=== PATIENT | male | born 1945 | race Two or more races ===

== ENCOUNTER → 2016-05-21 | Day surgery (SDC) | payer MEDICARE, MEDICAID ==
[2016-05-19 13:03] LABS: Basophils # (auto) 0 uL; Basophils % (auto) 0.6 % (0.0-2.0); DEFINITIVE VIEW TRANSMISSION; Eosinophils # (auto) 0.4 uL; Eosinophils % (auto) 6.6 % (0.0-7.0); Hematocrit 46.7 % (41.0-53.0); Hemoglobin 15.3 g/dL (13.5-17.5); Lymphocytes # (auto) 2.4 uL; Mean Corpuscular Hemoglobin 27.4 pg (28.0-32.0); Mean Corpuscular Hgb Conc. 32.7 g/dL (32.0-36.0); Mean Corpuscular Volume 83.7 fL (80.0-100.0); Mean Platelet Volume 10.9 fL (7.4-10.4); Monocytes # (auto) 0.6 uL; Monocytes % (auto) 9.5 % (0.0-12.0); Neutrophils # (auto) 3.2 uL; Neutrophils % (auto) 47.3 % (37.0-80.0); Platelet Count (auto) 205 10^3/uL (140-450); White Blood Cell 6.7 10^3/uL (4.4-10.8)
[2016-05-19 13:15] LABS: Partial Thromboplastin Time 27.5 sec (22.64-33.71); Prothrombin Time 10.3 sec (9.37-12.3)
[2016-05-19 13:21] LABS: Red Cell Distribution Width 22.3 % (11.6-16.0)
[2016-05-19 14:35] LABS: Anisocytosis Slight; Platelet Estimate Adequate
[~2016-05-21] VITALS: Ht 165.1 cm; Wt 82.6 kg
[~2016-05-21] MED LIST: LIDOCAINE VISCOUS 2% 15ML UD ONE; LISI10TA6 PO; MIDAZOLAM HCL 5 MG/ML-1ML VIAL ONE; SODIUM CHLORIDE LOCK 10 ML ONE; diphenhdrAMINE HCL 50 MG/1 ML VL ONE; fentaNYL CITRATE 100 MCG/2 ML VL ONE
[2016-05-21 11:15] VITALS: BP 129/82
== END | disposition home or self-care (01) ==
LOC: GI 08:47
PROVIDERS: ATTEND Internal Medicine Gastroenterology
DX: K44.9 Diaphragmatic hernia without obstruction or gangrene (principal); T82.897A Other specified complication of cardiac prosthetic devices, implants and grafts, initial encounter
CPT/HCPCS: 36415; 43235; 85025; 85610; 85730; J1200; J2250; J3010

== ENCOUNTER 2016-07-10 19:02 | Emergency (ER) | payer MEDICARE, MEDICAID ==
[~2016-07-10] VITALS: Ht 162.6 cm; Wt 81.6 kg
[~2016-07-10 19:02] MED LIST changes: -LIDOCAINE VISCOUS 2% 15ML UD ONE; -MIDAZOLAM HCL 5 MG/ML-1ML VIAL ONE; -SODIUM CHLORIDE LOCK 10 ML ONE; -diphenhdrAMINE HCL 50 MG/1 ML VL ONE; -fentaNYL CITRATE 100 MCG/2 ML VL ONE
[2016-07-10 19:53] LABS: Basophils # (auto) 0 uL; Basophils % (auto) 0.3 % (0.0-2.0); Eosinophils # (auto) 0.3 uL; Eosinophils % (auto) 3.3 % (0.0-7.0); Hemoglobin 16.1 g/dL (13.5-17.5); Lymphocytes # (auto) 3.4 uL; Lymphocytes % (auto) 37.5 % (10.0-50.0); Mean Corpuscular Hemoglobin 30.3 pg (28.0-32.0); Mean Corpuscular Hgb Conc. 34.2 g/dL (32.0-36.0); Mean Corpuscular Volume 88.6 fL (80.0-100.0); Mean Platelet Volume 9.8 fL (7.4-10.4); Monocytes # (auto) 0.8 uL; Monocytes % (auto) 9.3 % (0.0-12.0); Neutrophils # (auto) 4.5 uL; Neutrophils % (auto) 49.6 % (37.0-80.0); Platelet Count (auto) 200 10^3/uL (140-450); Red Cell Distribution Width 15.4 % (11.6-16.0); White Blood Cell 9.1 10^3/uL (4.4-10.8)
[2016-07-10 20:19] LABS: Alkaline Phosphatase 121 U/L (45-117); Anion Gap 12 (5-15); Aspartate Aminotransferase 25 U/L (15-37); BUN/Creatinine Ratio 10.8; Bilirubin, Total 0.4 mg/dL (0.2-1.0); Blood Urea Nitrogen 15 mg/dL (7-18); Calcium 9.2 mg/dL (8.5-10.1); Carbon Dioxide 26 mmol/L (21-32); Chloride 105 mmol/L (98-107); GFR African American 65 mL/min; GFR Non-African American 54 mL/min; Glucose 109 mg/dL (74-106); Magnesium 2.2 mg/dL (1.6-2.6); Potassium 3.5 mmol/L (3.5-5.1); Sodium 143 mmol/L (136-145); Total Protein 8.7 g/dL (6.4-8.2)
[2016-07-10 20:20] LABS: B-Type Natriuretic Peptide 3.68 pg/mL (0-100)
[2016-07-10 21:06] LABS: Urine Bilirubin Negative (Negative); Urine Blood Negative /uL (Negative); Urine Color Yellow (Yellow); Urine Glucose Normal (Normal); Urine Ketone Negative (Negative); Urine Nitrite Negative (Negative); Urine RBC <1 /hpf (0 - 3); Urine Urobilinogen Normal (Negative); Urine pH 5.5 (5.0-8.0)
[2016-07-11 01:15] VITALS: BP 125/81
== END 2016-07-11 02:19 | disposition home or self-care (01) ==
LOC: ER 19:04
DX: E86.0 Dehydration (principal); K58.9 Irritable bowel syndrome, unspecified; D35.02 Benign neoplasm of left adrenal gland; R53.1 Weakness; I10 Essential (primary) hypertension; Z88.6 Allergy status to analgesic agent; R07.89 Other chest pain
CPT/HCPCS: 36415; 71010; 74176; 80053; 81001; 83735; 83880; 84484; 85025; 93005; 94761

== ENCOUNTER → 2016-07-17 | Outpatient (CLI) | payer MEDICARE, MEDICAID | END | disposition home or self-care (01) | LOC: LAB 08:45 | PROVIDERS: ATTEND Internal Medicine Gastroenterology | DX: B18.2 Chronic viral hepatitis C (principal) ==

== ENCOUNTER 2016-08-06 14:21 | Emergency (ER) | payer MEDICARE, MEDICAID ==
[~2016-08-06] VITALS: Ht 165.1 cm; Wt 79.4 kg
[2016-08-06 15:18] LABS: Basophils # (auto) 0 uL; Basophils % (auto) 0.4 % (0.0-2.0); Eosinophils # (auto) 0.4 uL; Eosinophils % (auto) 5.2 % (0.0-7.0); Hematocrit 44.9 % (41.0-53.0); Hemoglobin 15.5 g/dL (13.5-17.5); Lymphocytes # (auto) 2.3 uL; Lymphocytes % (auto) 31.6 % (10.0-50.0); Mean Corpuscular Hemoglobin 31.3 pg (28.0-32.0); Mean Corpuscular Hgb Conc. 34.5 g/dL (32.0-36.0); Mean Corpuscular Volume 90.7 fL (80.0-100.0); Mean Platelet Volume 10.1 fL (7.4-10.4); Monocytes # (auto) 0.7 uL; Monocytes % (auto) 9.3 % (0.0-12.0); Neutrophils % (auto) 53.5 % (37.0-80.0); Platelet Count (auto) 223 10^3/uL (140-450); Red Cell Distribution Width 14.6 % (11.6-16.0); White Blood Cell 7.4 10^3/uL (4.4-10.8)
[2016-08-06 15:44] LABS: Alkaline Phosphatase 120 U/L (45-117); Anion Gap 11 (5-15); Aspartate Aminotransferase 24 U/L (15-37); BUN/Creatinine Ratio 17.3; Bilirubin, Total 0.3 mg/dL (0.2-1.0); Blood Urea Nitrogen 22 mg/dL (7-18); Calcium 8.9 mg/dL (8.5-10.1); Carbon Dioxide 26 mmol/L (21-32); Chloride 106 mmol/L (98-107); GFR African American 72 mL/min; GFR Non-African American 60 mL/min; Glucose 108 mg/dL (74-106); Magnesium 2.4 mg/dL (1.6-2.6); Potassium 3.8 mmol/L (3.5-5.1); Sodium 143 mmol/L (136-145); Total Protein 8.7 g/dL (6.4-8.2)
[2016-08-06 16:00] VITALS: BP 130/83
== END 2016-08-06 16:20 | disposition home or self-care (01) ==
LOC: EDBD 14:21 → ER 14:29
DX: F41.9 Anxiety disorder, unspecified (principal); Z85.038 Personal history of other malignant neoplasm of large intestine; I10 Essential (primary) hypertension; I25.2 Old myocardial infarction; Z98.61 Coronary angioplasty status; Z88.5 Allergy status to narcotic agent
CPT/HCPCS: 36415; 71020; 80053; 83735; 84484; 85025; 93005

== ENCOUNTER → 2019-05-25 | Outpatient (CLI) | payer MEDICARE | END | disposition home or self-care (01) | LOC: LAB 14:45 | PROVIDERS: ATTEND Internal Medicine Gastroenterology | DX: Z86.19 Personal history of other infectious and parasitic diseases (principal) | CPT/HCPCS: 87522 ==

== ENCOUNTER 2021-06-05 18:14 | Emergency (ER) | payer MEDICARE, OTHER ==
[~2021-06-05] VITALS: Ht 162.6 cm; Wt 86.2 kg
[~2021-06-05 18:14] MED LIST changes: +LISI-716 PO; -LISI10TA6 PO
[2021-06-05 21:21] LABS: Basophils # (auto) 0 10 ^3/uL (0-0.2); Eosinophils # (auto) 0.2 10 ^3/uL (0-0.8); Hemoglobin 12.1 g/dL (13.5-17.5); Lymphocytes # (auto) 0.6 10 ^3/uL (0.4-5.4)
[2021-06-05 21:30] LABS: Basophils % (auto) 0.3 % (0.0-2.0); Eosinophils % (auto) 2.7 % (0.0-7.0); Hematocrit 36.7 % (41.0-53.0); Lymphocytes % (auto) 6.8 % (10.0-50.0); Mean Corpuscular Hemoglobin 25.6 pg (28.0-32.0); Mean Corpuscular Volume 77.7 fL (80.0-100.0); Monocytes # (auto) 0.9 10 ^3/uL (0-1.3); Monocytes % (auto) 10.3 % (0.0-12.0); Neutrophils # (auto) 6.7 10 ^3/uL (1.6-8.6); Neutrophils % (auto) 79.9 % (37.0-80.0); Red Blood Cells 4.72 10^6/uL (4.5-5.90); White Blood Cell 8.4 10^3/uL (4.4-10.8)
[2021-06-05 21:32] LABS: Albumin 3.7 g/dL (3.4-5.0); Calcium 9.5 mg/dL (8.5-10.1); INR 1.04 (0.9-1.15); Magnesium 2.8 mg/dL (1.6-2.6); Partial Thromboplastin Time 24.6 sec (23.6-33.0); Potassium 4.4 mmol/L (3.5-5.1)
[2021-06-05 21:33] LABS: Red Cell Distribution Width 20.6 % (11.8-14.3)
[2021-06-05 21:37] LABS: BUN/Creatinine Ratio 18.3; Bilirubin, Total 0.2 mg/dL (0.2-1.0); Total Protein 7.6 g/dL (6.4-8.2)
[2021-06-06 01:31] VITALS: BP 150/88
== END 2021-06-06 02:32 | disposition home or self-care (01) ==
LOC: ER 18:14 → EDBD 18:14 → ER 06-06 02:32
DX: R00.2 Palpitations (principal); I48.91 Unspecified atrial fibrillation; I10 Essential (primary) hypertension; I25.2 Old myocardial infarction; Z88.6 Allergy status to analgesic agent
CPT/HCPCS: 36415; 71045; 80053; 83735; 83880; 84443; 84484; 85025; 85379; 85610; 85730; 93005

== ENCOUNTER 2021-11-08 09:12 | Inpatient (IN) | payer MEDICARE, OTHER ==
[~2021-11-08] VITALS: Ht 162.6 cm; Wt 83.1 kg
[2021-11-08 10:10] LABS: Basophils # (auto) 0 10 ^3/uL (0-0.2); Basophils % (auto) 0.5 % (0.0-2.0); Eosinophils # (auto) 0.3 10 ^3/uL (0-0.8); Eosinophils % (auto) 4.1 % (0.0-7.0); Hematocrit 35.9 % (41.0-53.0); Hemoglobin 12.4 g/dL (13.5-17.5); Lymphocytes # (auto) 0.6 10 ^3/uL (0.4-5.4); Lymphocytes % (auto) 7.2 % (10.0-50.0); Mean Corpuscular Hemoglobin 28.3 pg (28.0-32.0); Mean Corpuscular Hgb Conc. 34.5 g/dL (32.0-36.0); Mean Corpuscular Volume 81.9 fL (80.0-100.0); Monocytes # (auto) 0.7 10 ^3/uL (0-1.3); Monocytes % (auto) 9.1 % (0.0-12.0); Neutrophils # (auto) 6.2 10 ^3/uL (1.6-8.6); Neutrophils % (auto) 79.1 % (37.0-80.0); Red Blood Cells 4.38 10^6/uL (4.5-5.90); Red Cell Distribution Width 18.2 % (11.8-14.3); White Blood Cell 7.8 10^3/uL (4.4-10.8)
[2021-11-08 10:19] LABS: Albumin 3.5 g/dL (3.4-5.0); Calcium 8.7 mg/dL (8.5-10.1); Potassium 3.4 mmol/L (3.5-5.1)
[2021-11-08 10:23] LABS: BUN/Creatinine Ratio 14.4; Bilirubin, Total 0.4 mg/dL (0.2-1.0); Total Protein 7.8 g/dL (6.4-8.2)
[2021-11-08] MEDS ORDERED: SODIUM CHLORIDE 0.9% 500 ML IV ONE (11:30)
[2021-11-08] MEDS ORDERED: FAMOTIDINE 20 MG TAB PO ONE (12:15)
[2021-11-08] MEDS ORDERED: ALUM & MAG HYDROX-SIMETH LIQ(MAALOX) 30 ML PO ONE (12:15)
[2021-11-08] MEDS ORDERED: ONDANSETRON HCL 4 MG/2 ML VIAL IV ONE ×2 (12:15→18:45)
[2021-11-08] MEDS ORDERED: POTASSIUM EFFERVESENT TAB 25 MEQ PO ONE (15:30)
[2021-11-08 16:04] LABS: Urine Bacteria NONE SEEN /hpf (None Seen); Urine Blood Negative /uL (Negative); Urine Mucus FEW (None Seen); Urine Specific Gravity 1.021 (1.001-1.035); Urine WBC <1 /hpf (0 - 3)
[2021-11-08] MEDS ORDERED: ONDANSETRON HCL 4 MG/2 ML VIAL ONE (18:29)
[2021-11-08] MEDS ORDERED: DOCUSATE SOD 100 MG CAP PO PRN (18:30)
[2021-11-08] MEDS ORDERED: ALBUTEROL SULF 2.5 MG/0.5ML(0.5%) NEB SOLN NEB PRN (18:30)
[2021-11-08] MEDS: ACETAMINOPHEN 325 MG TAB PO PRN (18:53)
[2021-11-08 22:00] VITALS: BP 122/62
[2021-11-08] MEDS: CARVEDILOL 12.5 MG TAB PO SCH (22:47)
[2021-11-08] MEDS: SODIUM CHLOR 0.9% PF (SALINE LOCK) 10ML VIAL/SYR IV SCH (22:47)
[2021-11-08 23:04] LABS: BUN/Creatinine Ratio 16.3; Calcium 8.5 mg/dL (8.5-10.1)
[2021-11-09] MEDS: ONDANSETRON HCL 4 MG/2 ML VIAL IV PRN ×4 (01:39→18:42)
[2021-11-09] MEDS: ACETAMINOPHEN 325 MG TAB PO PRN ×4 (01:48→21:39)
[2021-11-09 02:25] LABS: BUN/Creatinine Ratio 15.4; Calcium 8.9 mg/dL (8.5-10.1); Potassium 3.9 mmol/L (3.5-5.1)
[2021-11-09 05:30] VITALS: BP 146/77
[2021-11-09 06:00] VITALS: BP 122/65
[2021-11-09] MEDS: SODIUM CHLOR 0.9% PF (SALINE LOCK) 10ML VIAL/SYR IV SCH ×3 (06:19→21:38)
[2021-11-09 06:36] LABS: Calcium 8.9 mg/dL (8.5-10.1); Potassium 3.9 mmol/L (3.5-5.1)
[2021-11-09 08:00] VITALS: BP 129/68
[2021-11-09] MEDS: FERROUS SULFATE 325mg EC TAB PO SCH (09:24)
[2021-11-09] MEDS: CARVEDILOL 12.5 MG TAB PO SCH ×2 (09:24→21:48)
[2021-11-09] MEDS: ASPirin-EC 81 mg tab PO SCH (09:24)
[2021-11-09] MEDS: LISINOPRIL 5 MG TAB PO SCH (09:25)
[2021-11-09] MEDS ORDERED: LISINOPRIL 10 MG TAB PO SCH (10:00)
[2021-11-09 10:16] LABS: BUN/Creatinine Ratio 13.9; Calcium 8.9 mg/dL (8.5-10.1)
[2021-11-09 10:18] LABS: Potassium 3.7 mmol/L (3.5-5.1)
[2021-11-09 11:30] VITALS: BP 115/63
[2021-11-09 14:19] LABS: BUN/Creatinine Ratio 13.5; Calcium 8.8 mg/dL (8.5-10.1); Potassium 3.7 mmol/L (3.5-5.1)
[2021-11-09] MEDS: SODIUM CHLORIDE 1 GM TAB PO SCH ×2 (14:45→21:38)
[2021-11-09 16:25] VITALS: BP_SYST 134; BP_SYST 138; BP_DIAS 73; BP_DIAS 86
[2021-11-09 22:00] VITALS: BP 127/67
[2021-11-10] MEDS: ONDANSETRON HCL 4 MG/2 ML VIAL IV PRN ×2 (00:07→10:10)
[2021-11-10] MEDS ORDERED: TEMAZEPAM 15 MG CAP PO ONE (00:45)
[2021-11-10 05:00] VITALS: BP 130/70
[2021-11-10] MEDS: SODIUM CHLOR 0.9% PF (SALINE LOCK) 10ML VIAL/SYR IV SCH ×3 (05:43→23:45)
[2021-11-10] MEDS: SODIUM CHLORIDE 1 GM TAB PO SCH ×4 (05:44→22:00)
[2021-11-10 09:13] VITALS: BP 133/73
[2021-11-10] MEDS: FERROUS SULFATE 325mg EC TAB PO SCH (10:09)
[2021-11-10] MEDS: ASPirin-EC 81 mg tab PO SCH (10:09)
[2021-11-10] MEDS: CARVEDILOL 12.5 MG TAB PO SCH ×2 (10:09→22:17)
[2021-11-10] MEDS: LISINOPRIL 5 MG TAB PO SCH (10:10)
[2021-11-10] MEDS: ACETAMINOPHEN 325 MG TAB PO PRN (10:10)
[2021-11-10] MEDS ORDERED: HYDROcodone-ACET 7.5/325MG TAB PO PRN (12:00)
[2021-11-10 12:24] LABS: BUN/Creatinine Ratio 11.2; Calcium 8.8 mg/dL (8.5-10.1); Potassium 3.6 mmol/L (3.5-5.1)
[2021-11-10 12:25] VITALS: BP 137/70
[2021-11-10] MEDS ORDERED: IOHEXOL 300 MG/ML 100ML BOTTLE IJ ONE (13:24)
[2021-11-10] MEDS ORDERED: UREA 15 GM PO SCH (15:00)
[2021-11-10] MEDS: UREA 15gm PO Powder PKG PO SCH ×2 (16:28→22:17)
[2021-11-10 16:41] VITALS: BP 138/72
[2021-11-10] MEDS: FUROSEMIDE 20 MG TAB PO SCH (18:00)
[2021-11-10 21:55] VITALS: BP 105/61
[2021-11-10] MEDS: PANTOPRAZOLE 40 MG TAB PO SCH (22:17)
[2021-11-11 04:55] VITALS: BP 114/61
[2021-11-11] MEDS: FUROSEMIDE 20 MG TAB PO SCH (05:38)
[2021-11-11 06:11] LABS: BUN/Creatinine Ratio 34.4; Calcium 9.2 mg/dL (8.5-10.1); Potassium 3.6 mmol/L (3.5-5.1)
[2021-11-11] MEDS: SODIUM CHLORIDE 1 GM TAB PO SCH ×3 (07:01→22:33)
[2021-11-11] MEDS: SODIUM CHLOR 0.9% PF (SALINE LOCK) 10ML VIAL/SYR IV SCH ×3 (07:02→22:34)
[2021-11-11] MEDS: PROMETHAZINE HCL 25 MG/ML 1ML IV PRN ×3 (07:50→21:48)
[2021-11-11 08:45] VITALS: BP 133/74
[2021-11-11] MEDS: ASPirin-EC 81 mg tab PO SCH (09:27)
[2021-11-11] MEDS: LISINOPRIL 5 MG TAB PO SCH (09:27)
[2021-11-11] MEDS: PANTOPRAZOLE 40 MG TAB PO SCH ×2 (09:27→22:30)
[2021-11-11] MEDS: FERROUS SULFATE 325mg EC TAB PO SCH (09:27)
[2021-11-11] MEDS: UREA 15gm PO Powder PKG PO SCH ×2 (09:28→22:30)
[2021-11-11] MEDS: CARVEDILOL 12.5 MG TAB PO SCH ×2 (09:28→22:32)
[2021-11-11 16:49] VITALS: BP 90/50
[2021-11-11 22:00] VITALS: BP 110/63
[2021-11-12 03:55] VITALS: BP 114/67
[2021-11-12] MEDS: PROMETHAZINE HCL 25 MG/ML 1ML IV PRN (05:24)
[2021-11-12 05:53] LABS: BUN/Creatinine Ratio 34.5; Calcium 9.2 mg/dL (8.5-10.1)
[2021-11-12] MEDS: SODIUM CHLORIDE 1 GM TAB PO SCH (05:57)
[2021-11-12] MEDS: SODIUM CHLOR 0.9% PF (SALINE LOCK) 10ML VIAL/SYR IV SCH ×3 (06:00→21:26)
[2021-11-12 09:00] VITALS: BP 137/76
[2021-11-12 09:10] VITALS: BP 114/67
[2021-11-12] MEDS ORDERED: GASTROGRAFIN 120 ML SOL ONE (09:21)
[2021-11-12] MEDS ORDERED: EZ-GAS II GRANULES (RADIOLOGY USE) PO ONE (09:22)
[2021-11-12] MEDS: CARVEDILOL 12.5 MG TAB PO SCH ×2 (10:00→21:26)
[2021-11-12] MEDS ORDERED: ALBUMIN 25% 100 ML IV ONE (10:00)
[2021-11-12] MEDS: PANTOPRAZOLE 40 MG TAB PO SCH ×2 (12:22→21:25)
[2021-11-12] MEDS: ASPirin-EC 81 mg tab PO SCH (12:22)
[2021-11-12] MEDS: FERROUS SULFATE 325mg EC TAB PO SCH (12:22)
[2021-11-12] MEDS: LISINOPRIL 5 MG TAB PO SCH (12:23)
[2021-11-12 13:00] VITALS: BP 117/71
[2021-11-12 15:30] LABS: BUN/Creatinine Ratio 30.1; Calcium 9.2 mg/dL (8.5-10.1); Potassium 4.2 mmol/L (3.5-5.1)
[2021-11-12 16:56] VITALS: BP 110/72
[2021-11-12 22:00] VITALS: BP 121/78
[2021-11-13 05:28] LABS: Basophils # (auto) 0.1 10 ^3/uL (0-0.2); Basophils % (auto) 0.8 % (0.0-2.0); Eosinophils # (auto) 0.4 10 ^3/uL (0-0.8); Eosinophils % (auto) 5.9 % (0.0-7.0); Hematocrit 33.5 % (41.0-53.0); Hemoglobin 11.2 g/dL (13.5-17.5); Lymphocytes # (auto) 0.8 10 ^3/uL (0.4-5.4); Lymphocytes % (auto) 11.9 % (10.0-50.0); Mean Corpuscular Hemoglobin 28.3 pg (28.0-32.0); Mean Corpuscular Hgb Conc. 33.4 g/dL (32.0-36.0); Mean Corpuscular Volume 84.5 fL (80.0-100.0); Monocytes # (auto) 1.1 10 ^3/uL (0-1.3); Monocytes % (auto) 15.8 % (0.0-12.0); Neutrophils # (auto) 4.5 10 ^3/uL (1.6-8.6); Neutrophils % (auto) 65.6 % (37.0-80.0); Red Blood Cells 3.96 10^6/uL (4.5-5.90); Red Cell Distribution Width 19.1 % (11.8-14.3); White Blood Cell 6.8 10^3/uL (4.4-10.8)
[2021-11-13 05:49] LABS: Calcium 8.8 mg/dL (8.5-10.1); Potassium 4.1 mmol/L (3.5-5.1)
[2021-11-13] MEDS: SODIUM CHLOR 0.9% PF (SALINE LOCK) 10ML VIAL/SYR IV SCH ×2 (05:49→14:00)
[2021-11-13 05:52] LABS: BUN/Creatinine Ratio 30.5
[2021-11-13 09:01] VITALS: BP 112/60
[2021-11-13] MEDS: ASPirin-EC 81 mg tab PO SCH (10:43)
[2021-11-13] MEDS: LISINOPRIL 5 MG TAB PO SCH (10:44)
[2021-11-13] MEDS: PANTOPRAZOLE 40 MG TAB PO SCH (10:44)
[2021-11-13] MEDS: CARVEDILOL 12.5 MG TAB PO SCH (10:45)
[2021-11-13] MEDS: FERROUS SULFATE 325mg EC TAB PO SCH (10:45)
[2021-11-13] MEDS ORDERED: PANT40T PO (12:38)
[2021-11-13 13:00] VITALS: BP 119/65
[2021-11-13 15:14] VITALS: BP 119/65
== END 2021-11-13 16:43 | disposition home or self-care (01) | DRG 644 ==
LOC: ER 09:12 → OVERFLOW 18:24 → DOU IN ICU 11-09 04:50 → TELE-WESTW 11-09 12:40
PROVIDERS: ADMIT Internal Medicine; ATTEND Family Medicine
DX: E22.2 Syndrome of inappropriate secretion of antidiuretic hormone (principal); N17.9 Acute kidney failure, unspecified; J84.10 Pulmonary fibrosis, unspecified; E86.0 Dehydration; E87.6 Hypokalemia; D64.9 Anemia, unspecified; R91.1 Solitary pulmonary nodule; K57.10 Diverticulosis of small intestine without perforation or abscess without bleeding; Z88.5 Allergy status to narcotic agent; I10 Essential (primary) hypertension; I25.10 Atherosclerotic heart disease of native coronary artery without angina pectoris; I25.2 Old myocardial infarction; J44.9 Chronic obstructive pulmonary disease, unspecified; Z85.038 Personal history of other malignant neoplasm of large intestine; Z85.46 Personal history of malignant neoplasm of prostate; Z86.16 Personal history of COVID-19; Z87.01 Personal history of pneumonia (recurrent); Z90.49 Acquired absence of other specified parts of digestive tract; Z90.79 Acquired absence of other genital organ(s); Z95.1 Presence of aortocoronary bypass graft; Z98.84 Bariatric surgery status
CPT/HCPCS: 36415; 70450; 71046; 71260; 74246; 76705; 78226; 80048; 80053; 81001; 83930; 83935; 84300; 84484; 85025; 87081; 93005; 96361; 96374; 99291; G0378; J2405; P9047

== ENCOUNTER 2021-11-18 08:16 | Inpatient (IN) | payer MEDICARE, OTHER ==
[~2021-11-18] VITALS: Ht 162.6 cm; Wt 80.7 kg
[~2021-11-18 08:16] MED LIST changes: +PANT40T PO
[2021-11-18] MEDS ORDERED: methylPREDNISolone SOD SUCC 125 MG/2 ML VL IV ONE (08:45)
[2021-11-18 10:46] LABS: Basophils # (auto) 0 10 ^3/uL (0-0.2); Basophils % (auto) 0.5 % (0.0-2.0); Eosinophils # (auto) 0.4 10 ^3/uL (0-0.8); Eosinophils % (auto) 4.3 % (0.0-7.0); Hematocrit 35.3 % (41.0-53.0); Hemoglobin 11.9 g/dL (13.5-17.5); Lymphocytes # (auto) 0.7 10 ^3/uL (0.4-5.4); Lymphocytes % (auto) 8.6 % (10.0-50.0); Mean Corpuscular Hemoglobin 28.3 pg (28.0-32.0); Mean Corpuscular Hgb Conc. 33.7 g/dL (32.0-36.0); Mean Corpuscular Volume 83.9 fL (80.0-100.0); Monocytes # (auto) 0.8 10 ^3/uL (0-1.3); Monocytes % (auto) 10.1 % (0.0-12.0); Neutrophils # (auto) 6.4 10 ^3/uL (1.6-8.6); Neutrophils % (auto) 76.5 % (37.0-80.0); Red Cell Distribution Width 19.1 % (11.8-14.3); White Blood Cell 8.4 10^3/uL (4.4-10.8)
[2021-11-18 11:01] LABS: Albumin 3.6 g/dL (3.4-5.0); Calcium 9.2 mg/dL (8.5-10.1); Potassium 4.5 mmol/L (3.5-5.1)
[2021-11-18 11:06] LABS: BUN/Creatinine Ratio 15.7; Bilirubin, Total 0.2 mg/dL (0.2-1.0)
[2021-11-18] MEDS ORDERED: DOCUSATE SOD 100 MG CAP PO PRN (16:00)
[2021-11-18] MEDS ORDERED: ACETAMINOPHEN 325 MG TAB PO PRN (16:00)
[2021-11-18] MEDS: SODIUM CHLORIDE 0.9% 1,000 ML IV SCH (16:16)
[2021-11-19 00:01] VITALS: BP 129/71
[2021-11-19 05:00] VITALS: BP 118/64
[2021-11-19 05:16] LABS: Basophils # (auto) 0 10 ^3/uL (0-0.2); Eosinophils # (auto) 0 10 ^3/uL (0-0.8); Hematocrit 34.1 % (41.0-53.0); Hemoglobin 11.5 g/dL (13.5-17.5); Lymphocytes # (auto) 0.5 10 ^3/uL (0.4-5.4); Lymphocytes % (auto) 5.3 % (10.0-50.0); Mean Corpuscular Hemoglobin 28.1 pg (28.0-32.0); Mean Corpuscular Hgb Conc. 33.9 g/dL (32.0-36.0); Mean Corpuscular Volume 83.1 fL (80.0-100.0); Monocytes # (auto) 0.3 10 ^3/uL (0-1.3); Neutrophils # (auto) 9.2 10 ^3/uL (1.6-8.6); Neutrophils % (auto) 91.7 % (37.0-80.0); Red Cell Distribution Width 19.2 % (11.8-14.3)
[2021-11-19 05:27] LABS: Albumin 3.4 g/dL (3.4-5.0); Calcium 9.3 mg/dL (8.5-10.1); Potassium 4.1 mmol/L (3.5-5.1)
[2021-11-19 05:30] LABS: BUN/Creatinine Ratio 19.3; Bilirubin, Total 0.3 mg/dL (0.2-1.0); Total Protein 7.5 g/dL (6.4-8.2)
[2021-11-19 06:31] LABS: Urine Bacteria NONE SEEN /hpf (None Seen); Urine Blood Negative /uL (Negative); Urine WBC <1 /hpf (0 - 3)
[2021-11-19 09:00] VITALS: BP 117/64
[2021-11-19] MEDS ORDERED: AZITHROMYCIN 500MG/ 250ML 250 ML IV SCH (10:00)
[2021-11-19] MEDS: cefTRIAXone 1GM/50ML D5W 50 ML IV SCH (10:24)
[2021-11-19] MEDS: ENOXAPARIN SOD 40 MG/0.4 ML SYRINGE SC SCH (10:24)
[2021-11-19] MEDS: SODIUM CHLORIDE 0.9% 1,000 ML IV SCH (10:27)
[2021-11-19 12:49] VITALS: BP 141/70
[2021-11-19] MEDS ORDERED: LISINOPRIL 5 MG TAB PO ONE (14:15)
[2021-11-19] MEDS ORDERED: POTASSIUM CHL 20 Meq TABLET PO ONE (14:15)
[2021-11-19] MEDS ORDERED: FUROSEMIDE 40 MG/4 ML VIAL IV ONE (14:15)
[2021-11-19] MEDS ORDERED: ASPirin 81 mg TAB PO ONE (14:15)
[2021-11-19 16:29] VITALS: BP 120/71
[2021-11-19 22:00] VITALS: BP 109/61
[2021-11-19] MEDS: ATORVASTATIN 20 MG TAB PO SCH (23:03)
[2021-11-20] VITALS (7 sets, daily range): BP systolic 104–156; BP diastolic 62–88
[2021-11-20 06:10] LABS: Calcium 9.4 mg/dL (8.5-10.1); Potassium 3.9 mmol/L (3.5-5.1)
[2021-11-20 06:12] LABS: BUN/Creatinine Ratio 22.4
[2021-11-20] MEDS: cefTRIAXone 1GM/50ML D5W 50 ML IV SCH (10:45)
[2021-11-20] MEDS: LISINOPRIL 5 MG TAB PO SCH (10:46)
[2021-11-20] MEDS: ENOXAPARIN SOD 40 MG/0.4 ML SYRINGE SC SCH (10:46)
[2021-11-20] MEDS: AZITHROMYCIN 250 MG TAB PO SCH (10:47)
[2021-11-20] MEDS: ASPirin 81 mg TAB PO SCH (10:48)
[2021-11-20] MEDS ORDERED: FUROSEMIDE 40 MG/4 ML VIAL IV ONE (15:30)
[2021-11-20] MEDS ORDERED: POTASSIUM CHL 20 Meq TABLET PO ONE (15:30)
[2021-11-20] MEDS ORDERED: CARVEDILOL 12.5 MG TAB PO ONE (20:45)
[2021-11-20] MEDS: ATORVASTATIN 20 MG TAB PO SCH (21:28)
[2021-11-20] MEDS ORDERED: AMIODARONE HCL (50 MG/ ML) 3 ML VIAL IV ONE (22:52)
[2021-11-20] MEDS ORDERED: AMIODARONE 450mg/250ml AE 250 ML IV ONE (22:53)
[2021-11-20] MEDS ORDERED: NITROGLYCERIN 0.4 MG SL TAB SL PRN (23:00)
[2021-11-20] MEDS ORDERED: AMIODARONE HCL 150 MG in D5W 5% 100 ML IV ONE (23:15)
[2021-11-20] MEDS ORDERED: AMIODARONE 450mg/250ml AE 250 ML IV SCH (23:30)
[2021-11-21] MEDS: HYDROcodone-ACET 5/325MG TAB PO PRN (00:21)
[2021-11-21 05:00] VITALS: BP 111/65
[2021-11-21] MEDS ORDERED: AMIODARONE 450mg/250ml AE 250 ML IV SCH (05:30)
[2021-11-21 09:00] VITALS: BP 112/68
[2021-11-21] MEDS: cefTRIAXone 1GM/50ML D5W 50 ML IV SCH (10:48)
[2021-11-21] MEDS: LISINOPRIL 5 MG TAB PO SCH (10:49)
[2021-11-21] MEDS: CARVEDILOL 12.5 MG TAB PO SCH ×2 (10:50→22:00)
[2021-11-21] MEDS: AZITHROMYCIN 250 MG TAB PO SCH (10:55)
[2021-11-21] MEDS: ENOXAPARIN SOD 40 MG/0.4 ML SYRINGE SC SCH (10:56)
[2021-11-21] MEDS: ASPirin 81 mg TAB PO SCH (11:01)
[2021-11-21 12:55] VITALS: BP 127/76
[2021-11-21] MEDS ORDERED: NITROGLYCERIN 2% OINT 1GM PKG TD SCH (14:30)
[2021-11-21] MEDS ORDERED: RIV15T PO (15:21)
[2021-11-21] MEDS ORDERED: PRE5T PO (15:21)
[2021-11-21] MEDS ORDERED: LORA-655 PO (15:21)
[2021-11-21] MEDS ORDERED: OMEP-263 PO (15:21)
[2021-11-21] MEDS ORDERED: INDA2.5T PO (15:21)
[2021-11-21] MEDS ORDERED: HYDR5CRE3 PR (15:21)
[2021-11-21] MEDS ORDERED: ICOS1CAP PO (15:21)
[2021-11-21] MEDS ORDERED: FERR324T17 PO (15:21)
[2021-11-21] MEDS ORDERED: MONT-8 PO (15:21)
[2021-11-21] MEDS ORDERED: LISI-275 PO (15:21)
[2021-11-21] MEDS ORDERED: ESCI-28 PO (15:21)
[2021-11-21] MEDS ORDERED: ONDANSETRON HCL 4 MG/2 ML VIAL IV PRN (16:00)
[2021-11-21] MEDS ORDERED: PANTOPRAZOLE 40 MG/10 ML VIAL INJ IV ONE (16:00)
[2021-11-21] MEDS: ONDANSETRON HCL 4 MG/2 ML VIAL IV PRN ×2 (16:02→22:32)
[2021-11-21 17:00] VITALS: BP 118/67
[2021-11-21] MEDS: RIVAROXABAN 15 MG TAB PO SCH (18:00)
[2021-11-21 22:00] VITALS: BP 92/55
[2021-11-21] MEDS: ATORVASTATIN 20 MG TAB PO SCH (22:00)
[2021-11-22] MEDS ORDERED: SODIUM CHLORIDE 0.9% 500 ML IV ONE
[2021-11-22 05:00] VITALS: BP 99/60
[2021-11-22 07:17] LABS: Calcium 8.5 mg/dL (8.5-10.1); Potassium 4.1 mmol/L (3.5-5.1)
[2021-11-22 07:20] LABS: BUN/Creatinine Ratio 22.6
[2021-11-22 07:56] LABS: Hematocrit 32.3 % (41.0-53.0); Hemoglobin 11.4 g/dL (13.5-17.5); Mean Corpuscular Hgb Conc. 35.2 g/dL (32.0-36.0); Mean Corpuscular Volume 82.2 fL (80.0-100.0); Red Blood Cells 3.93 10^6/uL (4.5-5.90); White Blood Cell 7.5 10^3/uL (4.4-10.8)
[2021-11-22 07:59] LABS: Band Neutrophils % (manual) 0; Basophils % (manual) 0 (0.0-2.0); Blast Cells 0; Metamyelocytes % 0; Myelocytes % 0; Promyelocytes % 0; Reactive Lymphocytes 0
[2021-11-22 08:32] LABS: Eosinophils % (manual) 5 (0-7); Lymphocytes % (manual) 10 (10.0-50.0); Monocytes % (manual) 5 (0-12)
[2021-11-22 09:19] VITALS: BP 103/67
[2021-11-22] MEDS: CARVEDILOL 12.5 MG TAB PO SCH ×2 (10:00→22:47)
[2021-11-22] MEDS: cefTRIAXone 1GM/50ML D5W 50 ML IV SCH (10:00)
[2021-11-22] MEDS: ONDANSETRON HCL 4 MG/2 ML VIAL IV PRN (10:36)
[2021-11-22] MEDS: PANTOPRAZOLE 40 MG/10 ML VIAL INJ IV SCH (10:36)
[2021-11-22 13:15] VITALS: BP 114/70
[2021-11-22 16:57] VITALS: BP 114/69
[2021-11-22] MEDS ORDERED: NITROGLYCERIN 2% OINT 1GM PKG TD ONE (17:30)
[2021-11-22] MEDS: RIVAROXABAN 15 MG TAB PO SCH (17:42)
[2021-11-22 22:00] VITALS: BP 109/69
[2021-11-22] MEDS: HYDROcodone-ACET 5/325MG TAB PO PRN (22:16)
[2021-11-22] MEDS: ATORVASTATIN 20 MG TAB PO SCH (22:47)
[2021-11-23 05:00] VITALS: BP 102/66
[2021-11-23 08:11] LABS: Potassium 4.3 mmol/L (3.5-5.1)
[2021-11-23 08:22] LABS: Albumin 3.3 g/dL (3.4-5.0); BUN/Creatinine Ratio 16.2; Bilirubin, Total 0.5 mg/dL (0.2-1.0); Calcium 9.1 mg/dL (8.5-10.1); Total Protein 7.2 g/dL (6.4-8.2)
[2021-11-23] MEDS: ONDANSETRON HCL 4 MG/2 ML VIAL IV PRN (08:51)
[2021-11-23] MEDS: PANTOPRAZOLE 40 MG/10 ML VIAL INJ IV SCH (09:51)
[2021-11-23] MEDS: CARVEDILOL 12.5 MG TAB PO SCH ×2 (09:51→21:33)
[2021-11-23] MEDS: cefTRIAXone 1GM/50ML D5W 50 ML IV SCH (09:52)
[2021-11-23] MEDS: RIVAROXABAN 15 MG TAB PO SCH (17:47)
[2021-11-23] MEDS: ATORVASTATIN 20 MG TAB PO SCH (21:33)
[2021-11-23 22:00] VITALS: BP 143/71
[2021-11-24] MEDS: ONDANSETRON HCL 4 MG/2 ML VIAL IV PRN (03:58)
[2021-11-24 05:00] VITALS: BP 126/74
[2021-11-24 09:00] VITALS: BP 112/72
[2021-11-24] MEDS: PANTOPRAZOLE 40 MG/10 ML VIAL INJ IV SCH (09:47)
[2021-11-24] MEDS: CARVEDILOL 12.5 MG TAB PO SCH (09:51)
[2021-11-24] MEDS ORDERED: POTA10TA32 PO (12:16)
[2021-11-24] MEDS ORDERED: FURO1TAB33 PO (12:16)
[2021-11-24] MEDS ORDERED: CAR125T PO (12:16)
[2021-11-24 13:00] VITALS: BP 104/67
[2021-11-24 14:03] LABS: Basophils # (auto) 0 10 ^3/uL (0-0.2); Basophils % (auto) 0.7 % (0.0-2.0); Eosinophils # (auto) 0.6 10 ^3/uL (0-0.8); Eosinophils % (auto) 9.8 % (0.0-7.0); Hematocrit 34.9 % (41.0-53.0); Hemoglobin 11.6 g/dL (13.5-17.5); Lymphocytes # (auto) 0.7 10 ^3/uL (0.4-5.4); Lymphocytes % (auto) 10.9 % (10.0-50.0); Mean Corpuscular Hemoglobin 27.8 pg (28.0-32.0); Mean Corpuscular Hgb Conc. 33.1 g/dL (32.0-36.0); Monocytes # (auto) 0.6 10 ^3/uL (0-1.3); Monocytes % (auto) 10.3 % (0.0-12.0); Neutrophils # (auto) 4.2 10 ^3/uL (1.6-8.6); Neutrophils % (auto) 68.3 % (37.0-80.0); Red Blood Cells 4.16 10^6/uL (4.5-5.90); Red Cell Distribution Width 18.7 % (11.8-14.3); White Blood Cell 6.2 10^3/uL (4.4-10.8)
[2021-11-24 17:00] VITALS: BP 117/70
[2021-11-24 17:05] VITALS: BP 112/72
== END 2021-11-24 18:28 | disposition home health service (06) | DRG 291 ==
LOC: ER 08:16 → TELE 15:49 → TELE-WESTW 23:25
PROVIDERS: ADMIT Internal Medicine; ATTEND Internal Medicine
DX: I11.0 Hypertensive heart disease with heart failure (principal); I50.41 Acute combined systolic (congestive) and diastolic (congestive) heart failure; J96.21 Acute and chronic respiratory failure with hypoxia; J15.9 Unspecified bacterial pneumonia; J44.0 Chronic obstructive pulmonary disease with (acute) lower respiratory infection; E87.1 Hypo-osmolality and hyponatremia; C18.9 Malignant neoplasm of colon, unspecified; D68.69 Other thrombophilia; D64.9 Anemia, unspecified; J84.10 Pulmonary fibrosis, unspecified; I25.10 Atherosclerotic heart disease of native coronary artery without angina pectoris; E78.5 Hyperlipidemia, unspecified; I48.91 Unspecified atrial fibrillation; D69.6 Thrombocytopenia, unspecified; Z95.1 Presence of aortocoronary bypass graft; Z83.3 Family history of diabetes mellitus; Z85.46 Personal history of malignant neoplasm of prostate; Z79.899 Other long term (current) drug therapy; Z86.16 Personal history of COVID-19; Z85.038 Personal history of other malignant neoplasm of large intestine
CPT/HCPCS: 36415; 71045; 71046; 80048; 80053; 81001; 82962; 83605; 83735; 83880; 84443; 84484; 85007; 85025; 85027; 85379; 87040; 87081; 93005; 93306; 96361; 96374; 99291; C9113; G0378; J0696; J2405; J7060

== ENCOUNTER 2021-11-29 15:13 | Inpatient (IN) | payer MEDICARE, OTHER ==
[~2021-11-29] VITALS: Ht 162.6 cm; Wt 77.5 kg
[~2021-11-29 15:13] MED LIST changes: +CAR125T PO; +ESCI-28 PO; +FERR324T17 PO; +FURO1TAB33 PO; +HYDR5CRE3 PR; +ICOS1CAP PO; +INDA2.5T PO; +LISI-275 PO; -LISI-716 PO; +LORA-655 PO; +MONT-8 PO; +OMEP-263 PO; +POTA10TA32 PO; +PRE5T PO; +RIV15T PO
[2021-11-29 16:29] LABS: Basophils # (auto) 0.1 10 ^3/uL (0-0.2); Basophils % (auto) 0.7 % (0.0-2.0); Eosinophils # (auto) 0.6 10 ^3/uL (0-0.8); Eosinophils % (auto) 5.5 % (0.0-7.0); Hematocrit 38.7 % (41.0-53.0); Lymphocytes % (auto) 9.2 % (10.0-50.0); Mean Corpuscular Hemoglobin 27.9 pg (28.0-32.0); Mean Corpuscular Hgb Conc. 33.4 g/dL (32.0-36.0); Mean Corpuscular Volume 83.4 fL (80.0-100.0); Monocytes # (auto) 1.1 10 ^3/uL (0-1.3); Monocytes % (auto) 10.8 % (0.0-12.0); Neutrophils # (auto) 7.7 10 ^3/uL (1.6-8.6); Neutrophils % (auto) 73.8 % (37.0-80.0); Red Blood Cells 4.64 10^6/uL (4.5-5.90); Red Cell Distribution Width 18.5 % (11.8-14.3); White Blood Cell 10.4 10^3/uL (4.4-10.8)
[2021-11-29 16:41] LABS: Albumin 3.7 g/dL (3.4-5.0); BUN/Creatinine Ratio 12.9; Calcium 8.9 mg/dL (8.5-10.1); Potassium 4.6 mmol/L (3.5-5.1)
[2021-11-29 16:43] LABS: Bilirubin, Total 0.3 mg/dL (0.2-1.0)
[2021-11-29 16:45] LABS: INR 1.28 (0.9-1.15); Partial Thromboplastin Time 41.3 sec (24.6-33.4)
[2021-11-29] MEDS ORDERED: cefTRIAXone 1GM/50ML D5W 50 ML IV ONE (18:15)
[2021-11-29] MEDS ORDERED: AZITHROMYCIN 500MG/ 250ML 250 ML IV ONE (18:15)
[2021-11-29] MEDS ORDERED: DOCUSATE SOD 100 MG CAP PO PRN (21:45)
[2021-11-29] MEDS ORDERED: IPRATROPIUM BROM 0.5 MG/2.5ML INH SOL NEB PRN (21:45)
[2021-11-29] MEDS ORDERED: ONDANSETRON HCL 4 MG/2 ML VIAL IV PRN (21:45)
[2021-11-29] MEDS ORDERED: ALBUTEROL SULF 2.5 MG/0.5ML(0.5%) NEB SOLN NEB PRN (21:45)
[2021-11-29 21:54] VITALS: BP 107/61
[2021-11-29] MEDS ORDERED: FAMOTIDINE (10MG/ML) 2ML VL IV SCH (22:00)
[2021-11-29 22:09] LABS: Urine Bacteria NONE SEEN /hpf (None Seen); Urine Blood Negative /uL (Negative); Urine Hyaline Cast FEW /lpf (0 - 2); Urine Specific Gravity 1.011 (1.001-1.035); Urine WBC 1 /hpf (0 - 3)
[2021-11-29] MEDS: HEPARIN SODIUM (PORCINE) 5000 UNITS/ML 1ML VIAL SC SCH (22:33)
[2021-11-29] MEDS: SODIUM CHLORIDE 0.9% 1,000 ML IV SCH (22:50)
[2021-11-30] MEDS ORDERED: NITROGLYCERIN 0.4 MG SL TAB SL PRN
[2021-11-30] MEDS: ACETAMINOPHEN 325 MG TAB PO PRN (01:58)
[2021-11-30 02:07] VITALS: BP 114/74
[2021-11-30 05:00] VITALS: BP 108/72
[2021-11-30 07:07] LABS: Basophils # (auto) 0.1 10 ^3/uL (0-0.2); Basophils % (auto) 0.9 % (0.0-2.0); Eosinophils # (auto) 0.6 10 ^3/uL (0-0.8); Hematocrit 35.1 % (41.0-53.0); Lymphocytes # (auto) 0.9 10 ^3/uL (0.4-5.4); Lymphocytes % (auto) 10.8 % (10.0-50.0); Mean Corpuscular Hemoglobin 28.5 pg (28.0-32.0); Mean Corpuscular Hgb Conc. 34.3 g/dL (32.0-36.0); Mean Corpuscular Volume 82.9 fL (80.0-100.0); Monocytes # (auto) 0.8 10 ^3/uL (0-1.3); Monocytes % (auto) 10.4 % (0.0-12.0); Neutrophils # (auto) 5.7 10 ^3/uL (1.6-8.6); Neutrophils % (auto) 70.9 % (37.0-80.0); Red Blood Cells 4.23 10^6/uL (4.5-5.90); Red Cell Distribution Width 18.9 % (11.8-14.3)
[2021-11-30 07:22] LABS: Albumin 3.4 g/dL (3.4-5.0); Calcium 8.8 mg/dL (8.5-10.1); Potassium 3.9 mmol/L (3.5-5.1)
[2021-11-30 07:25] LABS: BUN/Creatinine Ratio 13.2
[2021-11-30 07:28] LABS: Bilirubin, Total 0.5 mg/dL (0.2-1.0); Total Protein 7.3 g/dL (6.4-8.2)
[2021-11-30 09:00] VITALS: BP 112/60
[2021-11-30] MEDS: HEPARIN SODIUM (PORCINE) 5000 UNITS/ML 1ML VIAL SC SCH ×2 (10:00→22:46)
[2021-11-30] MEDS: AZITHROMYCIN 500MG/ 250ML 250 ML IV SCH (10:49)
[2021-11-30] MEDS: predniSONE 5 MG TAB PO SCH (10:50)
[2021-11-30] MEDS: MULTIPLE VITAMIN TAB PO SCH (10:50)
[2021-11-30] MEDS ORDERED: cefTRIAXone 1GM/50ML D5W 50 ML IV ONE (12:00)
[2021-11-30 13:00] VITALS: BP 132/69
[2021-11-30 17:00] VITALS: BP 118/69
[2021-11-30] MEDS: SODIUM CHLORIDE 0.9% 1,000 ML IV SCH (18:36)
[2021-11-30] MEDS ORDERED: FUR20T PO (19:46)
[2021-11-30] MEDS ORDERED: FERR324T PO (19:46)
[2021-11-30] MEDS ORDERED: CARV12.544 PO (19:46)
[2021-11-30] MEDS: FAMOTIDINE (10MG/ML) 2ML VL IV SCH (22:47)
[2021-12-01] MEDS: SODIUM CHLORIDE 0.9% 1,000 ML IV SCH ×3 (00:40→23:00)
[2021-12-01 05:00] VITALS: BP 129/69
[2021-12-01 09:00] VITALS: BP 110/68
[2021-12-01] MEDS: cefTRIAXone 1GM/50ML D5W 50 ML IV SCH (12:01)
[2021-12-01] MEDS: MULTIPLE VITAMIN TAB PO SCH (12:06)
[2021-12-01] MEDS: AZITHROMYCIN 500MG/ 250ML 250 ML IV SCH (12:07)
[2021-12-01] MEDS: predniSONE 5 MG TAB PO SCH (12:07)
[2021-12-01] MEDS: HEPARIN SODIUM (PORCINE) 5000 UNITS/ML 1ML VIAL SC SCH ×2 (12:22→21:42)
[2021-12-01] MEDS: FAMOTIDINE (10MG/ML) 2ML VL IV SCH (21:36)
[2021-12-01] MEDS: ACETAMINOPHEN 325 MG TAB PO PRN (21:57)
[2021-12-01 22:00] VITALS: BP 124/76
[2021-12-02 05:00] VITALS: BP 127/70
[2021-12-02 09:00] VITALS: BP 130/72
[2021-12-02] MEDS: cefTRIAXone 1GM/50ML D5W 50 ML IV SCH (09:26)
[2021-12-02] MEDS: predniSONE 5 MG TAB PO SCH (09:26)
[2021-12-02] MEDS: MULTIPLE VITAMIN TAB PO SCH (09:26)
[2021-12-02] MEDS: HEPARIN SODIUM (PORCINE) 5000 UNITS/ML 1ML VIAL SC SCH ×2 (09:27→21:22)
[2021-12-02] MEDS: AZITHROMYCIN 500MG/ 250ML 250 ML IV SCH (11:17)
[2021-12-02 13:00] VITALS: BP 158/72
[2021-12-02 17:00] VITALS: BP 116/62
[2021-12-02] MEDS: SODIUM CHLORIDE 0.9% 1,000 ML IV SCH (17:01)
[2021-12-02] MEDS: FAMOTIDINE (10MG/ML) 2ML VL IV SCH (21:20)
[2021-12-02 22:00] VITALS: BP 124/63
[2021-12-03] MEDS: ACETAMINOPHEN 325 MG TAB PO PRN (02:12)
[2021-12-03] MEDS: SODIUM CHLORIDE 0.9% 1,000 ML IV SCH (03:00)
[2021-12-03 05:00] VITALS: BP 111/60
[2021-12-03 09:00] VITALS: BP 121/62
[2021-12-03] MEDS: predniSONE 5 MG TAB PO SCH (09:03)
[2021-12-03] MEDS: cefTRIAXone 1GM/50ML D5W 50 ML IV SCH (09:03)
[2021-12-03] MEDS: MULTIPLE VITAMIN TAB PO SCH (09:03)
[2021-12-03] MEDS: HEPARIN SODIUM (PORCINE) 5000 UNITS/ML 1ML VIAL SC SCH (09:04)
[2021-12-03] MEDS: AZITHROMYCIN 500MG/ 250ML 250 ML IV SCH (09:40)
[2021-12-03] MEDS ORDERED: LEVO500T31 PO (12:34)
[2021-12-03 13:00] VITALS: BP 115/73
== END 2021-12-03 15:30 | disposition home or self-care (01) | DRG 193 ==
LOC: ER 15:13 → OVERFLOW 23:54 → EAST 11-30 02:15
PROVIDERS: ADMIT Nurse Practitioner Family; ATTEND Internal Medicine
DX: J18.9 Pneumonia, unspecified organism (principal); G93.41 Metabolic encephalopathy; J96.21 Acute and chronic respiratory failure with hypoxia; E87.1 Hypo-osmolality and hyponatremia; I50.30 Unspecified diastolic (congestive) heart failure; J84.10 Pulmonary fibrosis, unspecified; E78.5 Hyperlipidemia, unspecified; I48.91 Unspecified atrial fibrillation; I11.0 Hypertensive heart disease with heart failure; Z20.822 Contact with and (suspected) exposure to COVID-19; I25.10 Atherosclerotic heart disease of native coronary artery without angina pectoris; R59.0 Localized enlarged lymph nodes; K57.10 Diverticulosis of small intestine without perforation or abscess without bleeding; Z83.3 Family history of diabetes mellitus; Z95.1 Presence of aortocoronary bypass graft; I25.2 Old myocardial infarction; Z86.16 Personal history of COVID-19; Z87.01 Personal history of pneumonia (recurrent); Z88.5 Allergy status to narcotic agent; Z90.49 Acquired absence of other specified parts of digestive tract; Z85.46 Personal history of malignant neoplasm of prostate; Z85.038 Personal history of other malignant neoplasm of large intestine
CPT/HCPCS: 36415; 71045; 80053; 81001; 83036; 83605; 83880; 85025; 85610; 85730; 87040; 87081; 93005; 96365; 96366; 96367; G0378; J0696; J2405; J3490

== ENCOUNTER 2021-12-07 10:29 | Inpatient (IN) | payer MEDICARE, OTHER ==
[~2021-12-07] VITALS: Ht 162.6 cm; Wt 84.8 kg
[~2021-12-07 10:29] MED LIST changes: -CAR125T PO; +CARV12.544 PO; +FERR324T PO; -FERR324T17 PO; +FUR20T PO; -FURO1TAB33 PO; +LEVO500T31 PO
[2021-12-07] MEDS ORDERED: ONDANSETRON HCL 4 MG/2 ML VIAL IV ONE (11:30)
[2021-12-07 12:04] LABS: Basophils # (auto) 0 10 ^3/uL (0-0.2); Basophils % (auto) 0.5 % (0.0-2.0); Eosinophils # (auto) 0.4 10 ^3/uL (0-0.8); Eosinophils % (auto) 4.8 % (0.0-7.0); Hematocrit 37.1 % (41.0-53.0); Hemoglobin 12.3 g/dL (13.5-17.5); Lymphocytes # (auto) 0.7 10 ^3/uL (0.4-5.4); Lymphocytes % (auto) 8.7 % (10.0-50.0); Mean Corpuscular Hemoglobin 27.7 pg (28.0-32.0); Mean Corpuscular Hgb Conc. 33.2 g/dL (32.0-36.0); Mean Corpuscular Volume 83.5 fL (80.0-100.0); Monocytes # (auto) 0.8 10 ^3/uL (0-1.3); Monocytes % (auto) 9.8 % (0.0-12.0); Neutrophils # (auto) 6.2 10 ^3/uL (1.6-8.6); Neutrophils % (auto) 76.2 % (37.0-80.0); Nucleated Red Blood Cells % 0.1 %; Red Blood Cells 4.45 10^6/uL (4.5-5.90); Red Cell Distribution Width 18.3 % (11.8-14.3); White Blood Cell 8.2 10^3/uL (4.4-10.8)
[2021-12-07 12:17] LABS: Albumin 3.4 g/dL (3.4-5.0); Calcium 8.9 mg/dL (8.5-10.1); Potassium 3.6 mmol/L (3.5-5.1)
[2021-12-07 12:20] LABS: BUN/Creatinine Ratio 14.4; Bilirubin, Total 0.3 mg/dL (0.2-1.0); Total Protein 7.8 g/dL (6.4-8.2)
[2021-12-07] MEDS ORDERED: ALBUTEROL SULF 2.5 MG/0.5ML(0.5%) NEB SOLN NEB PRN (21:30)
[2021-12-07] MEDS ORDERED: ACETAMINOPHEN 325 MG TAB PO PRN (21:30)
[2021-12-07] MEDS ORDERED: HYDROcodone-ACET 5/325MG TAB PO PRN (21:30)
[2021-12-07] MEDS ORDERED: AZITHROMYCIN 500MG/ 250ML 250 ML IV ONE (21:30)
[2021-12-07] MEDS ORDERED: ONDANSETRON HCL 4 MG/2 ML VIAL IV PRN (21:30)
[2021-12-07] MEDS ORDERED: IPRATROPIUM BROM 0.5 MG/2.5ML INH SOL NEB PRN (21:30)
[2021-12-07] MEDS ORDERED: cefTRIAXone 1GM/50ML D5W 50 ML IV ONE (21:30)
[2021-12-07] MEDS: CARVEDILOL 12.5 MG TAB PO SCH (22:00)
[2021-12-07] MEDS ORDERED: NITROGLYCERIN 0.4 MG SL TAB SL PRN (22:15)
[2021-12-07] MEDS ORDERED: MORPHINE SULFATE INJ 2 MG/ml SYRG IV PRN (22:15)
[2021-12-07 22:35] VITALS: BP 120/69
[2021-12-08 01:15] VITALS: BP 121/65
[2021-12-08 05:00] VITALS: BP 98/54
[2021-12-08 05:23] LABS: Basophils # (auto) 0 10 ^3/uL (0-0.2); Basophils % (auto) 0.4 % (0.0-2.0); Eosinophils # (auto) 0.6 10 ^3/uL (0-0.8); Eosinophils % (auto) 6.9 % (0.0-7.0); Hematocrit 33.6 % (41.0-53.0); Hemoglobin 11.8 g/dL (13.5-17.5); Lymphocytes # (auto) 0.8 10 ^3/uL (0.4-5.4); Mean Corpuscular Hemoglobin 28.9 pg (28.0-32.0); Mean Corpuscular Hgb Conc. 35.1 g/dL (32.0-36.0); Mean Corpuscular Volume 82.4 fL (80.0-100.0); Monocytes # (auto) 1.1 10 ^3/uL (0-1.3); Monocytes % (auto) 12.9 % (0.0-12.0); Neutrophils # (auto) 6.3 10 ^3/uL (1.6-8.6); Neutrophils % (auto) 70.8 % (37.0-80.0); Red Blood Cells 4.08 10^6/uL (4.5-5.90); Red Cell Distribution Width 18.2 % (11.8-14.3); White Blood Cell 8.9 10^3/uL (4.4-10.8)
[2021-12-08 05:45] LABS: BUN/Creatinine Ratio 15.7; Calcium 9.1 mg/dL (8.5-10.1); Potassium 3.9 mmol/L (3.5-5.1)
[2021-12-08 09:00] VITALS: BP 106/58
[2021-12-08] MEDS ORDERED: cefTRIAXone 1GM/50ML D5W 50 ML IV SCH (09:00)
[2021-12-08] MEDS ORDERED: LISINOPRIL 5 MG TAB PO SCH (10:00)
[2021-12-08] MEDS: AZITHROMYCIN 500MG/ 250ML 250 ML IV SCH (10:03)
[2021-12-08] MEDS: CARVEDILOL 12.5 MG TAB PO SCH ×2 (10:04→22:59)
[2021-12-08] MEDS: PANTOPRAZOLE 40 MG TAB PO SCH (10:05)
[2021-12-08] MEDS: FUROSEMIDE 20 MG TAB PO SCH (10:05)
[2021-12-08] MEDS ORDERED: predniSONE 20 MG TAB PO ONE (10:15)
[2021-12-08 13:00] VITALS: BP 109/72
[2021-12-08 16:54] VITALS: BP 92/63
[2021-12-08] MEDS ORDERED: RIVAROXABAN 15 MG TAB PO SCH (18:00)
[2021-12-08 22:00] VITALS: BP 128/75
[2021-12-08] MEDS ORDERED: MONTELUKAST SODIUM 10 MG TAB PO SCH (22:00)
[2021-12-09 05:00] VITALS: BP 115/77
[2021-12-09 07:00] VITALS: BP 115/77
[2021-12-09 09:00] VITALS: BP 116/68
[2021-12-09] MEDS ORDERED: predniSONE 20 MG TAB PO SCH (10:00)
[2021-12-09] MEDS: AZITHROMYCIN 500MG/ 250ML 250 ML IV SCH (10:32)
[2021-12-09] MEDS: CARVEDILOL 12.5 MG TAB PO SCH (10:33)
[2021-12-09] MEDS: FUROSEMIDE 20 MG TAB PO SCH (10:42)
[2021-12-09] MEDS: PANTOPRAZOLE 40 MG TAB PO SCH (10:43)
[2021-12-09 13:00] VITALS: BP 122/65
[2021-12-09 13:39] VITALS: BP 115/77
== END 2021-12-09 14:40 | disposition home or self-care (01) | DRG 197 ==
LOC: ER 10:29 → TELE 22:12 → TELE-EAST 12-08 01:15
PROVIDERS: ADMIT Nurse Practitioner; ATTEND Internal Medicine
DX: J84.10 Pulmonary fibrosis, unspecified (principal); D68.69 Other thrombophilia; I50.32 Chronic diastolic (congestive) heart failure; I13.0 Hypertensive heart and chronic kidney disease with heart failure and stage 1 through stage 4 chronic kidney disease, or unspecified chronic kidney disease; F41.9 Anxiety disorder, unspecified; E66.9 Obesity, unspecified; E78.5 Hyperlipidemia, unspecified; Z20.822 Contact with and (suspected) exposure to COVID-19; I25.10 Atherosclerotic heart disease of native coronary artery without angina pectoris; N18.30 Chronic kidney disease, stage 3 unspecified; I48.91 Unspecified atrial fibrillation; Z88.6 Allergy status to analgesic agent; Z83.3 Family history of diabetes mellitus; Z85.038 Personal history of other malignant neoplasm of large intestine; Z85.46 Personal history of malignant neoplasm of prostate; Z95.1 Presence of aortocoronary bypass graft; I25.2 Old myocardial infarction; Z68.32 Body mass index [BMI] 32.0-32.9, adult
CPT/HCPCS: 36415; 71045; 74176; 80048; 80053; 83690; 83880; 84484; 85025; 85379; 87081; 93005; 96365; 96368; 96375; 97163; G0378; J0696; J2405

== ENCOUNTER → 2021-12-19 | Outpatient (CLI) | payer MEDICARE, OTHER | END | disposition home or self-care (01) | LOC: Rad HDHVI 13:49 | PROVIDERS: ATTEND Internal Medicine Cardiovascular Disease | DX: J98.4 Other disorders of lung (principal); J18.9 Pneumonia, unspecified organism; I70.0 Atherosclerosis of aorta; R06.02 Shortness of breath; M47.814 Spondylosis without myelopathy or radiculopathy, thoracic region | CPT/HCPCS: 71046 ==

== ENCOUNTER → 2021-12-25 | Outpatient (CLI) | payer MEDICARE, OTHER ==
[2021-12-25 11:40] LABS: Basophils # (auto) 0 10 ^3/uL (0-0.2); Basophils % (auto) 0.3 % (0.0-2.0); Eosinophils # (auto) 0.1 10 ^3/uL (0-0.8); Eosinophils % (auto) 1.4 % (0.0-7.0); Hematocrit 38.7 % (41.0-53.0); Hemoglobin 12.2 g/dL (13.5-17.5); Lymphocytes # (auto) 0.9 10 ^3/uL (0.4-5.4); Lymphocytes % (auto) 9.6 % (10.0-50.0); Mean Corpuscular Hemoglobin 27.6 pg (28.0-32.0); Mean Corpuscular Hgb Conc. 31.7 g/dL (32.0-36.0); Mean Corpuscular Volume 87.3 fL (80.0-100.0); Monocytes # (auto) 0.9 10 ^3/uL (0-1.3); Monocytes % (auto) 9.3 % (0.0-12.0); Neutrophils # (auto) 7.4 10 ^3/uL (1.6-8.6); Neutrophils % (auto) 79.4 % (37.0-80.0); Red Blood Cells 4.43 10^6/uL (4.5-5.90); Red Cell Distribution Width 17.7 % (11.8-14.3); White Blood Cell 9.3 10^3/uL (4.4-10.8)
[2021-12-25 11:43] LABS: Urine Blood Negative /uL (Negative); Urine Specific Gravity 1.025 (1.001-1.035)
[2021-12-25 11:50] LABS: Albumin 3.5 g/dL (3.4-5.0); Potassium 3.9 mmol/L (3.5-5.1)
[2021-12-25 11:56] LABS: Free T4 (Free Thyroxine) 1.13 ng/dL (0.89-1.76); Prostate Specific Antigen 0.13 ng/mL (0.0-4.0)
[2021-12-25 11:59] LABS: BUN/Creatinine Ratio 16.9; Bilirubin, Total 0.5 mg/dL (0.2-1.0); Calcium 9.3 mg/dL (8.5-10.1); Total Protein 7.3 g/dL (6.4-8.2)
== END | disposition home or self-care (01) ==
LOC: LAB 08:20
PROVIDERS: ATTEND Internal Medicine Cardiovascular Disease
DX: D51.3 Other dietary vitamin B12 deficiency anemia (principal); D64.9 Anemia, unspecified; E55.9 Vitamin D deficiency, unspecified; E11.9 Type 2 diabetes mellitus without complications; I10 Essential (primary) hypertension; R00.2 Palpitations; R53.1 Weakness; R30.0 Dysuria; C61 Malignant neoplasm of prostate
CPT/HCPCS: 36415; 80053; 80061; 81003; 82306; 82607; 84153; 84403; 84439; 84443; 85025

== ENCOUNTER → 2021-12-26 | Outpatient (CLI) | payer MEDICARE, OTHER ==
[~2021-12-26] VITALS: Ht 162.6 cm; Wt 79.8 kg
[~2021-12-26] MED LIST changes: +ADENOSINE 67 MG in GIVE UN-DILUTED 0 ML IV ONE; +ADENOSINE 90 MG/30 ML INJ IV ONE
== END | disposition home or self-care (01) ==
LOC: Rad HDHVI 08:29
PROVIDERS: ATTEND Internal Medicine Cardiovascular Disease
DX: I48.91 Unspecified atrial fibrillation (principal); I25.10 Atherosclerotic heart disease of native coronary artery without angina pectoris; I10 Essential (primary) hypertension; J96.10 Chronic respiratory failure, unspecified whether with hypoxia or hypercapnia; E78.5 Hyperlipidemia, unspecified; E78.00 Pure hypercholesterolemia, unspecified; Z82.49 Family history of ischemic heart disease and other diseases of the circulatory system; Z95.2 Presence of prosthetic heart valve
CPT/HCPCS: 78452; 93005; 96374; 96375; A9500; J0153

== ENCOUNTER → 2021-12-30 | Outpatient (CLI) | payer MEDICARE, OTHER ==
[~2021-12-30] MED LIST changes: -ADENOSINE 67 MG in GIVE UN-DILUTED 0 ML IV ONE; -ADENOSINE 90 MG/30 ML INJ IV ONE
[2021-12-30 12:32] LABS: Basophils # (auto) 0 10 ^3/uL (0-0.2); Basophils % (auto) 0.4 % (0.0-2.0); Eosinophils # (auto) 0.3 10 ^3/uL (0-0.8); Eosinophils % (auto) 3.2 % (0.0-7.0); Hematocrit 35.6 % (41.0-53.0); Hemoglobin 11.6 g/dL (13.5-17.5); Lymphocytes # (auto) 0.9 10 ^3/uL (0.4-5.4); Lymphocytes % (auto) 10.7 % (10.0-50.0); Mean Corpuscular Hgb Conc. 32.5 g/dL (32.0-36.0); Mean Corpuscular Volume 86.1 fL (80.0-100.0); Monocytes # (auto) 0.9 10 ^3/uL (0-1.3); Monocytes % (auto) 10.7 % (0.0-12.0); Neutrophils # (auto) 6.1 10 ^3/uL (1.6-8.6); Nucleated Red Blood Cells % 0.1 %; Red Blood Cells 4.14 10^6/uL (4.5-5.90); Red Cell Distribution Width 17.2 % (11.8-14.3); White Blood Cell 8.2 10^3/uL (4.4-10.8)
[2021-12-30 12:51] LABS: Calcium 9.3 mg/dL (8.5-10.1); Potassium 3.7 mmol/L (3.5-5.1)
[2021-12-30 12:55] LABS: BUN/Creatinine Ratio 17.2
== END | disposition home or self-care (01) ==
LOC: LAB 11:51
PROVIDERS: ATTEND Internal Medicine
DX: J18.9 Pneumonia, unspecified organism (principal); I10 Essential (primary) hypertension; D68.69 Other thrombophilia
CPT/HCPCS: 36415; 80048; 85025

== ENCOUNTER 2022-01-14 18:05 | Emergency (ER) | payer MEDICARE, OTHER ==
[~2022-01-14] VITALS: Ht 162.6 cm; Wt 80.5 kg
[2022-01-14 19:48] LABS: Basophils # (auto) 0 10 ^3/uL (0-0.2); Basophils % (auto) 0.2 % (0.0-2.0); Eosinophils # (auto) 0 10 ^3/uL (0-0.8); Eosinophils % (auto) 0.5 % (0.0-7.0); Hematocrit 38.8 % (41.0-53.0); Hemoglobin 12.5 g/dL (13.5-17.5); Lymphocytes # (auto) 0.6 10 ^3/uL (0.4-5.4); Lymphocytes % (auto) 6.9 % (10.0-50.0); Mean Corpuscular Hemoglobin 27.7 pg (28.0-32.0); Mean Corpuscular Hgb Conc. 32.4 g/dL (32.0-36.0); Mean Corpuscular Volume 85.5 fL (80.0-100.0); Monocytes # (auto) 0.6 10 ^3/uL (0-1.3); Monocytes % (auto) 6.9 % (0.0-12.0); Neutrophils # (auto) 7.1 10 ^3/uL (1.6-8.6); Neutrophils % (auto) 85.5 % (37.0-80.0); Red Blood Cells 4.53 10^6/uL (4.5-5.90); Red Cell Distribution Width 16.1 % (11.8-14.3); White Blood Cell 8.3 10^3/uL (4.4-10.8)
[2022-01-14 20:10] LABS: Potassium 3.9 mmol/L (3.5-5.1)
[2022-01-14 20:15] LABS: Albumin 3.7 g/dL (3.4-5.0); BUN/Creatinine Ratio 22.3; Bilirubin, Total 0.3 mg/dL (0.2-1.0); Calcium 9.3 mg/dL (8.5-10.1); Total Protein 7.7 g/dL (6.4-8.2)
[2022-01-14] MEDS ORDERED: SODIUM CHLORIDE 0.9% 1,000 ML IV ONE (23:45)
[2022-01-15 02:04] VITALS: BP 131/78
[2022-01-15 02:26] LABS: Urine Bacteria NONE SEEN /hpf (None Seen); Urine Blood Negative /uL (Negative); Urine Specific Gravity 1.017 (1.001-1.035); Urine WBC <1 /hpf (0 - 3)
== END 2022-01-15 02:41 | disposition home or self-care (01) ==
LOC: ER 18:05
DX: R00.2 Palpitations (principal); E86.0 Dehydration; I10 Essential (primary) hypertension; I25.2 Old myocardial infarction; I48.91 Unspecified atrial fibrillation; I25.10 Atherosclerotic heart disease of native coronary artery without angina pectoris; E78.5 Hyperlipidemia, unspecified; E03.9 Hypothyroidism, unspecified; Z86.2 Personal history of diseases of the blood and blood-forming organs and certain disorders involving the immune mechanism; Z95.1 Presence of aortocoronary bypass graft; Z90.49 Acquired absence of other specified parts of digestive tract; Z90.89 Acquired absence of other organs; Z79.899 Other long term (current) drug therapy; Z88.5 Allergy status to narcotic agent
CPT/HCPCS: 36415; 71045; 80053; 81001; 84484; 85025; 93005; 96360; 99285; J7030

== ENCOUNTER → 2022-01-21 | Outpatient (CLI) | payer MEDICARE, OTHER ==
[2022-01-21 13:59] LABS: Basophils # (auto) 0.1 10 ^3/uL (0-0.2); Basophils % (auto) 0.6 % (0.0-2.0); Eosinophils # (auto) 0.1 10 ^3/uL (0-0.8); Hematocrit 39.5 % (41.0-53.0); Hemoglobin 12.8 g/dL (13.5-17.5); Lymphocytes # (auto) 0.6 10 ^3/uL (0.4-5.4); Lymphocytes % (auto) 5.6 % (10.0-50.0); Mean Corpuscular Hemoglobin 27.8 pg (28.0-32.0); Mean Corpuscular Hgb Conc. 32.4 g/dL (32.0-36.0); Monocytes # (auto) 0.6 10 ^3/uL (0-1.3); Monocytes % (auto) 6.1 % (0.0-12.0); Neutrophils # (auto) 8.6 10 ^3/uL (1.6-8.6); Neutrophils % (auto) 86.7 % (37.0-80.0); Red Cell Distribution Width 15.5 % (11.8-14.3)
[2022-01-21 14:18] LABS: Urine Bacteria NONE SEEN /hpf (None Seen); Urine Blood Negative /uL (Negative); Urine Hyaline Cast FEW /lpf (0 - 2); Urine Specific Gravity 1.025 (1.001-1.035); Urine WBC 1 /hpf (0 - 3)
[2022-01-21 14:22] LABS: BUN/Creatinine Ratio 19.2; Potassium 3.4 mmol/L (3.5-5.1)
== END | disposition home or self-care (01) ==
LOC: LAB 13:39
PROVIDERS: ATTEND Student in an Organized Health Care Education/Training Program
DX: N18.31 Chronic kidney disease, stage 3a (principal); D63.1 Anemia in chronic kidney disease; R80.9 Proteinuria, unspecified; R82.90 Unspecified abnormal findings in urine; E87.1 Hypo-osmolality and hyponatremia
CPT/HCPCS: 36415; 80048; 81001; 83930; 83935; 84300; 85025

== ENCOUNTER → 2022-02-10 | Outpatient (CLI) | payer MEDICARE, OTHER ==
[2022-02-10 14:01] LABS: BUN/Creatinine Ratio 17.2; Calcium 9.1 mg/dL (8.5-10.1); Potassium 3.6 mmol/L (3.5-5.1)
== END | disposition home or self-care (01) ==
LOC: LAB 12:46
PROVIDERS: ATTEND Internal Medicine
DX: N18.30 Chronic kidney disease, stage 3 unspecified (principal); I50.42 Chronic combined systolic (congestive) and diastolic (congestive) heart failure; R73.03 Prediabetes
CPT/HCPCS: 36415; 80048; 82043; 83880; 84443

== ENCOUNTER → 2022-02-23 | Outpatient (CLI) | payer MEDICARE, OTHER | END | disposition home or self-care (01) | LOC: LAB 13:11 | PROVIDERS: ATTEND Internal Medicine Pulmonary Disease | DX: Z01.812 Encounter for preprocedural laboratory examination (principal); Z20.822 Contact with and (suspected) exposure to COVID-19 | CPT/HCPCS: 36415 ==

== ENCOUNTER → 2022-02-24 | Outpatient (CLI) | payer MEDICARE, OTHER | END | disposition home or self-care (01) | LOC: PF 10:18 | PROVIDERS: ATTEND Internal Medicine Pulmonary Disease | DX: J84.10 Pulmonary fibrosis, unspecified (principal); J84.112 Idiopathic pulmonary fibrosis | CPT/HCPCS: 94060; 94618; 94727; 94729 ==

== ENCOUNTER 2022-03-06 11:56 | Inpatient (IN) | payer MEDICARE, OTHER ==
[~2022-03-06] VITALS: Ht 170.2 cm; Wt 81.4 kg
[2022-03-06 12:39] LABS: Basophils # (auto) 0.1 10 ^3/uL (0-0.2); Basophils % (auto) 0.5 % (0.0-2.0); Eosinophils # (auto) 0.5 10 ^3/uL (0-0.8); Eosinophils % (auto) 4.9 % (0.0-7.0); Hematocrit 45.4 % (41.0-53.0); Hemoglobin 14.9 g/dL (13.5-17.5); Lymphocytes # (auto) 0.7 10 ^3/uL (0.4-5.4); Lymphocytes % (auto) 6.7 % (10.0-50.0); Mean Corpuscular Hemoglobin 29.2 pg (28.0-32.0); Mean Corpuscular Hgb Conc. 32.7 g/dL (32.0-36.0); Mean Corpuscular Volume 89.2 fL (80.0-100.0); Monocytes # (auto) 1.3 10 ^3/uL (0-1.3); Monocytes % (auto) 11.5 % (0.0-12.0); Neutrophils # (auto) 8.3 10 ^3/uL (1.6-8.6); Neutrophils % (auto) 76.4 % (37.0-80.0); Nucleated Red Blood Cells % 0.1 %; Red Blood Cells 5.09 10^6/uL (4.5-5.90); Red Cell Distribution Width 17.4 % (11.8-14.3); White Blood Cell 10.9 10^3/uL (4.4-10.8)
[2022-03-06 12:54] LABS: INR 1.02 (0.9-1.15); Partial Thromboplastin Time 30.7 sec (24.6-33.4)
[2022-03-06 13:04] LABS: Albumin 3.7 g/dL (3.4-5.0); Calcium 9.4 mg/dL (8.5-10.1); Potassium 3.5 mmol/L (3.5-5.1)
[2022-03-06 13:08] LABS: BUN/Creatinine Ratio 17.6; Bilirubin, Total 0.4 mg/dL (0.2-1.0); Total Protein 7.6 g/dL (6.4-8.2)
[2022-03-06] MEDS ORDERED: DOCUSATE SOD 100 MG CAP PO PRN (17:45)
[2022-03-06] MEDS ORDERED: MORPHINE SULFATE INJ 2 MG/ml SYRG IV PRN (17:45)
[2022-03-06] MEDS ORDERED: NITROGLYCERIN 0.4 MG SL TAB SL PRN (17:45)
[2022-03-06] MEDS ORDERED: HYDROcodone-ACET 5/325MG TAB PO PRN (17:45)
[2022-03-06] MEDS ORDERED: ONDANSETRON HCL 4 MG/2 ML VIAL IV PRN (17:45)
[2022-03-07] MEDS: CARVEDILOL 12.5 MG TAB PO SCH ×3 (03:32→22:00)
[2022-03-07 05:35] LABS: Basophils # (auto) 0.1 10 ^3/uL (0-0.2); Basophils % (auto) 1.1 % (0.0-2.0); Eosinophils # (auto) 0.4 10 ^3/uL (0-0.8); Eosinophils % (auto) 5.4 % (0.0-7.0); Hematocrit 39.9 % (41.0-53.0); Hemoglobin 13.2 g/dL (13.5-17.5); Lymphocytes % (auto) 12.8 % (10.0-50.0); Mean Corpuscular Hemoglobin 29.4 pg (28.0-32.0); Monocytes # (auto) 1.1 10 ^3/uL (0-1.3); Monocytes % (auto) 14.1 % (0.0-12.0); Neutrophils % (auto) 66.6 % (37.0-80.0); Nucleated Red Blood Cells % 0.1 %; Red Blood Cells 4.49 10^6/uL (4.5-5.90); Red Cell Distribution Width 17.7 % (11.8-14.3); White Blood Cell 7.5 10^3/uL (4.4-10.8)
[2022-03-07 05:56] LABS: BUN/Creatinine Ratio 23.1; Calcium 8.9 mg/dL (8.5-10.1); Potassium 3.2 mmol/L (3.5-5.1)
[2022-03-07] MEDS: PANTOPRAZOLE 40 MG/10 ML VIAL INJ IV SCH (09:57)
[2022-03-07] MEDS: LISINOPRIL 5 MG TAB PO SCH (09:58)
[2022-03-07] MEDS: RIVAROXABAN 15 MG TAB PO SCH (10:17)
[2022-03-07 16:55] VITALS: BP 112/54
[2022-03-07 22:00] VITALS: BP 104/52
[2022-03-08 05:00] VITALS: BP 101/49
[2022-03-08 09:00] VITALS: BP 101/61
[2022-03-08] MEDS: RIVAROXABAN 15 MG TAB PO SCH (09:22)
[2022-03-08] MEDS: PANTOPRAZOLE 40 MG/10 ML VIAL INJ IV SCH (09:23)
[2022-03-08] MEDS: CARVEDILOL 12.5 MG TAB PO SCH ×2 (09:26→21:56)
[2022-03-08] MEDS: LISINOPRIL 5 MG TAB PO SCH (09:27)
[2022-03-08] MEDS: FUROSEMIDE 40 MG/4 ML VIAL IV SCH (10:14)
[2022-03-08 13:00] VITALS: BP 102/66
[2022-03-08 15:44] LABS: Urine Bacteria NONE SEEN /hpf (None Seen); Urine Blood 2+ /uL (Negative); Urine Specific Gravity 1.007 (1.001-1.035); Urine WBC <1 /hpf (0 - 3)
[2022-03-08 17:04] VITALS: BP 103/65
[2022-03-08 22:00] VITALS: BP 112/70
[2022-03-09] VITALS (7 sets, daily range): BP systolic 82–131; BP diastolic 51–76
[2022-03-09] MEDS ORDERED: REGADENOSON 0.4 MG/5 ML SYRG IV ONE (07:45)
[2022-03-09] MEDS: CARVEDILOL 12.5 MG TAB PO SCH (10:29)
[2022-03-09] MEDS: PANTOPRAZOLE 40 MG/10 ML VIAL INJ IV SCH (10:29)
[2022-03-09] MEDS: RIVAROXABAN 15 MG TAB PO SCH (10:29)
[2022-03-09] MEDS: FUROSEMIDE 40 MG/4 ML VIAL IV SCH (10:29)
[2022-03-09] MEDS: LISINOPRIL 5 MG TAB PO SCH (10:30)
[2022-03-09] MEDS ORDERED: LORazepam 0.5 MG TAB PO ONE (13:30)
[2022-03-09] MEDS ORDERED: METOPROLOL SUCCINATE XL 50 MG TAB PO ONE (19:00)
[2022-03-09] MEDS ORDERED: CARVEDILOL 12.5 MG TAB PO SCH (22:00)
[2022-03-10 05:00] VITALS: BP 97/51
[2022-03-10 08:00] VITALS: BP 98/47
[2022-03-10 08:30] VITALS: BP 98/47
[2022-03-10] MEDS: PANTOPRAZOLE 40 MG/10 ML VIAL INJ IV SCH (09:44)
[2022-03-10] MEDS: FUROSEMIDE 40 MG/4 ML VIAL IV SCH (09:44)
[2022-03-10] MEDS: RIVAROXABAN 15 MG TAB PO SCH (09:45)
[2022-03-10] MEDS: LISINOPRIL 5 MG TAB PO SCH (09:45)
[2022-03-10] MEDS ORDERED: METOPROLOL SUCCINATE XL 50 MG TAB PO SCH (10:00)
[2022-03-10] MEDS ORDERED: PRED10TA PO (11:08)
[2022-03-10] MEDS ORDERED: LEVO500T31 PO ×2 (11:08→11:09)
[2022-03-10 13:00] VITALS: BP 103/58
[2022-03-10 15:26] VITALS: BP 114/69
[2022-03-11] MEDS ORDERED: levoFLOXacin 500MG 100 ML IV SCH (10:00)
== END 2022-03-10 15:30 | disposition home or self-care (01) | DRG 291 ==
LOC: ER 12:05 → TELE 17:37 → TELE-WESTW 03-07 12:22
PROVIDERS: ADMIT Nurse Practitioner Family; ATTEND Internal Medicine
DX: I11.0 Hypertensive heart disease with heart failure (principal); I50.33 Acute on chronic diastolic (congestive) heart failure; J96.21 Acute and chronic respiratory failure with hypoxia; E84.9 Cystic fibrosis, unspecified; I48.20 Chronic atrial fibrillation, unspecified; J44.1 Chronic obstructive pulmonary disease with (acute) exacerbation; J98.11 Atelectasis; F41.9 Anxiety disorder, unspecified; E78.5 Hyperlipidemia, unspecified; E87.6 Hypokalemia; I25.10 Atherosclerotic heart disease of native coronary artery without angina pectoris; J84.10 Pulmonary fibrosis, unspecified; Z79.899 Other long term (current) drug therapy; Z83.3 Family history of diabetes mellitus; Z86.16 Personal history of COVID-19; Z95.1 Presence of aortocoronary bypass graft; Z99.81 Dependence on supplemental oxygen; Z90.49 Acquired absence of other specified parts of digestive tract
CPT/HCPCS: 36415; 80048; 80053; 81001; 83880; 84484; 85025; 85379; 85610; 85730; 87426; 93005; 96374; 96375; C9113; G0378; J2405

== ENCOUNTER 2022-03-22 20:54 | Inpatient (IN) | payer MEDICARE, OTHER ==
[~2022-03-22] VITALS: Ht 162.6 cm; Wt 81.3 kg
[~2022-03-22 20:54] MED LIST changes: -PRE5T PO; +PRED10TA PO
[2022-03-22 21:43] LABS: Basophils # (auto) 0 10 ^3/uL (0-0.2); Basophils % (auto) 0.4 % (0.0-2.0); Eosinophils # (auto) 0.6 10 ^3/uL (0-0.8); Eosinophils % (auto) 5.4 % (0.0-7.0); Hematocrit 39.1 % (41.0-53.0); Hemoglobin 13.5 g/dL (13.5-17.5); Lymphocytes % (auto) 10.1 % (10.0-50.0); Mean Corpuscular Hgb Conc. 34.4 g/dL (32.0-36.0); Mean Corpuscular Volume 87.3 fL (80.0-100.0); Monocytes # (auto) 1.3 10 ^3/uL (0-1.3); Monocytes % (auto) 12.8 % (0.0-12.0); Neutrophils # (auto) 7.4 10 ^3/uL (1.6-8.6); Neutrophils % (auto) 71.3 % (37.0-80.0); Red Blood Cells 4.48 10^6/uL (4.5-5.90); Red Cell Distribution Width 17.5 % (11.8-14.3); White Blood Cell 10.4 10^3/uL (4.4-10.8)
[2022-03-22 22:07] LABS: Albumin 3.1 g/dL (3.4-5.0); Calcium 8.5 mg/dL (8.5-10.1); Potassium 3.4 mmol/L (3.5-5.1)
[2022-03-22 22:11] LABS: BUN/Creatinine Ratio 20.7; Bilirubin, Total 0.4 mg/dL (0.2-1.0); Total Protein 6.3 g/dL (6.4-8.2)
[2022-03-23] MEDS ORDERED: MORPHINE SULFATE INJ 2 MG/ml SYRG IV PRN (04:15)
[2022-03-23] MEDS ORDERED: ACETAMINOPHEN 325 MG TAB PO PRN (04:15)
[2022-03-23] MEDS ORDERED: ONDANSETRON HCL 4 MG/2 ML VIAL IV PRN (04:15)
[2022-03-23] MEDS ORDERED: ALBUTEROL SULF 2.5 MG/0.5ML(0.5%) NEB SOLN NEB PRN (04:15)
[2022-03-23] MEDS ORDERED: NITROGLYCERIN 0.4 MG SL TAB SL PRN (04:15)
[2022-03-23 05:15] LABS: Urine Bacteria FEW /hpf (None Seen); Urine Blood Negative /uL (Negative); Urine Specific Gravity 1.012 (1.001-1.035); Urine WBC <1 /hpf (0 - 3)
[2022-03-23] MEDS: cefTRIAXone 1GM/50ML D5W 50 ML IV SCH ×2 (06:12→11:30)
[2022-03-23] MEDS ORDERED: LEVOTHYROXINE SODIUM 50 MCG TAB PO SCH (07:00)
[2022-03-23] MEDS ORDERED: AZITHROMYCIN 500MG/ 250ML 250 ML IV SCH (10:00)
[2022-03-23] MEDS: RIVAROXABAN 15 MG TAB PO SCH (10:00)
[2022-03-23] MEDS: LISINOPRIL 5 MG TAB PO SCH (11:04)
[2022-03-23] MEDS: ASPirin 81 mg TAB PO SCH (11:05)
[2022-03-23] MEDS: PANTOPRAZOLE 40 MG TAB PO SCH (11:05)
[2022-03-23] MEDS: CARVEDILOL 12.5 MG TAB PO SCH ×2 (11:05→22:10)
[2022-03-23] MEDS: FUROSEMIDE 40 MG TAB PO SCH (11:31)
[2022-03-23] MEDS ORDERED: POTASSIUM EFFERVESENT TAB 25 MEQ PO ONE (16:15)
[2022-03-23 16:30] VITALS: BP 116/65
[2022-03-23] MEDS: MONTELUKAST SODIUM 10 MG TAB PO SCH (22:05)
[2022-03-24 07:32] LABS: Basophils # (auto) 0 10 ^3/uL (0-0.2); Basophils % (auto) 0.5 % (0.0-2.0); Eosinophils # (auto) 0.7 10 ^3/uL (0-0.8); Eosinophils % (auto) 6.7 % (0.0-7.0); Hematocrit 37.8 % (41.0-53.0); Hemoglobin 13.2 g/dL (13.5-17.5); Lymphocytes # (auto) 0.8 10 ^3/uL (0.4-5.4); Lymphocytes % (auto) 8.5 % (10.0-50.0); Mean Corpuscular Hemoglobin 30.4 pg (28.0-32.0); Mean Corpuscular Hgb Conc. 34.9 g/dL (32.0-36.0); Mean Corpuscular Volume 87.1 fL (80.0-100.0); Monocytes % (auto) 9.7 % (0.0-12.0); Neutrophils # (auto) 7.4 10 ^3/uL (1.6-8.6); Neutrophils % (auto) 74.6 % (37.0-80.0); Nucleated Red Blood Cells % 0.1 %; Red Blood Cells 4.33 10^6/uL (4.5-5.90); Red Cell Distribution Width 17.5 % (11.8-14.3); White Blood Cell 9.9 10^3/uL (4.4-10.8)
[2022-03-24 07:56] LABS: BUN/Creatinine Ratio 17.9; Bilirubin, Total 0.5 mg/dL (0.2-1.0); Calcium 8.8 mg/dL (8.5-10.1); Potassium 3.3 mmol/L (3.5-5.1); Total Protein 6.5 g/dL (6.4-8.2)
[2022-03-24 09:00] VITALS: BP 112/60
[2022-03-24 09:30] VITALS: BP 112/60
[2022-03-24] MEDS: ASPirin 81 mg TAB PO SCH (10:13)
[2022-03-24] MEDS: RIVAROXABAN 15 MG TAB PO SCH (10:14)
[2022-03-24] MEDS: CARVEDILOL 12.5 MG TAB PO SCH ×2 (10:15→21:32)
[2022-03-24] MEDS: FUROSEMIDE 40 MG TAB PO SCH (10:15)
[2022-03-24] MEDS: PANTOPRAZOLE 40 MG TAB PO SCH (10:16)
[2022-03-24] MEDS: ALBUTEROL SULF 2.5 MG/0.5ML(0.5%) NEB SOLN NEB SCH ×2 (11:13→19:20)
[2022-03-24] MEDS: IPRATROPIUM BROM 0.5 MG/2.5ML INH SOL NEB SCH ×2 (11:13→19:21)
[2022-03-24] MEDS: LISINOPRIL 5 MG TAB PO SCH (12:00)
[2022-03-24 13:00] VITALS: BP 98/52
[2022-03-24] MEDS: methylPREDNISolone SOD SUCC 40 MG/ML VL IV SCH (14:40)
[2022-03-24] MEDS ORDERED: POTASSIUM EFFERVESENT TAB 25 MEQ PO ONE (16:15)
[2022-03-24 16:57] VITALS: BP 96/55
[2022-03-24] MEDS: AMIODARONE HCL 200 MG TAB PO SCH (21:32)
[2022-03-24] MEDS: MONTELUKAST SODIUM 10 MG TAB PO SCH (21:38)
[2022-03-24 22:00] VITALS: BP 111/66
[2022-03-25] MEDS: ALBUTEROL SULF 2.5 MG/0.5ML(0.5%) NEB SOLN NEB SCH ×3 (00:16→12:31)
[2022-03-25] MEDS: IPRATROPIUM BROM 0.5 MG/2.5ML INH SOL NEB SCH ×3 (00:16→12:31)
[2022-03-25] MEDS: methylPREDNISolone SOD SUCC 40 MG/ML VL IV SCH ×2 (04:13→05:26)
[2022-03-25 05:00] VITALS: BP 113/67
[2022-03-25 09:00] VITALS: BP 146/78
[2022-03-25] MEDS: LISINOPRIL 5 MG TAB PO SCH (09:26)
[2022-03-25] MEDS: ASPirin 81 mg TAB PO SCH (09:26)
[2022-03-25] MEDS: CARVEDILOL 12.5 MG TAB PO SCH (09:28)
[2022-03-25] MEDS: FUROSEMIDE 40 MG TAB PO SCH (09:29)
[2022-03-25] MEDS: AMIODARONE HCL 200 MG TAB PO SCH (09:29)
[2022-03-25] MEDS: RIVAROXABAN 15 MG TAB PO SCH (09:30)
[2022-03-25] MEDS: PANTOPRAZOLE 40 MG TAB PO SCH (09:31)
[2022-03-25] MEDS ORDERED: AMIO200T33 PO (10:37)
[2022-03-25 12:33] VITALS: BP 133/88
[2022-03-25 13:09] VITALS: BP 136/70
== END 2022-03-25 15:28 | disposition home or self-care (01) | DRG 189 ==
LOC: ER 20:57 → TELE 03-23 04:22 → TELE-CENTR 03-24 08:51
PROVIDERS: ADMIT Nurse Practitioner; ATTEND Nurse Practitioner Acute Care
DX: J96.21 Acute and chronic respiratory failure with hypoxia (principal); E44.1 Mild protein-calorie malnutrition; J44.1 Chronic obstructive pulmonary disease with (acute) exacerbation; J98.11 Atelectasis; Z20.822 Contact with and (suspected) exposure to COVID-19; E66.9 Obesity, unspecified; E78.5 Hyperlipidemia, unspecified; I11.0 Hypertensive heart disease with heart failure; I25.10 Atherosclerotic heart disease of native coronary artery without angina pectoris; I48.91 Unspecified atrial fibrillation; I49.3 Ventricular premature depolarization; I50.9 Heart failure, unspecified; J84.10 Pulmonary fibrosis, unspecified; Z68.30 Body mass index [BMI] 30.0-30.9, adult; Z79.899 Other long term (current) drug therapy; Z88.6 Allergy status to analgesic agent; Z83.3 Family history of diabetes mellitus; Z95.1 Presence of aortocoronary bypass graft; Z86.16 Personal history of COVID-19
CPT/HCPCS: 36415; 71045; 80053; 80162; 81001; 83880; 84443; 84484; 85025; 87426; 93005; 94640; 96365; G0378; J0696

== ENCOUNTER → 2022-04-16 | Outpatient (CLI) | payer MEDICARE, OTHER ==
[~2022-04-16] MED LIST changes: +AMIO200T33 PO
[2022-04-16 08:51] LABS: Urine Blood Negative /uL (Negative); Urine Specific Gravity 1.015 (1.001-1.035)
[2022-04-16 08:52] LABS: Basophils # (auto) 0 10 ^3/uL (0-0.2); Basophils % (auto) 0.6 % (0.0-2.0); Eosinophils # (auto) 0.4 10 ^3/uL (0-0.8); Eosinophils % (auto) 5.1 % (0.0-7.0); Hematocrit 40.5 % (41.0-53.0); Hemoglobin 13.5 g/dL (13.5-17.5); Lymphocytes % (auto) 13.1 % (10.0-50.0); Mean Corpuscular Hemoglobin 29.8 pg (28.0-32.0); Mean Corpuscular Hgb Conc. 33.4 g/dL (32.0-36.0); Mean Corpuscular Volume 89.3 fL (80.0-100.0); Monocytes # (auto) 0.9 10 ^3/uL (0-1.3); Monocytes % (auto) 12.2 % (0.0-12.0); Neutrophils # (auto) 5.3 10 ^3/uL (1.6-8.6); Nucleated Red Blood Cells % 0.1 %; Red Blood Cells 4.53 10^6/uL (4.5-5.90); Red Cell Distribution Width 17.7 % (11.8-14.3); White Blood Cell 7.7 10^3/uL (4.4-10.8)
[2022-04-16 09:44] LABS: Protein, Urine 23.3 mg/dL (0.0-11.9)
== END | disposition home or self-care (01) ==
LOC: LAB 08:24
PROVIDERS: ATTEND Internal Medicine
DX: N18.31 Chronic kidney disease, stage 3a (principal); E87.1 Hypo-osmolality and hyponatremia; D63.1 Anemia in chronic kidney disease; R82.90 Unspecified abnormal findings in urine; R73.03 Prediabetes; N18.30 Chronic kidney disease, stage 3 unspecified; D64.9 Anemia, unspecified
CPT/HCPCS: 36415; 81001; 82570; 83036; 83930; 83935; 84156; 84300; 84403; 84443; 85025

== ENCOUNTER → 2022-04-27 | Outpatient (CLI) | payer MEDICARE, OTHER ==
[~2022-04-27] MED LIST changes: +ASPI-543 PO; +FURO20TA3 PO; +IPRA0.00 IN; +LEVO50TA66 PO; +METO10TA3 PO; +NITR400A2 TL; +POM; +PRE5T PO
[2022-04-27 13:00] VITALS: BP 159/77
[2022-04-27 13:20] VITALS: BP 145/76
[2022-04-27 16:17] LABS: Basophils # (auto) 0.1 10 ^3/uL (0-0.2); Basophils % (auto) 0.9 % (0.0-2.0); Eosinophils # (auto) 0.4 10 ^3/uL (0-0.8); Eosinophils % (auto) 5.6 % (0.0-7.0); Hematocrit 40.2 % (41.0-53.0); Lymphocytes # (auto) 0.6 10 ^3/uL (0.4-5.4); Lymphocytes % (auto) 8.8 % (10.0-50.0); Mean Corpuscular Hemoglobin 30.4 pg (28.0-32.0); Mean Corpuscular Hgb Conc. 32.4 g/dL (32.0-36.0); Mean Corpuscular Volume 93.7 fL (80.0-100.0); Monocytes # (auto) 0.8 10 ^3/uL (0-1.3); Neutrophils # (auto) 5.2 10 ^3/uL (1.6-8.6); Neutrophils % (auto) 73.7 % (37.0-80.0); Red Blood Cells 4.29 10^6/uL (4.5-5.90); Red Cell Distribution Width 18.4 % (11.8-14.3)
[2022-04-27 16:27] LABS: BUN/Creatinine Ratio 14.2; Calcium 8.9 mg/dL (8.5-10.1); Potassium 4.5 mmol/L (3.5-5.1)
[2022-04-27 16:39] LABS: INR 0.96 (0.9-1.15); Partial Thromboplastin Time 26.6 sec (24.6-33.4)
== END | disposition home or self-care (01) ==
LOC: Rad HDHVI 12:50
PROVIDERS: ATTEND Internal Medicine Cardiovascular Disease
DX: I50.30 Unspecified diastolic (congestive) heart failure (principal)
CPT/HCPCS: 36415; 71046; 80048; 85025; 85610; 85730; 93005; G0463

== ENCOUNTER 2022-04-30 07:42 | Day surgery (SDC) | payer MEDICARE, OTHER ==
[~2022-04-30] VITALS: Ht 162.6 cm; Wt 81.6 kg
[~2022-04-30 07:42] MED LIST changes: -AMIO200T33 PO; -HYDR5CRE3 PR; -INDA2.5T PO; -LEVO500T31 PO; -LISI-275 PO; -LORA-655 PO; -MONT-8 PO; -OMEP-263 PO; -PANT40T PO; -PRED10TA PO
[2022-04-30] MEDS ORDERED: VANCOMYCIN 1GM/250ML 250 ML IV ONE ×2 (10:45→10:49)
[2022-04-30] MEDS ORDERED: LIDOCAINE 2%HCL (LOCAL ANESTH.) INJ 20ML MDV ONE (11:01)
[2022-04-30] MEDS ORDERED: VANCOMYCIN HCL 1000 MG VL ONE (11:42)
[2022-04-30] MEDS ORDERED: LIDOCAINE W/ EPINEPHRINE 2% INJ 20ML VIAL ONE (11:42)
[2022-04-30] MEDS ORDERED: fentaNYL CITRATE 100 MCG/2 ML VL ONE (11:52)
[2022-04-30] MEDS ORDERED: MIDAZOLAM HCL 2MG/2ML 2ml VIAL (1mg/ml) ONE (11:52)
[2022-04-30 12:30] VITALS: BP 136/84
[2022-04-30] MEDS ORDERED: FUROSEMIDE 20 MG/2 ML VIAL ONE (12:32)
== END 2022-04-30 15:02 | disposition home or self-care (01) ==
LOC: CATH 07:42
PROVIDERS: ATTEND Internal Medicine Cardiovascular Disease
DX: I49.5 Sick sinus syndrome (principal); I25.10 Atherosclerotic heart disease of native coronary artery without angina pectoris; I95.1 Orthostatic hypotension; Z79.899 Other long term (current) drug therapy; Z20.822 Contact with and (suspected) exposure to COVID-19
CPT/HCPCS: 33208; 71045; 93005; C1785; C1892; C1898; J1940; J2250; J3010; J3370; U0003; 99152

== ENCOUNTER → 2022-05-01 | Outpatient (CLI) | payer MEDICARE, OTHER | END | disposition home or self-care (01) | LOC: Rad HDHVI 10:21 | PROVIDERS: ATTEND Internal Medicine Cardiovascular Disease | DX: Q25.46 Tortuous aortic arch (principal); Z95.0 Presence of cardiac pacemaker | CPT/HCPCS: 71046 ==

== ENCOUNTER → 2022-05-14 | Outpatient (CLI) | payer MEDICARE, OTHER | END | disposition home or self-care (01) | LOC: Rad HDHVI 15:42 | PROVIDERS: ATTEND Internal Medicine Cardiovascular Disease | DX: I08.3 Combined rheumatic disorders of mitral, aortic and tricuspid valves (principal); I11.0 Hypertensive heart disease with heart failure; I50.30 Unspecified diastolic (congestive) heart failure | CPT/HCPCS: 93306 ==

== ENCOUNTER → 2022-05-22 | Outpatient (CLI) | payer MEDICARE, OTHER ==
[2022-05-22 08:59] LABS: Albumin 3.3 g/dL (3.4-5.0); Potassium 4.3 mmol/L (3.5-5.1)
[2022-05-22 09:06] LABS: BUN/Creatinine Ratio 11.7; Bilirubin, Total 0.5 mg/dL (0.2-1.0); Total Protein 7.2 g/dL (6.4-8.2)
== END | disposition home or self-care (01) ==
LOC: LAB 08:28
PROVIDERS: ATTEND Internal Medicine
DX: R73.03 Prediabetes (principal); E55.9 Vitamin D deficiency, unspecified; Z79.899 Other long term (current) drug therapy; E78.5 Hyperlipidemia, unspecified
CPT/HCPCS: 36415; 80053; 80061; 82306

== ENCOUNTER → 2022-06-16 | Outpatient (CLI) | payer MEDICARE, OTHER ==
[2022-06-16 15:18] LABS: Albumin 3.7 g/dL (3.4-5.0); Bilirubin, Direct 0.1 mg/dL (0-0.2)
[2022-06-16 15:24] LABS: Bilirubin, Total 0.5 mg/dL (0.2-1.0); Total Protein 7.7 g/dL (6.4-8.2)
== END | disposition home or self-care (01) ==
LOC: LAB 14:30
PROVIDERS: ATTEND Internal Medicine
DX: E78.5 Hyperlipidemia, unspecified (principal)
CPT/HCPCS: 36415; 80076

== ENCOUNTER 2022-07-16 10:38 | Inpatient (IN) | payer MEDICARE, OTHER ==
[~2022-07-16] VITALS: Ht 162.6 cm; Wt 79.7 kg
[2022-07-16 12:05] LABS: Basophils # (auto) 0.1 10 ^3/uL (0-0.2); Basophils % (auto) 0.5 % (0.0-2.0); Eosinophils % (auto) 7.3 % (0.0-7.0); Hematocrit 38.5 % (41.0-53.0); Hemoglobin 12.9 g/dL (13.5-17.5); Lymphocytes # (auto) 1.4 10 ^3/uL (0.4-5.4); Lymphocytes % (auto) 10.3 % (10.0-50.0); Mean Corpuscular Hemoglobin 31.8 pg (28.0-32.0); Mean Corpuscular Hgb Conc. 33.5 g/dL (32.0-36.0); Mean Corpuscular Volume 94.7 fL (80.0-100.0); Monocytes # (auto) 1.2 10 ^3/uL (0-1.3); Neutrophils # (auto) 9.7 10 ^3/uL (1.6-8.6); Neutrophils % (auto) 72.9 % (37.0-80.0); Nucleated Red Blood Cells % 0.1 %; Red Blood Cells 4.06 10^6/uL (4.5-5.90); Red Cell Distribution Width 14.9 % (11.8-14.3); White Blood Cell 13.4 10^3/uL (4.4-10.8)
[2022-07-16 12:24] LABS: Albumin 3.5 g/dL (3.4-5.0); Potassium 4.5 mmol/L (3.5-5.1)
[2022-07-16 12:25] LABS: Lactic Acid w/Reflex 2.8 mmol/L (0.4-2.0)
[2022-07-16 12:27] LABS: BUN/Creatinine Ratio 21.6
[2022-07-16 12:30] LABS: Bilirubin, Total 0.4 mg/dL (0.2-1.0); Total Protein 7.8 g/dL (6.4-8.2)
[2022-07-16 12:35] LABS: INR 1.03 (0.9-1.15)
[2022-07-16] MEDS ORDERED: OMNIPAQUE ORAL SOLN 500ml 12mg/ml PO ONE (13:54)
[2022-07-16] MEDS ORDERED: PANTOPRAZOLE 40 MG/10 ML VIAL INJ IV ONE (15:00)
[2022-07-16] MEDS ORDERED: NITROGLYCERIN 0.4 MG SL TAB SL PRN (15:00)
[2022-07-16] MEDS ORDERED: ACETAMINOPHEN 325 MG TAB PO PRN (15:00)
[2022-07-16] MEDS ORDERED: MORPHINE SULFATE INJ 2 MG/ml SYRG IV PRN (15:00)
[2022-07-16] MEDS ORDERED: IOHEXOL 300 MG/ML 100ML BOTTLE IJ ONE (15:03)
[2022-07-16] MEDS ORDERED: SODIUM CHLORIDE 0.9% 1,000 ML IV ONE (15:15)
[2022-07-16] MEDS ORDERED: AZITHROMYCIN 500MG/ 250ML 250 ML IV ONE (15:15)
[2022-07-16] MEDS ORDERED: cefTRIAXone 1GM/50ML D5W 50 ML IV ONE (15:15)
[2022-07-16 15:30] LABS: Cholesterol 180 mg/dL (< 200); Triglycerides 129 mg/dL (< 150)
[2022-07-16 15:32] LABS: HDL Cholesterol 36 mg/dL (40-59); LDL Cholesterol 123 mg/dL (< 100)
[2022-07-16 19:13] LABS: Urine Bacteria NONE SEEN /hpf (None Seen); Urine Blood Negative /uL (Negative); Urine Specific Gravity 1.034 (1.001-1.035); Urine WBC <1 /hpf (0 - 3)
[2022-07-16 20:10] LABS: Hematocrit 27.4 % (41.0-53.0); Hemoglobin 9.6 g/dL (13.5-17.5)
[2022-07-16] MEDS: FERROUS GLUCONATE PO SCH (21:54)
[2022-07-16] MEDS: [UNRECOGNIZED DRUG - OTHER] PO SCH (21:54)
[2022-07-16] MEDS: CARVEDILOL 12.5 MG TAB PO SCH (21:54)
[2022-07-16 23:15] VITALS: BP 135/61
[2022-07-16 23:18] VITALS: BP 135/61
[2022-07-17 04:51] VITALS: BP 104/66
[2022-07-17 06:20] LABS: Basophils # (auto) 0 10 ^3/uL (0-0.2); Basophils % (auto) 0.6 % (0.0-2.0); Eosinophils # (auto) 0.5 10 ^3/uL (0-0.8); Eosinophils % (auto) 6.9 % (0.0-7.0); Hematocrit 25.8 % (41.0-53.0); Lymphocytes # (auto) 1.1 10 ^3/uL (0.4-5.4); Lymphocytes % (auto) 14.5 % (10.0-50.0); Mean Corpuscular Hemoglobin 32.5 pg (28.0-32.0); Mean Corpuscular Volume 92.9 fL (80.0-100.0); Monocytes # (auto) 0.9 10 ^3/uL (0-1.3); Monocytes % (auto) 11.2 % (0.0-12.0); Neutrophils # (auto) 5.1 10 ^3/uL (1.6-8.6); Neutrophils % (auto) 66.8 % (37.0-80.0); Red Blood Cells 2.78 10^6/uL (4.5-5.90); Red Cell Distribution Width 14.7 % (11.8-14.3); White Blood Cell 7.6 10^3/uL (4.4-10.8)
[2022-07-17] MEDS ORDERED: FUROSEMIDE 20 MG TAB PO SCH (07:00)
[2022-07-17 07:15] LABS: Potassium 4.6 mmol/L (3.5-5.1)
[2022-07-17 07:28] LABS: Albumin 2.8 g/dL (3.4-5.0); BUN/Creatinine Ratio 20.9; Bilirubin, Total 0.6 mg/dL (0.2-1.0); Calcium 8.2 mg/dL (8.5-10.1); Total Protein 5.3 g/dL (6.4-8.2)
[2022-07-17 09:00] VITALS: BP 130/63
[2022-07-17] MEDS: FERROUS GLUCONATE PO SCH ×2 (10:00→22:00)
[2022-07-17] MEDS: [UNRECOGNIZED DRUG - OTHER] PO SCH ×2 (10:00→22:00)
[2022-07-17] MEDS: AZITHROMYCIN 500MG/ 250ML 250 ML IV SCH (10:49)
[2022-07-17] MEDS: PANTOPRAZOLE 40 MG/10 ML VIAL INJ IV SCH (10:50)
[2022-07-17] MEDS: cefTRIAXone 1GM/50ML D5W 50 ML IV SCH (10:50)
[2022-07-17] MEDS: LEVOTHYROXINE SODIUM 50 MCG TAB PO SCH (10:51)
[2022-07-17] MEDS: CARVEDILOL 12.5 MG TAB PO SCH ×2 (10:52→21:48)
[2022-07-17] MEDS: CITALOPRAM HYDROBR 20 MG TAB PO SCH (10:52)
[2022-07-17 13:00] VITALS: BP 109/64
[2022-07-17 16:42] VITALS: BP 115/69
[2022-07-17 22:00] VITALS: BP 119/70
[2022-07-18 05:00] VITALS: BP 100/54
[2022-07-18 09:00] VITALS: BP 129/80
[2022-07-18] MEDS: PANTOPRAZOLE 40 MG/10 ML VIAL INJ IV SCH (09:25)
[2022-07-18] MEDS: LEVOTHYROXINE SODIUM 50 MCG TAB PO SCH (09:25)
[2022-07-18] MEDS: CITALOPRAM HYDROBR 20 MG TAB PO SCH (09:25)
[2022-07-18] MEDS: cefTRIAXone 1GM/50ML D5W 50 ML IV SCH (09:25)
[2022-07-18] MEDS: CARVEDILOL 12.5 MG TAB PO SCH ×2 (09:26→21:57)
[2022-07-18] MEDS: [UNRECOGNIZED DRUG - OTHER] PO SCH ×2 (09:34→21:58)
[2022-07-18] MEDS: FERROUS GLUCONATE PO SCH ×2 (09:34→22:00)
[2022-07-18] MEDS: AZITHROMYCIN 500MG/ 250ML 250 ML IV SCH (12:40)
[2022-07-18 13:00] VITALS: BP 121/66
[2022-07-18 19:28] LABS: Hematocrit 26.5 % (41.0-53.0); Hemoglobin 8.8 g/dL (13.5-17.5)
[2022-07-18] MEDS ORDERED: POLYETHYLENE GLYCOL 17 GM PWDR PO ONE (21:30)
[2022-07-18] MEDS ORDERED: GOLYTELY 4L KIT PO ONE (21:30)
[2022-07-18 22:00] VITALS: BP 125/66
[2022-07-19 05:00] VITALS: BP 121/71
[2022-07-19 07:11] LABS: Hematocrit 24.5 % (41.0-53.0); Hemoglobin 8.6 g/dL (13.5-17.5)
[2022-07-19 08:00] VITALS: BP 113/59
[2022-07-19] MEDS: cefTRIAXone 1GM/50ML D5W 50 ML IV SCH (08:17)
[2022-07-19] MEDS ORDERED: AZIT500T66 PO (08:47)
[2022-07-19] MEDS ORDERED: PANT40T PO (08:47)
[2022-07-19] MEDS: AZITHROMYCIN 500MG/ 250ML 250 ML IV SCH (10:00)
[2022-07-19] MEDS: CITALOPRAM HYDROBR 20 MG TAB PO SCH (10:00)
[2022-07-19] MEDS: CARVEDILOL 12.5 MG TAB PO SCH (10:00)
[2022-07-19] MEDS: [UNRECOGNIZED DRUG - OTHER] PO SCH (10:00)
[2022-07-19] MEDS: LEVOTHYROXINE SODIUM 50 MCG TAB PO SCH (10:00)
[2022-07-19] MEDS: FERROUS GLUCONATE PO SCH (10:00)
[2022-07-19] MEDS: PANTOPRAZOLE 40 MG/10 ML VIAL INJ IV SCH (11:02)
[2022-07-19] MEDS ORDERED: fentaNYL CITRATE 100 MCG/2 ML VL ONE (11:16)
[2022-07-19] MEDS: MIDAZOLAM HCL 2MG/2ML 2ml VIAL (1mg/ml) ONE ×2 (11:56→11:59)
[2022-07-19] MEDS: diphenhdrAMINE HCL 50 MG/1 ML VL ONE ×2 (11:59→12:03)
[2022-07-19 16:00] VITALS: BP 120/62
[2022-07-19 16:35] VITALS: BP 140/70
== END 2022-07-19 17:18 | disposition home or self-care (01) | DRG 377 ==
LOC: ER 10:38 → TELE 15:02 → TELE-EAST 22:35
PROVIDERS: ADMIT Nurse Practitioner Family; ATTEND Family Medicine
PROC: 0DBN8ZX Excision of Sigmoid Colon, Via Natural or Artificial Opening Endoscopic, Diagnostic (ICD-10-PCS; 2022-07-19)
PROC: 0DBP8ZX Excision of Rectum, Via Natural or Artificial Opening Endoscopic, Diagnostic (ICD-10-PCS; 2022-07-19)
PROC: 0DBB8ZX Excision of Ileum, Via Natural or Artificial Opening Endoscopic, Diagnostic (ICD-10-PCS; principal; 2022-07-19 12:00)
DX: K92.2 Gastrointestinal hemorrhage, unspecified (principal); I50.31 Acute diastolic (congestive) heart failure; J15.6 Pneumonia due to other Gram-negative bacteria; E87.1 Hypo-osmolality and hyponatremia; J44.0 Chronic obstructive pulmonary disease with (acute) lower respiratory infection; N17.9 Acute kidney failure, unspecified; E87.21 Acute metabolic acidosis; J44.1 Chronic obstructive pulmonary disease with (acute) exacerbation; E66.01 Morbid (severe) obesity due to excess calories; E78.5 Hyperlipidemia, unspecified; I11.0 Hypertensive heart disease with heart failure; I25.10 Atherosclerotic heart disease of native coronary artery without angina pectoris; I48.91 Unspecified atrial fibrillation; I50.9 Heart failure, unspecified; J84.10 Pulmonary fibrosis, unspecified; E03.9 Hypothyroidism, unspecified; D63.8 Anemia in other chronic diseases classified elsewhere; F32.A Depression, unspecified; K63.5 Polyp of colon; R91.1 Solitary pulmonary nodule; Z20.822 Contact with and (suspected) exposure to COVID-19; K64.4 Residual hemorrhoidal skin tags; K64.8 Other hemorrhoids; R04.0 Epistaxis; Z85.46 Personal history of malignant neoplasm of prostate; I25.2 Old myocardial infarction; Z88.5 Allergy status to narcotic agent; Z68.30 Body mass index [BMI] 30.0-30.9, adult; Z90.49 Acquired absence of other specified parts of digestive tract; Z92.3 Personal history of irradiation; Z83.3 Family history of diabetes mellitus; Z82.49 Family history of ischemic heart disease and other diseases of the circulatory system; Z85.038 Personal history of other malignant neoplasm of large intestine; Z95.1 Presence of aortocoronary bypass graft
CPT/HCPCS: 36415; 45380; 71045; 74177; 80053; 80061; 81001; 83036; 83605; 83690; 84443; 85014; 85018; 85025; 85610; 85730; 86850; 86900; 86901; 87040; 87426; 93005; 96365; 96375; C9113; G0378; J0696; J2250

== ENCOUNTER → 2022-07-27 | Outpatient (CLI) | payer MEDICARE, OTHER ==
[~2022-07-27] MED LIST changes: -ASPI-543 PO; +AZIT500T66 PO; +PANT40T PO
== END | disposition home or self-care (01) ==
LOC: Rad HDHVI 12:14
PROVIDERS: ATTEND Internal Medicine Cardiovascular Disease
DX: J84.10 Pulmonary fibrosis, unspecified (principal); R06.02 Shortness of breath
CPT/HCPCS: 71046

== ENCOUNTER → 2022-08-05 | Outpatient (CLI) | payer MEDICARE, OTHER ==
[2022-08-05 11:37] LABS: Alanine Aminotransferase 19 U/L (16-61); Albumin 3.4 g/dL (3.4-5.0); Alkaline Phosphatase 96 U/L (45-117); Aspartate Aminotransferase 26 U/L (15-37); Bilirubin, Direct < 0.1 mg/dL (0-0.2); Bilirubin, Total 0.2 mg/dL (0.2-1.0); Cholesterol 168 mg/dL (< 200); HDL Cholesterol 38 mg/dL (40-59); LDL Cholesterol 123 mg/dL (< 100); Total Protein 7.8 g/dL (6.4-8.2); Triglycerides 78 mg/dL (< 150)
== END | disposition home or self-care (01) ==
LOC: LAB 09:40
PROVIDERS: ATTEND Internal Medicine
DX: E78.5 Hyperlipidemia, unspecified (principal)
CPT/HCPCS: 36415; 80061; 80076

== ENCOUNTER 2022-09-03 06:56 | Day surgery (SDC) | payer MEDICARE, OTHER ==
[2022-08-31 10:31] LABS: Basophils # (auto) 0.1 10 ^3/uL (0-0.2); Basophils % (auto) 0.9 % (0.0-2.0); Eosinophils # (auto) 0.6 10 ^3/uL (0-0.8); Eosinophils % (auto) 9.4 % (0.0-7.0); Hematocrit 37.4 % (41.0-53.0); Hemoglobin 12.6 g/dL (13.5-17.5); Lymphocytes # (auto) 0.9 10 ^3/uL (0.4-5.4); Lymphocytes % (auto) 13.6 % (10.0-50.0); Mean Corpuscular Hemoglobin 29.8 pg (28.0-32.0); Mean Corpuscular Hgb Conc. 33.7 g/dL (32.0-36.0); Mean Corpuscular Volume 88.4 fL (80.0-100.0); Monocytes # (auto) 0.7 10 ^3/uL (0-1.3); Monocytes % (auto) 10.6 % (0.0-12.0); Neutrophils # (auto) 4.3 10 ^3/uL (1.6-8.6); Neutrophils % (auto) 65.5 % (37.0-80.0); Nucleated Red Blood Cells % 0.1 %; Red Blood Cells 4.23 10^6/uL (4.5-5.90); Red Cell Distribution Width 14.9 % (11.8-14.3); White Blood Cell 6.6 10^3/uL (4.4-10.8)
[2022-08-31 10:46] LABS: INR 0.97 (0.9-1.15); Partial Thromboplastin Time 27.7 sec (24.6-33.4)
[2022-08-31 11:13] LABS: Albumin 3.3 g/dL (3.4-5.0); BUN/Creatinine Ratio 15.1 (10.0-20.0); Calcium 9.5 mg/dL (8.5-10.1)
[2022-08-31 11:16] LABS: Bilirubin, Total 0.2 mg/dL (0.2-1.0)
[2022-08-31 11:24] LABS: Potassium 4.1 mmol/L (3.5-5.1)
[2022-09-03] VITALS (10 sets, daily range): BP systolic 129–151; BP diastolic 64–81
[~2022-09-03] VITALS: Ht 162.6 cm; Wt 81.2 kg
[~2022-09-03 06:56] MED LIST changes: -AZIT500T66 PO; -ESCI-28 PO; -FUR20T PO; -LEVO50TA66 PO; -POM; -PRE5T PO; +SOTA80TA PO
[2022-09-03] MEDS ORDERED: IOHEXOL 350 MG/ML 100ML IJ ONE ×2 (07:55→09:54)
[2022-09-03] MEDS ORDERED: fentaNYL CITRATE 100 MCG/2 ML VL ONE (08:18)
[2022-09-03] MEDS ORDERED: MIDAZOLAM HCL 2MG/2ML 2ml VIAL (1mg/ml) ONE (08:18)
[2022-09-03] MEDS ORDERED: ANGIOMAX 250 MG VIAL IV ONE (08:18)
[2022-09-03] MEDS ORDERED: SODIUM CHL 0.9% 0 ML ONE (08:19)
[2022-09-03] MEDS ORDERED: LIDOCAINE 2%HCL (LOCAL ANESTH.) INJ 10ml MDV ONE (08:19)
[2022-09-03] MEDS ORDERED: LIDOCAINE 2%HCL (LOCAL ANESTH.) INJ 20ML MDV ONE (08:21)
== END 2022-09-03 12:45 | disposition home or self-care (01) ==
LOC: CATH 06:56
PROVIDERS: ATTEND Internal Medicine Cardiovascular Disease
DX: I25.10 Atherosclerotic heart disease of native coronary artery without angina pectoris (principal); Z95.1 Presence of aortocoronary bypass graft; I48.91 Unspecified atrial fibrillation; I49.5 Sick sinus syndrome; Z95.0 Presence of cardiac pacemaker; Z95.5 Presence of coronary angioplasty implant and graft; Z79.01 Long term (current) use of anticoagulants; R07.89 Other chest pain
CPT/HCPCS: 36415; 80053; 85025; 85610; 85730; 93460; C1725; C1757; C1769; C1894; J1644; J2001; J2250; J3010; Q9967; 99152; 99153

== ENCOUNTER → 2022-10-21 | Outpatient (CLI) | payer MEDICARE ==
[~2022-10-21] MED LIST changes: +POTA-228 PO; -POTA10TA32 PO
[2022-10-21 14:43] LABS: Urine WBC None Seen /hpf (0 - 3)
[2022-10-21 14:46] LABS: Basophils # (auto) 0 10 ^3/uL (0-0.2); Basophils % (auto) 0.4 % (0.0-2.0); Eosinophils # (auto) 0.7 10 ^3/uL (0-0.8); Hematocrit 43.4 % (41.0-53.0); Hemoglobin 14.6 g/dL (13.5-17.5); Lymphocytes # (auto) 1.2 10 ^3/uL (0.4-5.4); Lymphocytes % (auto) 16.5 % (10.0-50.0); Mean Corpuscular Hemoglobin 29.6 pg (28.0-32.0); Mean Corpuscular Hgb Conc. 33.7 g/dL (32.0-36.0); Mean Corpuscular Volume 87.9 fL (80.0-100.0); Monocytes # (auto) 0.9 10 ^3/uL (0-1.3); Monocytes % (auto) 12.2 % (0.0-12.0); Neutrophils # (auto) 4.4 10 ^3/uL (1.6-8.6); Neutrophils % (auto) 60.9 % (37.0-80.0); Nucleated Red Blood Cells % 0.1 %; Red Blood Cells 4.94 10^6/uL (4.5-5.90); Red Cell Distribution Width 15.2 % (11.8-14.3); White Blood Cell 7.3 10^3/uL (4.4-10.8)
[2022-10-21 14:57] LABS: Urine Bacteria NONE SEEN /hpf (None Seen); Urine Blood TRACE /uL (Negative); Urine Specific Gravity 1.004 (1.001-1.035)
[2022-10-21 15:21] LABS: Albumin 3.5 g/dL (3.4-5.0); BUN/Creatinine Ratio 11.1 (10.0-20.0); Calcium 8.8 mg/dL (8.5-10.1); Phosphorus 3.3 mg/dL (2.5-4.90); Potassium 3.9 mmol/L (3.5-5.1); Uric Acid 8.1 mg/dL (3.5-7.2)
[2022-10-21 15:43] LABS: Protein, Urine 6.8 mg/dL (0.0-11.9)
== END | disposition home or self-care (01) ==
LOC: LAB 14:33
PROVIDERS: ATTEND Student in an Organized Health Care Education/Training Program
DX: N18.30 Chronic kidney disease, stage 3 unspecified (principal); E11.22 Type 2 diabetes mellitus with diabetic chronic kidney disease; E11.21 Type 2 diabetes mellitus with diabetic nephropathy; E21.3 Hyperparathyroidism, unspecified; N39.0 Urinary tract infection, site not specified; R80.9 Proteinuria, unspecified; M10.9 Gout, unspecified; E55.9 Vitamin D deficiency, unspecified; D63.1 Anemia in chronic kidney disease
CPT/HCPCS: 36415; 80069; 81001; 82306; 82570; 83970; 84156; 84550; 85025

== ENCOUNTER 2022-11-30 19:41 | Emergency (ER) | payer MEDICARE, OTHER ==
[~2022-11-30] VITALS: Ht 162.6 cm; Wt 81.0 kg
[2022-11-30 21:52] LABS: Basophils # (auto) 0 10 ^3/uL (0-0.2); Basophils % (auto) 0.5 % (0.0-2.0); Eosinophils # (auto) 0.4 10 ^3/uL (0-0.8); Eosinophils % (auto) 6.4 % (0.0-7.0); Hematocrit 42.4 % (41.0-53.0); Hemoglobin 14.3 g/dL (13.5-17.5); Lymphocytes # (auto) 1.2 10 ^3/uL (0.4-5.4); Lymphocytes % (auto) 18.9 % (10.0-50.0); Mean Corpuscular Hemoglobin 29.9 pg (28.0-32.0); Mean Corpuscular Hgb Conc. 33.8 g/dL (32.0-36.0); Mean Corpuscular Volume 88.4 fL (80.0-100.0); Monocytes # (auto) 0.7 10 ^3/uL (0-1.3); Monocytes % (auto) 11.3 % (0.0-12.0); Neutrophils # (auto) 4.1 10 ^3/uL (1.6-8.6); Neutrophils % (auto) 62.9 % (37.0-80.0); Nucleated Red Blood Cells % 0.3 %; Red Cell Distribution Width 16.5 % (11.8-14.3); White Blood Cell 6.5 10^3/uL (4.4-10.8)
[2022-11-30 22:07] LABS: Albumin 3.7 g/dL (3.4-5.0)
[2022-11-30 22:11] LABS: Urine Bacteria FEW /hpf (None Seen); Urine Blood 3+ /uL (Negative); Urine Mucus FEW (None Seen); Urine Specific Gravity 1.025 (1.001-1.035); Urine WBC 18 /hpf (0 - 3)
[2022-11-30 22:12] LABS: INR 1.04 (0.9-1.15); Partial Thromboplastin Time 30.5 SEC (24.5-34.5)
[2022-11-30 22:14] LABS: BUN/Creatinine Ratio 16.9 (10.0-20.0); Bilirubin, Total 0.3 mg/dL (0.2-1.0); Total Protein 8.2 g/dL (6.4-8.2)
[2022-12-01] MEDS ORDERED: CEPH250C PO (04:59)
[2022-12-01] MEDS ORDERED: cefTRIAXone SOD 1,000 MG VL IM ONE (05:00)
[2022-12-01 05:25] VITALS: BP 142/76; TEMP 98.2
[2022-12-01 05:30] VITALS: PULSE 68; RESP 18; O2SAT 95
== END 2022-12-01 05:30 | disposition home or self-care (01) ==
LOC: ER 19:41
DX: R31.0 Gross hematuria (principal); I13.0 Hypertensive heart and chronic kidney disease with heart failure and stage 1 through stage 4 chronic kidney disease, or unspecified chronic kidney disease; N18.9 Chronic kidney disease, unspecified; I50.9 Heart failure, unspecified; J44.9 Chronic obstructive pulmonary disease, unspecified; E78.5 Hyperlipidemia, unspecified; I25.2 Old myocardial infarction; Z85.46 Personal history of malignant neoplasm of prostate
CPT/HCPCS: 36415; 80053; 81001; 85025; 85610; 85730; 96372; 99283; J0696

== ENCOUNTER → 2022-12-07 | Outpatient (CLI) | payer MEDICARE, OTHER ==
[~2022-12-07] MED LIST changes: +CEPH250C PO
[2022-12-07 11:37] VITALS: BP 114/72; PULSE 86
[2022-12-07 11:39] VITALS: BP 132/84; PULSE 81
== END | disposition home or self-care (01) ==
LOC: CHF HDHVI 09:44
PROVIDERS: ATTEND Internal Medicine Cardiovascular Disease
DX: I25.718 Atherosclerosis of autologous vein coronary artery bypass graft(s) with other forms of angina pectoris (principal); I50.23 Acute on chronic systolic (congestive) heart failure; I34.0 Nonrheumatic mitral (valve) insufficiency; I25.5 Ischemic cardiomyopathy; E78.00 Pure hypercholesterolemia, unspecified
CPT/HCPCS: G0166

== ENCOUNTER 2023-01-02 08:51 | Inpatient (IN) | payer MEDICARE, OTHER ==
[~2023-01-02] VITALS: Ht 170.2 cm; Wt 81.5 kg
[2023-01-02] MEDS ORDERED: SODIUM CHLORIDE 0.9% 1,000 ML IV ONE ×2 (09:30→10:15)
[2023-01-02 09:41] LABS: Basophils # (auto) 0 10 ^3/uL (0-0.2); Basophils % (auto) 0.5 % (0.0-2.0); Eosinophils # (auto) 0.4 10 ^3/uL (0-0.8); Eosinophils % (auto) 5.6 % (0.0-7.0); Hematocrit 43.1 % (41.0-53.0); Hemoglobin 14.6 g/dL (13.5-17.5); Lymphocytes # (auto) 1.1 10 ^3/uL (0.4-5.4); Lymphocytes % (auto) 16.2 % (10.0-50.0); Mean Corpuscular Hemoglobin 30.7 pg (28.0-32.0); Mean Corpuscular Volume 90.1 fL (80.0-100.0); Monocytes # (auto) 0.8 10 ^3/uL (0-1.3); Monocytes % (auto) 11.9 % (0.0-12.0); Neutrophils # (auto) 4.3 10 ^3/uL (1.6-8.6); Neutrophils % (auto) 65.8 % (37.0-80.0); Nucleated Red Blood Cells % 0.1 %; Red Blood Cells 4.78 10^6/uL (4.5-5.90); Red Cell Distribution Width 16.2 % (11.8-14.3); White Blood Cell 6.6 10^3/uL (4.4-10.8)
[2023-01-02 09:52] VITALS: PULSE 64; RESP 14; O2SAT 98
[2023-01-02 09:55] LABS: Albumin 3.6 g/dL (3.4-5.0); Calcium 8.5 mg/dL (8.5-10.1); Potassium 4.1 mmol/L (3.5-5.1)
[2023-01-02 09:58] LABS: BUN/Creatinine Ratio 12.7 (10.0-20.0); Bilirubin, Total 0.3 mg/dL (0.2-1.0); Total Protein 7.7 g/dL (6.4-8.2)
[2023-01-02 10:40] LABS: Partial Thromboplastin Time 28.5 SEC (24.5-34.5); Prothrombin Time 10.5 sec (9.3-11.8)
[2023-01-02 11:48] LABS: Urine Bacteria NONE SEEN /hpf (None Seen); Urine Blood Negative /uL (Negative); Urine Clarity Clear (Clear); Urine Color Yellow (Yellow); Urine Mucus FEW (None Seen); Urine Protein, UAD Negative (Negative); Urine Specific Gravity 1.011 (1.001-1.035); Urine Urobilinogen Normal (Negative); Urine WBC <1 /hpf (0 - 3)
[2023-01-02] MEDS ORDERED: IOHEXOL 350 MG/ML 100ML IJ ONE (13:53)
[2023-01-02] MEDS ORDERED: ALBUTEROL SULF 2.5 MG/0.5ML(0.5%) NEB SOLN NEB PRN (18:30)
[2023-01-02] MEDS ORDERED: IPRATROPIUM BROM 0.5 MG/2.5ML INH SOL NEB PRN (18:30)
[2023-01-02] MEDS ORDERED: [UNRECOGNIZED DRUG - OTHER] PO SCH ×2 (18:30→18:45)
[2023-01-02] MEDS ORDERED: LISINOPRIL 10 MG TAB PO SCH (18:45)
[2023-01-02] MEDS: cefTRIAXone 1GM/50ML D5W 50 ML IV SCH (19:02)
[2023-01-02] MEDS: FUROSEMIDE 20 MG/2 ML VIAL IV SCH (19:02)
[2023-01-02 19:27] VITALS: BP 152/77; PULSE 60; RESP 23; TEMP 98.3; O2SAT 97
[2023-01-02 19:31] VITALS: O2SAT 97
[2023-01-02] MEDS: LISINOPRIL 10 MG TAB PO SCH (20:50)
[2023-01-02] MEDS: AZITHROMYCIN 500MG/ 250ML 250 ML IV SCH (23:05)
[2023-01-02] MEDS: CARVEDILOL 12.5 MG TAB PO SCH (23:07)
[2023-01-02] MEDS: SOTALOL HCL 80 MG TAB PO SCH (23:07)
[2023-01-02] MEDS: PANTOPRAZOLE 40 MG TAB PO SCH (23:08)
[2023-01-03] VITALS (7 sets, daily range): BP systolic 117–128; BP diastolic 71–74; PULSE 63–70; RESP 18–25; TEMP 97.9–98; O2SAT 95–98
[2023-01-03 02:20] LABS: Rapid Influenza A Negative (Negative); Rapid Influenza B Negative (Negative)
[2023-01-03 02:21] LABS: COVID19 ANTIGEN SOFIA FIA NEGATIVE (NEGATIVE)
[2023-01-03 03:52] LABS: Basophils # (auto) 0 10 ^3/uL (0-0.2); Basophils % (auto) 0.3 % (0.0-2.0); Eosinophils # (auto) 0.4 10 ^3/uL (0-0.8); Eosinophils % (auto) 4.9 % (0.0-7.0); Hematocrit 42.1 % (41.0-53.0); Hemoglobin 14.5 g/dL (13.5-17.5); Lymphocytes # (auto) 1.2 10 ^3/uL (0.4-5.4); Lymphocytes % (auto) 14.2 % (10.0-50.0); Mean Corpuscular Hemoglobin 30.9 pg (28.0-32.0); Mean Corpuscular Hgb Conc. 34.5 g/dL (32.0-36.0); Mean Corpuscular Volume 89.7 fL (80.0-100.0); Monocytes # (auto) 1.1 10 ^3/uL (0-1.3); Monocytes % (auto) 12.3 % (0.0-12.0); Neutrophils % (auto) 68.3 % (37.0-80.0); Nucleated Red Blood Cells % 0.2 %; Red Cell Distribution Width 16.1 % (11.8-14.3); White Blood Cell 8.7 10^3/uL (4.4-10.8)
[2023-01-03 04:07] LABS: Albumin 3.4 g/dL (3.4-5.0); Potassium 3.8 mmol/L (3.5-5.1)
[2023-01-03 04:10] LABS: BUN/Creatinine Ratio 12.1 (10.0-20.0); Bilirubin, Total 0.6 mg/dL (0.2-1.0); Total Protein 7.8 g/dL (6.4-8.2)
[2023-01-03] MEDS: FUROSEMIDE 20 MG/2 ML VIAL IV SCH ×2 (06:00→18:00)
[2023-01-03] MEDS: cefTRIAXone 1GM/50ML D5W 50 ML IV SCH (09:36)
[2023-01-03] MEDS: LISINOPRIL 10 MG TAB PO SCH ×2 (10:00→10:54)
[2023-01-03] MEDS: DexAMETHasone SOD PHOS 4 MG/1ML SDV INJ IV SCH (10:53)
[2023-01-03] MEDS: PANTOPRAZOLE 40 MG TAB PO SCH ×2 (10:54→21:43)
[2023-01-03] MEDS: SOTALOL HCL 80 MG TAB PO SCH ×2 (11:12→21:43)
[2023-01-03] MEDS: RIVAROXABAN 15 MG TAB PO SCH (11:12)
[2023-01-03] MEDS: CARVEDILOL 12.5 MG TAB PO SCH ×2 (11:13→21:42)
[2023-01-03] MEDS ORDERED: METOCLOPRAMIDE HCL 10 MG TAB PO ONE (14:00)
[2023-01-03] MEDS: METOCLOPRAMIDE HCL 10 MG TAB PO SCH ×2 (17:00→21:43)
[2023-01-03] MEDS: AZITHROMYCIN 500MG/ 250ML 250 ML IV SCH (20:15)
[2023-01-04 05:00] VITALS: BP 128/74; PULSE 63; RESP 19; TEMP 97.7; O2SAT 95
[2023-01-04 05:53] LABS: Potassium 4.5 mmol/L (3.5-5.1)
[2023-01-04 06:00] LABS: Albumin 3.3 g/dL (3.4-5.0); BUN/Creatinine Ratio 15.2 (10.0-20.0); Bilirubin, Total 0.5 mg/dL (0.2-1.0); Calcium 9.3 mg/dL (8.5-10.1); Total Protein 7.8 g/dL (6.4-8.2)
[2023-01-04 06:01] LABS: Basophils # (auto) 0 10 ^3/uL (0-0.2); Eosinophils # (auto) 0 10 ^3/uL (0-0.8); Hematocrit 40.8 % (41.0-53.0); Hemoglobin 14.2 g/dL (13.5-17.5); Lymphocytes % (auto) 11.3 % (10.0-50.0); Mean Corpuscular Hemoglobin 30.8 pg (28.0-32.0); Mean Corpuscular Hgb Conc. 34.8 g/dL (32.0-36.0); Mean Corpuscular Volume 88.6 fL (80.0-100.0); Monocytes # (auto) 0.7 10 ^3/uL (0-1.3); Monocytes % (auto) 7.2 % (0.0-12.0); Neutrophils # (auto) 7.5 10 ^3/uL (1.6-8.6); Neutrophils % (auto) 81.5 % (37.0-80.0); Nucleated Red Blood Cells % 0.1 %; Red Cell Distribution Width 15.6 % (11.8-14.3); White Blood Cell 9.2 10^3/uL (4.4-10.8)
[2023-01-04] MEDS: METOCLOPRAMIDE HCL 10 MG TAB PO SCH ×2 (06:17→11:07)
[2023-01-04] MEDS: FUROSEMIDE 20 MG/2 ML VIAL IV SCH (06:19)
[2023-01-04 06:31] VITALS: O2SAT 98
[2023-01-04 08:00] VITALS: BP 124/74; PULSE 65; PULSE 70; RESP 18
[2023-01-04 09:02] VITALS: BP 119/71; PULSE 61; RESP 16; TEMP 98.5; O2SAT 97
[2023-01-04] MEDS: cefTRIAXone 1GM/50ML D5W 50 ML IV SCH (09:11)
[2023-01-04] MEDS: PANTOPRAZOLE 40 MG TAB PO SCH (11:05)
[2023-01-04] MEDS: SOTALOL HCL 80 MG TAB PO SCH (11:07)
[2023-01-04] MEDS: LISINOPRIL 10 MG TAB PO SCH (11:08)
[2023-01-04] MEDS: RIVAROXABAN 15 MG TAB PO SCH (11:08)
[2023-01-04] MEDS: DexAMETHasone SOD PHOS 4 MG/1ML SDV INJ IV SCH (11:09)
[2023-01-04] MEDS: CARVEDILOL 12.5 MG TAB PO SCH (11:09)
[2023-01-04] MEDS ORDERED: AZIT-74 PO (12:02)
[2023-01-04 13:12] VITALS: BP 127/61; PULSE 65; RESP 17; O2SAT 65
[2023-01-04 15:28] VITALS: BP 119/71; PULSE 61; RESP 16; TEMP 36.9; O2SAT 97
== END 2023-01-04 14:45 | disposition home or self-care (01) | DRG 193 ==
LOC: ER 08:51 → TELE 18:19 → TELE-EAST 01-03 16:16
PROVIDERS: ADMIT Internal Medicine; ATTEND Emergency Medicine
DX: J15.9 Unspecified bacterial pneumonia (principal); I50.43 Acute on chronic combined systolic (congestive) and diastolic (congestive) heart failure; J96.21 Acute and chronic respiratory failure with hypoxia; I48.20 Chronic atrial fibrillation, unspecified; I42.9 Cardiomyopathy, unspecified; D68.69 Other thrombophilia; I11.0 Hypertensive heart disease with heart failure; I25.708 Atherosclerosis of coronary artery bypass graft(s), unspecified, with other forms of angina pectoris; J84.10 Pulmonary fibrosis, unspecified; E03.9 Hypothyroidism, unspecified; E78.5 Hyperlipidemia, unspecified; E07.9 Disorder of thyroid, unspecified; E66.01 Morbid (severe) obesity due to excess calories; I45.10 Unspecified right bundle-branch block; Z20.822 Contact with and (suspected) exposure to COVID-19; Z68.28 Body mass index [BMI] 28.0-28.9, adult; Z86.16 Personal history of COVID-19; Z85.46 Personal history of malignant neoplasm of prostate; Z95.1 Presence of aortocoronary bypass graft; Z83.3 Family history of diabetes mellitus; Z90.49 Acquired absence of other specified parts of digestive tract; Z82.49 Family history of ischemic heart disease and other diseases of the circulatory system; Z85.038 Personal history of other malignant neoplasm of large intestine; I25.2 Old myocardial infarction; Z87.440 Personal history of urinary (tract) infections; Z99.81 Dependence on supplemental oxygen; Z79.899 Other long term (current) drug therapy; Z80.8 Family history of malignant neoplasm of other organs or systems; Z82.0 Family history of epilepsy and other diseases of the nervous system; J44.9 Chronic obstructive pulmonary disease, unspecified; H11.33 Conjunctival hemorrhage, bilateral
CPT/HCPCS: 36415; 71045; 71275; 80053; 81001; 83036; 83735; 83880; 84443; 84484; 85025; 85379; 85610; 85730; 87426; 87804; 93005; 93306; 93886; 96360; 96361; 97163; 99291; G0378; J0696; J1100

== ENCOUNTER → 2023-01-07 | Outpatient (CLI) | payer MEDICARE, OTHER ==
[~2023-01-07] MED LIST changes: +AZIT-74 PO; -METO10TA3 PO
[2023-01-07 10:21] LABS: Urine WBC None Seen /hpf (0 - 3)
[2023-01-07 10:39] LABS: Basophils # (auto) 0 10 ^3/uL (0-0.2); Basophils % (auto) 0.4 % (0.0-2.0); Eosinophils # (auto) 0.7 10 ^3/uL (0-0.8); Eosinophils % (auto) 9.5 % (0.0-7.0); Hematocrit 43.3 % (41.0-53.0); Hemoglobin 14.7 g/dL (13.5-17.5); Lymphocytes # (auto) 1.1 10 ^3/uL (0.4-5.4); Lymphocytes % (auto) 14.6 % (10.0-50.0); Mean Corpuscular Hemoglobin 30.6 pg (28.0-32.0); Mean Corpuscular Hgb Conc. 33.9 g/dL (32.0-36.0); Mean Corpuscular Volume 90.2 fL (80.0-100.0); Monocytes # (auto) 1.1 10 ^3/uL (0-1.3); Neutrophils # (auto) 4.7 10 ^3/uL (1.6-8.6); Neutrophils % (auto) 61.5 % (37.0-80.0); Nucleated Red Blood Cells % 0.1 %; Red Blood Cells 4.79 10^6/uL (4.5-5.90); Red Cell Distribution Width 16.4 % (11.8-14.3); White Blood Cell 7.7 10^3/uL (4.4-10.8)
[2023-01-07 11:21] LABS: Alanine Aminotransferase 24 U/L (7-40); Albumin 4.2 g/dL (3.2-4.8); Alkaline Phosphatase 104 U/L (46-116); Anion Gap 7.9 (5-15); Aspartate Aminotransferase 25 U/L (13-40); Bilirubin, Total 0.6 mg/dL (0.2-1.0); Calcium 9.1 mg/dL (8.7-10.4); Carbon Dioxide 23.1 mmol/L (20-30); Chloride 105 mmol/L (98-107); Glucose 109 mg/dL (74-106); Phosphorus 3.2 mg/dL (2.4-5.1); Potassium 4.1 mmol/L (3.5-5.1); Sodium 136 mmol/L (136-145)
[2023-01-07 11:22] LABS: Total Protein 7.1 g/dL (5.7-8.2)
[2023-01-07 11:36] LABS: Urine Bacteria NONE SEEN /hpf (None Seen); Urine Blood Negative /uL (Negative); Urine Clarity Clear (Clear); Urine Color Yellow (Yellow); Urine Protein, UAD Negative (Negative); Urine Specific Gravity 1.015 (1.001-1.035); Urine Urobilinogen Normal (Negative)
[2023-01-07 13:25] LABS: Protein, Urine 10.1 mg/dL (0.0-11.9)
[2023-01-07 13:27] LABS: Creatinine, Urine 98.31 mg/dL (30.0-125.0); Urine Protein/Creatinine Ratio 0.1
[2023-01-07 13:34] LABS: % Iron Saturation 33.1 % (20-55)
[2023-01-07 14:07] LABS: BUN/Creatinine Ratio 17.5 (10.0-20.0); Blood Urea Nitrogen 20 mg/dL (9-23)
== END | disposition home or self-care (01) ==
LOC: LAB 10:06
PROVIDERS: ATTEND Student in an Organized Health Care Education/Training Program
DX: N18.31 Chronic kidney disease, stage 3a (principal); D63.1 Anemia in chronic kidney disease; E61.1 Iron deficiency; E21.3 Hyperparathyroidism, unspecified; R80.9 Proteinuria, unspecified; R82.90 Unspecified abnormal findings in urine
CPT/HCPCS: 36415; 80053; 81001; 82570; 82728; 83540; 83550; 83970; 84100; 84156; 85025

== ENCOUNTER → 2023-01-21 | Outpatient (CLI) | payer MEDICARE, OTHER | END | disposition home or self-care (01) | LOC: Rad HDHVI 15:38 | PROVIDERS: ATTEND Internal Medicine Cardiovascular Disease | DX: R06.02 Shortness of breath (principal); I51.7 Cardiomegaly | CPT/HCPCS: 71046 ==

== ENCOUNTER → 2023-02-17 | Outpatient (CLI) | payer MEDICARE, OTHER ==
[2023-02-17 14:13] LABS: Alanine Aminotransferase 15 U/L (7-40); Alkaline Phosphatase 101 U/L (46-116); Anion Gap 5 (5-15); Aspartate Aminotransferase 26 U/L (13-40); BUN/Creatinine Ratio 13.6 (10.0-20.0); Blood Urea Nitrogen 18 mg/dL (9-23); Calcium 9.5 mg/dL (8.7-10.4); Carbon Dioxide 28 mmol/L (20-30); Chloride 102 mmol/L (98-107); Glucose 125 mg/dL (74-106); Sodium 135 mmol/L (136-145)
[2023-02-17 14:14] LABS: Albumin 4.3 g/dL (3.2-4.8); Bilirubin, Total 0.5 mg/dL (0.2-1.0); Total Protein 7.5 g/dL (5.7-8.2)
== END | disposition home or self-care (01) ==
LOC: LAB 12:41
PROVIDERS: ATTEND Internal Medicine
DX: N18.30 Chronic kidney disease, stage 3 unspecified (principal); J44.9 Chronic obstructive pulmonary disease, unspecified; J84.10 Pulmonary fibrosis, unspecified; R06.02 Shortness of breath; D81.9 Combined immunodeficiency, unspecified
CPT/HCPCS: 36415; 80053; 82306; 82607

== ENCOUNTER → 2023-03-22 | Outpatient (CLI) | payer MEDICARE, OTHER | END | disposition home or self-care (01) | LOC: Rad HDHVI 10:54 | PROVIDERS: ATTEND Internal Medicine Cardiovascular Disease | DX: I08.3 Combined rheumatic disorders of mitral, aortic and tricuspid valves (principal); I11.9 Hypertensive heart disease without heart failure | CPT/HCPCS: 93306 ==

== ENCOUNTER → 2023-03-29 | Outpatient (CLI) | payer MEDICARE, OTHER ==
[~2023-03-29] VITALS: Ht 162.6 cm; Wt 77.1 kg
[~2023-03-29] MED LIST changes: +ADENOSINE 65 MG in GIVE UN-DILUTED 0 ML IV ONE; +ADENOSINE 90 MG/30 ML INJ IV ONE
== END | disposition home or self-care (01) ==
LOC: Rad HDHVI 13:35
PROVIDERS: ATTEND Internal Medicine Cardiovascular Disease
DX: J96.10 Chronic respiratory failure, unspecified whether with hypoxia or hypercapnia (principal); J18.9 Pneumonia, unspecified organism; J44.1 Chronic obstructive pulmonary disease with (acute) exacerbation; I48.0 Paroxysmal atrial fibrillation; I10 Essential (primary) hypertension; E78.00 Pure hypercholesterolemia, unspecified; Z95.0 Presence of cardiac pacemaker; Z95.1 Presence of aortocoronary bypass graft
CPT/HCPCS: 78452; 93005; 96374; 96375; A9500; J0153

== ENCOUNTER → 2023-04-27 | Outpatient (CLI) | payer MEDICARE, OTHER ==
[~2023-04-27] MED LIST changes: -ADENOSINE 65 MG in GIVE UN-DILUTED 0 ML IV ONE; -ADENOSINE 90 MG/30 ML INJ IV ONE
== END | disposition home or self-care (01) ==
LOC: LAB 08:10
PROVIDERS: ATTEND Internal Medicine
DX: N18.2 Chronic kidney disease, stage 2 (mild) (principal); I50.43 Acute on chronic combined systolic (congestive) and diastolic (congestive) heart failure; E87.6 Hypokalemia; D51.9 Vitamin B12 deficiency anemia, unspecified; E87.1 Hypo-osmolality and hyponatremia; J84.9 Interstitial pulmonary disease, unspecified; Z79.899 Other long term (current) drug therapy
CPT/HCPCS: 82306; 82607

== ENCOUNTER → 2023-05-20 | Outpatient (CLI) | payer MEDICARE, OTHER ==
[~2023-05-20] VITALS: Ht 165.1 cm; Wt 80.7 kg
== END | disposition home or self-care (01) ==
LOC: Rad HDHVI 14:33
PROVIDERS: ATTEND Internal Medicine Cardiovascular Disease
DX: I13.0 Hypertensive heart and chronic kidney disease with heart failure and stage 1 through stage 4 chronic kidney disease, or unspecified chronic kidney disease (principal); E11.22 Type 2 diabetes mellitus with diabetic chronic kidney disease; N18.30 Chronic kidney disease, stage 3 unspecified; I50.9 Heart failure, unspecified; E21.3 Hyperparathyroidism, unspecified; I48.91 Unspecified atrial fibrillation; E78.00 Pure hypercholesterolemia, unspecified; Z95.1 Presence of aortocoronary bypass graft; Z79.899 Other long term (current) drug therapy
CPT/HCPCS: 78472; 96374; 96375; A9505

== ENCOUNTER → 2023-06-10 | Outpatient (CLI) | payer MEDICARE, OTHER ==
[2023-06-10 10:06] LABS: Urine Epithelial Cast None Seen /hpf (<5)
[2023-06-10 10:21] LABS: Basophils # (auto) 0 10 ^3/uL (0-0.2); Basophils % (auto) 0.5 % (0.0-2.0); Eosinophils # (auto) 0.4 10 ^3/uL (0-0.8); Eosinophils % (auto) 4.4 % (0.0-7.0); Hematocrit 42.7 % (41.0-53.0); Hemoglobin 14.8 g/dL (13.5-17.5); Lymphocytes # (auto) 1.4 10 ^3/uL (0.4-5.4); Lymphocytes % (auto) 15.3 % (10.0-50.0); Mean Corpuscular Hemoglobin 31.5 pg (28.0-32.0); Mean Corpuscular Hgb Conc. 34.7 g/dL (32.0-36.0); Mean Corpuscular Volume 90.7 fL (80.0-100.0); Monocytes # (auto) 1.1 10 ^3/uL (0-1.3); Monocytes % (auto) 11.7 % (0.0-12.0); Neutrophils # (auto) 6.2 10 ^3/uL (1.6-8.6); Neutrophils % (auto) 68.1 % (37.0-80.0); Nucleated Red Blood Cells % 0.1 %; Red Blood Cells 4.71 10^6/uL (4.5-5.90); Red Cell Distribution Width 14.5 % (11.8-14.3); White Blood Cell 9.1 10^3/uL (4.4-10.8)
[2023-06-10 10:27] LABS: Urine Blood Negative /uL (Negative); Urine Clarity Clear (Clear); Urine Color Yellow (Yellow); Urine Protein, UAD Negative (Negative); Urine Specific Gravity 1.021 (1.001-1.035); Urine Urobilinogen Normal (Negative); Urine pH 5.5 (5.0-8.0)
[2023-06-10 10:38] LABS: Urine Bacteria NONE SEEN /hpf (None Seen); Urine Blood Negative /uL (Negative); Urine Clarity Clear (Clear); Urine Color Yellow (Yellow); Urine Protein, UAD Negative (Negative); Urine Urobilinogen Normal (Negative); Urine WBC <1 /hpf (0 - 3); Urine pH 5.5 (5.0-8.0)
[2023-06-10 10:53] LABS: Protein, Urine 11.5 mg/dL (0.0-11.9)
[2023-06-10 10:56] LABS: Creatinine, Urine 162.41 mg/dL (30.0-125.0); Urine Protein/Creatinine Ratio 0.07
[2023-06-10 11:00] LABS: Alanine Aminotransferase 18 U/L (7-40); Albumin 4.3 g/dL (3.2-4.8); Alkaline Phosphatase 98 U/L (46-116); Anion Gap 5 (5-15); Aspartate Aminotransferase 30 U/L (13-40); BUN/Creatinine Ratio 12.9 (10.0-20.0); Bilirubin, Total 0.6 mg/dL (0.2-1.0); Blood Urea Nitrogen 15 mg/dL (9-23); Calcium 9.9 mg/dL (8.5-10.1); Carbon Dioxide 28 mmol/L (20-30); Chloride 103 mmol/L (98-107); Cholesterol 124 mg/dL (< 200); Glucose 90 mg/dL (74-106); HDL Cholesterol 28 mg/dL (40-59); LDL Cholesterol 79 mg/dL (< 100); Phosphorus 3.4 mg/dL (2.4-5.1); Potassium 3.9 mmol/L (3.5-5.1); Sodium 136 mmol/L (136-145); Total Protein 7.5 g/dL (5.7-8.2); Triglycerides 91 mg/dL (< 150)
[2023-06-10 11:03] LABS: Erythrocyte Sedimentation Rate 53 mm/hr (0-20)
[2023-06-10 14:47] LABS: Prostate Specific Antigen 0.14 ng/mL (0.0-4.0)
[2023-06-10 14:57] LABS: Free T4 (Free Thyroxine) 1.03 ng/dL (0.89-1.76)
== END | disposition home or self-care (01) ==
LOC: LAB 09:46
PROVIDERS: ATTEND Student in an Organized Health Care Education/Training Program
DX: Z12.5 Encounter for screening for malignant neoplasm of prostate (principal); I12.9 Hypertensive chronic kidney disease with stage 1 through stage 4 chronic kidney disease, or unspecified chronic kidney disease; E11.22 Type 2 diabetes mellitus with diabetic chronic kidney disease; N18.30 Chronic kidney disease, stage 3 unspecified; D63.1 Anemia in chronic kidney disease; E11.21 Type 2 diabetes mellitus with diabetic nephropathy; E21.3 Hyperparathyroidism, unspecified; R80.9 Proteinuria, unspecified; M10.9 Gout, unspecified; E55.9 Vitamin D deficiency, unspecified; N39.0 Urinary tract infection, site not specified; E87.1 Hypo-osmolality and hyponatremia; D51.9 Vitamin B12 deficiency anemia, unspecified; D64.9 Anemia, unspecified; R51.9 Headache, unspecified
CPT/HCPCS: 36415; 80053; 80061; 81001; 81003; 82306; 82570; 82607; 83036; 84100; 84153; 84156; 84403; 84439; 84443; 85025; 85652

== ENCOUNTER 2023-09-26 12:58 | Inpatient (IN) | payer MEDICARE, OTHER ==
[~2023-09-26] VITALS: Ht 162.6 cm; Wt 79.2 kg
[2023-09-26 14:12] LABS: Basophils # (auto) 0 10 ^3/uL (0-0.2); Basophils % (auto) 0.5 % (0.0-2.0); Eosinophils # (auto) 0.3 10 ^3/uL (0-0.8); Eosinophils % (auto) 5.5 % (0.0-7.0); Hematocrit 45.9 % (41.0-53.0); Hemoglobin 15.1 g/dL (13.5-17.5); Lymphocytes # (auto) 1.2 10 ^3/uL (0.4-5.4); Lymphocytes % (auto) 19.3 % (10.0-50.0); Mean Corpuscular Hemoglobin 30.4 pg (28.0-32.0); Mean Corpuscular Hgb Conc. 32.8 g/dL (32.0-36.0); Mean Corpuscular Volume 92.6 fL (80.0-100.0); Monocytes # (auto) 0.8 10 ^3/uL (0-1.3); Monocytes % (auto) 12.7 % (0.0-12.0); Neutrophils # (auto) 3.8 10 ^3/uL (1.6-8.6); Nucleated Red Blood Cells % 0.1 %; Red Blood Cells 4.95 10^6/uL (4.5-5.90); Red Cell Distribution Width 14.3 % (11.8-14.3); White Blood Cell 6.2 10^3/uL (4.4-10.8)
[2023-09-26 14:30] LABS: Alanine Aminotransferase 20 U/L (7-40); Alkaline Phosphatase 103 U/L (46-116); Anion Gap 6 (5-15); Aspartate Aminotransferase 20 U/L (13-40); BUN/Creatinine Ratio 13.4 (10.0-20.0); Blood Urea Nitrogen 15 mg/dL (9-23); Calcium 9.7 mg/dL (8.5-10.1); Carbon Dioxide 28 mmol/L (20-30); Chloride 105 mmol/L (98-107); Glucose 93 mg/dL (74-106); Magnesium 1.9 mg/dL (1.6-2.6); Potassium 4.5 mmol/L (3.5-5.1); Sodium 139 mmol/L (136-145)
[2023-09-26 14:31] LABS: Bilirubin, Total 0.4 mg/dL (0.2-1.0); Total Protein 6.9 g/dL (5.7-8.2)
[2023-09-26 14:35] LABS: INR 1.18 (0.9-1.15); Partial Thromboplastin Time 33.9 SEC (24.5-34.5); Prothrombin Time 12.4 sec (9.3-11.8)
[2023-09-26 14:40] LABS: Urine Bacteria None Seen /hpf (None Seen)
[2023-09-26 14:42] LABS: Base Excess 2.3 mmol/L (-2.0-2.0)
[2023-09-26 14:46] LABS: Urine Blood TRACE /uL (Negative); Urine Clarity Clear (Clear); Urine Color Light-Yellow (Yellow); Urine Protein, UAD Negative (Negative); Urine Specific Gravity 1.011 (1.001-1.035); Urine Urobilinogen Normal (Negative); Urine WBC <1 /hpf (0 - 3); Urine pH 5.5 (5.0-9.0)
[2023-09-26] MEDS: levoFLOXacin 500MG 100 ML IV ONE (17:22)
[2023-09-27] VITALS (7 sets, daily range): BP systolic 119–156; BP diastolic 63–75; PULSE 61–72; RESP 18–24; TEMP 97.4–98.2; O2SAT 97–99
[2023-09-27] MEDS ORDERED: ONDANSETRON HCL 4 MG/2 ML VIAL IV PRN (03:15)
[2023-09-27] MEDS ORDERED: NITROGLYCERIN 0.4 MG SL TAB SL PRN (03:15)
[2023-09-27] MEDS ORDERED: MORPHINE SULFATE INJ 2 MG/ml SYRG IV PRN ×2 (03:15→03:30)
[2023-09-27] MEDS ORDERED: ACETAMINOPHEN 325 MG TAB PO PRN (03:15)
[2023-09-27 03:24] LABS: Chloride 104 mmol/L (98-107); Potassium 3.9 mmol/L (3.5-5.1); Sodium 135 mmol/L (136-145)
[2023-09-27 03:25] LABS: Anion Gap 6 (5-15); Calcium 9.5 mg/dL (8.7-10.4); Carbon Dioxide 25 mmol/L (20-30)
[2023-09-27 03:30] LABS: BUN/Creatinine Ratio 8.8 (10.0-20.0); Blood Urea Nitrogen 10 mg/dL (9-23); Glucose 104 mg/dL (74-106)
[2023-09-27] MEDS: ACETAMINOPHEN 325 MG TAB PO PRN (05:17)
[2023-09-27] MEDS ORDERED: POTA-180 PO (10:39)
[2023-09-27] MEDS: levoFLOXacin 500MG 100 ML IV SCH (12:22)
[2023-09-27] MEDS: CARVEDILOL 12.5 MG TAB PO SCH (12:24)
[2023-09-27] MEDS: LISINOPRIL 5 MG TAB PO SCH (12:25)
[2023-09-27] MEDS: SOTALOL HCL 80 MG TAB PO SCH (12:26)
[2023-09-27] MEDS ORDERED: MECL-90 PO (17:26)
[2023-09-27] MEDS ORDERED: SOTA80TA PO (17:27)
[2023-09-27] MEDS ORDERED: RIVA10TA PO (17:34)
[2023-09-27] MEDS: RIVAROXABAN 20 MG TAB PO SCH (17:50)
[2023-09-27] MEDS: ATORVASTATIN 20 MG TAB PO SCH (21:34)
[2023-09-28] VITALS (8 sets, daily range): BP systolic 98–134; BP diastolic 53–69; PULSE 64–72; RESP 15–20; TEMP 97.5–98.1; O2SAT 94–98
[2023-09-28 06:56] LABS: Anion Gap 6 (5-15); Carbon Dioxide 29 mmol/L (20-30); Chloride 104 mmol/L (98-107); Potassium 4.1 mmol/L (3.5-5.1); Sodium 139 mmol/L (136-145)
[2023-09-28 06:57] LABS: Calcium 9.5 mg/dL (8.7-10.4)
[2023-09-28 07:02] LABS: BUN/Creatinine Ratio 13.9 (10.0-20.0); Blood Urea Nitrogen 15 mg/dL (9-23); Glucose 98 mg/dL (74-106)
[2023-09-28 11:26] LABS: LDL Cholesterol 154 mg/dL (< 100); Triglycerides 117 mg/dL (< 150)
[2023-09-28 11:28] LABS: Cholesterol 199 mg/dL (< 200); HDL Cholesterol 31 mg/dL (40-59)
[2023-09-28] MEDS ORDERED: CARV25TA55 PO (15:04)
[2023-09-28] MEDS ORDERED: POM (15:13)
[2023-09-28] MEDS ORDERED: LISI-275 PO (15:13)
[2023-09-28] MEDS ORDERED: ATOR20TA PO (15:13)
[2023-09-28] MEDS ORDERED: INDA2.5T PO (15:13)
[2023-09-28] MEDS: CARVEDILOL 3.125 MG TAB PO SCH (21:38)
[2023-09-29 00:40] VITALS: BP 131/74; PULSE 63; RESP 17; TEMP 97.9; O2SAT 98
[2023-09-29 05:00] VITALS: BP 114/69; PULSE 69; RESP 19; TEMP 98.1; O2SAT 97
[2023-09-29 06:22] LABS: Basophils # (auto) 0 10 ^3/uL (0-0.2); Basophils % (auto) 0.3 % (0.0-2.0); Eosinophils # (auto) 0.5 10 ^3/uL (0-0.8); Eosinophils % (auto) 6.8 % (0.0-7.0); Hematocrit 43.4 % (41.0-53.0); Hemoglobin 14.6 g/dL (13.5-17.5); Lymphocytes # (auto) 1.5 10 ^3/uL (0.4-5.4); Lymphocytes % (auto) 20.1 % (10.0-50.0); Mean Corpuscular Hemoglobin 30.5 pg (28.0-32.0); Mean Corpuscular Hgb Conc. 33.6 g/dL (32.0-36.0); Mean Corpuscular Volume 90.8 fL (80.0-100.0); Monocytes # (auto) 0.9 10 ^3/uL (0-1.3); Neutrophils # (auto) 4.6 10 ^3/uL (1.6-8.6); Neutrophils % (auto) 60.8 % (37.0-80.0); Nucleated Red Blood Cells % 0.1 %; Red Blood Cells 4.77 10^6/uL (4.5-5.90); Red Cell Distribution Width 14.1 % (11.8-14.3); White Blood Cell 7.5 10^3/uL (4.4-10.8)
[2023-09-29 06:28] LABS: Anion Gap 5 (5-15); Carbon Dioxide 29 mmol/L (20-30); Chloride 104 mmol/L (98-107); Potassium 4.1 mmol/L (3.5-5.1); Sodium 138 mmol/L (136-145)
[2023-09-29 06:34] LABS: BUN/Creatinine Ratio 12.6 (10.0-20.0); Blood Urea Nitrogen 15 mg/dL (9-23); Glucose 91 mg/dL (74-106)
[2023-09-29 08:00] VITALS: BP 126/71; PULSE 72; PULSE 75; RESP 16; RESP 18; TEMP 97.5; O2SAT 96
[2023-09-29] MEDS: levoFLOXacin 500 MG TAB PO SCH (09:01)
[2023-09-29] MEDS: CLOPIDOGREL BISULFATE 75 MG TAB PO SCH (09:01)
[2023-09-29 12:00] VITALS: BP 134/76; PULSE 65; RESP 21; TEMP 97.5; O2SAT 98
[2023-09-29 14:44] VITALS: BP 126/71; PULSE 72; TEMP 36.4
[2023-09-29] MEDS ORDERED: LEVO500T91 PO (15:58)
== END 2023-09-29 15:30 | disposition home or self-care (01) | DRG 302 ==
LOC: EDUNIT# 12:58 → ER 12:58 → EDBD 12:58 → OVERFLOW 09-27 03:10 → ER 09-27 03:10 → TELE-WESTW 09-27 10:05
PROVIDERS: ADMIT Internal Medicine; ATTEND Internal Medicine
DX: I25.110 Atherosclerotic heart disease of native coronary artery with unstable angina pectoris (principal); I50.33 Acute on chronic diastolic (congestive) heart failure; J96.21 Acute and chronic respiratory failure with hypoxia; J18.8 Other pneumonia, unspecified organism; J44.1 Chronic obstructive pulmonary disease with (acute) exacerbation; T82.118A Breakdown (mechanical) of other cardiac electronic device, initial encounter; D68.69 Other thrombophilia; E11.9 Type 2 diabetes mellitus without complications; E66.9 Obesity, unspecified; E78.5 Hyperlipidemia, unspecified; I11.0 Hypertensive heart disease with heart failure; I48.0 Paroxysmal atrial fibrillation; J84.10 Pulmonary fibrosis, unspecified; I45.10 Unspecified right bundle-branch block; Z82.0 Family history of epilepsy and other diseases of the nervous system; Z80.8 Family history of malignant neoplasm of other organs or systems; Z68.30 Body mass index [BMI] 30.0-30.9, adult; Z85.46 Personal history of malignant neoplasm of prostate; Z83.3 Family history of diabetes mellitus; Z82.49 Family history of ischemic heart disease and other diseases of the circulatory system; Z85.528 Personal history of other malignant neoplasm of kidney; Z79.4 Long term (current) use of insulin; Z95.1 Presence of aortocoronary bypass graft; Z98.61 Coronary angioplasty status; Z85.038 Personal history of other malignant neoplasm of large intestine; Z90.49 Acquired absence of other specified parts of digestive tract; Y84.8 Other medical procedures as the cause of abnormal reaction of the patient, or of later complication, without mention of misadventure at the time of the procedure; Y92.89 Other specified places as the place of occurrence of the external cause
CPT/HCPCS: 36415; 36600; 71045; 71250; 80048; 80053; 80061; 81001; 82805; 83036; 83735; 83880; 84443; 84484; 85025; 85379; 85610; 85730; 93005; 93306; 99291; G0378; J1956

== ENCOUNTER → 2023-10-25 | Outpatient (CLI) | payer MEDICARE, OTHER ==
[~2023-10-25] MED LIST changes: +ATOR20TA PO; -AZIT-74 PO; -CARV12.544 PO; +CARV25TA55 PO; -CEPH250C PO; +INDA2.5T PO; +LEVO500T91 PO; +LISI-275 PO; +MECL-90 PO; +POTA-180 PO; -POTA-228 PO; -RIV15T PO; +RIVA10TA PO
[2023-10-25 15:40] LABS: Urine Bacteria None Seen /hpf (None Seen)
[2023-10-25 15:56] LABS: Urine Blood Negative /uL (Negative); Urine Clarity Clear (Clear); Urine Color Dark-Yellow (Yellow); Urine Protein, UAD TRACE (Negative); Urine Specific Gravity 1.022 (1.001-1.035); Urine Urobilinogen Normal (Negative); Urine WBC 1 /hpf (0 - 3)
[2023-10-25 16:01] LABS: Alanine Aminotransferase 15 U/L (7-40); Albumin 3.9 g/dL (3.2-4.8); Alkaline Phosphatase 78 U/L (46-116); Anion Gap 8 (5-15); Aspartate Aminotransferase 20 U/L (13-40); BUN/Creatinine Ratio 10.8 (10.0-20.0); Bilirubin, Total 0.5 mg/dL (0.2-1.0); Blood Urea Nitrogen 12 mg/dL (9-23); Calcium 9.3 mg/dL (8.7-10.4); Carbon Dioxide 26 mmol/L (20-30); Chloride 106 mmol/L (98-107); Glucose 123 mg/dL (74-106); Potassium 4.4 mmol/L (3.5-5.1); Sodium 140 mmol/L (136-145); Total Protein 6.1 g/dL (5.7-8.2)
== END | disposition home or self-care (01) ==
LOC: LAB 15:28
PROVIDERS: ATTEND Internal Medicine
DX: J84.10 Pulmonary fibrosis, unspecified (principal); N39.0 Urinary tract infection, site not specified; R31.9 Hematuria, unspecified; R73.03 Prediabetes; R06.02 Shortness of breath
CPT/HCPCS: 36415; 80053; 81001; 83036; 87086

== ENCOUNTER → 2023-10-29 | Outpatient (CLI) | payer MEDICARE, OTHER ==
[2023-10-29 12:12] LABS: Chloride 105 mmol/L (98-107); Potassium 4.7 mmol/L (3.5-5.1); Sodium 139 mmol/L (136-145)
[2023-10-29 12:13] LABS: Anion Gap 7 (5-15); Calcium 9.7 mg/dL (8.7-10.4); Carbon Dioxide 27 mmol/L (20-30)
[2023-10-29 12:18] LABS: BUN/Creatinine Ratio 11.1 (10.0-20.0); Blood Urea Nitrogen 12 mg/dL (9-23); Glucose 101 mg/dL (74-106)
== END | disposition home or self-care (01) ==
LOC: LAB 11:13
PROVIDERS: ATTEND Internal Medicine
DX: E11.9 Type 2 diabetes mellitus without complications (principal); I10 Essential (primary) hypertension
CPT/HCPCS: 36415; 80048

== ENCOUNTER → 2024-02-08 | Outpatient (CLI) | payer MEDICARE, OTHER | END | disposition home or self-care (01) | LOC: Rad HDHVI 16:00 | PROVIDERS: ATTEND Internal Medicine Cardiovascular Disease | DX: I10 Essential (primary) hypertension (principal) | CPT/HCPCS: 93306 ==

== ENCOUNTER → 2024-03-09 | Outpatient (CLI) | payer MEDICARE, OTHER ==
[~2024-03-09] MED LIST changes: +BACITRACIN TOP OINT 1 UD PKG TOP ONE
== END | disposition home or self-care (01) ==
LOC: Rad HDHVI 10:06
PROVIDERS: ATTEND Internal Medicine Cardiovascular Disease
DX: R07.9 Chest pain, unspecified (principal); I50.23 Acute on chronic systolic (congestive) heart failure
CPT/HCPCS: 93306

== ENCOUNTER → 2024-03-28 | Outpatient (CLI) | payer MEDICARE, OTHER ==
[~2024-03-28] MED LIST changes: -BACITRACIN TOP OINT 1 UD PKG TOP ONE
[2024-03-28 12:21] LABS: Basophils # (auto) 0 10 ^3/uL (0-0.2); Basophils % (auto) 0.5 % (0.0-2.0); Eosinophils # (auto) 0.8 10 ^3/uL (0-0.8); Eosinophils % (auto) 9.2 % (0.0-7.0); Hemoglobin 13.8 g/dL (13.5-17.5); Lymphocytes # (auto) 1.2 10 ^3/uL (0.4-5.4); Lymphocytes % (auto) 15.3 % (10.0-50.0); Mean Corpuscular Hemoglobin 29.8 pg (28.0-32.0); Mean Corpuscular Hgb Conc. 33.8 g/dL (32.0-36.0); Mean Corpuscular Volume 88.3 fL (80.0-100.0); Monocytes % (auto) 12.6 % (0.0-12.0); Neutrophils # (auto) 5.1 10 ^3/uL (1.6-8.6); Neutrophils % (auto) 62.4 % (37.0-80.0); Nucleated Red Blood Cells % 0.1 %; Platelet Count (auto) 185 10^3/uL (140-450); Red Blood Cells 4.64 10^6/uL (4.5-5.90); Red Cell Distribution Width 17.1 % (11.8-14.3); White Blood Cell 8.2 10^3/uL (4.4-10.8)
[2024-03-28 12:54] LABS: Bilirubin, Direct 0.1 mg/dL (<0.3); Bilirubin, Total 0.4 mg/dL (0.2-1.0); Total Protein 7.1 g/dL (5.7-8.2)
[2024-03-29 08:29] LABS: Chloride 104 mmol/L (98-107); Potassium 4.9 mmol/L (3.5-5.1); Sodium 137 mmol/L (136-145)
[2024-03-29 08:30] LABS: Anion Gap 7 (5-15); Calcium 9.9 mg/dL (8.7-10.4); Carbon Dioxide 26 mmol/L (20-31)
[2024-03-29 08:35] LABS: Blood Urea Nitrogen 12 mg/dL (9-23); Glucose 79 mg/dL (74-106)
== END | disposition home or self-care (01) ==
LOC: LAB 12:04
PROVIDERS: ATTEND Internal Medicine
DX: E78.5 Hyperlipidemia, unspecified (principal); R73.03 Prediabetes
CPT/HCPCS: 36415; 80048; 80061; 80076; 82607; 83036; 85025

== ENCOUNTER → 2024-03-28 | Outpatient (CLI) | payer MEDICARE, OTHER ==
[2024-03-28 10:06] VITALS: BP 144/74; PULSE 81; RESP 18; O2SAT 94
[2024-03-28 10:12] VITALS: BP 140/82; PULSE 80; RESP 18; O2SAT 94
--- NOTE | 2024-03-28 10:46 | DVH ---
Procedure: XY CHEST TWO VIEWS ROUTINE 03/28/2024 11:50 AM Indication: PRE OP. Comparison: Chest CT scan dated 01/21/2024, XY CHEST TWO VIEWS ROUTINE on DOS: 08/18/23, XY CHEST TWO V IEWS ROUTINE on DOS: 01/21/23, XY CHEST TWO VIEWS ROUTINE on DOS: 08/31/22 TECHNIQUE: XY CHEST TWO VIEWS ROUTINE FINDINGS: Medical devices: A multilead pacemaker is seen in the left anterior chest wall with leads extending t o the cardiac chambers. Cardiomediastinal: The heart is normal in size. Pulmonary vasculature is within normal limits. Median sternotomy wires and mediastinal vascular clips are seen. Atherosclerotic calcification of the aorti c arch is noted. Lungs: The costophrenic angles are clear. Persistent interstitial opacities are seen in the left mid and lower lung zones medial aspect of the right lower lobe. No pneumothorax. Bones/soft tissues: No acute abnormality is noted. IMPRESSION: 1. Advanced chronic interstitial lung disease more prominent in the left lung likely usual interstiti al pneumonia with honeycombing. No acute abnormality noted.
== END | disposition home or self-care (01) ==
LOC: Rad HDHVI 09:56
PROVIDERS: ATTEND Internal Medicine Cardiovascular Disease
DX: Z01.818 Encounter for other preprocedural examination (principal); J84.9 Interstitial pulmonary disease, unspecified; I70.0 Atherosclerosis of aorta
CPT/HCPCS: 71046; 93005; G0463

== ENCOUNTER 2024-04-06 10:50 | Day surgery (SDC) | payer MEDICARE, OTHER ==
[2024-03-28 12:22] LABS: Basophils # (auto) 0 10 ^3/uL (0-0.2); Basophils % (auto) 0.5 % (0.0-2.0); Eosinophils # (auto) 0.8 10 ^3/uL (0-0.8); Eosinophils % (auto) 9.2 % (0.0-7.0); Hemoglobin 13.8 g/dL (13.5-17.5); Lymphocytes # (auto) 1.2 10 ^3/uL (0.4-5.4); Lymphocytes % (auto) 15.3 % (10.0-50.0); Mean Corpuscular Hemoglobin 29.8 pg (28.0-32.0); Mean Corpuscular Hgb Conc. 33.8 g/dL (32.0-36.0); Mean Corpuscular Volume 88.3 fL (80.0-100.0); Monocytes % (auto) 12.6 % (0.0-12.0); Neutrophils # (auto) 5.1 10 ^3/uL (1.6-8.6); Neutrophils % (auto) 62.4 % (37.0-80.0); Nucleated Red Blood Cells % 0.1 %; Platelet Count (auto) 185 10^3/uL (140-450); Red Blood Cells 4.64 10^6/uL (4.5-5.90); Red Cell Distribution Width 17.1 % (11.8-14.3); White Blood Cell 8.2 10^3/uL (4.4-10.8)
[2024-03-28 12:36] LABS: INR 1.01 (0.9-1.15); Partial Thromboplastin Time 26.8 SEC (24.5-34.5); Prothrombin Time 10.7 sec (9.3-11.8)
[~2024-04-06] VITALS: Ht 165.1 cm; Wt 79.8 kg
[~2024-04-06 10:50] MED LIST changes: -ATOR20TA PO; -CARV25TA55 PO; -FERR324T PO; -FURO20TA3 PO; -INDA2.5T PO; -LEVO500T91 PO; -LISI-275 PO; -MECL-90 PO; -PANT40T PO; -RIVA10TA PO
--- NOTE | 2024-04-06 11:43 | DVHHP ---
ADMIT DATE: 04/06/2024 HISTORY OF PRESENT ILLNESS: The patient, who is 79 years old with a history of coronary artery disease, angioplasty with stent placement on 08/16/2022 and also history of permanent pacemaker implantation, now presents with signs and symptom complex of chest pain and shortness of breath. The patient has pulmonary fibrosis. He is on chronic O2, but his symptoms of shortness of breath and chest pain are increasing frequently. PERTINENT MEDICAL HISTORY: Significant for history of paroxysmal atrial fibrillation, sick sinus syndrome. Mother has a history of coronary artery disease. He denies any history of hypertension, hyperlipidemia and denies prior history of myocardial infarction. Denies any history of CVA or peripheral vascular disease. Denies any tobacco use at this time. Denies any cardiac arrest in the past. No diabetes. No liver disease. No GI symptomatology, such as inflammatory bowel disease or irritable bowel syndrome. No constipation, no diarrhea. No rheumatologic disorder, even though pulmonary fibrosis may be rheumatologic in nature, autoimmune phenomenon. No history of any renal dysfunction. No liver disease. PHYSICAL EXAMINATION: VITAL SIGNS: Blood pressure is 122/84, pulse of 70, O2 saturation 94% on 2 liters of O2. HEENT: Pupils are reactive. Sclerae are anicteric. Extraocular muscles are intact. Funduscopic exam is benign. No AV nicking, no exudates, no papilledema noted. Oral mucosa moist. Posterior pharynx without any exudate. JVD about 3 cm above the angle of Te. NECK: No cervical adenopathy, no supraclavicular adenopathy. Carotid pulses are 2+ symmetrical, normal upstroke and contour. PULMONARY: The patient has fine rales throughout. CARDIOVASCULAR: Regular rate. PMI is not displaced. There is a 2/6 systolic murmur along the left sternal border. ABDOMEN: Soft, nontender, normal bowel sounds. Liver approximately 5 cm. Stool guaiac is negative. NEUROLOGIC: The patient is intact at this time. SKIN: Unremarkable. EXTREMITIES: 1+ pulses bilaterally. ASSESSMENT AND PLAN: Thus, the patient with pulmonary fibrosis, now with progressive symptoms of shortness of breath and chest pain. He is now to undergo coronary angiography. Further recommendations after the angiogram. History of permanent pacemaker implantation secondary to sick sinus syndrome. Continue all current medications. Samuel Vergara MD SA/STANLEY TID: [id number] RECEIPT: [id number]
[2024-04-06] MEDS ORDERED: IODIXANOL 320MG/ML 100ML BTL IV ONE ×2 (12:53→14:28)
[2024-04-06] MEDS ORDERED: MIDAZOLAM HCL 2MG/2ML 2ml VIAL (1mg/ml) ONE (13:21)
[2024-04-06] MEDS ORDERED: ANGIOMAX 250 MG VIAL IV ONE (13:21)
[2024-04-06] MEDS ORDERED: fentaNYL CITRATE 100 MCG/2 ML VL ONE (13:21)
[2024-04-06] MEDS ORDERED: LIDOCAINE 2%HCL (LOCAL ANESTH.) INJ 20ML MDV ONE (13:21)
[2024-04-06] MEDS ORDERED: SODIUM CHL 0.9% 0 ML ONE (13:21)
[2024-04-06] MEDS: ENOXAPARIN SOD 30 MG/0.3 ML SYRINGE IV STA (14:18)
[2024-04-06] MEDS: ENOXAPARIN SOD 30 MG/0.3 ML SYRINGE ONE (14:18)
--- NOTE | 2024-04-06 18:43 | DVHDS ---
DATE OF DISCHARGE: 04/06/2024 DISCHARGE DIAGNOSES: The patient with coronary artery disease, pulmonary fibrosis. The patient was having increasing symptoms of shortness of breath. Right heart catheterization did not show any significant elevation in PA pressure. There was no gradient between the mitral valve and there is no gradient between capillary wedge pressure and left ventricular end diastolic pressure. They are both 10 mmHg. Furthermore, the patient had coronary artery disease. The left main had a 80% to 90% narrowing. Left anterior descending artery, severe diffuse disease; however, the AU to the LAD was patent, saphenous vein graft to the OM was patent and saphenous vein graft to the PDA was patent. DISCHARGE INSTRUCTIONS: At this time, the dual platelet therapy should be initiated, aggressive risk modification; however, no catheter-based or surgical intervention is warranted. We will continue to follow the patient. Samuel Vergara MD SA/ADRIA/LAM TID: [id number] RECEIPT: [id number]
== END 2024-04-06 17:10 | disposition home or self-care (01) ==
LOC: CATH 10:50
PROVIDERS: ATTEND Internal Medicine Cardiovascular Disease
DX: I25.119 Atherosclerotic heart disease of native coronary artery with unspecified angina pectoris (principal); Z53.8 Procedure and treatment not carried out for other reasons; I50.9 Heart failure, unspecified; J44.9 Chronic obstructive pulmonary disease, unspecified; Z95.1 Presence of aortocoronary bypass graft; Z85.46 Personal history of malignant neoplasm of prostate; Z85.47 Personal history of malignant neoplasm of testis; Z98.890 Other specified postprocedural states; Z87.891 Personal history of nicotine dependence; Z83.49 Family history of other endocrine, nutritional and metabolic diseases; Z82.0 Family history of epilepsy and other diseases of the nervous system; Z82.49 Family history of ischemic heart disease and other diseases of the circulatory system; Z83.52 Family history of ear disorders; Z83.3 Family history of diabetes mellitus
CPT/HCPCS: 36415; 85025; 85610; 85730; C1725; C1760; C1769; C1894; J1644; J1650; J2250; J3010; J7030; Q9967; 99152

== ENCOUNTER 2024-07-14 12:12 | Inpatient (IN) | payer MEDICARE, OTHER ==
[~2024-07-14] VITALS: Ht 162.6 cm; Wt 79.2 kg
--- NOTE | 2024-07-14 12:16 | ED.PDOC ---
History of Present Illness HPI Comments 79-year-old male brought in by EMS presents with a chief complaint of palpitations x 1 week. Patient mentions that he has had an TX before in the past, and has been having quite a bit of palpitations for the past week. Patient denies any active chest at this time. Patient was recently started on amlodipine per EMS. Patient is normally on 3L/NC Home O2. No other symptoms or modifying factors present at this time. Time Seen by MD: 12:06 Primary Care Provider: DEBRA HEALY Reviewed Notes: Medications, Allergies Allergies: Coded Allergies: Morphine (Unverified Allergy, Unknown, 03/28/24) Home Meds Reported Medications Sotalol Hcl (Sotalol Hcl) 80 Mg Tab, 1 TAB PO BID 09/27/23 Potassium Chloride (Potassium Chloride ER) 20 Meq Tab, 1 TAB PO DAILY 09/27/23 Nitroglycerin (Nitromist) 400 Mcg/[place] Aer, 400 MCG TL PRN, AER 04/27/22 Ipratropium-Albuterol (Ipratropium [place]/Albut) 1 Mirela Mirela, 1 MIRELA IN DAILY, ML 04/27/22 Epa Ethyl [place] (VASCEPA) 1 Gm Cap, 2 CAP PO BID 11/21/21 Information Source: Patient, Emergency Med Personnel Mode of Arrival: EMS Severity: Moderate Timing: Days Duration: Since onset Prehospital treatment: Oxygen Past Medical History PAST MEDICAL HISTORY: AFIB, Anemia, CAD, Cancer, CHF, COPD, High Lipids, HTN, TX, Thyroid Surgical History: Appendectomy, CABG, Hernia Repair, Pacemaker, PTCA, Tonsill ectomy Family History Family History: Family hx of DM, Family hx of heart josefa Social History Smoker: Non-Smoker Alcohol: Denies ETOH Use Drugs: Denies Drug Use Lives In: Home Constitutional: denies: chills, diaphoresis, fatigue, fever, malaise, sweats, weakness, others EENTM: denies: blurred vision, double vision, ear bleeding, ear discharge, ear drainage, ear pain, ear ringing, eye pain, eye redness, hearing loss, mouth pain, mouth swelling, nasal discharge, nose bleeding, nose congestion, nose pain, photophobia, tearing, throat pain, throat swelling, voice changes, others Respiratory: denies: cough, hemoptysis, orthopnea, SOB at rest, shortness of breath, SOB with excertion, stridor, wheezing, others Cardiovascular: reports: palpitations; denies: chest pain, dizzy spells, diaphoresis, Dyspnea on exertion, edema, irregular heart beat, left arm pain, lightheadedness, PND, syncope, others Gastrointestinal: denies: abdomen distended, abdominal pain, blood streaked bowels, constipated, diarrhea, dysphagia, difficulty swallowing, hematemesis, melena, nausea, poor appetite, poor fluid intake, rectal bleeding, rectal pain, vomiting, others Genitourinary: denies: burning, dysuria, flank pain, frequency, hematuria, incontinence, penile discharge, penile sore, pain, testicle pain, testicle swelling, urgency, others Neurological: denies: dizziness, fainting, headache, left sided numbness, left sided weakness, numbness, paresthesia, pre-existing deficit, right sided nu mbness, right sided weakness, seizure, speech problems, tingling, tremors, weakness, others Musculoskeletal: denies: back pain, gout, joint pain, joint swelling, muscle pain, muscle stiffness, neck pain, others Integumetry: denies: bruises, change in color, change in hair/nails, dryness, laceration, lesions, lumps, rash, wounds, others Allergic/Immunocompromised: denies: Difficulty Healing, Frequent Infections, Hives, Itching, others Hematologic/Lymphatic: denies: anemia, blood clots, easy bleeding, easy bruising, swollen glands, others Endocrine: denies: excessive hunger, excessive sweating, excessive thirst, excessive urination, flushing, intolerance to cold, intolerance to heat, unexplained weight gain, unexplained weight loss, others Psychiatric: denies: anxiety, bipolar disorder, depression, hopeless, panic disorder, schizophrenia, sleepless, suicidal, others All Other Systems: Reviewed and Negative Physical Exam General Appearance: Moderate Distress, Normal HEENT: Normal ENT Inspection, Pharynx Normal, TMs Normal Neck: Full Range of Motion, Non-Tender, Normal, Normal Inspection Respiratory: Chest Non-Tender, No Accessory Muscle Use, Other (Coarse breath sounds) Cardiovascular: No Edema, No JVD, No Murmur, No Gallop, Normal Peripheral Pulses, Regular Rate/Rhythm Breast Exam: Deferred Gastrointestinal: No Organomegaly, Non Tender, No Pulsatile Mass, Normal Bowel Sounds, Soft Genitalia: Deferred Pelvic: Deferred Rectal: Deferred Extremities: No calf tenderness, Normal capillary refill, Normal inspection, Normal range of motion, Non-tender, No pedal edema Musculoskeletal : Apperance: Normal Neurologic: Alert, quality assurance lab technician II-XII nml as Tested, No Motor Deficits, Normal Affect, Normal Mood, No Sensory Deficits Cerebellar Function: NOT DONE Reflexes: NOT DONE Skin: Dry, Normal Color, Warm Peripheral Pulses: 3+ Radial (R), 3+ Radial (L) Lymphatic: No Adenopathy Was a procedure done? Was a procedure done?: No Differential Dx Considerations may include: Anemia Electrolyte imbalance X-Ray, Labs, Meds, VS Vital Signs Date Time Temp Pulse Resp B/P (MAP) Pulse Ox O2 Delivery O2 Flow Rate FiO2 07/14/24 12:12 75 Patient alert. Complaining of palpitations. Pacemaker in place. Placed on oxygen. He does have pulmonary fibrosis. Continues to have palpitations. Echocardiogram. Cardiology consultation. Reviewed his history. Explained to the patient. Continue cardiac monitoring. Time of 1ST Reevaluation: 12:36 Reevaluation 1ST: Unchanged Patient Education/Counseling: Diagnosis, Treatment, Prognosis Family Education/Counseling: Diagnosis, Treatment, Prognosis Departure 1 Departure Time of Disposition: 12:24 Impression: Primary Impression: Acute respiratory distress Additional Impressions: Pneumonitis Palpitations Disposition: ADMITTED INPATIENT Admit to: Med Surg Condition: Guarded Critical Care Note Critical Care Time?: Yes (45 min-critical care time only) Critical care comment: Monitor the heart lungs Stability Stability form required: No Heart Score Heart Score: Heart Score Response (Comments) Value History Slightly Suspicious 0 EKG Normal 0 Age >65 2 Risk Factors >3 or Hx ASHD 2 Troponin Normal limit 0 Total 4 I personally scribed for MACEY WORTHINGTON MD ([email or web address]) on 07/14/24 at 12:16. Electronically submitted by Ahsan Rhodes ([email or web address]). MACEY WORTHINGTON MD Jul 14, 2024 12:16
--- NOTE | 2024-07-14 12:47 | ECG ---
[facility] Test Date: 2024-07-14 Test Time: 12:12:16 Pat Name: CHANEL BELL Department: ER Room: 0232T Gender: M [employer] Drm Consultant: SHIRLEY : 1945 Requested By: MACEY WORTHINGTON Order Number: [id number] Reading MD: Darrick Zelaya Measurements Intervals [place] Rate: 75 P: 0 RI: 156 QRS: 6 QRSD: 147 T: 31 QT: 432 QTc: 483 Interpretive Statements Atrial-paced rhythm Right bundle branch block Electronically Signed On 07-16-2024 18:43:50 PST by Darrick Zelaya Please click the below link to view image of tracing.
--- NOTE | 2024-07-14 12:49 | DVH ---
EXAM: XY CHEST PORTABLE HISTORY: DYSPNEA COMPARISON: XY CHEST PORTABLE on DOS: 09/26/23, XY CHEST PORTABLE on DOS: 08/21/23, XY CHEST PORTABLE on DOS: 01/02/23, XY CHEST PORTABLE on DOS: 07/16/22, CXRP on DOS: 04/30/22 TECHNIQUE: Portable AP view of the chest was performed. FINDINGS: There are interstitial opacities in both lungs, greater on the left, similar to that seen previously. No pneumothorax or new consolidative infiltrates. The heart is enlarged. There are postoperative c hanges of median sternotomy and left chest pacemaker. IMPRESSION: 1. Bilateral interstitial infiltrates, left greater than right, similar to that seen on chest x-ray d ated 03/28/2024 and 09/26/2023, consistent with interstitial lung scarring. 2. Cardiomegaly and postoperative changes of the heart re-identified.
[2024-07-14 13:55] LABS: Basophils # (auto) 0 10 ^3/uL (0-0.2); Basophils % (auto) 0.4 % (0.0-2.0); Eosinophils # (auto) 0.2 10 ^3/uL (0-0.8); Hematocrit 44.3 % (41.0-53.0); Hemoglobin 14.4 g/dL (13.5-17.5); Lymphocytes # (auto) 1.3 10 ^3/uL (0.4-5.4); Lymphocytes % (auto) 11.2 % (10.0-50.0); Mean Corpuscular Hemoglobin 27.9 pg (28.0-32.0); Mean Corpuscular Hgb Conc. 32.6 g/dL (32.0-36.0); Mean Corpuscular Volume 85.5 fL (80.0-100.0); Monocytes # (auto) 1.4 10 ^3/uL (0-1.3); Monocytes % (auto) 12.4 % (0.0-12.0); Neutrophils # (auto) 8.4 10 ^3/uL (1.6-8.6); Nucleated Red Blood Cells % 0.1 %; Platelet Count (auto) 194 10^3/uL (140-450); Red Blood Cells 5.18 10^6/uL (4.5-5.90); Red Cell Distribution Width 15.7 % (11.8-14.3); White Blood Cell 11.3 10^3/uL (4.4-10.8)
[2024-07-14 14:43] LABS: Chloride 103 mmol/L (98-107); Potassium 4.3 mmol/L (3.5-5.1); Sodium 137 mmol/L (136-145)
[2024-07-14 14:44] LABS: Anion Gap 12 (5-15); Carbon Dioxide 22 mmol/L (20-31)
[2024-07-14 14:45] LABS: Calcium 9.8 mg/dL (8.7-10.4)
[2024-07-14 14:49] LABS: BUN/Creatinine Ratio 12.2 (10.0-20.0); Blood Urea Nitrogen 18 mg/dL (9-23); Glucose 96 mg/dL (74-106)
[2024-07-14 16:24] VITALS: PULSE 61; RESP 20; O2SAT 98
[2024-07-14 19:40] VITALS: PULSE 76; RESP 18; O2SAT 98
[2024-07-14 21:18] LABS: Urine Bacteria None Seen /hpf (None Seen)
[2024-07-14 21:47] LABS: Urine Blood Negative /uL (Negative); Urine Clarity Clear (Clear); Urine Color Light-Yellow (Yellow); Urine Protein, UAD Negative (Negative); Urine Squamous Epithelial Cell None Seen /hpf (<5); Urine Urobilinogen Normal (Negative); Urine WBC < 1 /HPF (0-3)
[2024-07-14] MEDS: SOTALOL HCL 80 MG TAB PO SCH (22:46)
[2024-07-14] MEDS: AMIODARONE HCL 200 MG TAB PO SCH (22:46)
[2024-07-14] MEDS: amLODIPine BESYLATE 5 MG TAB PO SCH (22:46)
[2024-07-14 23:03] VITALS: BP 137/87; PULSE 71; RESP 18; TEMP 97.5
[2024-07-14] MEDS: RIVAROXABAN 10 MG TAB PO SCH (23:05)
[2024-07-14] MEDS ORDERED: RIVA10TA PO (23:54)
[2024-07-14] MEDS ORDERED: AMIO200T33 PO (23:54)
[2024-07-14] MEDS ORDERED: IPRA0.03 (23:54)
[2024-07-14] MEDS ORDERED: BUDE1AER4 IN (23:56)
[2024-07-14] MEDS ORDERED: DOXY100C4 PO (23:58)
[2024-07-15] VITALS (10 sets, daily range): BP systolic 116–140; BP diastolic 67–87; PULSE 75–88; RESP 18–20; TEMP 97.3–98.6; O2SAT 96–99
--- NOTE | 2024-07-15 02:12 | DVHHPRES ---
History of Present Illness Resident Creating Document: SOTERO BISHOP RESIDENT Reason for Visit: palpitations History of Present Illness This is a 76-year-old male with a significant past medical history of severe coronary artery disease (CAD) requiring CABG in 2013, paroxysmal atrial fibrillation (AFib), congestive heart failure (CHF), sick sinus syndrome status post pacemaker placement, chronic obstructive pulmonary disease (COPD) on 3L home oxygen, pulmonary fibrosis, history of colon cancer status post colectomy, prostate carcinoma, and renal carcinoma, who presents with palpitations. The patient reports experiencing intermittent palpitations for some time, but notes that they worsened today, prompting his visit to the hospital. He states that he is heart is racing but is on and off He denies associated chest pain, dyspnea, syncope, dizziness, or lightheadedness. Upon arrival, his heart rate ranged from 60s to 70s, with a maximum recorded heart rate of 88 bpm. EKG showed atrial pacing, without evidence of atrial fibrillation. Systolic BP was on the 160s Notably, labs revealed acute kidney injury with a creatinine of 1.47 mg/dL, which is elevated from his baseline. BNP is within normal limits, and there are no signs of decompensated heart failure at this time. Given his history of pacemaker placement, consultation with Dr. Baker is recommended for further evaluation. The plan includes monitoring renal function and assessing for hypertensive emergency with REHAN. Home meds: Amiodarone 400 mg daily, budesonide + formeterol, rivaroxaban 10 mg daily, sotalol 80 mg daily Review of Systems Constitutional: No: Fever, Chills, Sweats, Weakness, Malaise, Other Eyes: No: Pain, Vision change, Conjunctivae inflammation, Eyelid inflammation, Other, Redness ENT: No: Ear pain, Ear discharge, Nose pain, Nose discharge, Nose congestion, Mouth pain, Mouth swelling, Throat pain, Throat swelling, Other Respiratory: No: Cough, Dry, Shortness of breath, SOB with excertion, Wheezing, Hemoptysis, Pleuritic Pain, Sputum, Wheezing, Other Cardiovascular: Palpitations; No: Chest Pain, Orthopnea, Paroxysmal Noc. Dyspnea, Edema, Lt Headedness, Other Gastrointestinal: No: Nausea, Vomiting, Abdominal Pain, Diarrhea, Constipation, Melena, Hematochezia, Other Genitourinary: No Dysuria, No Frequency, No Incontinence, No Hematuria, No Retention, No Other Musculoskeletal: No: other, neck pain, shoulder pain, arm pain, back pain, hand pain, leg pain, foot pain Skin: No: Rash, Lesions, Jaundice, Bruising, Other Neurological: No: Weakness, Numbness, Incoordination, Change in speech, Confusion, Seizures, Other Allergies: Coded Allergies: Morphine (Unverified Allergy, Unknown, 03/28/24) Medications Current Medications Medications Dose Ordered Sig/Will Route Start Time Stop Time Status Last Admin Dose Admin Amiodarone HCl 400 mg DAILY PO 07/14/24 22:15 07/14/24 22:46 400 MG Sotalol HCl 40 mg BID PO 07/14/24 22:15 07/14/24 22:46 40 MG Rivaroxaban 10 mg DAILY PO 07/14/24 22:15 07/14/24 23:05 10 MG Amlodipine Besylate 5 mg DAILY PO 07/14/24 22:15 07/14/24 22:46 5 MG Exam Vital Signs Vital Signs Date Time Temp Pulse Resp B/P (MAP) Pulse Ox O2 Delivery O2 Flow Rate FiO2 07/15/24 00:35 97.7 88 18 130/87 (101) 98 97.7 07/14/24 19:40 Nasal Cannula* 3 32 Exam General: Well-appearing elderly male, no acute distress HEENT: No oropharyngeal lesions, no neck vein distention Cardiovascular: Regular rhythm with pacemaker activity noted No murmurs, rubs, or gallops No peripheral edema Pulmonary: No respiratory distress Clear to auscultation bilaterally, no wheezes, rales, or rhonchi Abdomen: Soft, non-tender, non-distended Normal bowel sounds Neurological: Alert and oriented x3 No focal deficits, no tremors Extremities: No cyanosis, clubbing, or edema Labs/Xrays Labs Test 07/14/24 21:16 07/14/24 13:05 Range/Units Urine Color Light-yellow Yellow Urine Clarity Clear Clear Urine pH 5.0 5.0-9.0 Urine Specific [place] 1.010 1.001-1.035 Urine Protein Negative Negative Urine Ketones Negative Negative Urine Blood Negative Negative /uL Urine Nitrite Negative Negative Urine Bilirubin Negative Negative Urine Urobilinogen Normal Negative mg/dL Urine Leukocyte Esterase Negative Negative /uL Urine RBC 1 0 - 3 /hpf Urine Microscopic WBC < 1 0-3 /HPF Urine Squamous Epithelial Cells None seen <5 /hpf Urine Bacteria None seen None Seen /hpf Urine Glucose Normal Normal mg/dL White Blood Count 11.3 H 4.4-10.8 10^3/uL Red Blood Count 5.18 4.5-5.90 10^6/uL Hemoglobin 14.4 13.5-17.5 g/dL Hematocrit 44.3 41.0-53.0 % Mean Corpuscular Volume 85.5 80.0-100.0 fL Mean Corpuscular Hemoglobin 27.9 L 28.0-32.0 pg Mean Corpuscular Hemoglobin Concent 32.6 32.0-36.0 g/dL Red Cell Distribution Width 15.7 H 11.8-14.3 % Platelet Count 194 140-450 10^3/uL Mean Platelet Volume 8.3 6.9-10.8 fL Neutrophils (%) (Auto) 74.0 37.0-80.0 % Lymphocytes (%) (Auto) 11.2 10.0-50.0 % Monocytes (%) (Auto) 12.4 H 0.0-12.0 % Eosinophils (%) (Auto) 2.0 0.0-7.0 % Basophils (%) (Auto) 0.4 0.0-2.0 % Neutrophils # (Auto) 8.4 1.6-8.6 10 ^3/uL Lymphocytes # (Auto) 1.3 0.4-5.4 10 ^3/uL Monocytes # (Auto) 1.4 H 0-1.3 10 ^3/uL Eosinophils # (Auto) 0.2 0-0.8 10 ^3/uL Basophils # (Auto) 0 0-0.2 10 ^3/uL Nucleated Red Blood Cells 0.1 % Sodium Level 137 136-145 mmol/L Potassium Level 4.3 3.5-5.1 mmol/L Chloride Level 103 98-107 mmol/L Carbon Dioxide Level 22 20-31 mmol/L Anion Gap 12 5-15 Blood Urea Nitrogen 18 9-23 mg/dL Creatinine 1.47 H 0.700-1.30 mg/dL Glomerular Filtration Rate Calc 49 >90 mL/min BUN/Creatinine Ratio 12.2 10.0-20.0 Serum Glucose 96 74-106 mg/dL Calcium Level 9.8 8.7-10.4 mg/dL Troponin I High Sensitivity 6 </=54 ng/L B-Type Natriuretic Peptide 62.08 0-100 pg/mL Assessment/Plan Assessment/Plan # Hypertensive emergency with REHAN resolved #Palpitations # Severe coronary artery disease status post PTCA's and CABG (2013) # Hypertensive cardiac disease with systolic dysfucntion # Chronic hypoxic respiratory failure, # Pulmonary fibrosis # COPD # Hx Colon cancer s/p Colectomy #HX Prostate carcinoma and renal carcinoma # Paroxysmal atrial fibrillation (on sotalol and Xarelto) Admit Consult Dr Baker Labs for am Amiodarone 400 mg Sotalol 80 mg Rivaroxaban 10 mg Amlodipine 5 mg Pacemaker interrogation Case discussed with Dr Crocker Plan discussed with: Patient, Other My Orders Orders - OSTERO BISHOP RESIDENT Procedure Category Date Status Time Cardiac DIET 07/15/24 Transmitted Diet-2gna,Lofat,Lochol Breakfast Amiodarone Tablet PHA 07/14/24 In Process (Cordarone Tablet) 22:15 Sotalol Hcl ([place]) PHA 07/14/24 In Process 22:15 Rivaroxaban Tablet PHA 07/14/24 In Process (Xarelto Tablet) 22:15 Amlodipine Tablet PHA 07/14/24 In Process (Norvasc Tablet) 22:15 Admit ADMIT 07/14/24 Transmitted 23:17 *[address] Baker CONS 07/14/24 Transmitted [place] 23:17 Mining Support Worker To Assess ORDERS 07/14/24 Transmitted Pacemaker 23:33 Date of Service: Jul 14, 2024 Billing Provider: JOHN CROCKER MD Common Visit Codes: [id number] INP/OBS CARE (HIGH) Secondary Visit Codes: [id number] CARE PLAN 30 MINUTES SOTERO BISHOP RESIDENT Jul 15, 2024 02:12 JOHN CROCKER MD Jul 17, 2024 10:29
[2024-07-15 07:43] LABS: Basophils # (auto) 0 10 ^3/uL (0-0.2); Basophils % (auto) 0.2 % (0.0-2.0); Eosinophils # (auto) 0.1 10 ^3/uL (0-0.8); Eosinophils % (auto) 1.2 % (0.0-7.0); Hematocrit 43.7 % (41.0-53.0); Hemoglobin 14.3 g/dL (13.5-17.5); Lymphocytes % (auto) 22.5 % (10.0-50.0); Mean Corpuscular Hemoglobin 27.7 pg (28.0-32.0); Mean Corpuscular Hgb Conc. 32.7 g/dL (32.0-36.0); Mean Corpuscular Volume 84.8 fL (80.0-100.0); Monocytes % (auto) 10.8 % (0.0-12.0); Neutrophils # (auto) 5.9 10 ^3/uL (1.6-8.6); Neutrophils % (auto) 65.3 % (37.0-80.0); Platelet Count (auto) 192 10^3/uL (140-450); Red Blood Cells 5.15 10^6/uL (4.5-5.90); White Blood Cell 9.1 10^3/uL (4.4-10.8)
[2024-07-15 08:14] LABS: Alanine Aminotransferase 22 U/L (7-40); Albumin 4.1 g/dL (3.2-4.8); Alkaline Phosphatase 80 U/L (46-116); Anion Gap 11 (5-15); Aspartate Aminotransferase 18 U/L (13-40); BUN/Creatinine Ratio 16.1 (10.0-20.0); Bilirubin, Total 0.4 mg/dL (0.2-1.0); Blood Urea Nitrogen 22 mg/dL (9-23); Calcium 9.7 mg/dL (8.7-10.4); Carbon Dioxide 25 mmol/L (20-31); Chloride 102 mmol/L (98-107); Potassium 4.2 mmol/L (3.5-5.1); Sodium 138 mmol/L (136-145); Total Protein 6.8 g/dL (5.7-8.2)
[2024-07-15 08:18] LABS: Glucose 72 mg/dL (74-106)
--- NOTE | 2024-07-15 13:08 | DVHPN2 ---
Reviewed: Care Plan, H&P, Labs, Medications, Previous Orders, Radiology Changes from previous H/P or p: No Changes Eyes: No Pain, No Vision change, No Conjunctivae inflammation, No Eyelid inflammation, No Other, No Redness ENT: No Ear pain, No Ear discharge, No Nose pain, No Nose discharge, No Nose congestion, No Mouth pain, No Mouth swelling, No Throat pain, No Throat swelling, No Other Cardiovascular: No Chest Pain; Palpitations; No Orthopnea, No Paroxysmal Noc. Dyspnea, No Edema, No Lt Headedness, No Other Respiratory: No Cough, No Dry, No Shortness of breath, No SOB with excertion, No Wheezing, No Hemoptysis, No Pleuritic Pain, No Sputum, No Other Gastrointestinal: No Nausea, No Vomiting, No Abdominal Pain, No Diarrhea, No Constipation, No Melena, No Hematochezia, No Other Genitourinary: No Dysuria, No Frequency, No Incontinence, No Hematuria, No Retention, No Other Musculoskeletal: No other, No neck pain, No shoulder pain, No arm pain, No back pain, No hand pain, No leg pain, No foot pain Skin: No Rash, No Lesions, No Jaundice, No Bruising, No Other Objective Vitals Vital Signs Date Time Temp Pulse Resp B/P (MAP) Pulse Ox O2 Delivery O2 Flow Rate FiO2 07/15/24 10:47 76 116/67 07/15/24 08:00 18 99 Nasal Cannula* 2 07/15/24 04:00 98.3 98.3 Medications Current Medications Medications Dose Ordered Sig/Will Route Start Time Stop Time Status Last Admin Dose Admin Amiodarone HCl 400 mg DAILY PO 07/14/24 22:15 07/15/24 10:45 400 MG Sotalol HCl 40 mg BID PO 07/14/24 22:15 07/15/24 10:47 40 MG Rivaroxaban 10 mg DAILY PO 07/14/24 22:15 07/15/24 10:45 10 MG Amlodipine Besylate 5 mg DAILY PO 07/14/24 22:15 07/14/24 22:46 5 MG Laboratory Results Laboratory Tests 07/15/24 07:11 Chemistry Test 07/14/24 13:05 07/15/24 07:11 Calcium Level 9.8 mg/dL (8.7-10.4) 9.7 mg/dL (8.7-10.4) Albumin 4.1 g/dL (3.2-4.8) Total Protein 6.8 g/dL (5.7-8.2) Cardiac Markers Test 07/14/24 13:05 B-Type Natriuretic Peptide 62.08 pg/mL (0-100) LFT Test 07/15/24 07:11 Alanine Aminotransferase (ALT) 22 U/L (7-40) Alkaline Phosphatase 80 U/L (46-116) Aspartate Amino Transferase (AST) 18 U/L (13-40) Total Bilirubin 0.4 mg/dL (0.2-1.0) Urinalysis Test 07/14/24 21:16 Urine Color Light-yellow (Yellow) Urine Clarity Clear (Clear) Urine pH 5.0 (5.0-9.0) Urine Specific [place] 1.010 (1.001-1.035) Urine Protein Negative (Negative) Urine Ketones Negative (Negative) Urine Blood Negative /uL (Negative) Urine Nitrite Negative (Negative) Urine Bilirubin Negative (Negative) Urine Urobilinogen Normal mg/dL (Negative) Urine Leukocyte Esterase Negative /uL (Negative) Urine RBC 1 /hpf (0 - 3) Urine Microscopic WBC < 1 /HPF (0-3) Urine Squamous Epithelial Cells None seen /hpf (<5) Urine Bacteria None seen /hpf (None Seen) Urine Glucose Normal mg/dL (Normal) Labs and/or images reviewed: Labs reviewed by me, Image(s) reviewed by me Assessment/Plan Assessment/Plan Palpitations: Sotalol amiodarone, will check TSH cardiology consult Dr Baker History of coronary artery disease status post PTCA and CABG 2013 Bilateral community-acquired pneumonia: Rocephin azithromycin Hypertensive heart disease Hypertension: Amlodipine Acute on chronic hypoxic respiratory failure Pulmonary fibrosis History of sick sinus syndrome status post pacemaker Acute on chronic CHF exacerbation Acute COPD exacerbation History of cancer status post colectomy History of prostate cancer and kidney cancer History of paroxysmal AFib on sotalol and Xarelto Use of home oxygen 3 liters/minute Time spent 65 minutes Patient is full code Advanced care planning time 20 mts Plan discussed with: Patient Date of Service: Jul 15, 2024 Billing Provider: KAREN GONG MD Common Visit Codes: [id number] CARE 30-74 MIN KAREN GONG MD Jul 15, 2024 13:08
[2024-07-15] MEDS: cefTRIAXone 1GM/50ML D5W 50 ML IV ONE (14:46)
[2024-07-15] MEDS: AZITHROMYCIN 250 MG TAB PO ONE (14:46)
[2024-07-16] VITALS (9 sets, daily range): BP systolic 116–143; BP diastolic 73–80; PULSE 70–83; RESP 17–20; TEMP 97.3–98.6; O2SAT 96–99
[2024-07-16] MEDS: cefTRIAXone 1GM/50ML D5W 50 ML IV SCH (09:37)
[2024-07-16] MEDS: AZITHROMYCIN 250 MG TAB PO SCH (09:38)
--- NOTE | 2024-07-16 10:10 | DVHPN2 ---
Reviewed: Care Plan, H&P, Labs, Medications, Previous Orders, Radiology Changes from previous H/P or p: No Changes Eyes: No Pain, No Vision change, No Conjunctivae inflammation, No Eyelid inflammation, No Other, No Redness ENT: No Ear pain, No Ear discharge, No Nose pain, No Nose discharge, No Nose congestion, No Mouth pain, No Mouth swelling, No Throat pain, No Throat swelling, No Other Cardiovascular: No Chest Pain; Palpitations; No Orthopnea, No Paroxysmal Noc. Dyspnea, No Edema, No Lt Headedness, No Other Respiratory: No Cough, No Dry, No Shortness of breath, No SOB with excertion, No Wheezing, No Hemoptysis, No Pleuritic Pain, No Sputum, No Other Gastrointestinal: No Nausea, No Vomiting, No Abdominal Pain, No Diarrhea, No Constipation, No Melena, No Hematochezia, No Other Genitourinary: No Dysuria, No Frequency, No Incontinence, No Hematuria, No Retention, No Other Musculoskeletal: No other, No neck pain, No shoulder pain, No arm pain, No back pain, No hand pain, No leg pain, No foot pain Skin: No Rash, No Lesions, No Jaundice, No Bruising, No Other Objective Vitals Vital Signs Date Time Temp Pulse Resp B/P (MAP) Pulse Ox O2 Delivery O2 Flow Rate FiO2 07/16/24 09:39 143/78 07/16/24 09:39 83 07/16/24 05:00 98.6 20 99 98.6 07/15/24 20:00 Nasal Cannula* 3 32 Intake/Output Intake and Output 07/16/24 07:00 Intake Total 2320 ml Output Total 1000 ml Balance 1320 ml Intake Oral 2320 ml Output Urine Total 1000 ml # Voids 2 Medications Current Medications Medications Dose Ordered Sig/Will Route Start Time Stop Time Status Last Admin Dose Admin Amiodarone HCl 400 mg DAILY PO 07/14/24 22:15 07/16/24 09:40 400 MG Sotalol HCl 40 mg BID PO 07/14/24 22:15 07/16/24 09:39 40 MG Rivaroxaban 10 mg DAILY PO 07/14/24 22:15 07/16/24 09:39 10 MG Amlodipine Besylate 5 mg DAILY PO 07/14/24 22:15 07/16/24 09:39 5 MG Ceftriaxone Sodium 50 ml @ 100 mls/hr DAILY@09 IV 07/16/24 09:00 07/16/24 09:37 100 MLS/HR Azithromycin 500 mg DAILY PO 07/16/24 10:00 07/16/24 09:38 500 MG Laboratory Results Laboratory Tests 07/15/24 07:11 Urinalysis Test 07/14/24 21:16 Urine Color Light-yellow (Yellow) Urine Clarity Clear (Clear) Urine pH 5.0 (5.0-9.0) Urine Specific [employer] 1.010 (1.001-1.035) Urine Protein Negative (Negative) Urine Ketones Negative (Negative) Urine Blood Negative /uL (Negative) Urine Nitrite Negative (Negative) Urine Bilirubin Negative (Negative) Urine Urobilinogen Normal mg/dL (Negative) Urine Leukocyte Esterase Negative /uL (Negative) Urine RBC 1 /hpf (0 - 3) Urine Microscopic WBC < 1 /HPF (0-3) Urine Squamous Epithelial Cells None seen /hpf (<5) Urine Bacteria None seen /hpf (None Seen) Urine Glucose Normal mg/dL (Normal) Labs and/or images reviewed: Labs reviewed by me, Image(s) reviewed by me Assessment/Plan Assessment/Plan Palpitations: Sotalol amiodarone, will check TSH cardiology consult Dr Baker History of coronary artery disease status post PTCA and CABG 2013 Bilateral community-acquired pneumonia: Rocephin azithromycin Hypertensive heart disease Hypertension: Amlodipine Acute on chronic hypoxic respiratory failure Pulmonary fibrosis History of sick sinus syndrome status post pacemaker Acute on chronic CHF exacerbation Acute COPD exacerbation History of colon cancer status post colectomy History of prostate cancer post prostatectomy History of kidney cancer status post biopsy History of paroxysmal AFib on sotalol and Xarelto Use of home oxygen 3 liters/minute Time spent 65 minutes Patient is full code Advanced care planning time 20 mts Plan discussed with: Patient My Orders Orders - KAREN GONG MD Procedure Category Date Status Time Ceftriaxone 1gm/50ml PHA 07/16/24 In Process D5w (Rocephin) 09:00 Azithromycin Tablet PHA 07/16/24 In Process (Zithromax Tablet) 10:00 *Consult Dr. Baker CONS 07/15/24 Transmitted [place] 13:09 Date of Service: Jul 16, 2024 Billing Provider: KAREN GONG MD Common Visit Codes: [id number] INP/OBS CARE(HIGH) KAREN GONG MD Jul 16, 2024 10:10
[2024-07-16] MEDS ORDERED: ONDANSETRON HCL 4 MG/2 ML VIAL IV PRN (10:15)
[2024-07-17] VITALS (9 sets, daily range): BP systolic 109–135; BP diastolic 66–73; PULSE 72–91; RESP 16–21; TEMP 97.4–98; O2SAT 98–99
[2024-07-17 06:13] LABS: Basophils # (auto) 0 10 ^3/uL (0-0.2); Basophils % (auto) 0.5 % (0.0-2.0); Eosinophils # (auto) 0.6 10 ^3/uL (0-0.8); Eosinophils % (auto) 6.7 % (0.0-7.0); Hematocrit 42.2 % (41.0-53.0); Hemoglobin 13.7 g/dL (13.5-17.5); Lymphocytes # (auto) 1.8 10 ^3/uL (0.4-5.4); Lymphocytes % (auto) 20.8 % (10.0-50.0); Mean Corpuscular Hemoglobin 27.8 pg (28.0-32.0); Mean Corpuscular Hgb Conc. 32.5 g/dL (32.0-36.0); Mean Corpuscular Volume 85.7 fL (80.0-100.0); Monocytes # (auto) 0.9 10 ^3/uL (0-1.3); Monocytes % (auto) 10.5 % (0.0-12.0); Neutrophils # (auto) 5.2 10 ^3/uL (1.6-8.6); Neutrophils % (auto) 61.5 % (37.0-80.0); Nucleated Red Blood Cells % 0.1 %; Platelet Count (auto) 177 10^3/uL (140-450); Red Blood Cells 4.92 10^6/uL (4.5-5.90); Red Cell Distribution Width 15.8 % (11.8-14.3); White Blood Cell 8.4 10^3/uL (4.4-10.8)
[2024-07-17 06:37] LABS: Alanine Aminotransferase 18 U/L (7-40); Albumin 3.7 g/dL (3.2-4.8); Alkaline Phosphatase 70 U/L (46-116); Anion Gap 8 (5-15); Aspartate Aminotransferase 16 U/L (13-40); BUN/Creatinine Ratio 14.1 (10.0-20.0); Blood Urea Nitrogen 18 mg/dL (9-23); Calcium 9.7 mg/dL (8.7-10.4); Carbon Dioxide 29 mmol/L (20-31); Chloride 103 mmol/L (98-107); Glucose 80 mg/dL (74-106); Potassium 4.4 mmol/L (3.5-5.1); Sodium 140 mmol/L (136-145); Total Protein 6.2 g/dL (5.7-8.2)
[2024-07-17 06:38] LABS: Bilirubin, Total 0.5 mg/dL (0.2-1.0)
--- NOTE | 2024-07-17 10:06 | DVHPN2 ---
Reviewed: Care Plan, H&P, Labs, Medications, Previous Orders, Radiology Changes from previous H/P or p: No Changes Eyes: No Pain, No Vision change, No Conjunctivae inflammation, No Eyelid inflammation, No Other, No Redness ENT: No Ear pain, No Ear discharge, No Nose pain, No Nose discharge, No Nose congestion, No Mouth pain, No Mouth swelling, No Throat pain, No Throat swelling, No Other Cardiovascular: No Chest Pain; Palpitations; No Orthopnea, No Paroxysmal Noc. Dyspnea, No Edema, No Lt Headedness, No Other Respiratory: No Cough, No Dry, No Shortness of breath, No SOB with excertion, No Wheezing, No Hemoptysis, No Pleuritic Pain, No Sputum, No Other Gastrointestinal: No Nausea, No Vomiting, No Abdominal Pain, No Diarrhea, No Constipation, No Melena, No Hematochezia, No Other Genitourinary: No Dysuria, No Frequency, No Incontinence, No Hematuria, No Retention, No Other Musculoskeletal: No other, No neck pain, No shoulder pain, No arm pain, No back pain, No hand pain, No leg pain, No foot pain Skin: No Rash, No Lesions, No Jaundice, No Bruising, No Other Objective Vitals Vital Signs Date Time Temp Pulse Resp B/P (MAP) Pulse Ox O2 Delivery O2 Flow Rate FiO2 07/17/24 09:10 81 121/71 07/17/24 08:58 97.9 16 99 97.9 07/16/24 20:00 Nasal Cannula* 3 32 Intake/Output Intake and Output 07/17/24 07:00 Intake Total 2326 ml Output Total 775 ml Balance 1551 ml Intake Oral 2276 ml IV Total 50 ml Output Urine Total 775 ml # Voids 3 Medications Current Medications Medications Dose Ordered Sig/Will Route Start Time Stop Time Status Last Admin Dose Admin Amiodarone HCl 400 mg DAILY PO 07/14/24 22:15 07/17/24 09:09 400 MG Sotalol HCl 40 mg BID PO 07/14/24 22:15 07/17/24 09:10 40 MG Rivaroxaban 10 mg DAILY PO 07/14/24 22:15 07/17/24 09:09 10 MG Amlodipine Besylate 5 mg DAILY PO 07/14/24 22:15 07/17/24 09:08 5 MG Ceftriaxone Sodium 50 ml @ 100 mls/hr DAILY@09 IV 07/16/24 09:00 07/17/24 08:51 100 MLS/HR Azithromycin 500 mg DAILY PO 07/16/24 10:00 07/17/24 09:09 500 MG Ondansetron HCl 4 mg Q4HPRN PRN IV 07/16/24 10:15 Laboratory Results Laboratory Tests 07/17/24 05:01 Chemistry Test 07/17/24 05:01 Albumin 3.7 g/dL (3.2-4.8) Calcium Level 9.7 mg/dL (8.7-10.4) Total Protein 6.2 g/dL (5.7-8.2) LFT Test 07/17/24 05:01 Alanine Aminotransferase (ALT) 18 U/L (7-40) Alkaline Phosphatase 70 U/L (46-116) Aspartate Amino Transferase (AST) 16 U/L (13-40) Total Bilirubin 0.5 mg/dL (0.2-1.0) Urinalysis Test 07/14/24 21:16 Urine Color Light-yellow (Yellow) Urine Clarity Clear (Clear) Urine pH 5.0 (5.0-9.0) Urine Specific [place] 1.010 (1.001-1.035) Urine Protein Negative (Negative) Urine Ketones Negative (Negative) Urine Blood Negative /uL (Negative) Urine Nitrite Negative (Negative) Urine Bilirubin Negative (Negative) Urine Urobilinogen Normal mg/dL (Negative) Urine Leukocyte Esterase Negative /uL (Negative) Urine RBC 1 /hpf (0 - 3) Urine Microscopic WBC < 1 /HPF (0-3) Urine Squamous Epithelial Cells None seen /hpf (<5) Urine Bacteria None seen /hpf (None Seen) Urine Glucose Normal mg/dL (Normal) Labs and/or images reviewed: Labs reviewed by me, Image(s) reviewed by me Assessment/Plan Assessment/Plan Palpitations: Sotalol amiodarone, will check TSH , echo 03/09/2024 55 % ejection fraction, cardiology consult Dr Baker History of coronary artery disease status post PTCA and CABG 2013 Bilateral community-acquired pneumonia: Rocephin azithromycin Hypertensive heart disease Hypertension: Amlodipine Acute on chronic hypoxic respiratory failure Pulmonary fibrosis History of sick sinus syndrome status post pacemaker Acute on chronic CHF exacerbation Acute COPD exacerbation History of colon cancer status post colectomy History of prostate cancer post prostatectomy History of kidney cancer status post biopsy History of paroxysmal AFib on sotalol and Xarelto Use of home oxygen 3 liters/minute Time spent 65 minutes Patient is full code Advanced care planning time 20 mts Plan discussed with: Patient My Orders Orders - KAREN GONG MD Procedure Category Date Status Time Ondansetron Hcl PHA 07/16/24 In Process (Zofran) 10:15 Date of Service: Jul 17, 2024 Billing Provider: KAREN GONG MD Common Visit Codes: [id number] INP/OBS CARE(HIGH) KAREN GONG MD Jul 17, 2024 10:06
--- NOTE | 2024-07-17 13:36 | DVHPN2 ---
Progress Note - Dictate Date Seen: Jul 14, 2024 Medical Necessity Reason Pt with a Central, PICC or Fol: No Subjective PT WAS SEEN IN ER NOW WITH AFIB RVR PMH CHEST PAIN ECG NEGATIVE TROPONIN NEGATIVE LHC * Left main was patent. * Left anterior descending artery was occluded. * AU to the LAD was patent. * Circumflex artery proximally had about a 50% narrowing. * Obtuse marginal 1, had a 99% ostial narrowing and occluded in the mid portion. * Saphenous vein graft to the OM1 was patent. * RCA without any flow restrictive lesion. * Posterior descending artery in the mid portion had about a 50% narrowing. * Saphenous vein graft to the PDA was patent. * Left ventricular function was preserved and estimated EF 55%. * LVEDP was 10-12 mmHg with no gradient across the aortic valve. * Left ventricular end-diastolic pressure was 10-12. * Right heart catheterization showed a RA of 10, RV of 59/10, PA of 58/20 and a capillary wedge pressure of 10-12 mmHg. PT S/P CABG WITH PATENT GRAFTS HX OF AFIB HYPERCOAGULABLE STATE vital signs Vital Sign Date Time Temp Pulse Resp B/P (MAP) Pulse Ox O2 Delivery O2 Flow Rate FiO2 07/17/24 13:00 97.6 77 18 126/73 (90) 98 97.6 07/17/24 08:00 Nasal Cannula* 3 32 Total Intake and Output 07/16/24 07/16/24 07/17/24 15:00 23:00 07:00 Intake Total 490 ml 936 ml 900 ml Output Total 225 ml 550 ml Balance 490 ml 711 ml 350 ml medications Current Medications Medications Dose Ordered Sig/Will Route Start Time Stop Time Status Last Admin Dose Admin Amiodarone HCl 400 mg DAILY PO 07/14/24 22:15 07/17/24 09:09 400 MG Sotalol HCl 40 mg BID PO 07/14/24 22:15 07/17/24 09:10 40 MG Rivaroxaban 10 mg DAILY PO 07/14/24 22:15 07/17/24 09:09 10 MG Amlodipine Besylate 5 mg DAILY PO 07/14/24 22:15 07/17/24 09:08 5 MG Ceftriaxone Sodium 50 ml @ 100 mls/hr DAILY@09 IV 07/16/24 09:00 07/17/24 08:51 100 MLS/HR Azithromycin 500 mg DAILY PO 07/16/24 10:00 07/17/24 09:09 500 MG Ondansetron HCl 4 mg Q4HPRN PRN IV 07/16/24 10:15 laboratory and microbiology Laboratory Tests 07/17/24 05:01 Test 07/17/24 05:01 Range/Units Serum Glucose 80 74-106 mg/dL Problem List NOW WITH AFIB RVR PMH CHEST PAIN ECG NEGATIVE TROPONIN NEGATIVE LHC * Left main was patent. * Left anterior descending artery was occluded. * AU to the LAD was patent. * Circumflex artery proximally had about a 50% narrowing. * Obtuse marginal 1, had a 99% ostial narrowing and occluded in the mid portion. * Saphenous vein graft to the OM1 was patent. * RCA without any flow restrictive lesion. * Posterior descending artery in the mid portion had about a 50% narrowing. * Saphenous vein graft to the PDA was patent. * Left ventricular function was preserved and estimated EF 55%. * LVEDP was 10-12 mmHg with no gradient across the aortic valve. * Left ventricular end-diastolic pressure was 10-12. * Right heart catheterization showed a RA of 10, RV of 59/10, PA of 58/20 and a capillary wedge pressure of 10-12 mmHg. PT S/P CABG WITH PATENT GRAFTS HX OF AFIB HYPERCOAGULABLE STATE Assessment/Plan DC SOTALOL CANNOT USE SOTALOL AND AMIODARONE ANTICOAGULATION START TOPROL Plan discussed with: Patient Critical Care Time(min): 35 NIRAJ JAIMES MD Jul 17, 2024 13:36
[2024-07-18] VITALS (7 sets, daily range): BP systolic 124–145; BP diastolic 53–79; PULSE 70–96; RESP 16–19; TEMP 97.5–98.4; O2SAT 97–98
[2024-07-18] MEDS: METOPROLOL SUCCINATE XL 50 MG TAB PO SCH (08:56)
--- NOTE | 2024-07-18 13:18 | DVHPN2 ---
Reviewed: Care Plan, H&P, Labs, Medications, Previous Orders, Radiology Changes from previous H/P or p: No Changes Eyes: No Pain, No Vision change, No Conjunctivae inflammation, No Eyelid inflammation, No Other, No Redness ENT: No Ear pain, No Ear discharge, No Nose pain, No Nose discharge, No Nose congestion, No Mouth pain, No Mouth swelling, No Throat pain, No Throat swelling, No Other Cardiovascular: No Chest Pain; Palpitations; No Orthopnea, No Paroxysmal Noc. Dyspnea, No Edema, No Lt Headedness, No Other Respiratory: No Cough, No Dry, No Shortness of breath, No SOB with excertion, No Wheezing, No Hemoptysis, No Pleuritic Pain, No Sputum, No Other Gastrointestinal: No Nausea, No Vomiting, No Abdominal Pain, No Diarrhea, No Constipation, No Melena, No Hematochezia, No Other Genitourinary: No Dysuria, No Frequency, No Incontinence, No Hematuria, No Retention, No Other Musculoskeletal: No other, No neck pain, No shoulder pain, No arm pain, No back pain, No hand pain, No leg pain, No foot pain Skin: No Rash, No Lesions, No Jaundice, No Bruising, No Other Objective Vitals Vital Signs Date Time Temp Pulse Resp B/P (MAP) Pulse Ox O2 Delivery O2 Flow Rate FiO2 07/18/24 08:57 145/79 07/18/24 08:56 82 07/18/24 08:55 97.5 18 97 97.5 07/18/24 08:15 Nasal Cannula* 3 32 Intake/Output Intake and Output 07/18/24 07:00 Intake Total 1125 ml Output Total 600 ml Balance 525 ml Intake Oral 1125 ml Output Urine Total 600 ml # Voids 2 # Bowel Movements 3 Medications Current Medications Medications Dose Ordered Sig/Will Route Start Time Stop Time Status Last Admin Dose Admin Amiodarone HCl 400 mg DAILY PO 07/14/24 22:15 07/18/24 08:56 400 MG Rivaroxaban 10 mg DAILY PO 07/14/24 22:15 07/18/24 08:55 10 MG Amlodipine Besylate 5 mg DAILY PO 07/14/24 22:15 07/18/24 08:57 5 MG Ceftriaxone Sodium 50 ml @ 100 mls/hr DAILY@09 IV 07/16/24 09:00 07/18/24 08:55 100 MLS/HR Azithromycin 500 mg DAILY PO 07/16/24 10:00 07/18/24 08:55 500 MG Ondansetron HCl 4 mg Q4HPRN PRN IV 07/16/24 10:15 Metoprolol Succinate 50 mg DAILY PO 07/18/24 10:00 07/18/24 08:56 50 MG Laboratory Results Laboratory Tests 07/17/24 05:01 Urinalysis Test 07/14/24 21:16 Urine Color Light-yellow (Yellow) Urine Clarity Clear (Clear) Urine pH 5.0 (5.0-9.0) Urine Specific [place] 1.010 (1.001-1.035) Urine Protein Negative (Negative) Urine Ketones Negative (Negative) Urine Blood Negative /uL (Negative) Urine Nitrite Negative (Negative) Urine Bilirubin Negative (Negative) Urine Urobilinogen Normal mg/dL (Negative) Urine Leukocyte Esterase Negative /uL (Negative) Urine RBC 1 /hpf (0 - 3) Urine Microscopic WBC < 1 /HPF (0-3) Urine Squamous Epithelial Cells None seen /hpf (<5) Urine Bacteria None seen /hpf (None Seen) Urine Glucose Normal mg/dL (Normal) Labs and/or images reviewed: Labs reviewed by me, Image(s) reviewed by me Assessment/Plan Assessment/Plan Palpitations: Sotalol discontinued, started on Toprol-XL by Dr. Baker,, TSH is slightly high at 5.6 , echo 03/09/2024 55 % ejection fraction, cardiology consult Dr Baker History of coronary artery disease status post PTCA and CABG 2013 Bilateral community-acquired pneumonia: Rocephin azithromycin Hypertensive heart disease Hypertension: Amlodipine Acute on chronic hypoxic respiratory failure Pulmonary fibrosis History of sick sinus syndrome status post pacemaker Acute on chronic CHF exacerbation Acute COPD exacerbation History of colon cancer status post colectomy History of prostate cancer post prostatectomy History of kidney cancer status post biopsy History of paroxysmal AFib placed on Toprol-XL and Xarelto Use of home oxygen 3 liters/minute Time spent 55 minutes Patient is full code Advanced care planning time 20 mts Plan discussed with: Patient Date of Service: Jul 18, 2024 Billing Provider: KAREN GONG MD Common Visit Codes: [id number] INP/OBS CARE(HIGH) KAREN GONG MD Jul 18, 2024 13:18
[2024-07-19] VITALS (9 sets, daily range): BP systolic 101–158; BP diastolic 55–81; PULSE 80–104; RESP 17–20; TEMP 93.8–100.9; O2SAT 95–97
--- NOTE | 2024-07-19 14:10 | DVHPN2 ---
Progress Note - Dictate Date Seen: Jul 19, 2024 Medical Necessity Reason Pt with a Central, PICC or Fol: No Subjective PT WAS SEEN IN ER NOW WITH AFIB RVR PMH CHEST PAIN ECG NEGATIVE TROPONIN NEGATIVE LHC * Left main was patent. * Left anterior descending artery was occluded. * AU to the LAD was patent. * Circumflex artery proximally had about a 50% narrowing. * Obtuse marginal 1, had a 99% ostial narrowing and occluded in the mid portion. * Saphenous vein graft to the OM1 was patent. * RCA without any flow restrictive lesion. * Posterior descending artery in the mid portion had about a 50% narrowing. * Saphenous vein graft to the PDA was patent. * Left ventricular function was preserved and estimated EF 55%. * LVEDP was 10-12 mmHg with no gradient across the aortic valve. * Left ventricular end-diastolic pressure was 10-12. * Right heart catheterization showed a RA of 10, RV of 59/10, PA of 58/20 and a capillary wedge pressure of 10-12 mmHg. PT S/P CABG WITH PATENT GRAFTS HX OF AFIB HYPERCOAGULABLE STATE vital signs Vital Sign Date Time Temp Pulse Resp B/P (MAP) Pulse Ox O2 Delivery O2 Flow Rate FiO2 07/19/24 10:14 87 128/55 07/19/24 08:12 18 Nasal Cannula* 3 32 07/19/24 05:00 98.3 97 98.3 Total Intake and Output 07/18/24 07/18/24 07/19/24 15:00 23:00 07:00 Intake Total 50 ml 594 ml 850 ml Balance 50 ml 594 ml 850 ml medications Current Medications Medications Dose Ordered Sig/Will Route Start Time Stop Time Status Last Admin Dose Admin Amiodarone HCl 400 mg DAILY PO 07/14/24 22:15 07/19/24 10:13 400 MG Rivaroxaban 10 mg DAILY PO 07/14/24 22:15 07/19/24 10:14 10 MG Amlodipine Besylate 5 mg DAILY PO 07/14/24 22:15 07/19/24 10:14 5 MG Ceftriaxone Sodium 50 ml @ 100 mls/hr DAILY@09 IV 07/16/24 09:00 07/19/24 10:15 100 MLS/HR Azithromycin 500 mg DAILY PO 07/16/24 10:00 07/19/24 10:14 500 MG Ondansetron HCl 4 mg Q4HPRN PRN IV 07/16/24 10:15 Metoprolol Succinate 50 mg DAILY PO 07/18/24 10:00 07/19/24 10:14 50 MG laboratory and microbiology Laboratory Tests 07/17/24 05:01 Test 07/17/24 05:01 Range/Units Serum Glucose 80 74-106 mg/dL Problem List NOW WITH AFIB RVR PMH CHEST PAIN ECG NEGATIVE TROPONIN NEGATIVE LHC * Left main was patent. * Left anterior descending artery was occluded. * AU to the LAD was patent. * Circumflex artery proximally had about a 50% narrowing. * Obtuse marginal 1, had a 99% ostial narrowing and occluded in the mid portion. * Saphenous vein graft to the OM1 was patent. * RCA without any flow restrictive lesion. * Posterior descending artery in the mid portion had about a 50% narrowing. * Saphenous vein graft to the PDA was patent. * Left ventricular function was preserved and estimated EF 55%. * LVEDP was 10-12 mmHg with no gradient across the aortic valve. * Left ventricular end-diastolic pressure was 10-12. * Right heart catheterization showed a RA of 10, RV of 59/10, PA of 58/20 and a capillary wedge pressure of 10-12 mmHg. PT S/P CABG WITH PATENT GRAFTS HX OF AFIB HYPERCOAGULABLE STATE Assessment/Plan DC SOTALOL CANNOT USE SOTALOL AND AMIODARONE ANTICOAGULATION START TOPROL RATE CONTROL MAY DC HOME Plan discussed with: Patient NIRAJ JAIMES MD Jul 19, 2024 14:10
--- NOTE | 2024-07-19 14:38 | DVHPN2 ---
Reviewed: Care Plan, H&P, Labs, Medications, Previous Orders, Radiology Changes from previous H/P or p: No Changes Eyes: No Pain, No Vision change, No Conjunctivae inflammation, No Eyelid inflammation, No Other, No Redness ENT: No Ear pain, No Ear discharge, No Nose pain, No Nose discharge, No Nose congestion, No Mouth pain, No Mouth swelling, No Throat pain, No Throat swelling, No Other Cardiovascular: No Chest Pain; Palpitations; No Orthopnea, No Paroxysmal Noc. Dyspnea, No Edema, No Lt Headedness, No Other Respiratory: No Cough, No Dry, No Shortness of breath, No SOB with excertion, No Wheezing, No Hemoptysis, No Pleuritic Pain, No Sputum, No Other Gastrointestinal: No Nausea, No Vomiting, No Abdominal Pain, No Diarrhea, No Constipation, No Melena, No Hematochezia, No Other Genitourinary: No Dysuria, No Frequency, No Incontinence, No Hematuria, No Retention, No Other Musculoskeletal: No other, No neck pain, No shoulder pain, No arm pain, No back pain, No hand pain, No leg pain, No foot pain Skin: No Rash, No Lesions, No Jaundice, No Bruising, No Other Objective Vitals Vital Signs Date Time Temp Pulse Resp B/P (MAP) Pulse Ox O2 Delivery O2 Flow Rate FiO2 07/19/24 10:14 87 128/55 07/19/24 08:12 18 Nasal Cannula* 3 32 07/19/24 05:00 98.3 97 98.3 Intake/Output Intake and Output 07/19/24 07:00 Intake Total 1494 ml Balance 1494 ml Intake Oral 1444 ml IV Total 50 ml # Voids 9 # Bowel Movements 2 Medications Current Medications Medications Dose Ordered Sig/Will Route Start Time Stop Time Status Last Admin Dose Admin Amiodarone HCl 400 mg DAILY PO 07/14/24 22:15 07/19/24 10:13 400 MG Rivaroxaban 10 mg DAILY PO 07/14/24 22:15 07/19/24 10:14 10 MG Amlodipine Besylate 5 mg DAILY PO 07/14/24 22:15 07/19/24 10:14 5 MG Ceftriaxone Sodium 50 ml @ 100 mls/hr DAILY@09 IV 07/16/24 09:00 07/19/24 10:15 100 MLS/HR Azithromycin 500 mg DAILY PO 07/16/24 10:00 07/19/24 10:14 500 MG Ondansetron HCl 4 mg Q4HPRN PRN IV 07/16/24 10:15 Metoprolol Succinate 50 mg DAILY PO 07/18/24 10:00 07/19/24 10:14 50 MG Laboratory Results Laboratory Tests 07/17/24 05:01 Urinalysis Test 07/14/24 21:16 Urine Color Light-yellow (Yellow) Urine Clarity Clear (Clear) Urine pH 5.0 (5.0-9.0) Urine Specific [place] 1.010 (1.001-1.035) Urine Protein Negative (Negative) Urine Ketones Negative (Negative) Urine Blood Negative /uL (Negative) Urine Nitrite Negative (Negative) Urine Bilirubin Negative (Negative) Urine Urobilinogen Normal mg/dL (Negative) Urine Leukocyte Esterase Negative /uL (Negative) Urine RBC 1 /hpf (0 - 3) Urine Microscopic WBC < 1 /HPF (0-3) Urine Squamous Epithelial Cells None seen /hpf (<5) Urine Bacteria None seen /hpf (None Seen) Urine Glucose Normal mg/dL (Normal) Labs and/or images reviewed: Labs reviewed by me, Image(s) reviewed by me Assessment/Plan Assessment/Plan Palpitations: Sotalol discontinued, started on Toprol-XL [address] Baker,, TSH is slightly high at 5.6 , echo 03/09/2024 55 % ejection fraction, History of coronary artery disease status post PTCA and CABG 2013 Bilateral community-acquired pneumonia: Rocephin azithromycin Hypertensive heart disease Hypertension: Amlodipine Acute on chronic hypoxic respiratory failure Pulmonary fibrosis History of sick sinus syndrome status post pacemaker Acute on chronic CHF exacerbation Acute COPD exacerbation History of colon cancer status post colectomy History of prostate cancer post prostatectomy History of kidney cancer status post biopsy History of paroxysmal AFib placed on Toprol-XL and Xarelto Use of home oxygen 3 liters/minute Time spent 55 minutes Patient is full code Advanced care planning time 20 mts Will check flu test and Treva test, the patient is still not feeling good Plan discussed with: Patient Date of Service: Jul 19, 2024 Billing Provider: KAREN GONG MD Common Visit Codes: [id number] INP/OBS CARE(HIGH) KAREN GONG MD Jul 19, 2024 14:38
[2024-07-19 19:07] LABS: COVID19 ANTIGEN SOFIA FIA NEGATIVE (NEGATIVE); Rapid Influenza A Negative (Negative); Rapid Influenza B Negative (Negative)
[2024-07-20] VITALS (8 sets, daily range): BP systolic 117–157; BP diastolic 56–79; PULSE 78–99; RESP 15–18; TEMP 97.1–98.9; O2SAT 96–99
--- NOTE | 2024-07-20 11:14 | DVHPN2 ---
Progress Note - Dictate Date Seen: Jul 19, 2024 Medical Necessity Reason Pt with a Central, PICC or Fol: No Subjective PT WAS SEEN IN ER NOW WITH AFIB RVR PMH CHEST PAIN ECG NEGATIVE TROPONIN NEGATIVE LHC * Left main was patent. * Left anterior descending artery was occluded. * AU to the LAD was patent. * Circumflex artery proximally had about a 50% narrowing. * Obtuse marginal 1, had a 99% ostial narrowing and occluded in the mid portion. * Saphenous vein graft to the OM1 was patent. * RCA without any flow restrictive lesion. * Posterior descending artery in the mid portion had about a 50% narrowing. * Saphenous vein graft to the PDA was patent. * Left ventricular function was preserved and estimated EF 55%. * LVEDP was 10-12 mmHg with no gradient across the aortic valve. * Left ventricular end-diastolic pressure was 10-12. * Right heart catheterization showed a RA of 10, RV of 59/10, PA of 58/20 and a capillary wedge pressure of 10-12 mmHg. PT S/P CABG WITH PATENT GRAFTS HX OF AFIB HYPERCOAGULABLE STATE vital signs Vital Sign Date Time Temp Pulse Resp B/P (MAP) Pulse Ox O2 Delivery O2 Flow Rate FiO2 07/20/24 10:46 88 147/79 07/20/24 09:00 97.8 16 96 97.8 07/20/24 08:00 Nasal Cannula* 3 32 Total Intake and Output 07/19/24 07/19/24 07/20/24 15:00 23:00 07:00 Intake Total 50 ml 1650 ml 650 ml Output Total 700 ml 450 ml Balance 50 ml 950 ml 200 ml medications Current Medications Medications Dose Ordered Sig/Will Route Start Time Stop Time Status Last Admin Dose Admin Amiodarone HCl 400 mg DAILY PO 07/14/24 22:15 07/20/24 10:45 400 MG Rivaroxaban 10 mg DAILY PO 07/14/24 22:15 07/20/24 10:46 10 MG Amlodipine Besylate 5 mg DAILY PO 07/14/24 22:15 07/20/24 10:46 5 MG Ceftriaxone Sodium 50 ml @ 100 mls/hr DAILY@09 IV 07/16/24 09:00 07/20/24 10:44 100 MLS/HR Azithromycin 500 mg DAILY PO 07/16/24 10:00 07/20/24 10:45 500 MG Ondansetron HCl 4 mg Q4HPRN PRN IV 07/16/24 10:15 Metoprolol Succinate 50 mg DAILY PO 07/18/24 10:00 07/20/24 10:46 50 MG laboratory and microbiology Laboratory Tests 07/17/24 05:01 Test 07/17/24 05:01 Range/Units Serum Glucose 80 74-106 mg/dL Problem List NOW WITH AFIB RVR PMH CHEST PAIN ECG NEGATIVE TROPONIN NEGATIVE C * Left main was patent. * Left anterior descending artery was occluded. * AU to the LAD was patent. * Circumflex artery proximally had about a 50% narrowing. * Obtuse marginal 1, had a 99% ostial narrowing and occluded in the mid portion. * Saphenous vein graft to the OM1 was patent. * RCA without any flow restrictive lesion. * Posterior descending artery in the mid portion had about a 50% narrowing. * Saphenous vein graft to the PDA was patent. * Left ventricular function was preserved and estimated EF 55%. * LVEDP was 10-12 mmHg with no gradient across the aortic valve. * Left ventricular end-diastolic pressure was 10-12. * Right heart catheterization showed a RA of 10, RV of 59/10, PA of 58/20 and a capillary wedge pressure of 10-12 mmHg. PT S/P CABG WITH PATENT GRAFTS HX OF AFIB HYPERCOAGULABLE STATE Assessment/Plan DC SOTALOL CANNOT USE SOTALOL AND AMIODARONE ANTICOAGULATION START TOPROL RATE CONTROL MAY DC HOME PY BEING PACED RATE CONTROLLED MAY DC HOME Plan discussed with: Patient NIRAJ JAIMES MD Jul 20, 2024 11:14
--- NOTE | 2024-07-20 11:43 | DVHPN2 ---
Reviewed: Care Plan, H&P, Labs, Medications, Previous Orders, Radiology Changes from previous H/P or p: No Changes Eyes: No Pain, No Vision change, No Conjunctivae inflammation, No Eyelid inflammation, No Other, No Redness ENT: No Ear pain, No Ear discharge, No Nose pain, No Nose discharge, No Nose congestion, No Mouth pain, No Mouth swelling, No Throat pain, No Throat swelling, No Other Cardiovascular: No Chest Pain; Palpitations; No Orthopnea, No Paroxysmal Noc. Dyspnea, No Edema, No Lt Headedness, No Other Respiratory: No Cough, No Dry, No Shortness of breath, No SOB with excertion, No Wheezing, No Hemoptysis, No Pleuritic Pain, No Sputum, No Other Gastrointestinal: No Nausea, No Vomiting, No Abdominal Pain, No Diarrhea, No Constipation, No Melena, No Hematochezia, No Other Genitourinary: No Dysuria, No Frequency, No Incontinence, No Hematuria, No Retention, No Other Musculoskeletal: No other, No neck pain, No shoulder pain, No arm pain, No back pain, No hand pain, No leg pain, No foot pain Skin: No Rash, No Lesions, No Jaundice, No Bruising, No Other Objective Vitals Vital Signs Date Time Temp Pulse Resp B/P (MAP) Pulse Ox O2 Delivery O2 Flow Rate FiO2 07/20/24 10:46 88 147/79 07/20/24 09:00 97.8 16 96 97.8 07/20/24 08:00 Nasal Cannula* 3 32 Intake/Output Intake and Output 07/20/24 07:00 Intake Total 2350 ml Output Total 1150 ml Balance 1200 ml Intake Oral 2300 ml IV Total 50 ml Output Urine Total 1150 ml Medications Current Medications Medications Dose Ordered Sig/Will Route Start Time Stop Time Status Last Admin Dose Admin Amiodarone HCl 400 mg DAILY PO 07/14/24 22:15 07/20/24 10:45 400 MG Rivaroxaban 10 mg DAILY PO 07/14/24 22:15 07/20/24 10:46 10 MG Amlodipine Besylate 5 mg DAILY PO 07/14/24 22:15 07/20/24 10:46 5 MG Ceftriaxone Sodium 50 ml @ 100 mls/hr DAILY@09 IV 07/16/24 09:00 07/20/24 10:44 100 MLS/HR Azithromycin 500 mg DAILY PO 07/16/24 10:00 07/20/24 10:45 500 MG Ondansetron HCl 4 mg Q4HPRN PRN IV 07/16/24 10:15 Metoprolol Succinate 50 mg DAILY PO 07/18/24 10:00 07/20/24 10:46 50 MG Laboratory Results Laboratory Tests 07/17/24 05:01 Urinalysis Test 07/14/24 21:16 Urine Color Light-yellow (Yellow) Urine Clarity Clear (Clear) Urine pH 5.0 (5.0-9.0) Urine Specific [place] 1.010 (1.001-1.035) Urine Protein Negative (Negative) Urine Ketones Negative (Negative) Urine Blood Negative /uL (Negative) Urine Nitrite Negative (Negative) Urine Bilirubin Negative (Negative) Urine Urobilinogen Normal mg/dL (Negative) Urine Leukocyte Esterase Negative /uL (Negative) Urine RBC 1 /hpf (0 - 3) Urine Microscopic WBC < 1 /HPF (0-3) Urine Squamous Epithelial Cells None seen /hpf (<5) Urine Bacteria None seen /hpf (None Seen) Urine Glucose Normal mg/dL (Normal) Labs and/or images reviewed: Labs reviewed by me, Image(s) reviewed by me Assessment/Plan Assessment/Plan Palpitations: Sotalol discontinued, started on Toprol-XL [address] daily [address] Dr. Baker,, TSH is slightly high at 5.6 , echo 03/09/2024 55 % ejection fraction, History of coronary artery disease status post PTCA and CABG 2013 Bilateral community-acquired pneumonia: Rocephin azithromycin; Solu-Medrol added Flu test negative COVID test negative Hypertensive heart disease Hypertension: Amlodipine Acute on chronic hypoxic respiratory failure Pulmonary fibrosis History of sick sinus syndrome status post pacemaker Acute on chronic CHF exacerbation Acute COPD exacerbation History of colon cancer status post colectomy History of prostate cancer post prostatectomy History of kidney cancer status post biopsy History of paroxysmal AFib placed on Toprol-XL and Xarelto Use of home oxygen 3 liters/minute Time spent 55 minutes Patient is full code Advanced care planning time 20 mts Patient is still complaining of shortness of breath and requesting shelter facility placement as he lives alone Blood cultures ordered, pulmonary consult for Dr. Burden, Solu-Medrol added Plan discussed with: Patient My Orders Orders - KAREN GONG MD Procedure Category Date Status Time *Consult CONS 07/20/24 Transmitted / 11:37 Date of Service: Jul 20, 2024 Billing Provider: KAREN GONG MD Common Visit Codes: [id number] INP/OBS CARE(HIGH) KAREN GONG MD Jul 20, 2024 11:43
[2024-07-20] MEDS: methylPREDNISolone SOD SUCC 125 MG/2 ML VL IV SCH (13:28)
--- NOTE | 2024-07-20 23:38 | DVHINCON2 ---
Date of service: Jul 20, 2024 Referring Physician Victoriano Garcia MD Reason for Consultation Acute hypoxic respiratory failure, pulmonary fibrosis and bronchiectasis. History of Present Illness A 79-year-old man with past medical history including COPD - on 3L home oxygen, pulmonary fibrosis, severe CAD s/p CABG in 2013, paroxysmal atrial fibrillation, CHF, sick sinus syndrome s/p pacemaker placement, and colon, prostate and renal cancer who presented to ED on 07/14/24 with c/o palpitations. Patient reported intermittent palpitations for some time, worsening day of presentation, prompting visit to ED. No associated chest pain, dyspnea, syncope, dizziness, or lightheadedness. Upon arrival, his heart rate ranged from 60s to 70s with a maximum recorded heart rate of 88 bpm. EKG showed atrial pacing, without evidence of atrial fibrillation. Systolic BP was in the 160s. Labs showed acute kidney injury with a creatinine of 1.47 mg/dL, elevated from his baseline. BNP was WNL with no signs of decompensated heart failure. Patient was admitted for further care. Pulmonary consultation is requested for evaluation and management of acute hypoxic respiratory failure, pulmonary fibrosis and bronchiectasis. Review of Systems: 14-point review of systems negative unless otherwise noted above. Past Medical History: Severe coronary artery disease s/p CABG in 2013, paroxysmal atrial fibrillation, congestive heart failure, sick sinus syndrome s/p pacemaker placement, COPD - on 3L home oxygen, pulmonary fibrosis, colon cancer, prostate carcinoma, and renal carcinoma. Past Surgical History: CABG in 2013, pacemaker placement, colectomy. Medications: Reviewed. Allergies: Morphine. Family History: Diabetes mellitus CAD w/ CABG Brain cancer Hypertension Seizure disorder Thyroid disease. Social History: Nonsmoker. No alcohol or illicit drug use. Family History: Diabetes mellitus G8 MOTHER FH: CABG (coronary artery bypass surgery) G8 MOTHER FH: brain cancer G8 SISTER Hearing problem G8 SISTER Hypertension G8 MOTHER Seizure disorder G8 BROTHER Thyroid disease G8 MOTHER Allergies: Coded Allergies: Morphine (Unverified Allergy, Unknown, 03/28/24) Home Meds Reported Medications Doxycycline Hyclate (Doxycycline Hyclate) 100 Mg Cap, 100 MG PO BID, MG 07/14/24 Budesonide-Formoterol Fumarate (Budesonide/Formoterol Fum 160-4.5 Mcg/Act) 1 Aer Aer, 1 AER IN, AER 07/14/24 Amiodarone Hcl (Amiodarone Hcl) 200 Mg Tab, 400 MG PO DAILY for 30 Days 07/14/24 Rivaroxaban (XARELTO) 10 Mg Tab, 1 TAB PO DAILY, #10 TAB 07/14/24 Sotalol Hcl (Sotalol Hcl) 80 Mg Tab, 1 TAB PO BID 09/27/23 Potassium Chloride (Potassium Chloride ER) 20 Meq Tab, 1 TAB PO DAILY 09/27/23 Nitroglycerin (Nitromist) 400 Mcg/[place] Aer, 400 MCG TL PRN, AER 04/27/22 Ipratropium-Albuterol (Ipratropium [place]/Albut) 1 Mirela Mirela, 1 MIRELA IN DAILY, ML 04/27/22 Epa Ethyl [place] (VASCEPA) 1 Gm Cap, 2 CAP PO BID 11/21/21 Current Medications Current Medications Medications (Trade) Dose Ordered Sig/Will Route PRN Reason Start Time Stop Time Status Last Admin Methylprednisolone Sodium Succinate (Solu Medrol) 60 mg Q8HR IV 07/20/24 12:30 07/20/24 21:50 Vital Signs Vital Signs Date Time Temp Pulse Resp B/P (MAP) Pulse Ox O2 Delivery O2 Flow Rate FiO2 07/20/24 20:35 97.8 82 15 117/66 (83) 99 97.8 07/20/24 20:00 Nasal Cannula* 3 32 Physical Exam Gen.: Patient lying in bed in no apparent distress. On supplemental oxygen. Head: Normocephalic, atraumatic. Eyes: EOMI/PERRLA. Ears: Normal hearing. Normal anatomy. Neck/trachea: Trachea midline, supple. Nose: Normal external anatomy. Mouth: Moist mucous membranes. Chest: Decreased air entry bilaterally. No wheezing or rhonchi. Cardiovascular: Positive S1, positive S2. Regular rate and rhythm. Abdomen: Positive bowel sounds in all 4 quadrants. Soft, non-tender, non- distended. : Deferred. Rectal: Deferred. Skin: Warm, dry. Intact. Extremities: 2+ radial pulses bilaterally. No lower extremity edema. Neuro: Awake, alert, oriented x3. No gross motor or sensory deficits. Cranial nerves II through XII intact. Gait not assessed. Labs/Diagnostic Data Labs Test 07/19/24 18:00 07/17/24 05:01 07/14/24 21:16 07/14/24 13:05 Range/Units Influenza Type A Antigen Negative Negative Influenza Type B Antigen Negative Negative SARS-CoV-2 Antigen (Rapid) Negative NEGATIVE White Blood Count 8.4 4.4-10.8 10^3/uL Red Blood Count 4.92 4.5-5.90 10^6/uL Hemoglobin 13.7 13.5-17.5 g/dL Hematocrit 42.2 41.0-53.0 % Mean Corpuscular Volume 85.7 80.0-100.0 fL Mean Corpuscular Hemoglobin 27.8 L 28.0-32.0 pg Mean Corpuscular Hemoglobin Concent 32.5 32.0-36.0 g/dL Red Cell Distribution Width 15.8 H 11.8-14.3 % Platelet Count 177 140-450 10^3/uL Mean Platelet Volume 8.8 6.9-10.8 fL Neutrophils (%) (Auto) 61.5 37.0-80.0 % Lymphocytes (%) (Auto) 20.8 10.0-50.0 % Monocytes (%) (Auto) 10.5 0.0-12.0 % Eosinophils (%) (Auto) 6.7 0.0-7.0 % Basophils (%) (Auto) 0.5 0.0-2.0 % Neutrophils # (Auto) 5.2 1.6-8.6 10 ^3/uL Lymphocytes # (Auto) 1.8 0.4-5.4 10 ^3/uL Monocytes # (Auto) 0.9 0-1.3 10 ^3/uL Eosinophils # (Auto) 0.6 0-0.8 10 ^3/uL Basophils # (Auto) 0 0-0.2 10 ^3/uL Nucleated Red Blood Cells 0.1 % Sodium Level 140 136-145 mmol/L Potassium Level 4.4 3.5-5.1 mmol/L Chloride Level 103 98-107 mmol/L Carbon Dioxide Level 29 20-31 mmol/L Anion Gap 8 5-15 Blood Urea Nitrogen 18 9-23 mg/dL Creatinine 1.28 0.700-1.30 mg/dL Glomerular Filtration Rate Calc 57 >90 mL/min BUN/Creatinine Ratio 14.1 10.0-20.0 Serum Glucose 80 74-106 mg/dL Calcium Level 9.7 8.7-10.4 mg/dL Total Bilirubin 0.5 0.2-1.0 mg/dL Aspartate Amino Transferase (AST) 16 13-40 U/L Alanine Aminotransferase (ALT) 18 7-40 U/L Alkaline Phosphatase 70 46-116 U/L Total Protein 6.2 5.7-8.2 g/dL Albumin 3.7 3.2-4.8 g/dL Thyroid Stimulating Hormone (TSH) 5.65 H 0.55-4.78 uIU/mL Urine Color Light-yellow Yellow Urine Clarity Clear Clear Urine pH 5.0 5.0-9.0 Urine Specific [place] 1.010 1.001-1.035 Urine Protein Negative Negative Urine Ketones Negative Negative Urine Blood Negative Negative /uL Urine Nitrite Negative Negative Urine Bilirubin Negative Negative Urine Urobilinogen Normal Negative mg/dL Urine Leukocyte Esterase Negative Negative /uL Urine RBC 1 0 - 3 /hpf Urine Microscopic WBC < 1 0-3 /HPF Urine Squamous Epithelial Cells None seen <5 /hpf Urine Bacteria None seen None Seen /hpf Urine Glucose Normal Normal mg/dL Troponin I High Sensitivity 6 </=54 ng/L B-Type Natriuretic Peptide 62.08 0-100 pg/mL Assessment Impression: Acute hypoxic respiratory failure Dependence on supplemental oxygen Pulmonary fibrosis Bronchiectasis Acute kidney injury Obesity Plan: CXR image and report reviewed; notable for bilateral opacities c/w interstitial lung disease. CABG changes. CT chest from 01/2024 demonstrated pulmonary fibrosis. Supplemental oxygen 3 LPM NC Titrate to keep O2 sats above 92%. Taper O2 as tolerated. Amiodarone PO Continue antibiotics IV steroids Xarelto Monitor renal function. Monitor electrolytes. Supplement as necessary. Monitor ins and outs. Diet and lifestyle modifications for weight reduction Obesity - complicates all care DVT prophylaxis. Prognosis: Poor given patient's multiple co-morbidities. Rest of plan per hospitalist and other consultants. Thank you Dr. Garcia, for allowing me to participate in this patient's care. Further recommendations will depend on the patient's clinical course. Please do not hesitate to contact me if you have any questions or concerns. This medical document was created using an electronic medical record system with [employer]weatheration system. Although these documentations are being carefully reviewed, there may still be some phonetic and typographical changes. The errors are purely typographical, due to imperfection on the software program, and do not reflect any compromise in the patient's medical care. Plan discussed with: Patient, Other (TIM Thompson/Dr. Garcia) ZULEYMA LACEY MD Jul 20, 2024 23:38
[2024-07-21] VITALS (14 sets, daily range): BP systolic 124–159; BP diastolic 62–94; PULSE 72–110; RESP 14–22; TEMP 97.2–98; O2SAT 96–98
--- NOTE | 2024-07-21 09:22 | DVHPN2 ---
Progress Note - Dictate Date Seen: Jul 20, 2024 Medical Necessity Reason Pt with a Central, PICC or Fol: No Subjective PT WAS SEEN IN ER NOW WITH AFIB RVR PMH CHEST PAIN ECG NEGATIVE TROPONIN NEGATIVE LHC * Left main was patent. * Left anterior descending artery was occluded. * AU to the LAD was patent. * Circumflex artery proximally had about a 50% narrowing. * Obtuse marginal 1, had a 99% ostial narrowing and occluded in the mid portion. * Saphenous vein graft to the OM1 was patent. * RCA without any flow restrictive lesion. * Posterior descending artery in the mid portion had about a 50% narrowing. * Saphenous vein graft to the PDA was patent. * Left ventricular function was preserved and estimated EF 55%. * LVEDP was 10-12 mmHg with no gradient across the aortic valve. * Left ventricular end-diastolic pressure was 10-12. * Right heart catheterization showed a RA of 10, RV of 59/10, PA of 58/20 and a capillary wedge pressure of 10-12 mmHg. PT S/P CABG WITH PATENT GRAFTS HX OF AFIB HYPERCOAGULABLE STATE vital signs Vital Sign Date Time Temp Pulse Resp B/P (MAP) Pulse Ox O2 Delivery O2 Flow Rate FiO2 07/21/24 08:00 72 07/21/24 04:43 98.0 18 143/78 (99) 98 98.0 07/20/24 20:00 Nasal Cannula* 3 32 Total Intake and Output 07/20/24 07/20/24 07/21/24 15:00 23:00 07:00 Intake Total 100 ml 1050 ml 525 ml Output Total 500 ml 500 ml Balance 100 ml 550 ml 25 ml medications Current Medications Medications Dose Ordered Sig/Will Route Start Time Stop Time Status Last Admin Dose Admin Amiodarone HCl 400 mg DAILY PO 07/14/24 22:15 07/20/24 10:45 400 MG Rivaroxaban 10 mg DAILY PO 07/14/24 22:15 07/20/24 10:46 10 MG Amlodipine Besylate 5 mg DAILY PO 07/14/24 22:15 07/20/24 10:46 5 MG Ceftriaxone Sodium 50 ml @ 100 mls/hr DAILY@09 IV 07/16/24 09:00 07/20/24 10:44 100 MLS/HR Azithromycin 500 mg DAILY PO 07/16/24 10:00 07/20/24 10:45 500 MG Ondansetron HCl 4 mg Q4HPRN PRN IV 07/16/24 10:15 Metoprolol Succinate 50 mg DAILY PO 07/18/24 10:00 07/20/24 10:46 50 MG Methylprednisolone Sodium Succinate 60 mg Q8HR IV 07/20/24 12:30 07/21/24 06:05 60 MG laboratory and microbiology Laboratory Tests 07/17/24 05:01 Test 07/17/24 05:01 Range/Units Serum Glucose 80 74-106 mg/dL Problem List NOW WITH AFIB RVR PMH CHEST PAIN ECG NEGATIVE TROPONIN NEGATIVE LHC * Left main was patent. * Left anterior descending artery was occluded. * AU to the LAD was patent. * Circumflex artery proximally had about a 50% narrowing. * Obtuse marginal 1, had a 99% ostial narrowing and occluded in the mid portion. * Saphenous vein graft to the OM1 was patent. * RCA without any flow restrictive lesion. * Posterior descending artery in the mid portion had about a 50% narrowing. * Saphenous vein graft to the PDA was patent. * Left ventricular function was preserved and estimated EF 55%. * LVEDP was 10-12 mmHg with no gradient across the aortic valve. * Left ventricular end-diastolic pressure was 10-12. * Right heart catheterization showed a RA of 10, RV of 59/10, PA of 58/20 and a capillary wedge pressure of 10-12 mmHg. PT S/P CABG WITH PATENT GRAFTS HX OF AFIB HYPERCOAGULABLE STATE Assessment/Plan DC SOTALOL CANNOT USE SOTALOL AND AMIODARONE ANTICOAGULATION START TOPROL RATE CONTROL MAY DC HOME PY BEING PACED RATE CONTROLLED MAY DC HOME CHANGE TO PREDNISONE START INHALER THERAPY Dietary Evaluation Review Comments: Continue current plan of care Expected Outcomes/Goals: Pt will meet 75% estimated needs Fu 3-5 days Plan discussed with: Patient NIRAJ JAIMES MD Jul 21, 2024 09:22
[2024-07-21] MEDS: predniSONE 20 MG TAB PO SCH (10:00)
[2024-07-21 10:29] LABS: Base Excess 0.4 mmol/L (-2.0-3.0)
--- NOTE | 2024-07-21 11:42 | DVHPN2 ---
Reviewed: Care Plan, H&P, Labs, Medications, Previous Orders, Radiology Changes from previous H/P or p: No Changes Eyes: No Pain, No Vision change, No Conjunctivae inflammation, No Eyelid inflammation, No Other, No Redness ENT: No Ear pain, No Ear discharge, No Nose pain, No Nose discharge, No Nose congestion, No Mouth pain, No Mouth swelling, No Throat pain, No Throat swelling, No Other Cardiovascular: No Chest Pain; Palpitations; No Orthopnea, No Paroxysmal Noc. Dyspnea, No Edema, No Lt Headedness, No Other Respiratory: No Cough, No Dry, No Shortness of breath, No SOB with excertion, No Wheezing, No Hemoptysis, No Pleuritic Pain, No Sputum, No Other Gastrointestinal: No Nausea, No Vomiting, No Abdominal Pain, No Diarrhea, No Constipation, No Melena, No Hematochezia, No Other Genitourinary: No Dysuria, No Frequency, No Incontinence, No Hematuria, No Retention, No Other Musculoskeletal: No other, No neck pain, No shoulder pain, No arm pain, No back pain, No hand pain, No leg pain, No foot pain Skin: No Rash, No Lesions, No Jaundice, No Bruising, No Other Objective Vitals Vital Signs Date Time Temp Pulse Resp B/P (MAP) Pulse Ox O2 Delivery O2 Flow Rate FiO2 07/21/24 10:02 80 159/94 07/21/24 09:00 98.0 20 98 98.0 07/21/24 08:00 Nasal Cannula* 3 32 Intake/Output Intake and Output 07/21/24 07:00 Intake Total 1675 ml Output Total 1000 ml Balance 675 ml Intake Oral 1575 ml IV Total 100 ml Output Urine Total 1000 ml # Bowel Movements 3 Medications Current Medications Medications Dose Ordered Sig/Will Route Start Time Stop Time Status Last Admin Dose Admin Amiodarone HCl 400 mg DAILY PO 07/14/24 22:15 07/21/24 10:01 400 MG Rivaroxaban 10 mg DAILY PO 07/14/24 22:15 07/21/24 10:02 10 MG Amlodipine Besylate 5 mg DAILY PO 07/14/24 22:15 07/21/24 10:02 5 MG Ceftriaxone Sodium 50 ml @ 100 mls/hr DAILY@09 IV 07/16/24 09:00 07/21/24 10:01 100 MLS/HR Azithromycin 500 mg DAILY PO 07/16/24 10:00 07/21/24 10:03 500 MG Ondansetron HCl 4 mg Q4HPRN PRN IV 07/16/24 10:15 Metoprolol Succinate 50 mg DAILY PO 07/18/24 10:00 07/21/24 10:02 50 MG Prednisone 40 mg DAILY PO 07/21/24 10:00 Ipratropium [place] 0.5 mg Q6HR NEB 07/21/24 12:00 Albuterol 2.5 mg Q6HR NEB 07/21/24 12:00 UNV Laboratory Results Laboratory Tests 07/17/24 05:01 Urinalysis Test 07/14/24 21:16 Urine Color Light-yellow (Yellow) Urine Clarity Clear (Clear) Urine pH 5.0 (5.0-9.0) Urine Specific [place] 1.010 (1.001-1.035) Urine Protein Negative (Negative) Urine Ketones Negative (Negative) Urine Blood Negative /uL (Negative) Urine Nitrite Negative (Negative) Urine Bilirubin Negative (Negative) Urine Urobilinogen Normal mg/dL (Negative) Urine Leukocyte Esterase Negative /uL (Negative) Urine RBC 1 /hpf (0 - 3) Urine Microscopic WBC < 1 /HPF (0-3) Urine Squamous Epithelial Cells None seen /hpf (<5) Urine Bacteria None seen /hpf (None Seen) Urine Glucose Normal mg/dL (Normal) Blood Gas Results Test 07/21/24 10:11 Arterial Blood pH 7.432 (7.350-7.450) FiO2 % 32.0 Labs and/or images reviewed: Labs reviewed by me, Image(s) reviewed by me Assessment/Plan Assessment/Plan Palpitations: Sotalol discontinued, started on Toprol-XL 50 [address] daily by Dr. Baker,, TSH is slightly high at 5.6 , echo 03/09/2024 55 % ejection fraction, History of coronary artery disease status post PTCA and CABG 2013 Bilateral community-acquired pneumonia: Rocephin azithromycin; Solu-Medrol changed to prednisone, albuterol Atrovent med neb Flu test negative COVID test negative Hypertensive heart disease Hypertension: Amlodipine Acute on chronic hypoxic respiratory failure Pulmonary fibrosis History of sick sinus syndrome status post pacemaker Acute on chronic CHF exacerbation Acute COPD exacerbation History of colon cancer status post colectomy History of prostate cancer post prostatectomy History of kidney cancer status post biopsy History of paroxysmal AFib placed on Toprol-XL and Xarelto Use of home oxygen 3 liters/minute Time spent 45 minutes Patient is full code Advanced care planning time 20 mts Plan discussed with: Patient My Orders Orders - KAREN GONG MD Procedure Category Date Status Time Albuterol Medneb PHA 07/21/24 Logged (Ventolin Medneb) 12:00 Date of Service: Jul 21, 2024 Billing Provider: KAREN GONG MD Common Visit Codes: [id number] INP/OBS CARE(HIGH) KAREN GONG MD Jul 21, 2024 11:42
[2024-07-21] MEDS: ALBUTEROL SULF 2.5 MG/0.5ML(0.5%) NEB SOLN NEB SCH (12:52)
[2024-07-21] MEDS: IPRATROPIUM BROM 0.5 MG/2.5ML INH SOL NEB SCH (12:53)
--- NOTE | 2024-07-21 13:50 | DVHPN2 ---
Progress Note - Dictate Date Seen: Jul 21, 2024 Medical Necessity Reason Pt with a Central, PICC or Fol: No Subjective PT WAS SEEN IN ER NOW WITH AFIB RVR PMH CHEST PAIN ECG NEGATIVE TROPONIN NEGATIVE LHC * Left main was patent. * Left anterior descending artery was occluded. * AU to the LAD was patent. * Circumflex artery proximally had about a 50% narrowing. * Obtuse marginal 1, had a 99% ostial narrowing and occluded in the mid portion. * Saphenous vein graft to the OM1 was patent. * RCA without any flow restrictive lesion. * Posterior descending artery in the mid portion had about a 50% narrowing. * Saphenous vein graft to the PDA was patent. * Left ventricular function was preserved and estimated EF 55%. * LVEDP was 10-12 mmHg with no gradient across the aortic valve. * Left ventricular end-diastolic pressure was 10-12. * Right heart catheterization showed a RA of 10, RV of 59/10, PA of 58/20 and a capillary wedge pressure of 10-12 mmHg. PT S/P CABG WITH PATENT GRAFTS HX OF AFIB HYPERCOAGULABLE STATE vital signs Vital Sign Date Time Temp Pulse Resp B/P (MAP) Pulse Ox O2 Delivery O2 Flow Rate FiO2 07/21/24 13:03 109 18 98 07/21/24 12:55 Nasal Cannula* 3 32 07/21/24 10:02 159/94 07/21/24 09:00 98.0 98.0 Total Intake and Output 07/20/24 07/20/24 07/21/24 15:00 23:00 07:00 Intake Total 100 ml 1050 ml 525 ml Output Total 500 ml 500 ml Balance 100 ml 550 ml 25 ml medications Current Medications Medications Dose Ordered Sig/Will Route Start Time Stop Time Status Last Admin Dose Admin Amiodarone HCl 400 mg DAILY PO 07/14/24 22:15 07/21/24 10:01 400 MG Rivaroxaban 10 mg DAILY PO 07/14/24 22:15 07/21/24 10:02 10 MG Amlodipine Besylate 5 mg DAILY PO 07/14/24 22:15 07/21/24 10:02 5 MG Ceftriaxone Sodium 50 ml @ 100 mls/hr DAILY@09 IV 07/16/24 09:00 07/21/24 10:01 100 MLS/HR Azithromycin 500 mg DAILY PO 07/16/24 10:00 3/7/25 10:03 500 MG Ondansetron HCl 4 mg Q4HPRN PRN IV 07/16/24 10:15 Metoprolol Succinate 50 mg DAILY PO 07/18/24 10:00 07/21/24 10:02 50 MG Prednisone 40 mg DAILY PO 07/21/24 10:00 Ipratropium [place] 0.5 mg Q6HR NEB 07/21/24 12:00 07/21/24 12:53 0.5 MG Albuterol 2.5 mg Q6HR NEB 07/21/24 12:00 07/21/24 12:52 2.5 MG laboratory and microbiology Laboratory Tests 07/17/24 05:01 Test 07/17/24 05:01 Range/Units Serum Glucose 80 74-106 mg/dL Problem List NOW WITH AFIB RVR PMH CHEST PAIN ECG NEGATIVE TROPONIN NEGATIVE LHC * Left main was patent. * Left anterior descending artery was occluded. * AU to the LAD was patent. * Circumflex artery proximally had about a 50% narrowing. * Obtuse marginal 1, had a 99% ostial narrowing and occluded in the mid portion. * Saphenous vein graft to the OM1 was patent. * RCA without any flow restrictive lesion. * Posterior descending artery in the mid portion had about a 50% narrowing. * Saphenous vein graft to the PDA was patent. * Left ventricular function was preserved and estimated EF 55%. * LVEDP was 10-12 mmHg with no gradient across the aortic valve. * Left ventricular end-diastolic pressure was 10-12. * Right heart catheterization showed a RA of 10, RV of 59/10, PA of 58/20 and a capillary wedge pressure of 10-12 mmHg. PT S/P CABG WITH PATENT GRAFTS HX OF AFIB HYPERCOAGULABLE STATE Assessment/Plan DC SOTALOL CANNOT USE SOTALOL AND AMIODARONE ANTICOAGULATION START TOPROL RATE CONTROL MAY DC HOME PY BEING PACED RATE CONTROLLED MAY DC HOME CHANGE TO PREDNISONE START INHALER THERAPY Dietary Evaluation Review Comments: Continue current plan of care Expected Outcomes/Goals: Pt will meet 75% estimated needs Fu 3-5 days Plan discussed with: Patient NIRAJ JAIMES MD Jul 21, 2024 13:50
[2024-07-21] MEDS ORDERED: ALBUTEROL SULF 2.5 MG/0.5ML(0.5%) NEB SOLN NEB SCH (14:00)
--- NOTE | 2024-07-21 23:50 | DVHPN2 ---
Progress Note - Dictate Date Seen: Jul 21, 2024 Medical Necessity Reason Pt with a Central, PICC or Fol: No Subjective Patient seen and examined at bedside. Remains on supplemental oxygen Overnight events reviewed. vital signs Vital Sign Date Time Temp Pulse Resp B/P (MAP) Pulse Ox O2 Delivery O2 Flow Rate FiO2 07/21/24 21:00 97.2 110 22 125/62 (83) 98 97.2 07/21/24 20:00 Nasal Cannula* 3 32 Total Intake and Output 07/20/24 07/20/24 07/21/24 15:00 23:00 07:00 Intake Total 100 ml 1050 ml 525 ml Output Total 500 ml 500 ml Balance 100 ml 550 ml 25 ml medications Current Medications Medications Dose Ordered Sig/Will Route Start Time Stop Time Status Last Admin Dose Admin Amiodarone HCl 400 mg DAILY PO 07/14/24 22:15 07/21/24 10:01 400 MG Rivaroxaban 10 mg DAILY PO 07/14/24 22:15 07/21/24 10:02 10 MG Amlodipine Besylate 5 mg DAILY PO 07/14/24 22:15 07/21/24 10:02 5 MG Ceftriaxone Sodium 50 ml @ 100 mls/hr DAILY@09 IV 07/16/24 09:00 07/21/24 10:01 100 MLS/HR Azithromycin 500 mg DAILY PO 07/16/24 10:00 07/21/24 10:03 500 MG Ondansetron HCl 4 mg Q4HPRN PRN IV 07/16/24 10:15 Metoprolol Succinate 50 mg DAILY PO 07/18/24 10:00 07/21/24 10:02 50 MG Prednisone 40 mg DAILY PO 07/21/24 10:00 07/21/24 10:00 40 MG Ipratropium [place] 0.5 mg Q6HR NEB 07/21/24 12:00 07/21/24 18:07 0.5 MG Albuterol 2.5 mg Q6HR NEB 07/21/24 12:00 07/21/24 18:07 2.5 MG objective Gen.: Patient lying in bed in no apparent distress. On supplemental oxygen. Head: Normocephalic, atraumatic. Eyes: EOMI/PERRLA. Ears: Normal hearing. Normal anatomy. Neck/trachea: Trachea midline, supple. Nose: Normal external anatomy. Mouth: Moist mucous membranes. Chest: Decreased air entry bilaterally. No wheezing or rhonchi. Cardiovascular: Positive S1, positive S2. Regular rate and rhythm. Abdomen: Positive bowel sounds in all 4 quadrants. Soft, non-tender, non- distended. : Deferred. Rectal: Deferred. Skin: Warm, dry. Intact. Extremities: 2+ radial pulses bilaterally. No lower extremity edema. Neuro: Awake, alert, oriented x3. No gross motor or sensory deficits. Cranial nerves II through XII intact. Gait not assessed. laboratory and microbiology Laboratory Tests 07/17/24 05:01 Test 07/17/24 05:01 Range/Units Serum Glucose 80 74-106 mg/dL Assessment/Plan Impression: Acute hypoxic respiratory failure Dependence on supplemental oxygen Pulmonary fibrosis Bronchiectasis Acute kidney injury Obesity Events: Remains on supplemental oxygen, 3 LPM NC Taper O2 as tolerated Continue bronchodilators Continue steroids Continue antibiotics Amiodarone PO On Xarelto Labs and imaging reviewed. Rest of plan as noted below. Plan: CXR image and report reviewed; notable for bilateral opacities c/w interstitial lung disease. CABG changes. CT chest from 01/2024 demonstrated pulmonary fibrosis. Supplemental oxygen Titrate to keep O2 sats above 92%. Amiodarone PO Continue antibiotics IV steroids Xarelto Monitor renal function. Monitor electrolytes. Supplement as necessary. Monitor ins and outs. Diet and lifestyle modifications for weight reduction Obesity - complicates all care DVT prophylaxis. Prognosis: Guarded given patient's multiple co-morbidities. Rest of plan per hospitalist and other consultants. Thank you Dr. Garcia, for allowing me to participate in this patient's care. Further recommendations will depend on the patient's clinical course. Please do not hesitate to contact me if you have any questions or concerns. This medical document was created using an electronic medical record system with [employer] dictation system. Although these documentations are being carefully reviewed, there may still be some phonetic and typographical changes. The errors are purely typographical, due to imperfection on the software program, and do not reflect any compromise in the patient's medical care. Dietary Evaluation Review Comments: Continue current plan of care Expected Outcomes/Goals: Pt will meet 75% estimated needs Fu 3-5 days Plan discussed with: Other (RN, MD) ZULEYMA LACEY MD Jul 21, 2024 23:50
[2024-07-22] VITALS (12 sets, daily range): BP systolic 101–148; BP diastolic 60–89; PULSE 76–88; RESP 18–24; TEMP 97.4–97.8; O2SAT 96–100
[2024-07-22] MEDS ORDERED: PRED20TA2 PO (11:46)
[2024-07-22] MEDS ORDERED: METO-158 PO (11:46)
[2024-07-22] MEDS ORDERED: AZIT500T66 PO (11:46)
[2024-07-22] MEDS ORDERED: AMLO1TAB23 PO (11:46)
--- NOTE | 2024-07-22 11:50 | DVHDS2 ---
Discharge Summary Date of Admission Jul 14, 2024 at 21:48 Date of Discharge: Jul 22, 2024 Admitting Diagnosis Shortness of breath Wounds: None Labs/Diagnostic Data: Laboratory Results Test 07/21/24 10:11 07/19/24 18:00 07/17/24 05:01 07/14/24 21:16 Blood Gas Specimen Type Arterial Blood Gas Sample Site Left radial Blood Gas Patient Temperature 37.0 Arterial Blood Date Drawn [id number] Arterial Blood pH 7.432 (7.350-7.450) Arterial Blood Partial Pressure CO2 37.5 mmHg (35.0-48.0) Arterial Blood Partial Pressure O2 108.8 mmHg (83.0-108.0) Arterial Blood HCO3 24.4 mmol/L (21.0-28.0) Arterial Blood Oxygen Saturation 97.7 % (94.0-98.0) Arterial Blood Base Excess 0.4 mmol/L (-2.0-3.0) Arterial Blood Oxyhemoglobin 97.1 % (94.0-98.0) Arterial Blood Carboxyhemoglobin 0.5 % (0.5-1.5) Arterial Blood Methemoglobin 0.1 % (0.0-1.5) Blas Test Yes Blood Gas Total Hemoglobin 14.20 g/dL (13.5-17.5) Blood Gas Liter Flow 3.00 Blood Gas Modality Nasal cannula FiO2 % 32.0 Influenza Type A Antigen Negative (Negative) Influenza Type B Antigen Negative (Negative) SARS-CoV-2 Antigen (Rapid) Negative (NEGATIVE) White Blood Count 8.4 10^3/uL (4.4-10.8) Red Blood Count 4.92 10^6/uL (4.5-5.90) Hemoglobin 13.7 g/dL (13.5-17.5) Hematocrit 42.2 % (41.0-53.0) Mean Corpuscular Volume 85.7 fL (80.0-100.0) Mean Corpuscular Hemoglobin 27.8 pg (28.0-32.0) Mean Corpuscular Hemoglobin Concent 32.5 g/dL (32.0-36.0) Red Cell Distribution Width 15.8 % (11.8-14.3) Platelet Count 177 10^3/uL (140-450) Mean Platelet Volume 8.8 fL (6.9-10.8) Neutrophils (%) (Auto) 61.5 % (37.0-80.0) Lymphocytes (%) (Auto) 20.8 % (10.0-50.0) Monocytes (%) (Auto) 10.5 % (0.0-12.0) Eosinophils (%) (Auto) 6.7 % (0.0-7.0) Basophils (%) (Auto) 0.5 % (0.0-2.0) Neutrophils # (Auto) 5.2 10 ^3/uL (1.6-8.6) Lymphocytes # (Auto) 1.8 10 ^3/uL (0.4-5.4) Monocytes # (Auto) 0.9 10 ^3/uL (0-1.3) Eosinophils # (Auto) 0.6 10 ^3/uL (0-0.8) Basophils # (Auto) 0 10 ^3/uL (0-0.2) Nucleated Red Blood Cells 0.1 % Sodium Level 140 mmol/L (136-145) Potassium Level 4.4 mmol/L (3.5-5.1) Chloride Level 103 mmol/L (98-107) Carbon Dioxide Level 29 mmol/L (20-31) Anion Gap 8 (5-15) Blood Urea Nitrogen 18 mg/dL (9-23) Creatinine 1.28 mg/dL (0.700-1.30) Glomerular Filtration Rate Calc 57 mL/min (>90) BUN/Creatinine Ratio 14.1 (10.0-20.0) Serum Glucose 80 mg/dL (74-106) Calcium Level 9.7 mg/dL (8.7-10.4) Total Bilirubin 0.5 mg/dL (0.2-1.0) Aspartate Amino Transferase (AST) 16 U/L (13-40) Alanine Aminotransferase (ALT) 18 U/L (7-40) Alkaline Phosphatase 70 U/L (46-116) Total Protein 6.2 g/dL (5.7-8.2) Albumin 3.7 g/dL (3.2-4.8) Thyroid Stimulating Hormone (TSH) 5.65 uIU/mL (0.55-4.78) Urine Color Light-yellow (Yellow) Urine Clarity Clear (Clear) Urine pH 5.0 (5.0-9.0) Urine Specific [place] 1.010 (1.001-1.035) Urine Protein Negative (Negative) Urine Ketones Negative (Negative) Urine Blood Negative /uL (Negative) Urine Nitrite Negative (Negative) Urine Bilirubin Negative (Negative) Urine Urobilinogen Normal mg/dL (Negative) Urine Leukocyte Esterase Negative /uL (Negative) Urine RBC 1 /hpf (0 - 3) Urine Microscopic WBC < 1 /HPF (0-3) Urine Squamous Epithelial Cells None seen /hpf (<5) Urine Bacteria None seen /hpf (None Seen) Urine Glucose Normal mg/dL (Normal) Test 07/14/24 13:05 Troponin I High Sensitivity 6 ng/L (</=54) B-Type Natriuretic Peptide 62.08 pg/mL (0-100) Other Laboratory Tests 07/17/24 05:01 Brief Hx & Hospital Course: 79-year-old male with a history of hypotension chronic respiratory failure use of home oxygen pulmonary fibrosis history of sick sinus syndrome status post pacemaker CHF COPD history of colon cancer status post colectomy history of prostate cancer status post prostatectomy history of kidney cancer status post biopsy history of paroxysmal AFib came in complaining of shortness of breaths found to have bilateral community-acquired pneumonia treated with Rocephin azithromycin Solu-Medrol and tablet two prednisone given med neb treatment seen by Dr. Baker for paroxysmal AFib sotalol was discontinued and started on amiodarone Xarelto was continued also placed on metoprolol succinate. At the time of discharge patient here 3 L of oxygen which is his usual requirement afebrile stable vital signs being discharged home. Consults/Reason for consult Cardiology Dr. Baker Operations or Procedures None Condition at Discharge: Fair Final Diagnosis/Problems List Palpitations: Sotalol discontinued, started on Toprol-XL 50 mg [address] daily by Dr. Baker,, TSH is slightly high at 5.6 , echo 03/09/2024 55 % ejection fraction, History of coronary artery disease status post PTCA and CABG 2013 Bilateral community-acquired pneumonia: Rocephin azithromycin; Solu-Medrol changed to prednisone, albuterol Atrovent med neb Flu test negative COVID test negative Hypertensive heart disease Hypertension: Amlodipine Acute on chronic hypoxic respiratory failure Pulmonary fibrosis History of sick sinus syndrome status post pacemaker Acute on chronic CHF exacerbation Acute COPD exacerbation History of colon cancer status post colectomy History of prostate cancer post prostatectomy History of kidney cancer status post biopsy History of paroxysmal AFib placed on Toprol-XL and Xarelto Use of home oxygen 3 liters/minute Discharge Disposition: Home Discharge Instruct/Medications Diet: Cardiac 2g Na,low cholest Activity: Light activity Follow Up/Referral: Follow up with the primary Dr Dr. Frank and project manager process development Dr. baker Resume all previous home meds Do not take sotalol Medications: Azithromycin Prednisone Amiodarone Amlodipine Metoprolol succinate Transmitted to pharmacy 35 (Time Taken for discharge summary 35 minutes) Discharge Statement: "Patient was advised to return to the ER or call 911 if any headaches, dizziness, shortness of breath, chest pain, abdominal pain, bleeding, fevers, or worsening of medical condition. Patient was counseled about treatment plan, medications, possible side effects, patientverbalized understanding. All questions were answered to the best of my ability. This discharge took greater then 30 minutes in planning, reviewing documentation, counseling the patient, and discussing with other team members." ASSESSMENT ASSESSMENT Hospital Course Improved Assessment Palpitations: Sotalol discontinued, started on Toprol-XL [address] daily by Dr. Baker,, TSH is slightly high at 5.6 , echo 03/09/2024 55 % ejection fraction, History of coronary artery disease status post PTCA and CABG 2013 Bilateral community-acquired pneumonia: Rocephin azithromycin; Solu-Medrol changed to prednisone, albuterol Atrovent med neb Flu test negative COVID test negative Hypertensive heart disease Hypertension: Amlodipine Acute on chronic hypoxic respiratory failure Pulmonary fibrosis History of sick sinus syndrome status post pacemaker Acute on chronic CHF exacerbation Acute COPD exacerbation History of colon cancer status post colectomy History of prostate cancer post prostatectomy History of kidney cancer status post biopsy History of paroxysmal AFib placed on Toprol-XL and Xarelto Use of home oxygen 3 liters/minute Date of Service: Jul 22, 2024 Billing Provider: KAREN GONG MD Common Visit Codes: 97720-RZZ/OBS DISCH DAY >30min KAREN GONG MD Jul 22, 2024 11:50
--- NOTE | 2024-07-22 23:40 | DVHPN2 ---
Progress Note - Dictate Date Seen: Jul 22, 2024 Medical Necessity Reason Pt with a Central, PICC or Fol: No Subjective Patient seen and examined at bedside. Remains on supplemental oxygen Overnight events reviewed. vital signs Vital Sign Date Time Temp Pulse Resp B/P (MAP) Pulse Ox O2 Delivery O2 Flow Rate FiO2 07/22/24 13:00 97.4 82 24 147/80 (102) 98 97.4 07/22/24 12:11 Nasal Cannula 3.0 07/22/24 10:00 32 Total Intake and Output 07/21/24 07/21/24 07/22/24 15:00 23:00 07:00 Intake Total 1600 ml 200 ml Output Total 1200 ml 500 ml Balance 400 ml -300 ml objective Gen.: Patient lying in bed in no apparent distress. On supplemental oxygen. Head: Normocephalic, atraumatic. Eyes: EOMI/PERRLA. Ears: Normal hearing. Normal anatomy. Neck/trachea: Trachea midline, supple. Nose: Normal external anatomy. Mouth: Moist mucous membranes. Chest: Decreased air entry bilaterally. No wheezing or rhonchi. Cardiovascular: Positive S1, positive S2. Regular rate and rhythm. Abdomen: Positive bowel sounds in all 4 quadrants. Soft, non-tender, non- distended. : Deferred. Rectal: Deferred. Skin: Warm, dry. Intact. Extremities: 2+ radial pulses bilaterally. No lower extremity edema. Neuro: Awake, alert, oriented x3. No gross motor or sensory deficits. Cranial nerves II through XII intact. Gait not assessed. laboratory and microbiology Laboratory Tests 07/17/24 05:01 Test 07/17/24 05:01 Range/Units Serum Glucose 80 74-106 mg/dL Assessment/Plan Impression: Acute hypoxic respiratory failure Dependence on supplemental oxygen Pulmonary fibrosis Bronchiectasis Acute kidney injury Obesity Events: Remains on supplemental oxygen, 3 LPM NC Taper O2 as tolerated Continue bronchodilators Continue steroids Continue antibiotics Amiodarone PO On Xarelto Patient is stable for discharge from the pulmonary standpoint. Disposition per hospitalist. Follow up in 1-2 weeks in Pulmonary Clinic. Labs and imaging reviewed. Rest of plan as noted below. Plan: CXR image and report reviewed; notable for bilateral opacities c/w interstitial lung disease. CABG changes. CT chest from 01/2024 demonstrated pulmonary fibrosis. Supplemental oxygen Titrate to keep O2 sats above 92%. Amiodarone PO Continue antibiotics IV steroids Xarelto Monitor renal function. Monitor electrolytes. Supplement as necessary. Monitor ins and outs. Diet and lifestyle modifications for weight reduction Obesity - complicates all care DVT prophylaxis. Prognosis: Guarded given patient's multiple co-morbidities. Rest of plan per hospitalist and other consultants. Thank you Dr. Garcia, for allowing me to participate in this patient's care. Further recommendations will depend on the patient's clinical course. Please do not hesitate to contact me if you have any questions or concerns. This medical document was created using an electronic medical record system with [employer] dictation system. Although these documentations are being carefully reviewed, there may still be some phonetic and typographical changes. The errors are purely typographical, due to imperfection on the software program, and do not reflect any compromise in the patient's medical care. Dietary Evaluation Review Comments: Continue current plan of care Expected Outcomes/Goals: Pt will meet 75% estimated needs Fu 3-5 days Plan discussed with: Patient, Other (RN Summer) ZULEYMA LACEY MD Jul 22, 2024 23:40
--- NOTE | 2024-07-24 13:22 | DVHPN2 ---
Progress Note - Dictate Date Seen: Jul 23, 2023 Medical Necessity Reason Pt with a Central, PICC or Fol: No Subjective PT WAS SEEN IN ER NOW WITH AFIB RVR PMH CHEST PAIN ECG NEGATIVE TROPONIN NEGATIVE LHC * Left main was patent. * Left anterior descending artery was occluded. * AU to the LAD was patent. * Circumflex artery proximally had about a 50% narrowing. * Obtuse marginal 1, had a 99% ostial narrowing and occluded in the mid portion. * Saphenous vein graft to the OM1 was patent. * RCA without any flow restrictive lesion. * Posterior descending artery in the mid portion had about a 50% narrowing. * Saphenous vein graft to the PDA was patent. * Left ventricular function was preserved and estimated EF 55%. * LVEDP was 10-12 mmHg with no gradient across the aortic valve. * Left ventricular end-diastolic pressure was 10-12. * Right heart catheterization showed a RA of 10, RV of 59/10, PA of 58/20 and a capillary wedge pressure of 10-12 mmHg. PT S/P CABG WITH PATENT GRAFTS HX OF AFIB HYPERCOAGULABLE STATE vital signs Vital Sign Date Time Temp Pulse Resp B/P (MAP) Pulse Ox O2 Delivery O2 Flow Rate FiO2 07/22/24 13:00 97.4 82 24 147/80 (102) 98 97.4 07/22/24 12:11 Nasal Cannula 3.0 07/22/24 10:00 32 laboratory and microbiology Laboratory Tests 07/17/24 05:01 Test 07/17/24 05:01 Range/Units Serum Glucose 80 74-106 mg/dL Problem List NOW WITH AFIB RVR PMH CHEST PAIN ECG NEGATIVE TROPONIN NEGATIVE LHC * Left main was patent. * Left anterior descending artery was occluded. * AU to the LAD was patent. * Circumflex artery proximally had about a 50% narrowing. * Obtuse marginal 1, had a 99% ostial narrowing and occluded in the mid portion. * Saphenous vein graft to the OM1 was patent. * RCA without any flow restrictive lesion. * Posterior descending artery in the mid portion had about a 50% narrowing. * Saphenous vein graft to the PDA was patent. * Left ventricular function was preserved and estimated EF 55%. * LVEDP was 10-12 mmHg with no gradient across the aortic valve. * Left ventricular end-diastolic pressure was 10-12. * Right heart catheterization showed a RA of 10, RV of 59/10, PA of 58/20 and a capillary wedge pressure of 10-12 mmHg. PT S/P CABG WITH PATENT GRAFTS HX OF AFIB HYPERCOAGULABLE STATE Assessment/Plan DC SOTALOL CANNOT USE SOTALOL AND AMIODARONE ANTICOAGULATION START TOPROL RATE CONTROL MAY DC HOME PY BEING PACED RATE CONTROLLED MAY DC HOME CHANGE TO PREDNISONE START INHALER THERAPY Dietary Evaluation Review Comments: Continue current plan of care Expected Outcomes/Goals: Pt will meet 75% estimated needs Fu 3-5 days Plan discussed with: Patient NIRAJ JAIMES MD Jul 24, 2024 13:22
== END 2024-07-22 14:20 | disposition home or self-care (01) | DRG 177 ==
LOC: EDBD 12:12 → EDUNIT# 12:12 → ER 12:12 → OVERFLOW 21:48 → TELE-CENTR 07-15 05:34 → TELE-EAST 07-15 11:51 → TELE-WESTW 07-17 13:00
PROVIDERS: ADMIT Family Medicine; ATTEND Family Medicine
DX: J15.69 Pneumonia due to other Gram-negative bacteria (principal); J96.21 Acute and chronic respiratory failure with hypoxia; J44.1 Chronic obstructive pulmonary disease with (acute) exacerbation; J47.0 Bronchiectasis with acute lower respiratory infection; I16.1 Hypertensive emergency; N17.9 Acute kidney failure, unspecified; D68.59 Other primary thrombophilia; J44.0 Chronic obstructive pulmonary disease with (acute) lower respiratory infection; J15.9 Unspecified bacterial pneumonia; I48.0 Paroxysmal atrial fibrillation; I11.0 Hypertensive heart disease with heart failure; I49.5 Sick sinus syndrome; I25.10 Atherosclerotic heart disease of native coronary artery without angina pectoris; I50.9 Heart failure, unspecified; Z20.822 Contact with and (suspected) exposure to COVID-19; J84.10 Pulmonary fibrosis, unspecified; E66.9 Obesity, unspecified; Z99.81 Dependence on supplemental oxygen; I25.2 Old myocardial infarction; Z88.5 Allergy status to narcotic agent; Z79.899 Other long term (current) drug therapy; Z83.3 Family history of diabetes mellitus; Z95.1 Presence of aortocoronary bypass graft; Z82.49 Family history of ischemic heart disease and other diseases of the circulatory system; Z95.0 Presence of cardiac pacemaker; Z90.49 Acquired absence of other specified parts of digestive tract; Z85.038 Personal history of other malignant neoplasm of large intestine; Z98.61 Coronary angioplasty status; Z85.46 Personal history of malignant neoplasm of prostate; Z85.528 Personal history of other malignant neoplasm of kidney; Z82.0 Family history of epilepsy and other diseases of the nervous system; Z80.8 Family history of malignant neoplasm of other organs or systems; Z90.79 Acquired absence of other genital organ(s); Z68.31 Body mass index [BMI] 31.0-31.9, adult
CPT/HCPCS: 36415; 36600; 71045; 80048; 80053; 81001; 82805; 83880; 84443; 84484; 85025; 87040; 87426; 87804; 93005; 94640; 99291; G0378

== ENCOUNTER → 2024-07-31 | Outpatient (CLI) | payer MEDICARE, OTHER ==
[~2024-07-31] MED LIST changes: +AMIO200T33 PO; +AMLO1TAB23 PO; +AZIT500T66 PO; +BUDE1AER4 IN; +DOXY100C4 PO; +METO-158 PO; +PRED20TA2 PO; +RIVA10TA PO
[2024-07-31 14:27] LABS: Free T3 3.59 pg/mL (2.3-4.2); Free T4 (Free Thyroxine) 1.54 ng/dL (0.89-1.76); T3 Total 0.99 ng/mL (0.60-1.81)
== END | disposition home or self-care (01) ==
LOC: LAB 13:33
PROVIDERS: ATTEND Internal Medicine
DX: E11.22 Type 2 diabetes mellitus with diabetic chronic kidney disease (principal); N18.9 Chronic kidney disease, unspecified; I25.10 Atherosclerotic heart disease of native coronary artery without angina pectoris; E78.5 Hyperlipidemia, unspecified; E79.0 Hyperuricemia without signs of inflammatory arthritis and tophaceous disease
CPT/HCPCS: 36415; 84439; 84443; 84480; 84481

== ENCOUNTER → 2024-08-08 | Outpatient (CLI) | payer MEDICARE, OTHER ==
[~2024-08-08] MED LIST changes: +METO-6 PO
[2024-08-08 14:09] VITALS: BP 166/81; PULSE 86; RESP 20; O2SAT 97
[2024-08-08 14:30] VITALS: BP 169/83; PULSE 76; RESP 20; O2SAT 97
--- NOTE | 2024-08-08 14:46 | DVH ---
XY CHEST TWO VIEWS ROUTINE CLINICAL HISTORY: PRE OP/pain COMPARISON: XY CHEST TWO VIEWS ROUTINE on DOS: 03/28/24, XY CHEST TWO VIEWS ROUTINE on DOS: 08/18/23, X Y CHEST TWO VIEWS ROUTINE on DOS: 01/21/23, XY CHEST TWO VIEWS ROUTINE on DOS: 08/31/22, XY CHEST TWO EWS ROUTINE on DOS: 07/27/22 TECHNIQUE: Frontal and lateral view of the chest was obtained FINDINGS: Lines and Tubes: Left-sided pacemaker Lungs: Left basilar opacity Pleura: No effusion. No pneumothorax. Cardiomediastinal contours: Unremarkable Bones: No acute osseous abnormality. IMPRESSION: Left basilar opacity
== END | disposition home or self-care (01) ==
LOC: Rad HDHVI 14:02
PROVIDERS: ATTEND Internal Medicine Cardiovascular Disease
DX: Z01.818 Encounter for other preprocedural examination (principal); I45.10 Unspecified right bundle-branch block; R94.31 Abnormal electrocardiogram [ECG] [EKG]; J98.4 Other disorders of lung; I48.19 Other persistent atrial fibrillation; I47.29 Other ventricular tachycardia
CPT/HCPCS: 71046; 93005; G0463

== ENCOUNTER → 2024-09-27 | Outpatient (CLI) | payer OTHER ==
[~2024-09-27] MED LIST changes: -AMLO1TAB23 PO; -AZIT500T66 PO; -DOXY100C4 PO; -ICOS1CAP PO; -METO-158 PO; -POTA-180 PO; -PRED20TA2 PO; -SOTA80TA PO
[2024-09-27 10:56] VITALS: BP 158/71; PULSE 99; RESP 20; O2SAT 93
[2024-09-27] MEDS: methylPREDNISolone SOD SUCC 125 MG/2 ML VL ONE (11:09)
[2024-09-27] MEDS: ONDANSETRON HCL 4 MG/2 ML VIAL ONE (11:57)
[2024-09-27] MEDS: methylPREDNISolone SOD SUCC 125 MG/2 ML VL IV ONE (12:00)
[2024-09-27 12:03] VITALS: BP 140/64; PULSE 97; RESP 18; O2SAT 93
--- NOTE | 2024-09-27 12:06 | DVH ---
EXAM: XY CHEST TWO VIEWS ROUTINE HISTORY: PULMONARY FIBROSIS COMPARISON: XY CHEST TWO VIEWS ROUTINE on DOS: 08/08/24, XY CHEST TWO VIEWS ROUTINE on DOS: 03/28/24, XY CHEST TWO VIEWS ROUTINE on DOS: 08/18/23, XY CHEST TWO VIEWS ROUTINE on DOS: 01/21/23, XY CHEST TWO EWS ROUTINE on DOS: 08/31/22 TECHNIQUE: Frontal and lateral views of the chest were performed. FINDINGS: There are diffuse bilateral interstitial opacities, increased compared with prior chest x-ray., espec ially in the right upper lobe No pneumothorax. The heart is borderline enlarged. Postoperative delatorre es of median sternotomy and left chest pacemaker re-identified. No fractures are identified about the bony thorax. IMPRESSION: 1. Diffuse bilateral interstitial infiltrates are consistent with history of pulmonary fibrosis. Ther e are increased opacities bilaterally, especially in the right upper lobe, which may be due to progre ssive fibrosis versus superimposed pneumonia or CHF. 2. Postoperative changes of the heart.
== END | disposition home or self-care (01) ==
LOC: Rad HDHVI 10:55
PROVIDERS: ATTEND Internal Medicine Cardiovascular Disease
DX: J84.10 Pulmonary fibrosis, unspecified (principal); J44.9 Chronic obstructive pulmonary disease, unspecified; J96.10 Chronic respiratory failure, unspecified whether with hypoxia or hypercapnia; I13.0 Hypertensive heart and chronic kidney disease with heart failure and stage 1 through stage 4 chronic kidney disease, or unspecified chronic kidney disease; I50.33 Acute on chronic diastolic (congestive) heart failure; N18.31 Chronic kidney disease, stage 3a; E78.5 Hyperlipidemia, unspecified; I25.10 Atherosclerotic heart disease of native coronary artery without angina pectoris; Z99.81 Dependence on supplemental oxygen; Z85.46 Personal history of malignant neoplasm of prostate; Z85.038 Personal history of other malignant neoplasm of large intestine; Z95.1 Presence of aortocoronary bypass graft
CPT/HCPCS: 71046; 94640; 96374; G0463; J2919; J2405

== ENCOUNTER 2024-09-28 21:47 | Inpatient (IN) | payer OTHER, MEDICARE ==
[~2024-09-28] VITALS: Ht 175.3 cm; Wt 94.9 kg
[2024-09-28 22:00] VITALS: PULSE 121; RESP 51; O2SAT 91
--- NOTE | 2024-09-28 22:06 | ED.PDOC ---
SOB-HPI HPI Comments 79-year-old male came to ER via EMS for shortness of breath. History of hypertension, CHF, COPD, pulmonary fibrosis on home oxygen at 3 L/min. Since 12 noon, patient has been having cough and shortness of breath which progressively worsened throughout the day. Upon arrival paramedics patient is saturating 75% at 3 L/min, patient was placed on non-rebreather in eventually on CPAP while en route to the ER Chief Complaint: Shortness of Breath Time Seen by MD: 22:05 Primary Care Provider: DEBRA HEALY Reviewed notes: Social Worker Delinquency Prevention Notes Information Source: Patient, Emergency Med Personnel Mode of Arrival: EMS Severity: Moderate Timing: Hours Duration: Since onset Context: At Rest, With Light Exertion History of: COPD, CHF, Other (Pulmonary fibrosis) Prehospital treatment: C-Pap, Oxygen Modifying Factors: Nothing Associated Signs and Symptoms: Wheeze, Cough If cough with SOB: Non-Productive Past Medical History PAST MEDICAL HISTORY: AFIB, Anemia, CAD, Cancer, CHF, COPD, High Lipids, HTN, [place], Thyroid Past Medical History (Other): Pulmonary fibrosis Surgical History: Appendectomy, CABG, Hernia Repair, Pacemaker, PTCA, Tonsillectomy Family History Family History: Family hx of DM, Family hx of heart josefa Social History Smoker: Non-Smoker Alcohol: Denies ETOH Use Drugs: Denies Drug Use Lives In: Home Constitutional: denies: chills, diaphoresis, fatigue, fever, malaise, sweats, weakness, others EENTM: denies: blurred vision, double vision, ear bleeding, ear discharge, ear drainage, ear pain, ear ringing, eye pain, eye redness, hearing loss, mouth pain, mouth swelling, nasal discharge, nose bleeding, nose congestion, nose pain, photophobia, tearing, throat pain, throat swelling, voice changes, others Respiratory: reports: cough, SOB at rest, shortness of breath, SOB with excertion; denies: hemoptysis, orthopnea, stridor, wheezing, others Cardiovascular: denies: chest pain, dizzy spells, diaphoresis, Dyspnea on exertion, edema, irregular heart beat, left arm pain, lightheadedness, palpitations, PND, syncope, others Gastrointestinal: denies: abdomen distended, abdominal pain, blood streaked bowels, constipated, diarrhea, dysphagia, difficulty swallowing, hematemesis, melena, nausea, poor appetite, poor fluid intake, rectal bleeding, rectal pain, vomiting, others Genitourinary: denies: burning, dysuria, flank pain, frequency, hematuria, incontinence, penile discharge, penile sore, pain, testicle pain, testicle swelling, urgency, others Neurological: denies: dizziness, fainting, headache, left sided numbness, left sided weakness, numbness, paresthesia, pre-existing deficit, right sided numbness, right sided weakness, seizure, speech problems, tingling, tremors, weakness, others Musculoskeletal: denies: back pain, gout, joint pain, joint swelling, muscle pain, muscle stiffness, neck pain, others Integumetry: denies: bruises, change in color, change in hair/nails, dryness, laceration, lesions, lumps, rash, wounds, others Allergic/Immunocompromised: denies: Difficulty Healing, Frequent Infections, Hives, Itching, others Hematologic/Lymphatic: denies: anemia, blood clots, easy bleeding, easy bruising, swollen glands, others Endocrine: denies: excessive hunger, excessive sweating, excessive thirst, excessive urination, flushing, intolerance to cold, intolerance to heat, unexplained weight gain, unexplained weight loss, others Psychiatric: denies: anxiety, bipolar disorder, depression, hopeless, panic disorder, schizophrenia, sleepless, suicidal, others Physical Exam General Appearance: No Apparent Distress, Normal HEENT: Normal ENT Inspection, Pharynx Normal, TMs Normal Neck: Full Range of Motion, Non-Tender, Normal, Normal Inspection Respiratory: Chest Non-Tender, Lungs Clear, No Accessory Muscle Use, No Respiratory Distress, Normal Breath Sounds Cardiovascular: No Edema, No JVD, No Murmur, No Gallop, Normal Peripheral Pulses, Regular Rate/Rhythm Breast Exam: Deferred Gastrointestinal: No Organomegaly, Non Tender, No Pulsatile Mass, Normal Bowel Sounds, Soft Genitalia: Deferred Pelvic: Deferred Rectal: Deferred Extremities: No calf tenderness, Normal capillary refill, Normal inspection, Normal range of motion, Non-tender, No pedal edema Musculoskeletal : Apperance: Normal Neurologic: Alert, mill crane operator II-XII nml as Tested, No Motor Deficits, Normal Affect, Normal Mood, No Sensory Deficits Cerebellar Function: Normal Reflexes: Normal Skin: Dry, Normal Color, Warm Lymphatic: No Adenopathy Was a procedure done? Was a procedure done?: No Differential Dx Differential Diagnosis: Asthma, CHF, COPD, Hypertension, Hyperventilation, Myocardial infarction, Panic Attack, Pneumonia, Respiratory Distress, URI X-Ray, Labs, Meds, VS Vital Signs Date Time Temp Pulse Resp B/P (MAP) Pulse Ox O2 Delivery O2 Flow Rate FiO2 09/28/24 23:37 123 45 149/78 92 65 09/28/24 22:23 98.0 117 57 149/78 (101) 98 98.0 09/28/24 22:00 121 51 91 Bi-Pap+ 65 65 09/28/24 22:00 46 91 Bi-Pap+ 65 65 09/28/24 21:59 45 92 Bi-Pap+ 65 65 09/28/24 21:59 123 Facial BiPAP Mask 65 09/28/24 21:55 98.4 121 57 202/104 (136) 89 98.4 09/28/24 21:53 134 09/28/24 21:50 98.4 125 28 208/109 (142) 75 98.4 Lab Test 09/28/24 23:45 09/28/24 23:13 09/28/24 22:43 Range/Units Troponin I High Sensitivity Pending 42 </=54 ng/L Blood Gas Specimen Type Venous Blood Gas Sample Site Vbg - n/a Blood Gas Patient Temperature 37.0 Arterial Blood Date Drawn [id number] Blas Test N/a Venous Blood pH 7.333 7.320-7.430 Venous Blood pCO2 at Patient Temp 52.1 38.0-54.0 mmHg Venous Blood pO2 at Patient Temp < 36.5 23.0-48.0 mmHg Venous Blood HCO3 27.0 22.0-29.0 mmol/L Venous Bld O2 Saturation (Measured) 15.0 L 60.0-85.0 % Venous Blood Base Excess 0.5 -2.0-3.0 mmol/L Venous Blood Total Hemoglobin 11.8 L 13.5-17.5 g/dL Venous Blood Oxyhemoglobin 14.7 0.0-79.0 % Venous Blood Carboxyhemoglobin 0.1 L 0.5-1.5 % Venous Blood Methemoglobin 1.8 H 0.0-1.5 % Blood Gas Set Respiration Rate 12.0 Blood Gas Modality Mask - bipap FiO2 % 65.0 Blood Gas EPAP 5 Blood Gas IPAP 12 White Blood Count 29.7 H 4.4-10.8 10^3/uL Red Blood Count 4.32 L 4.5-5.90 10^6/uL Hemoglobin 11.6 L 13.5-17.5 g/dL Hematocrit 36.1 L 41.0-53.0 % Mean Corpuscular Volume 83.5 80.0-100.0 fL Mean Corpuscular Hemoglobin 27.0 L 28.0-32.0 pg Mean Corpuscular Hemoglobin Concent 32.3 32.0-36.0 g/dL Red Cell Distribution Width 17.9 H 11.8-14.3 % Platelet Count 345 140-450 10^3/uL Mean Platelet Volume 8.4 6.9-10.8 fL Neutrophils (%) (Auto) 37.0-80.0 % Lymphocytes (%) (Auto) 10.0-50.0 % Monocytes (%) (Auto) 0.0-12.0 % Basophils (%) (Auto) 0.0-2.0 % Neutrophils # (Auto) 1.6-8.6 10 ^3/uL Lymphocytes # (Auto) 0.4-5.4 10 ^3/uL Monocytes # (Auto) 0-1.3 10 ^3/uL Differential Total Cells Counted 100.0 100 Neutrophils % (Manual) 87 H 37.0-80.0 Band Neutrophils % (Manual) 0 Lymphocytes % (Manual) 9 L 10.0-50.0 Monocytes % (Manual) 4 0-12 Eosinophils % (Manual) 0 0-7 Basophils % (Manual) 0 0.0-2.0 Metamyelocytes % (manual) 0 Myelocytes % (Manual) 0 Promyelocytes % (Manual) 0 Blast Cells % (Manual) 0 Reactive Lymphocytes 0 Platelet Estimate Adequate Sodium Level 137 136-145 mmol/L Potassium Level 5.3 H 3.5-5.1 mmol/L Chloride Level 101 98-107 mmol/L Carbon Dioxide Level 27 20-31 mmol/L Anion Gap 9 5-15 Blood Urea Nitrogen 19 9-23 mg/dL Creatinine 1.39 H 0.700-1.30 mg/dL Glomerular Filtration Rate Calc 52 >90 mL/min BUN/Creatinine Ratio 13.7 10.0-20.0 Serum Glucose 167 H 74-106 mg/dL Lactic Acid Level 4.0 *H 0.4-2.0 mmol/L Calcium Level 9.6 8.7-10.4 mg/dL Total Bilirubin 0.5 0.2-1.0 mg/dL Aspartate Amino Transferase (AST) 50 H 13-40 U/L Alanine Aminotransferase (ALT) 16 7-40 U/L Alkaline Phosphatase 78 46-116 U/L B-Type Natriuretic Peptide 88.77 0-100 pg/mL Total Protein 7.2 5.7-8.2 g/dL Albumin 4.3 3.2-4.8 g/dL Current Medications Medications (Trade) Dose Ordered Sig/Will Route Start Time Stop Time Status Last Admin Methylprednisolone Sodium Succinate (Solu Medrol) 125 mg ONCE ONCE IV 09/28/24 22:30 09/28/24 22:31 DC 09/28/24 22:39 Albuterol (Ventolin Medneb) 5 mg ONCE ONCE N 09/28/24 22:30 09/28/24 22:31 DC 09/28/24 22:44 Ipratropium Sondheimer (Atrovent Medneb) 1 mg ONCE ONCE N 09/28/24 22:30 09/28/24 22:31 DC 09/28/24 22:44 Sodium Chloride 1,000 ml @ 1,000 mls/hr Q1H ONCE IV 09/28/24 23:45 09/29/24 00:44 09/28/24 23:55 Piperacillin Sod/ Tazobactam Sod 100 ml @ 100 mls/hr ONCE ONCE IV 09/28/24 23:45 09/29/24 00:44 09/29/24 00:00 Lorazepam (Ativan Inj) 0.5 mg ONCE ONCE IV 09/28/24 23:45 09/28/24 23:46 DC 09/28/24 23:50 Time of 1ST Reevaluation: 21:57 Reevaluation 1ST: Unchanged Patient Education/Counseling: Diagnosis, Treatment Family Education/Counseling: No Family Present Departure 1 Departure Time of Disposition: 00:16 Impression: Primary Impression: Pulmonary fibrosis Additional Impressions: Pneumonia Respiratory failure with hypoxia Disposition: ADMITTED INPATIENT Admit to: ICU Condition: Critical Discharged With: Self Comments Acute Respiratory Failure with Hypoxia Chief Complaint: Shortness of breath History of Present Illness: 79-year-old male with known history of pulmonary fibrosis, CHF, and COPD on home oxygen (3L/min) presents to the ED via EMS with acute onset shortness of breath for less than one day. Patient was found to be hypoxic on room air by EMS, requiring initiation of BiPAP support. He was transported to the ED where he continued to require BiPAP support for respiratory stabilization. Review of Systems: Limited due to patient's acute condition Respiratory: Positive for shortness of breath and respiratory distress Constitutional: No fever reported Medications: Home oxygen at 3L/min Complete medication list not available at time of documentation Allergies: No known allergies documented Past Medical History: Pulmonary fibrosis Chronic heart failure (CHF) Chronic obstructive pulmonary disease (COPD) Physical Exam: Limited physical exam documentation available Respiratory: Patient in respiratory distress, requiring BiPAP support Lab Results: WBC: 29.7 (Elevated) Hemoglobin: 12 Hematocrit: 36 Blood Gas: - PCO2: 52 - pH: 7.33 Chemistry: - Lactic acid: 4.0 (Elevated) - Creatinine: 1.39 (Elevated) - Potassium: 5.3 (Elevated) - Glucose: 167 (Elevated) Imaging and Other Relevant Results: Chest X-ray: Bilateral infiltrates with underlying pulmonary fibrosis changes Medical Decision Making: Summary Statement: 79-year-old male with multiple comorbidities including pulmonary fibrosis, presenting with acute respiratory failure requiring BiPAP, found to have bilateral pneumonia and significant laboratory abnormalities. Problem List: 1. Acute hypoxic respiratory failure 2. Bilateral pneumonia 3. Acute on chronic pulmonary fibrosis 4. Bronchospasm 5. Acute kidney injury 6. Lactic acidosis Differential Diagnosis: 1. Community-acquired pneumonia 2. Acute exacerbation of pulmonary fibrosis 3. CHF exacerbation 4. COPD exacerbation 5. Sepsis ED Course: Patient was maintained on BiPAP support throughout ED stay. Received breathing treatments, IV fluids, and broad-spectrum antibiotics (Zosyn and azithromycin). Labs revealed elevated inflammatory markers, renal dysfunction, and metabolic derangements. Decision made to admit to ICU for continued management of respiratory failure. Assessment and Plan: 1. Acute Hypoxic Respiratory Failure: - Continue BiPAP support - Admission to ICU for close monitoring - Supplemental oxygen as needed 2. Bilateral Pneumonia: - Started on IV Zosyn and azithromycin - Continue antibiotics pending culture results 3. Acute on Chronic Pulmonary Fibrosis: - Continue home oxygen requirements - Pulmonology consultation 4. Bronchospasm: - Continue breathing treatments as needed 5. Acute Kidney Injury and Metabolic Derangements: - IV fluid resuscitation - Close monitoring of renal function and electrolytes Billing Information: ICD-10: J96.01 - Acute respiratory failure with hypoxia ICD-10: J18.9 - Bilateral pneumonia, unspecified ICD-10: J84.9 - Interstitial pulmonary disease, unspecified ICD-10: J98.01 - Acute bronchospasm ICD-10: N17.9 - Acute kidney failure, unspecified Critical Care Note Critical Care Time?: Yes (35 min-critical care time only) Critical care comment: Shortness of breath Total critical care time: Approximately 36 minutes Due to a high probability of clinically significant, life threatening deterioration, the patient required my highest level of preparedness to intervene emergently and I personally spent this critical care time directly and personally managing the patient. This critical care time included obtaining a history; examining the patient; pulse oximetry; ordering and review of studies; arranging urgent treatment with development of a management plan; evaluation of patient's response to treatment; frequent reassessment; and, discussions with other providers. This critical care time was performed to assess and manage the high probability of imminent, life-threatening deterioration that could result in multi-organ failure. It was exclusive of separately billable procedures and treating other patients. Stability Stability form required: No Heart Score Heart Score: Heart Score Response (Comments) Value History Moderate Suspicious 1 EKG Repolarization Disturb 1 Age >65 2 Risk Factors >3 or Hx ASHD 2 Troponin Normal limit 0 Total 6 I personally scribed for MELANIA LORENZ MD ([email or web address]) on 09/28/24 at 22:06. Electronically submitted by Benigno Handy ([email or web address]). MELANIA LORENZ MD September 28, 2024 22:06
[2024-09-28] MEDS: methylPREDNISolone SOD SUCC 125 MG/2 ML VL IV ONE (22:39)
[2024-09-28] MEDS: IPRATROPIUM BROM 0.5 MG/2.5ML INH SOL HHN ONE (22:44)
[2024-09-28] MEDS: ALBUTEROL SULF 2.5 MG/0.5ML(0.5%) NEB SOLN HHN ONE (22:44)
[2024-09-28 23:02] LABS: Hematocrit 36.1 % (41.0-53.0); Hemoglobin 11.6 g/dL (13.5-17.5); Mean Corpuscular Hgb Conc. 32.3 g/dL (32.0-36.0); Mean Corpuscular Volume 83.5 fL (80.0-100.0); Platelet Count (auto) 345 10^3/uL (140-450); Red Blood Cells 4.32 10^6/uL (4.5-5.90); Red Cell Distribution Width 17.9 % (11.8-14.3); White Blood Cell 29.7 10^3/uL (4.4-10.8)
[2024-09-28 23:07] LABS: Band Neutrophils % (manual) 0; Basophils % (manual) 0 (0.0-2.0); Blast Cells 0; Eosinophils % (manual) 0 (0-7); Metamyelocytes % 0; Myelocytes % 0; Promyelocytes % 0; Reactive Lymphocytes 0
[2024-09-28 23:31] LABS: Alanine Aminotransferase 16 U/L (7-40); Albumin 4.3 g/dL (3.2-4.8); Alkaline Phosphatase 78 U/L (46-116); Anion Gap 9 (5-15); BUN/Creatinine Ratio 13.7 (10.0-20.0); Bilirubin, Total 0.5 mg/dL (0.2-1.0); Blood Urea Nitrogen 19 mg/dL (9-23); Calcium 9.6 mg/dL (8.7-10.4); Carbon Dioxide 27 mmol/L (20-31); Chloride 101 mmol/L (98-107); Sodium 137 mmol/L (136-145); Total Protein 7.2 g/dL (5.7-8.2)
[2024-09-28 23:37] VITALS: BP 149/78; PULSE 123; RESP 45; O2SAT 92
--- NOTE | 2024-09-28 23:38 | DVH ---
CHEST RADIOGRAPH Indication: SOB Technique: Single frontal view of the chest was obtained COMPARISON: XY CHEST PORTABLE on DOS: 07/14/24, XY CHEST PORTABLE on DOS: 09/26/23, XY CHEST PORTABLE o n DOS: 08/21/23, XY CHEST PORTABLE on DOS: 01/02/23, XY CHEST PORTABLE on DOS: 07/16/22 FINDINGS: Lines and Tubes: Pacemaker/AICD in the left upper chest with 2 cardiac leads Lungs: Interstitial pulmonary edema superimposed on diffuse pulmonary fibrosis. Superimposed pneumoni a is difficult to exclude Pleura: No effusion. No pneumothorax. Cardiomediastinal contours: Cardiomegaly Bones: Unremarkable IMPRESSION: 1. Interstitial pulmonary edema superimposed on diffuse pulmonary fibrosis. 2. Superimposed pneumonia difficult to exclude.
[2024-09-28 23:41] LABS: Aspartate Aminotransferase 50 U/L (13-40); Glucose 167 mg/dL (74-106); Potassium 5.3 mmol/L (3.5-5.1)
[2024-09-28] MEDS: LORazepam 2MG/ML-1ML VIAL IV ONE (23:50)
[2024-09-28 23:52] LABS: Lymphocytes % (manual) 9 (10.0-50.0); Monocytes % (manual) 4 (0-12); Platelet Estimate Adequate
[2024-09-28] MEDS: SODIUM CHLORIDE 0.9% 1,000 ML IV ONE (23:55)
[2024-09-29] VITALS (82 sets, daily range): BP systolic 89–242; BP diastolic 41–120; PULSE 86–124; RESP 16–33; TEMP 97.7–99.5; O2SAT 85–100
[2024-09-29] MEDS: PIPERACILLIN-TAZOB 3.375GM 100 ML IV ONE
[2024-09-29] MEDS: ALBUTEROL SULF 2.5 MG/0.5ML(0.5%) NEB SOLN ONE (00:26)
[2024-09-29] MEDS: IPRATROPIUM BROM 0.5 MG/2.5ML INH SOL ONE (00:27)
[2024-09-29] MEDS: ALBUTEROL SULF 2.5 MG/0.5ML(0.5%) NEB SOLN NEB ONE ×2 (00:30→08:06)
[2024-09-29] MEDS: IPRATROPIUM BROM 0.5 MG/2.5ML INH SOL NEB ONE (00:30)
[2024-09-29] MEDS: FUROSEMIDE 100 MG/10ML VIAL IV ONE (00:44)
[2024-09-29] MEDS ORDERED: DOCUSATE SOD 100 MG CAP PO PRN (01:00)
[2024-09-29] MEDS ORDERED: hydrALAZINE HCL 20 MG/ML VL IV PRN (01:00)
[2024-09-29] MEDS ORDERED: VANCOMYCIN PER PHARMACY 0 MG IV SCH (01:00)
[2024-09-29] MEDS ORDERED: ONDANSETRON HCL 4 MG/2 ML VIAL IV PRN (01:00)
[2024-09-29] MEDS ORDERED: LORazepam 2MG/ML-1ML VIAL IV PRN (01:00)
[2024-09-29] MEDS ORDERED: ACETAMINOPHEN 325 MG TAB PO PRN (01:00)
[2024-09-29] MEDS ORDERED: HYDROcodone-ACET 5/325MG TAB PO PRN (01:00)
[2024-09-29] MEDS: ROCURONIUM 10MG/ML 10ML VIAL IV ONE (01:04)
[2024-09-29] MEDS: ETOMIDATE (2MG/ML) 20ML VIAL IV ONE (01:04)
[2024-09-29] MEDS: PROPOFOL 100 ML IV SCH (01:15)
[2024-09-29] MEDS: PROPOFOL 100 ML IV ONE (01:22)
--- NOTE | 2024-09-29 01:39 | DVHHP2 ---
History of Present Illness Reason for Visit: Respiratory failure with hypoxia History of Present Illness The patient is a 79-year-old male with multiple past medical history including AFib, anemia, cancer, CHF, COPD, and hypertension who presented to [facility] ED with complaint of shortness of breaths. Patient reports he has been having cough, increased work of breathing, saturating 75% at 3 L/min, patient was placed on non-rebreather in eventually on CPAP, deteriorated on BiPAP at 88% and subsequently intubated. Patient was seen and evaluated in the ED, laboratory data shows WBC 29.7, platelets 245, sodium 137, potassium 5.3, BUN 19, creatinine 1.39, glucose 167, troponin 83, lactic acid 4.0, AST 50, ALT 16, BNP 88.77, blood pressure 228/111 trending down to 149/78, heart rate 123 trending down to 118, temperature 98.0 F, O2 saturation 93% on ventilator. Chest x-ray revealing interstitial pulmonary edema superimposed on diffuse pulmonary fibrosis, superimposed pneumonia difficulty exclude. Patient was started on IV antibiotic regimen vancomycin, please see medication orders section in the computer. On my assessment, patient is fully intubated, no diaphoresis, no vomiting, no fever, no chills. Patient was admitted for further evaluation and medical management. Past Medical History AFIB, Anemia, CAD, Cancer, CHF, COPD, High Lipids, HTN, PA, Thyroid, Pulmonary fibrosis Past Surgical History Appendectomy, CABG, Hernia Repair, Pacemaker, PTCA, Tonsillectomy Family History Reviewed, noncontributory to the management of this case. Past Social History The patient lives at home, no history of smoking, alcohol or illicit drugs abuse on file. Review of Systems Constitutional: Yes: Weakness; No: Fever, Chills, Sweats, Malaise, Other Eyes: No: Pain, Vision change, Conjunctivae inflammation, Eyelid inflammation, Other, Redness ENT: No: Ear pain, Ear discharge, Nose pain, Nose discharge, Nose congestion, Mouth pain, Mouth swelling, Throat pain, Throat swelling, Other Respiratory: Shortness of breath, SOB with excertion, Other (SOB at rest); No: Cough, Dry, Wheezing, Hemoptysis, Pleuritic Pain, Sputum, Wheezing Cardiovascular: No: Chest Pain, Palpitations, Orthopnea, Paroxysmal Noc. Dyspnea, Edema, Lt Headedness, Other Gastrointestinal: No: Nausea, Vomiting, Abdominal Pain, Diarrhea, Constipation, Melena, Hematochezia, Other Genitourinary: No Dysuria, No Frequency, No Incontinence, No Hematuria, No Retention, No Other Musculoskeletal: No: other, neck pain, shoulder pain, arm pain, back pain, hand pain, leg pain, foot pain Skin: No: Rash, Lesions, Jaundice, Bruising, Other Neurological: No: Weakness, Numbness, Incoordination, Change in speech, Confusion, Seizures, Other Allergies: Coded Allergies: Morphine (Unverified Allergy, Unknown, 03/28/24) Medications Current Medications Medications Dose Ordered Sig/Will Route Start Time Stop Time Status Last Admin Dose Admin Propofol 100 ml @ 6.3 mls/hr [id number] IV 09/29/24 01:15 Lorazepam 1 mg Q8HP PRN IV 09/29/24 01:00 Methylprednisolone Sodium Succinate 40 mg Q8HR IV 09/29/24 06:00 Famotidine 20 mg Q12HR IV 09/29/24 10:00 Vancomycin HCl 0 ml @ 0 mls/hr UD IV 09/29/24 01:00 UNV Azithromycin 250 ml @ 125 mls/hr DAILY IV 09/29/24 10:00 UNV Hydralazine HCl 10 mg Q6HP PRN IV 09/29/24 01:00 Levalbuterol HCl 0.625 mg Q6HR NEB 09/29/24 06:00 Amiodarone HCl 200 mg Q12HR PO 09/29/24 10:00 Metoprolol Tartrate 50 mg BID PO 09/29/24 10:00 Rivaroxaban 10 mg DAILY PO 09/29/24 10:00 Acetaminophen/ Hydrocodone Bitart 1 tab Q4HP PRN PO 09/29/24 01:00 Ondansetron HCl 4 mg Q4HP PRN IV 09/29/24 01:00 Docusate Sodium 100 mg BIDPRN PRN PO 09/29/24 01:00 Acetaminophen 650 mg Q6HP PRN PO 09/29/24 01:00 Vancomycin HCl 200 ml @ 100 mls/hr Q2H IV 09/29/24 01:30 09/29/24 05:29 Exam Vital Signs Vital Signs Date Time Temp Pulse Resp B/P (MAP) Pulse Ox O2 Delivery O2 Flow Rate FiO2 09/29/24 01:08 124 16 242/120 (160) 95 100 09/29/24 00:11 Facial BiPAP Mask 09/28/24 22:23 98.0 98.0 General Appearance: No acute distress, Other (Fully intubated) HEENT: Atraumatic, PERRLA, EOMI, Mucous membr. moist/pink Respiratory: Normal air movement, Other (Diminished breath sounds) Cardiovascular: Regular rate, Normal S1, Normal S2, No murmurs Abdominal: Normal bowel sounds, Soft, No tenderness, No hepatospenomegaly, No masses Extremities: No clubbing, No cyanosis, No edema, Normal pulses, No te nderness/swelling Skin: No rashes, No breakdown, No significant lesion Neuro: Normal tone, Sensation intact, Reflexes 2+, Other (Altered level of consciousness) Psych/Mental Status: Other (Unable to assess) Labs/Xrays Labs Test 09/29/24 00:42 09/28/24 23:45 09/28/24 23:13 09/28/24 22:43 Range/Units Lactic Acid Level 3.5 *H 0.4-2.0 mmol/L Troponin I High Sensitivity 83 *H </=54 ng/L Blood Gas Specimen Type Venous Blood Gas Sample Site Vbg - n/a Blood Gas Patient Temperature 37.0 Arterial Blood Date Drawn [id number] Blas Test N/a Venous Blood pH 7.333 7.320-7.430 Venous Blood pCO2 at Patient Temp 52.1 38.0-54.0 mmHg Venous Blood pO2 at Patient Temp < 36.5 23.0-48.0 mmHg Venous Blood HCO3 27.0 22.0-29.0 mmol/L Venous Bld O2 Saturation (Measured) 15.0 L 60.0-85.0 % Venous Blood Base Excess 0.5 -2.0-3.0 mmol/L Venous Blood Total Hemoglobin 11.8 L 13.5-17.5 g/dL Venous Blood Oxyhemoglobin 14.7 0.0-79.0 % Venous Blood Carboxyhemoglobin 0.1 L 0.5-1.5 % Venous Blood Methemoglobin 1.8 H 0.0-1.5 % Blood Gas Set Respiration Rate 12.0 Blood Gas Modality Mask - bipap FiO2 % 65.0 Blood Gas EPAP 5 Blood Gas IPAP 12 White Blood Count 29.7 H 4.4-10.8 10^3/uL Red Blood Count 4.32 L 4.5-5.90 10^6/uL Hemoglobin 11.6 L 13.5-17.5 g/dL Hematocrit 36.1 L 41.0-53.0 % Mean Corpuscular Volume 83.5 80.0-100.0 fL Mean Corpuscular Hemoglobin 27.0 L 28.0-32.0 pg Mean Corpuscular Hemoglobin Concent 32.3 32.0-36.0 g/dL Red Cell Distribution Width 17.9 H 11.8-14.3 % Platelet Count 345 140-450 10^3/uL Mean Platelet Volume 8.4 6.9-10.8 fL Neutrophils (%) (Auto) 37.0-80.0 % Lymphocytes (%) (Auto) 10.0-50.0 % Monocytes (%) (Auto) 0.0-12.0 % Basophils (%) (Auto) 0.0-2.0 % Neutrophils # (Auto) 1.6-8.6 10 ^3/uL Lymphocytes # (Auto) 0.4-5.4 10 ^3/uL Monocytes # (Auto) 0-1.3 10 ^3/uL Differential Total Cells Counted 100.0 100 Neutrophils % (Manual) 87 H 37.0-80.0 Band Neutrophils % (Manual) 0 Lymphocytes % (Manual) 9 L 10.0-50.0 Monocytes % (Manual) 4 0-12 Eosinophils % (Manual) 0 0-7 Basophils % (Manual) 0 0.0-2.0 Metamyelocytes % (manual) 0 Myelocytes % (Manual) 0 Promyelocytes % (Manual) 0 Blast Cells % (Manual) 0 Reactive Lymphocytes 0 Platelet Estimate Adequate Sodium Level 137 136-145 mmol/L Potassium Level 5.3 H 3.5-5.1 mmol/L Chloride Level 101 98-107 mmol/L Carbon Dioxide Level 27 20-31 mmol/L Anion Gap 9 5-15 Blood Urea Nitrogen 19 9-23 mg/dL Creatinine 1.39 H 0.700-1.30 mg/dL Glomerular Filtration Rate Calc 52 >90 mL/min BUN/Creatinine Ratio 13.7 10.0-20.0 Serum Glucose 167 H 74-106 mg/dL Calcium Level 9.6 8.7-10.4 mg/dL Total Bilirubin 0.5 0.2-1.0 mg/dL Aspartate Amino Transferase (AST) 50 H 13-40 U/L Alanine Aminotransferase (ALT) 16 7-40 U/L Alkaline Phosphatase 78 46-116 U/L B-Type Natriuretic Peptide 88.77 0-100 pg/mL Total Protein 7.2 5.7-8.2 g/dL Albumin 4.3 3.2-4.8 g/dL PATIENT: CHANEL BELL ACCT: [id number] UNIT: [id number] : 1945 LOC: ER ROOM / BED: / AGE / SEX: 79 / M ADM STATUS: REG ER SERVICE 25 ORDERING PHYSICIAN: MELANIA LORENZ MD PROCEDURE(s): CXRP - CHEST PORTABLE REASON: SOB ORDER NUMBER(s): [id number], ACCESSION NUMBER(s): [id number] CHEST RADIOGRAPH Indication: SOB Technique: Single frontal view of the chest was obtained COMPARISON: XY CHEST PORTABLE on DOS: 07/14/24, XY CHEST PORTABLE on DOS: 09/26/23, XY CHEST PORTABLE on DOS: 08/21/23, XY CHEST PORTABLE on DOS: 01/02/23, XY CHEST PORTABLE on DOS: 07/16/22 FINDINGS: Lines and Tubes: Pacemaker/AICD in the left upper chest with 2 cardiac leads Lungs: Interstitial pulmonary edema superimposed on diffuse pulmonary fibrosis. Superimposed pneumonia is difficult to exclude Pleura: No effusion. No pneumothorax. Cardiomediastinal contours: Cardiomegaly Bones: Unremarkable IMPRESSION: 1. Interstitial pulmonary edema superimposed on diffuse pulmonary fibrosis. 2. Superimposed pneumonia difficult to exclude. Assessment/Plan Assessment/Plan Pulmonary fibrosis Hypertensive urgency Generalized weakness Pulmonary vascular congestion Pneumonia, unspecified organisms Respiratory failure with hypoxia Sepsis, unspecified organism Plan 1. Admit to intensive care unit 2. Breathing treatment 3. Pain control management 4. IV antibiotic management 5. Management of fluids and electrolytes 6. Consultation for pulmonology 7. Diagnostic test chest x-ray 8. DVT prophylaxis-on Xarelto 9. Repeat labs CBC, CMP in a.m. 10. Home medication reviewed and reconciled 11. Continue with current medical management 12. Treatment plan discussed with patient and RN. Patient will need reinstatement of information given mental status. Plan discussed with: Patient, Other (RN) My Orders Orders - KENJI CA DNP Procedure Category Date Status Time Complete Blood Count LAB 09/29/24 Logged 04:00 Comprehensive LAB 09/29/24 Logged Metabolic Panel 04:00 Lorazepam 2mg/Ml Inj PHA 09/29/24 In Process (Ativan Inj) 01:00 Methylprednisolone PHA 09/29/24 In Process Sod Succ (Solu Medrol 06:00 Famotidine Injection PHA 09/29/24 In Process (Pepcid Injection) 10:00 Vancomycin Per PHA 09/29/24 Pending Pharmacy 01:00 Azithromycin 500mg/ PHA 09/29/24 Pending 250ml (Zithromax 50 10:00 Hydralazine Injection PHA 09/29/24 In Process (Apresoline Inject 01:00 Levalbuterol Hcl PHA 09/29/24 In Process (Xopenex Medneb) 06:00 Amiodarone Tablet PHA 09/29/24 In Process (Cordarone Tablet) 10:00 Metoprolol Tartrate PHA 09/29/24 In Process Tablet (Lopressor Ta 10:00 Rivaroxaban Tablet PHA 09/29/24 In Process (Xarelto Tablet) 10:00 Allergies KERMIT 09/29/24 In Process 00:58 Code Status CODE 09/29/24 Transmitted 00:58 Oxygen Per Hour RT 09/29/24 Transmitted 00:58 Hydrocodone-Acet PHA 09/29/24 In Process 5/325mg Tab ([place] 01:00 Ondansetron Hcl PHA 09/29/24 In Process (Zofran) 01:00 Docusate Sodium PHA 09/29/24 In Process Capsule (Colace 01:00 Fall Risk Precautions KERMIT 09/29/[address] 00:58 Complete Blood Count LAB 09/30/24 Verified 04:00 Comprehensive LAB 09/30/24 Verified Metabolic Panel 04:00 Cardiac DIET 09/29/24 Transmitted Diet-2gna,Lofat,Lochol Breakfast Condition: Serious KERMIT 09/29/24 In Process 00:58 Acetaminophen Tablet PHA 09/29/24 In Process (Tylenol Tablet) 01:00 Bedrest With Bathroom KERMIT 09/29/24 In Process Privileg 00:58 Sequential KERMIT 09/29/24 In Process Compression Device Aspirin Tablet PHA 09/29/24 In Process 01:00 *Consult CONS 09/29/24 Transmitted / 00:58 Vancomycin 1gm/200ml PHA 09/29/24 In Process Pm 01:30 Admit ADMIT 09/29/24 Transmitted 01:37 Nitroglycerin PHA 09/29/24 Transmitted Sublingual (Ntrostat 01:45 Emergency Dysrhythmia [facility] 09/29/24 Transmitted Protocol 01:37 Rhythm Strips Once [facility] 09/29/24 Transmitted Every Shift 01:37 Oxygen By Nasal RT 09/29/24 Transmitted Cannula 01:37 Notify Md Of Changes [facility] 09/29/24 Transmitted From Base 01:37 [employer] [facility] For [facility] 09/29/24 Transmitted 24 Hours 01:37 Problem List: (1) Pulmonary fibrosis (2) Hypertensive urgency (3) Pneumonia, unspecified organism (4) Sepsis, unspecified organism (5) Respiratory failure with hypoxia (6) Generalized weakness (7) Pulmonary vascular congestion Date of Service: September 29, 2024 Billing Provider: KENJI CA DNP Common Visit Codes: 13993-[id number] INP/OBS CARE (HIGH) KENJI CA DNP September 29, 2024 01:39
[2024-09-29] MEDS ORDERED: NITROGLYCERIN 0.4 MG SL TAB SL PRN (01:45)
[2024-09-29] MEDS: ASPirin 81 mg TAB PO ONE (02:21)
[2024-09-29] MEDS: AZITHROMYCIN 500MG/ 250ML 250 ML IV ONE (02:36)
--- NOTE | 2024-09-29 02:50 | DVH ---
CHEST RADIOGRAPH Indication: intubation / central line placement Technique: Single frontal view of the chest was obtained COMPARISON: XY CHEST PORTABLE on DOS: 09/28/24, XY CHEST PORTABLE on DOS: 07/14/24, XY CHEST PORTABLE o n DOS: 09/26/23, XY CHEST PORTABLE on DOS: 08/21/23, XY CHEST PORTABLE on DOS: 01/02/23 FINDINGS: Lines and Tubes: Status post intubation. Endotracheal tube tip projects approximately 2.6 cm above t he level of the ruth. Left central venous access catheter terminates at the level of the cavoatrial junction. Lungs: Grossly stable appearing diffuse increased prominence of the pulmonary vasculature bilaterally with more consolidated appearing areas within the lower lung zones. Pleura: No effusion. No pneumothorax. Cardiomediastinal contours: Unremarkable Bones: Unremarkable IMPRESSION: 1. Stable appearing diffuse bilateral increased prominence of the pulmonary interstitium and vasculat ure with consolidative features within the lower lung zones. 2. Status post intubation and placement of left central venous access catheter.
[2024-09-29 02:53] LABS: Base Excess -6.5 mmol/L (-2.0-3.0)
[2024-09-29] MEDS: VANCOMYCIN 1GM/200ML PM 200 ML IV SCH (03:17)
[2024-09-29 03:25] LABS: Urine Bacteria FEW /hpf (None Seen); Urine Blood 1+ /uL (Negative); Urine Clarity Clear (Clear); Urine Color Light-Yellow (Yellow); Urine Hyaline Cast FEW /lpf (0 - 2); Urine Mucus FEW (None Seen); Urine Protein, UAD TRACE (Negative); Urine Specific Gravity 1.011 (1.001-1.035); Urine Squamous Epithelial Cell FEW /hpf (<5); Urine Urobilinogen Normal (Negative); Urine WBC 2 /HPF (0-3); Urine pH 5.5 (5.0-9.0)
[2024-09-29 04:29] LABS: Base Excess -8.1 mmol/L (-2.0-3.0)
--- NOTE | 2024-09-29 05:14 | ECG ---
[facility] Test Date: 2024-09-28 Test Time: 21:53:43 Pat Name: CHANEL BELL Department: ED Room: [address] [place] [address] A Gender: M Bid Analyst: jermain : 1945 Requested By: MELANIA LORENZ Order Number: [id number] Reading MD: Darrick Zelaya Measurements Intervals [place] Rate: 134 P: 52 KS: 123 QRS: 97 QRSD: 145 T: 2 QT: 312 QTc: 466 Interpretive Statements Sinus tachycardia Right bundle branch block Electronically Signed On 09-30-2024 21:01:27 PDT by Darrick Zelaya Please click the below link to view image of tracing.
--- NOTE | 2024-09-29 05:15 | DVH ---
CHEST RADIOGRAPH Indication: S/P OGT placement Technique: Single frontal view of the chest was obtained Comparison: XY CHEST PORTABLE on DOS: 09/29/24, XY CHEST PORTABLE on DOS: 09/28/24, XY CHEST PORTABLE o n DOS: 07/14/24 FINDINGS: Lines and Tubes: The endotracheal tube terminates 2.2 cm above the ruth. The enteric tube terminat es in the stomach. Dual-chamber pacemaker lead. Status post median sternotomy. Lungs: Diffuse bilateral consolidation increased since prior study. Pleura: No pneumothorax. No large pleural effusion. No pneumothorax. Cardiomediastinal contours: Cardiomegaly. Bones: No acute osseous abnormality. Status post median sternotomy. IMPRESSION: 1. Enteric tube terminates in the stomach. Other lines and tubes in appropriate position. 2. Worsening bilateral airspace disease representing worsening edema or pneumonia. 3. Cardiomegaly, stable.
[2024-09-29] MEDS: methylPREDNISolone SOD SUCC 40 MG/ML VL IV SCH (06:03)
[2024-09-29] MEDS: SODIUM ZIRCONIUM CYCL 10 GM PAK PO ONE (06:03)
[2024-09-29 06:27] LABS: Hematocrit 34.5 % (41.0-53.0); Hemoglobin 10.8 g/dL (13.5-17.5); Mean Corpuscular Hemoglobin 27.1 pg (28.0-32.0); Mean Corpuscular Hgb Conc. 31.3 g/dL (32.0-36.0); Mean Corpuscular Volume 86.7 fL (80.0-100.0); Platelet Count (auto) 356 10^3/uL (140-450); Red Blood Cells 3.98 10^6/uL (4.5-5.90); Red Cell Distribution Width 17.8 % (11.8-14.3); White Blood Cell 26.3 10^3/uL (4.4-10.8)
[2024-09-29] MEDS: LEVALBUTEROL HCL 1.25 MG/3 ML NEB NEB SCH (06:33)
[2024-09-29 06:47] LABS: Albumin 3.8 g/dL (3.2-4.8); Alkaline Phosphatase 73 U/L (46-116); Anion Gap 11 (5-15); BUN/Creatinine Ratio 11.5 (10.0-20.0); Blood Urea Nitrogen 23 mg/dL (9-23); Calcium 9.4 mg/dL (8.7-10.4); Carbon Dioxide 23 mmol/L (20-31); Chloride 102 mmol/L (98-107); Total Protein 6.7 g/dL (5.7-8.2)
[2024-09-29 06:52] LABS: Alanine Aminotransferase 87 U/L (7-40); Aspartate Aminotransferase 125 U/L (13-40); Glucose 271 mg/dL (74-106); Sodium 136 mmol/L (136-145)
[2024-09-29 07:01] LABS: Band Neutrophils % (manual) 0; Basophils % (manual) 0 (0.0-2.0); Blast Cells 0; Eosinophils % (manual) 0 (0-7); Metamyelocytes % 0; Myelocytes % 0; Promyelocytes % 0; Reactive Lymphocytes 0
[2024-09-29 07:03] LABS: Base Excess -6.9 mmol/L (-2.0-3.0)
[2024-09-29] MEDS: CALCIUM GLUC 1,000mg/50ml-NS 50 ML IV ONE (08:17)
[2024-09-29] MEDS: DEXTROSE (50%) 50ML SYRG IV ONE (08:17)
[2024-09-29] MEDS: SODIUM BICARB 8.4% 50Meq/50ml SYR INJ IV ONE (08:17)
[2024-09-29] MEDS: InsuLIN REG 1unit/0.01ml Soln (100units/ml) IV ONE (08:19)
[2024-09-29] MEDS: FUROSEMIDE 40 MG/4 ML VIAL IV ONE ×2 (08:20→12:54)
[2024-09-29] MEDS: AZITHROMYCIN 500MG/ 250ML 250 ML IV SCH (08:26)
[2024-09-29] MEDS: METOPROLOL TARTRATE 50 MG TAB PO SCH (08:26)
[2024-09-29] MEDS: FAMOTIDINE (10MG/ML) 2ML VL IV SCH (08:26)
[2024-09-29] MEDS: AMIODARONE HCL 200 MG TAB PO SCH (08:27)
[2024-09-29] MEDS: MIDAZOLAM DRIP 50 mg/50mL 50 ML IV SCH (09:00)
[2024-09-29] MEDS: MEROPENEM 1GM IVPB 50 ML IV ONE (09:17)
[2024-09-29] MEDS: fentaNYL Drip 2500mCg/250mlNS 250 ML IV SCH (09:21)
[2024-09-29] MEDS: ENOXAPARIN SOD 100 MG/1 ML SYRINGE SC SCH (09:27)
[2024-09-29 09:29] LABS: Base Excess -7.2 mmol/L (-2.0-3.0)
[2024-09-29 09:41] LABS: Lymphocytes % (manual) 3 (10.0-50.0); Monocytes % (manual) 7 (0-12); Platelet Estimate Adequate
[2024-09-29] MEDS ORDERED: RIVAROXABAN 10 MG TAB PO SCH (10:00)
[2024-09-29 10:07] LABS: INR 1.2 (0.9-1.15); Partial Thromboplastin Time 26.9 SEC (24.5-34.5); Prothrombin Time 12.5 sec (9.3-11.8)
[2024-09-29] MEDS: NOREPINEPHRINE 8 MG/250ML KIT 250 ML IV SCH (10:15)
[2024-09-29 10:21] LABS: Magnesium 2.2 mg/dL (1.6-2.6)
[2024-09-29 10:25] LABS: Phosphorus 7.7 mg/dL (2.4-5.1)
[2024-09-29 10:30] LABS: Lactic Acid w/Reflex 4.6 mmol/L (0.4-2.0)
[2024-09-29 10:40] LABS: Chloride 102 mmol/L (98-107); Potassium 4.6 mmol/L (3.5-5.1); Sodium 138 mmol/L (136-145)
[2024-09-29 10:41] LABS: Anion Gap 12 (5-15); Calcium 9.5 mg/dL (8.7-10.4); Carbon Dioxide 24 mmol/L (20-31)
[2024-09-29 10:46] LABS: BUN/Creatinine Ratio 12.6 (10.0-20.0); Magnesium 2.2 mg/dL (1.6-2.6)
[2024-09-29 10:47] LABS: Blood Urea Nitrogen 28 mg/dL (9-23); Glucose 336 mg/dL (74-106)
[2024-09-29] MEDS: SODIUM CHLORIDE 0.9% 1,000 ML IV ONE (10:53)
[2024-09-29 11:22] LABS: COVID19 ANTIGEN SOFIA FIA NEGATIVE (NEGATIVE); Rapid Influenza A Negative (Negative); Rapid Influenza B Negative (Negative)
[2024-09-29] MEDS: IPRATROPIUM BROM 0.5 MG/2.5ML INH SOL NEB SCH (11:33)
--- NOTE | 2024-09-29 11:48 | DVH ---
EXAM: US BILAT LOWER DVT Clinical History: To exclude DVT Comparison: None Technique: Duplex Doppler evaluation of the deep venous systems of both lower extremities from the co mmon femoral veins to the popliteal veins including color Doppler and spectral/pulsed waveform analys is was performed. Findings: RIGHT SIDE: The common femoral vein demonstrates appropriate compressibility and waveform variability. There is compressibility/patency of the great saphenous vein at the proximal thigh. The femoral vein demonstrates appropriate compressibility and waveform variability. The deep femoral vein demonstrates appropriate compressibility and waveform variability. The popliteal vein demonstrates appropriate compressibility and waveform variability. There is color flow at the tibioperoneal trunk and in the posterior tibial vein. LEFT SIDE: The common femoral vein demonstrates appropriate compressibility and waveform variability. There is compressibility/patency of the great saphenous vein at the proximal thigh. The femoral vein demonstrates appropriate compressibility and waveform variability. The deep femoral vein demonstrates appropriate compressibility and waveform variability. The popliteal vein demonstrates appropriate compressibility and waveform variability. There is color flow at the tibioperoneal trunk and in the posterior tibial vein. Impression: 1. No right or left femoropopliteal venous thrombosis.
[2024-09-29] MEDS: MEROPENEM 1GM IVPB 50 ML IV SCH (12:16)
[2024-09-29 12:28] LABS: Base Excess -8.6 mmol/L (-2.0-3.0)
[2024-09-29 13:17] LABS: Amphetamine Screen, Urine Neg (NEGATIVE); Barbiturate Scree,Urine Neg (NEGATIVE); Opiate Scree,Urine Neg (NEGATIVE); Phencyclidine Screen, Urine Neg (NEGATIVE)
[2024-09-29 13:18] LABS: Benzodiazephine Screen, Urine Neg (NEGATIVE); Cannabinoid Screen, Urine Neg (NEGATIVE); Cocaine Screen, Urine Neg (NEGATIVE)
--- NOTE | 2024-09-29 14:32 | DVHPNRES ---
Progress Note Date Seen: September 29, 2024 Resident Creating Document: ERIN LOPEZ RESIDENT Medical Necessity Reason Pt with a Central, PICC or Fol: Yes The following are medically ne: Central Line, Lang Catheter Subjective Review of Systems This is a 79-year-old male with past medical history of pulmonary fibrosis on 4 L home oxygen, AFib, history of colon cancer, prostate cancer, CHF, hypertension, hyperlipidemia, S/P pacemaker, CABG presented to the ED with a complaint of shortness of breath. According to the caregiver the patient was complaining of shortness of breath ,fatigue and weakness for last couple of days and he was really short of breath after few steps and need to increase more oxygen in last 3 months. In the ED he has been having cough, increased work of breathing, saturating 75% at 3 L/min, patient was placed on non-rebreather and eventually deteriorated on BiPAP at 88% and subsequently intubated. Patient was admitted recently in the hospital in July 2024 with a complaint of shortness of breath and later was treated for possible community-acquired pneumonia . Family denied fever, chills, productive cough, hemoptysis, any recent change in weight, altered bowel habit, positive sick contact or any recent traveling. PMH: Pulmonary fibrosis on 4 L home oxygen, AFib, history of colon cancer, prostate cancer, CHF, hypertension, hyperlipidemia. PSH: S/P pacemaker, CABG Social history: Lives alone and has caregiver and nonsmoker, remote history of IV drug abuse Medications: Amiodarone 400 mg daily, metoprolol succinate 50 mg b.i.d., lisinopril 5 mg daily, Xarelto 10 mg daily, budesonide formoterol fumarate inhaler, ipratropium albuterol. Patient was seen and examined on the bedside. He is on mechanical ventilation with FiO2 60%, tidal volume 550 mL, RR 30 and PEEP 5 Objective vital signs Vital Sign Date Time Temp Pulse Resp B/P (MAP) Pulse Ox O2 Delivery O2 Flow Rate FiO2 09/29/24 14:15 97.7 89 30 91/43 (59) 89 207.9 09/29/24 13:33 50 09/29/24 08:00 Mechanical Ventilator+ Total Intake and Output 09/28/24 09/28/24 09/29/24 15:00 23:00 07:00 Intake Total 1218.9 ml Balance 1218.9 ml medications Current Medications Medications Dose Ordered Sig/Will Route Start Time Stop Time Status Last Admin Dose Admin Propofol 100 ml @ 6.3 mls/hr [id number] IV 09/29/24 01:15 09/29/24 01:15 6.3 MLS/HR Methylprednisolone Sodium Succinate 40 mg Q8HR IV 09/29/24 06:00 09/29/24 12:17 40 MG Famotidine 20 mg Q12HR IV 09/29/24 10:00 09/29/24 08:26 20 MG Vancomycin HCl 0 ml @ 0 mls/hr UD IV 09/29/24 01:00 Hydralazine HCl 10 mg Q6HP PRN IV 09/29/24 01:00 Levalbuterol HCl 0.625 mg Q6HR NEB 09/29/24 06:00 09/29/24 11:33 0.625 MG Amiodarone HCl 200 mg Q12HR PO 09/29/24 10:00 09/29/24 08:27 200 MG Acetaminophen/ Hydrocodone Bitart 1 tab Q4HP PRN PO 09/29/24 01:00 Ondansetron HCl 4 mg Q4HP PRN IV 09/29/24 01:00 Docusate Sodium 100 mg BIDPRN PRN PO 09/29/24 01:00 Acetaminophen 650 mg Q6HP PRN PO 09/29/24 01:00 Meropenem 50 ml @ 17 mls/hr Q8HR IV 09/29/24 14:00 09/29/24 12:16 17 MLS/HR Enoxaparin Sodium 100 mg DAILY SC 09/29/24 10:00 09/29/24 09:27 100 MG Midazolam HCl 50 ml @ 1 mls/hr Q24H IV 09/29/24 09:00 Fentanyl Citrate 250 ml @ 2.5 mls/hr Q24H IV 09/29/24 09:00 09/29/24 09:21 2.5 MLS/HR Ipratropium [place] 0.5 mg Q6HR NEB 09/29/24 12:00 09/29/24 11:33 0.5 MG Norepinephrine Bitartrate 250 ml @ 3.75 mls/hr Q24H IV 09/29/24 10:15 Examination Physical exam: General: RASS -3, afebrile, mucosae are moist Cardiovascular: Normal S1 and S2 and bilateral coarse crackles. No murmurs, gallops or rubs Respiratory: Mechanically assisted ventilation, equal bilateral airway entree. Clear lung sounds on auscultation Abdomen: Soft, nontender, no organomegaly, normal bowel sounds MSK/skin: Mobilization of limbs cannot be evaluated. Skin is dry and warm. Neurological: Orientation cannot be assessed. No apparent motor no sensitive deficits. Pupils are isocoric and reactive laboratory and microbiology Laboratory Tests 09/29/24 09:26 09/29/24 05:54 Test 09/29/24 09:26 Range/Units Serum Glucose 336 H 74-106 mg/dL Microbiology Date/Time Source Procedure Growth Status 09/29/24 00:54 Nose MRSA Screen - Final Complete Labs and/or images reviewed: Labs reviewed by me, Image(s) reviewed by me Problem List/Assessment/Plan Problem List/Assessment/Plan Assessment and plan: NEURO: Acute metabolic encephalopathy, status post mechanical ventilation RASS score: -3 CARDIOVASCULAR: Possible acute on chronic diastolic heart failure Possible NSTEMI type 2 due to above Paroxysmal atrial fibrillation with secondary hypercoagulable state Status post pacemaker and CABG Coronary artery disease Hypertensive heart disease - CxR showed Interstitial pulmonary edema superimposed on diffuse pulmonary fibrosis and superimposed pneumonia difficult to exclude. - Pending echo - Lasix 40 mg IV once - Continue amiodarone 200 mg p.o. b.i.d. - Enoxaparin 100 mg sc daily PULMONARY: Acute on chronic hypoxic respiratory failure likely due to superimposed pneumonia on pulmonary fibrosis Idiopathic pulmonary fibrosis Possible community-acquired Gram-positive/Gram-negative pneumonia - CxR showed Interstitial pulmonary edema superimposed on diffuse pulmonary fibrosis and superimposed pneumonia difficult to exclude - IV vancomycin as per pharmacy and IV meropenem 1 gm Q8hr. - Pending high-resolution CT scan of the chest GENITOURINARY: REHAN on possible CKD likely hemodynamically mediated/VMN - 2 L IV bolus normal saline given as per sepsis protocol - Monitor BMP METABOLIC: Hyperkalemia likely due to REHAN Obesity type 1, BMI 30.9 kg/ m2 - Hyperkalemia protocol management HEME: Chronic normocytic anemia likely anemia due to chronic disease INFECTIOUS DISEASE: Possible Gram-positive/Gram-negative pneumonia Sepsis due to above Lactic acidosis and transaminitis due to sepsis - Pending blood culture, urinary bacterial culture and sputum culture - UA revealed normal study - IV vancomycin as per pharmacy and IV meropenem 1 gm Q8hr. DIET: NPO DVT prophylax: Enoxaparin GI prophylaxis: Protonix Bowel regimen: Code status: Full code LINES/DRAINS/ACCESS: ETT: Intubated on 09/28/24 IV access: Left subclavian central line placed on 09/28/2024 Drips: Propofol, fentanyl, Versed Lang catheter: Placed on 09/28/2024 DISPOSITION: ICU Patient's status discussed with caregiver, sister, daughter Critical care time spent more than 81 minutes, including patient care, chart review, and updating the family. Excluding any procedures. Case discussed with Dr. Baker Plan discussed with: Daughter, Other (Sister, RN) My Orders My Orders Orders - ERIN LOPEZ Procedure Category Date Status Time Norepinephrine 8 PHA 09/29/24 In Process Mg/250ml Kit 10:15 Bilat Lower Dvt US 09/29/24 Resulted 10:39 Abg W/ Co-Ox RT 09/29/24 Logged 17:00 Hi-Resolution [address] CT 09/30/24 Logged 09:00 ERIN LOPEZ September 29, 2024 14:32
[2024-09-29 17:55] LABS: Base Excess -5.3 mmol/L (-2.0-3.0)
--- NOTE | 2024-09-29 22:38 | DVHSR ---
APPROVED REPORT EXAM: Two-dimensional and M-mode echocardiogram with Doppler and color Doppler. Blood Pressure: 99/52 mmHg INDICATION Heart Failure RISK FACTORS Height: 5'9", Weight: 209 DIMENSIONS LVDd4.3 (3.8-5.7cm)LA (2D)4.1 (1.9-4.0cm)Aortic Root3.5 (2.0-3.7cm) LVDs3.0 (2.5-4.0cm)LA (MM) (1.9-4.0cm)Aortic Cusp Exc2.0 (1.5-2.0cm) EF (%) 60.0 (55-70%)Rt. Atrium4.1 (1.9-4.0cm)Asc. Aorta3.5 cm IVSd1.1 (0.7-1.1cm)RV (D) (1.8-2.4cm) PWd1.0 (0.7-1.1cm) Mitral Valve MitralMitral Stenosis E wave0.57m/sMV Mean GR.mmHg A wave0.81m/sMV Peak GR.mmHg E/A ratio0.72D MVAcm2 DECEL [id number] 1/2 Timems Aortic Valve Aortic ValveAortic Stenosis V11.09m/Nicole Mean GR.5mmHg V21.57m/Nicole Peak GR.10mmHg LVOT Diameter2.2 (1.8-2.4cm)Doppler AVA2.64cm2 AI P 1/2 Maeq106.42ms Pulmonic Valve V20.77m/s Tricuspid Valve TR Velocity3.00m/s [id number] Conclusion Sinus rhythm. Biatrial enlargement. Concentric LVH. Mild aortic sclerosis. Left ventricular function is preserved at 55% with normal RV function. There is mild aortic insufficiency. Moderate tricuspid regurgitation with [id number] pulmona ry hypertension. No pericardial effusion masses or vegetations.
[2024-09-29 23:03] LABS: Base Excess -6.2 mmol/L (-2.0-3.0)
[2024-09-30] VITALS (110 sets, daily range): BP systolic 80–142; BP diastolic 44–71; PULSE 91–126; RESP 8–31; TEMP 96.3–99.9; O2SAT 92–99
[2024-09-30 04:09] LABS: Hematocrit 30.7 % (41.0-53.0); Hemoglobin 9.7 g/dL (13.5-17.5); Mean Corpuscular Hgb Conc. 31.6 g/dL (32.0-36.0); Mean Corpuscular Volume 85.3 fL (80.0-100.0); Platelet Count (auto) 288 10^3/uL (140-450); Red Blood Cells 3.59 10^6/uL (4.5-5.90); Red Cell Distribution Width 17.8 % (11.8-14.3); White Blood Cell 29.6 10^3/uL (4.4-10.8)
[2024-09-30 04:19] LABS: Band Neutrophils % (manual) 0; Basophils % (manual) 0 (0.0-2.0); Blast Cells 0; Eosinophils % (manual) 0 (0-7); Metamyelocytes % 0; Myelocytes % 0; Promyelocytes % 0; Reactive Lymphocytes 0
[2024-09-30 04:25] LABS: Albumin 3.5 g/dL (3.2-4.8); Alkaline Phosphatase 64 U/L (46-116); Anion Gap 12 (5-15); BUN/Creatinine Ratio 10.9 (10.0-20.0); Calcium 8.9 mg/dL (8.7-10.4); Carbon Dioxide 22 mmol/L (20-31); Chloride 104 mmol/L (98-107); Potassium 4.6 mmol/L (3.5-5.1); Sodium 138 mmol/L (136-145); Total Protein 6.1 g/dL (5.7-8.2)
[2024-09-30 04:26] LABS: Alanine Aminotransferase 840 U/L (7-40); Aspartate Aminotransferase 597 U/L (13-40); Bilirubin, Total 0.7 mg/dL (0.2-1.0); Blood Urea Nitrogen 38 mg/dL (9-23); Glucose 144 mg/dL (74-106)
[2024-09-30 04:43] LABS: Lymphocytes % (manual) 3 (10.0-50.0); Monocytes % (manual) 1 (0-12); Platelet Estimate Adequate
[2024-09-30 04:44] LABS: Macrocytosis Slight; Ovalocytes FEW
--- NOTE | 2024-09-30 05:34 | DVH ---
CHEST RADIOGRAPH Indication: Mechanical ventilation Technique: Single frontal view of the chest was obtained Comparison: XY CHEST XRAY 1 VIEW on DOS: 09/29/24, XY CHEST PORTABLE on DOS: 09/29/24, XY CHEST PORTABL E on DOS: 09/28/24 IMPRESSION: Support lines and tubes appear stable in position. Dual lead left cardiac device median sternotomy w ires. Diffuse interstitial opacities appear similar to mildly improved, likely superimposed on fibro sis. No sizable effusion or pneumothorax.
[2024-09-30] MEDS: PROPOFOL 100 ML IV SCH (07:00)
[2024-09-30 07:24] LABS: Base Excess -5.8 mmol/L (-2.0-3.0)
[2024-09-30] MEDS: AMIODARONE 360mg/200mL PREMIX 200 ML IV SCH (10:10)
--- NOTE | 2024-09-30 11:00 | DVHPN2 ---
Subjective This is a 79-year-old male with past medical history of pulmonary fibrosis on 4 L home oxygen, AFib, history of colon cancer, prostate cancer, CHF, hypertension, hyperlipidemia, S/P pacemaker, CABG presented to the ED with a complaint of shortness of breath. According to the caregiver the patient was complaining of shortness of breath ,fatigue and weakness for last couple of days and he was really short of breath after few steps and need to increase more oxygen in last 3 months. In the ED he has been having cough, increased work of breathing, saturating 75% at 3 L/min, patient was placed on non-rebreather and eventually deteriorated on BiPAP at 88% and subsequently intubated. Patient was admitted recently in the hospital in July 2024 with a complaint of shortness of breath and later was treated for possible community-acquired pneumonia . Family denied fever, chills, productive cough, hemoptysis, any recent change in weight, altered bowel habit, positive sick contact or any recent traveling. PMH: Pulmonary fibrosis on 4 L home oxygen, AFib, history of colon cancer, prostate cancer, CHF, hypertension, hyperlipidemia. PSH: S/P pacemaker, CABG Social history: Lives alone and has caregiver and nonsmoker, remote history of IV drug abuse Medications: Amiodarone 400 mg daily, metoprolol succinate 50 mg b.i.d., lisinopril 5 mg daily, Xarelto 10 mg daily, budesonide formoterol fumarate inhaler, ipratropium albuterol. Patient was seen and examined on the bedside. Reviewed: H&P Changes from previous H/P or p: No Changes General: Per HPI Objective Vitals Vital Signs Date Time Temp Pulse Resp B/P (MAP) Pulse Ox O2 Delivery O2 Flow Rate FiO2 09/30/24 10:30 97.0 115 30 92/52 (65) 97 206.6 09/30/24 10:10 70 09/30/24 08:00 Mechanical Ventilator+ Intake/Output Intake and Output 09/30/24 07:00 Intake Total 2360.25 ml Output Total 550 ml Balance 1810.25 ml Intake Oral 100 ml IV Total 2260.25 ml Output Urine Total 550 ml Exam General: RASS -3, afebrile, mucosae are moist Cardiovascular: Normal S1 and S2 and bilateral coarse crackles. No murmurs, gallops or rubs Respiratory: Mechanically assisted ventilation, equal bilateral airway entree. Clear lung sounds on auscultation Abdomen: Soft, nontender, no organomegaly, normal bowel sounds MSK/skin: Mobilization of limbs cannot be evaluated. Skin is dry and warm. Neurological: Orientation cannot be assessed. No apparent motor no sensitive deficits. Pupils are isocoric and reactive Medications Current Medications Medications Dose Ordered Sig/Will Route Start Time Stop Time Status Last Admin Dose Admin Methylprednisolone Sodium Succinate 40 mg Q8HR IV 09/29/24 06:00 09/30/24 05:32 40 MG Famotidine 20 mg Q12HR IV 09/29/24 10:00 09/30/24 07:15 20 MG Vancomycin HCl 0 ml @ 0 mls/hr UD IV 09/29/24 01:00 Hydralazine HCl 10 mg Q6HP PRN IV 09/29/24 01:00 Levalbuterol HCl 0.625 mg Q6HR NEB 09/29/24 06:00 09/30/24 06:52 0.625 MG Acetaminophen/ Hydrocodone Bitart 1 tab Q4HP PRN PO 09/29/24 01:00 Ondansetron HCl 4 mg Q4HP PRN IV 09/29/24 01:00 Docusate Sodium 100 mg BIDPRN PRN PO 09/29/24 01:00 Acetaminophen 650 mg Q6HP PRN PO 09/29/24 01:00 Enoxaparin Sodium 100 mg DAILY SC 09/29/24 10:00 09/30/24 07:15 100 MG Midazolam HCl 50 ml @ 1 mls/hr Q24H IV 09/29/24 09:00 09/30/24 07:14 3 MLS/HR Fentanyl Citrate 250 ml @ 2.5 mls/hr Q24H IV 09/29/24 09:00 09/30/24 07:29 12.5 MLS/HR Ipratropium [place] 0.5 mg Q6HR NEB 09/29/24 12:00 09/30/24 06:52 0.5 MG Norepinephrine Bitartrate 250 ml @ 3.75 mls/hr Q24H IV 09/29/24 10:15 09/30/24 05:31 22.5 MLS/HR Propofol 100 ml @ 2.85 mls/hr Q24H IV 09/30/24 08:30 09/30/24 07:00 19.95 MLS/HR Laboratory Results Laboratory Tests 09/30/24 03:00 Chemistry Test 09/30/24 03:00 Albumin 3.5 g/dL (3.2-4.8) Calcium Level 8.9 mg/dL (8.7-10.4) Total Protein 6.1 g/dL (5.7-8.2) LFT Test 09/30/24 03:00 Alanine Aminotransferase (ALT) 840 U/L (7-40) H Alkaline Phosphatase 64 U/L (46-116) Aspartate Amino Transferase (AST) 597 U/L (13-40) H Total Bilirubin 0.7 mg/dL (0.2-1.0) Urinalysis Test 09/29/24 02:50 Urine Color Light-yellow (Yellow) Urine Clarity Clear (Clear) Urine pH 5.5 (5.0-9.0) Urine Specific [place] 1.011 (1.001-1.035) Urine Protein Trace (Negative) H Urine Ketones Negative (Negative) Urine Blood 1+ /uL (Negative) H Urine Nitrite Negative (Negative) Urine Bilirubin Negative (Negative) Urine Urobilinogen Normal mg/dL (Negative) Urine Leukocyte Esterase Negative /uL (Negative) Urine RBC 1 /hpf (0 - 3) Urine Microscopic WBC 2 /HPF (0-3) Urine Squamous Epithelial Cells Few /hpf (<5) Urine Bacteria Few /hpf (None Seen) H Urine Hyaline Casts Few /lpf (0 - 2) Urine Mucus Few (None Seen) Urine Glucose Normal mg/dL (Normal) Blood Gas Results Test 09/29/24 12:03 09/29/24 17:44 09/29/24 22:45 09/30/24 07:12 Arterial Blood pH 7.144 (7.350-7.450) 7.243 (7.350-7.450) 7.230 (7.350-7.450) 7.255 (7.350-7.450) FiO2 % 50.0 60.0 70.0 70.0 Microbiology Microbiology Date/Time Source Procedure Growth Status 09/29/24 05:00 Urine - Catheterized Urine Culture - Preliminary Resulted 09/29/24 02:26 Sputum Gram Stain Pending Resulted 09/29/24 02:26 Sputum Respiratory Culture - Preliminary Resulted 09/29/24 00:54 Nose MRSA Screen - Final Complete 09/28/24 22:43 Blood Blood Culture - Preliminary NO GROWTH AFTER 24 HOURS OF INCUBATION. Resulted Labs and/or images reviewed: Labs reviewed by me, Image(s) reviewed by me Assessment/Plan Assessment/Plan 09/30 - . Patient is here for shortness of breath and respiratory failure requiring airway protection, patient intubated currently treating for pneumonia and IPF exacerbation with acute CHF exacerbation. BPH has been low with pCO2 I we have been increasing tidal volume and respiratory rate to achieve current ABG of 7.25/49/112. Currently IV antibiotics vanc meropenem. And lactic has been high. Currently on diuresis with Lasix. Also on Solu-Medrol 40 t.i.d.. CXR with improving airway aeration, decreasing opacities. Today AFib rate increased from 80s to 120s, converting amnio to IV. At maintenance rate. consult nephrology, decreasing uop. Lungs clear, no pitting edema, along with tachycardia and decreased urine output concern for dehydration. Echo with EF 55%, concentric LVH, moderate TR, moderate to severe pulmonary hypertension RVSP 51. We will try 500 cc bolus and consult Nephrology. Family at bedside updated on treatment and status, POA daughter conveys patient wishes DNR DNI, code status will be updated. NEURO: Acute metabolic encephalopathy, status post mechanical ventilation RASS score: -3 CARDIOVASCULAR: Possible acute on chronic diastolic heart failure Possible NSTEMI type 2 due to above Paroxysmal atrial fibrillation with secondary hypercoagulable state Status post pacemaker and CABG Coronary artery disease Hypertensive heart disease - CxR showed Interstitial pulmonary edema superimposed on diffuse pulmonary fibrosis and superimposed pneumonia difficult to exclude. - Pending echo - Lasix 40 mg IV once - Continue amiodarone 200 mg p.o. b.i.d. - Enoxaparin 100 mg sc daily PULMONARY: Acute on chronic hypoxic respiratory failure likely due to superimposed pneumonia on pulmonary fibrosis Idiopathic pulmonary fibrosis Possible community-acquired Gram-positive/Gram-negative pneumonia - CxR showed Interstitial pulmonary edema superimposed on diffuse pulmonary fibrosis and superimposed pneumonia difficult to exclude - IV vancomycin as per pharmacy and IV meropenem 1 gm Q8hr. - Pending high-resolution CT scan of the chest GENITOURINARY: REHAN on possible CKD likely hemodynamically mediated/VMN - 2 L IV bolus normal saline given as per sepsis protocol - Monitor BMP METABOLIC: Hyperkalemia likely due to REHAN Obesity type 1, BMI 30.9 kg/ m2 - Hyperkalemia protocol management HEME: Chronic normocytic anemia likely anemia due to chronic disease INFECTIOUS DISEASE: Possible Gram-positive/Gram-negative pneumonia Sepsis due to above Lactic acidosis and transaminitis due to sepsis - Pending blood culture, urinary bacterial culture and sputum culture - UA revealed normal study - IV vancomycin as per pharmacy and IV meropenem 1 gm Q8hr. DIET: NPO DVT prophylax: Enoxaparin GI prophylaxis: Protonix Bowel regimen: Code status: Full code LINES/DRAINS/ACCESS: ETT: Intubated on 09/28/24 IV access: Left subclavian central line placed on 09/28/2024 Drips: Propofol, fentanyl, Versed Lang catheter: Placed on 09/28/2024 DISPOSITION: ICU Plan discussed with: Other My Orders Orders - JANET SINGH MD Procedure Category Date Status Time Amiodarone PHA 09/30/24 In Process 360mg/200ml Premix 10:00 Date of Service: September 30, 2024 Billing Provider: JANET SINGH MD Common Visit Codes: 15567-[id number] CARE 30-74 MIN JANET SINGH MD September 30, 2024 11:00
[2024-09-30] MEDS ORDERED: AMIODARONE 360mg/200mL PREMIX 200 ML IV SCH (15:45)
[2024-09-30] MEDS: SODIUM CHLORIDE 0.9% 1,000 ML IV ONE (15:45)
[2024-09-30] MEDS: BUMETANIDE INJECTION 25 MG in GIVE UN-DILUTED 0 ML IV SCH (15:45)
--- NOTE | 2024-09-30 15:48 | DVHINCON2 ---
Date of service: September 30, 2024 Reason for Consultation mary History of Present Illness 79 years old male with past medical history of pulmonary fibrosis on home oxygen 4 L AFib, history of colon cancer, prostate cancer, Congestive heart failure with preserved ejection fraction, pulmonary hypertension severe, had hypert ension, Chronic kidney disease, dyslipidemia, status post CABG, pacemaker, presented with chief complaints of shortness of breath patient is currently intubated and sedated in ICU and remains on vasopressors He does have history of IV drug abuse in the past When he came in his blood pressure was very high sbp >200 and then it dropped Past Medical History per hpi Past Surgical History per hpi Allergies: Coded Allergies: Morphine (Unverified Allergy, Unknown, 03/28/24) Home Meds Reported Medications Metoprolol Succinate (Toprol Xl) 50 Mg Tab, 100 MG PO BID for HTN, TAB 08/08/24 Budesonide-Formoterol Fumarate (Budesonide/Formoterol Fum 160-4.5 Mcg/Act) 1 Aer Aer, 1 AER IN, AER 07/14/24 Amiodarone Hcl (Amiodarone Hcl) 200 Mg Tab, 400 MG PO DAILY for A. FIB for 30 Days 07/14/24 Rivaroxaban (XARELTO) 10 Mg Tab, 1 TAB PO DAILY, #10 TAB 07/14/24 Nitroglycerin (Nitromist) 400 Mcg/[place] Aer, 400 MCG TL PRN, AER 04/27/22 Ipratropium-Albuterol (Ipratropium [place]/Albut) 1 Mirela Mirela, 1 MIRELA IN DAILY, ML 04/27/22 Current Medications Current Medications Medications (Trade) Dose Ordered Sig/Will Route PRN Reason Start Time Stop Time Status Last Admin Propofol 100 ml @ 2.85 mls/hr Q24H IV 09/30/24 08:30 09/30/24 13:09 Family History: Diabetes mellitus G8 MOTHER FH: CABG (coronary artery bypass surgery) G8 MOTHER FH: brain cancer G8 SISTER Hearing problem G8 SISTER Hypertension G8 MOTHER Seizure disorder G8 BROTHER Thyroid disease G8 MOTHER Review of Systems Unable to obtain H&P Exam Vital Signs/I&O Vital Sign Date Time Temp Pulse Resp B/P (MAP) Pulse Ox O2 Delivery O2 Flow Rate FiO2 09/30/24 15:31 114 30 127/66 (86) 99 70 09/30/24 15:30 96.6 205.9 09/30/24 08:00 Mechanical Ventilator+ Intake and Output 09/29/24 09/30/24 19:00 07:00 Intake Total 1468.20 ml 892.05 ml Output Total 400 ml 150 ml Balance 1068.20 ml 742.05 ml Intake Oral 50 ml 50 ml IV Total 1418.20 ml 842.05 ml Output Urine Total 400 ml 150 ml Physical Exam General-intubated and sedated HEENT-normocephalic, Respiratory-fair air entry bilateral No pedal edema Has Lang catheter Labs/Diagnostic Data Labs/Diagnostic Data Laboratory Tests Test 09/30/24 07:12 09/30/24 03:00 09/29/24 22:45 09/29/24 17:44 Range/Units Blood Gas Specimen Type Arterial Arterial Arterial Blood Gas Sample Site Right radial Right radial Right radial Blood Gas Patient Temperature 37.0 37.0 37.0 Arterial Blood Date Drawn [id number] Arterial Blood pH 7.255 L 7.230 *L 7.243 *L 7.350-7.450 Arterial Blood Partial Pressure CO2 49.3 H 52.3 H 52.7 H 35.0-48.0 mmHg Arterial Blood Partial Pressure O2 112.7 H 70.0 L 67.4 L 83.0-108.0 mmHg Arterial Blood HCO3 21.4 21.4 22.2 21.0-28.0 mmol/L Arterial Blood Oxygen Saturation 97.7 90.5 L 91.0 L 94.0-98.0 % Arterial Blood Base Excess -5.8 L -6.2 L -5.3 L -2.0-3.0 mmol/L Arterial Blood Oxyhemoglobin 96.7 90.2 L 90.6 L 94.0-98.0 % Arterial Blood Carboxyhemoglobin 0.8 0.1 L 0.1 L 0.5-1.5 % Arterial Blood Methemoglobin 0.2 0.2 0.3 0.0-1.5 % Blas Test Modified Modified Modified Blood Gas Total Hemoglobin 11.20 L 10.50 L 11.00 L 13.5-17.5 g/dL Blood Gas Set Respiration Rate 30.0 30.0 30.0 Blood Gas Modality Vent - ac Vent - ac Vent - ac FiO2 % 70.0 70.0 60.0 Blood Gas Tidal Volume 550.0 500.0 550.0 Blood Gas PEEP or CPAP 5.0 5.0 White Blood Count 29.6 H 4.4-10.8 10^3/uL Red Blood Count 3.59 L 4.5-5.90 10^6/uL Hemoglobin 9.7 L 13.5-17.5 g/dL Hematocrit 30.7 #L 41.0-53.0 % Mean Corpuscular Volume 85.3 80.0-100.0 fL Mean Corpuscular Hemoglobin 27.0 L 28.0-32.0 pg Mean Corpuscular Hemoglobin Concent 31.6 L 32.0-36.0 g/dL Red Cell Distribution Width 17.8 H 11.8-14.3 % Platelet Count 288 140-450 10^3/uL Mean Platelet Volume 8.9 6.9-10.8 fL Neutrophils (%) (Auto) 37.0-80.0 % Lymphocytes (%) (Auto) 10.0-50.0 % Monocytes (%) (Auto) 0.0-12.0 % Basophils (%) (Auto) 0.0-2.0 % Neutrophils # (Auto) 1.6-8.6 10 ^3/uL Lymphocytes # (Auto) 0.4-5.4 10 ^3/uL Monocytes # (Auto) 0-1.3 10 ^3/uL Differential Total Cells Counted 100.0 100 Neutrophils % (Manual) 96 H 37.0-80.0 Band Neutrophils % (Manual) 0 Lymphocytes % (Manual) 3 L 10.0-50.0 Monocytes % (Manual) 1 0-12 Eosinophils % (Manual) 0 0-7 Basophils % (Manual) 0 0.0-2.0 Metamyelocytes % (manual) 0 Myelocytes % (Manual) 0 Promyelocytes % (Manual) 0 Blast Cells % (Manual) 0 Reactive Lymphocytes 0 Platelet Estimate Adequate Poikilocytosis (manual) Macrocytosis Slight Ovalocytes Few Kate Cells Few Sodium Level 138 136-145 mmol/L Potassium Level 4.6 3.5-5.1 mmol/L Chloride Level 104 98-107 mmol/L Carbon Dioxide Level 22 20-31 mmol/L Anion Gap 12 5-15 Blood Urea Nitrogen 38 #H 9-23 mg/dL Creatinine 3.50 H 0.700-1.30 mg/dL Glomerular Filtration Rate Calc 17 >90 mL/min BUN/Creatinine Ratio 10.9 10.0-20.0 Serum Glucose 144 #H 74-106 mg/dL Calcium Level 8.9 8.7-10.4 mg/dL Total Bilirubin 0.7 0.2-1.0 mg/dL Aspartate Amino Transferase (AST) 597 H 13-40 U/L Alanine Aminotransferase (ALT) 840 H 7-40 U/L Alkaline Phosphatase 64 46-116 U/L Total Protein 6.1 5.7-8.2 g/dL Albumin 3.5 3.2-4.8 g/dL Random Vancomycin Level 27.4 H 5-10 ug/mL Blood Gas Critical Value Read Back Yes Yes Blood Gas Notified Whom Ofelia recio md Blood Gas Notified Time [id number] Blood Gas Notified By Kannan lovell chemical dependency professional Test 09/29/24 16:22 09/29/24 15:00 09/29/24 12:03 09/29/24 11:30 Range/Units POC Glucose 177 H 70-106 mg/dl Potassium Level 4.2 3.5-5.1 mmol/L Blood Gas Specimen Type Arterial Blood Gas Sample Site Right radial Blood Gas Patient Temperature 37.0 Arterial Blood Date Drawn [id number] Arterial Blood pH 7.144 *L 7.350-7.450 Arterial Blood Partial Pressure CO2 61.4 *H 35.0-48.0 mmHg Arterial Blood Partial Pressure O2 84.9 83.0-108.0 mmHg Arterial Blood HCO3 20.6 L 21.0-28.0 mmol/L Arterial Blood Oxygen Saturation 93.6 L 94.0-98.0 % Arterial Blood Base Excess -8.6 L -2.0-3.0 mmol/L Arterial Blood Oxyhemoglobin 93.0 L 94.0-98.0 % Arterial Blood Carboxyhemoglobin 0.3 L 0.5-1.5 % Arterial Blood Methemoglobin 0.3 0.0-1.5 % Blas Test Modified Blood Gas Total Hemoglobin 10.70 L 13.5-17.5 g/dL Blood Gas Set Respiration Rate 28.0 Blood Gas Modality Vent - ac FiO2 % 50.0 Blood Gas Tidal Volume 550.0 Blood Gas PEEP or CPAP 5.0 Blood Gas Critical Value Read Back Yes Blood Gas Notified Whom Dr. mirta marie Blood Gas Notified Time [id number] Blood Gas Notified By Lactic Acid Level 4.5 *H 0.4-2.0 mmol/L Test 09/29/24 10:58 09/29/24 09:50 09/29/24 09:26 09/29/24 09:23 Range/Units C-Reactive Protein High Sensitivity 10.80 H <1.0 mg/dL Influenza Type A Antigen Negative Negative Influenza Type B Antigen Negative Negative SARS-CoV-2 Antigen (Rapid) Negative NEGATIVE Prothrombin Time 12.5 H 9.3-11.8 sec Prothrombin Time INR 1.20 H 0.9-1.15 Activated Partial Thromboplast Time 26.9 24.5-34.5 SEC Sodium Level 138 136-145 mmol/L Potassium Level 4.6 3.5-5.1 mmol/L Chloride Level 102 98-107 mmol/L Carbon Dioxide Level 24 20-31 mmol/L Anion Gap 12 5-15 Blood Urea Nitrogen 28 H 9-23 mg/dL Creatinine 2.23 H 0.700-1.30 mg/dL Glomerular Filtration Rate Calc 29 >90 mL/min BUN/Creatinine Ratio 12.6 10.0-20.0 Serum Glucose 336 H 74-106 mg/dL Lactic Acid Level 4.6 *H 0.4-2.0 mmol/L Calcium Level 9.5 8.7-10.4 mg/dL Magnesium Level 2.2 1.6-2.6 mg/dL Blood Gas Specimen Type Arterial Blood Gas Sample Site Right radial Blood Gas Patient Temperature 37.0 Arterial Blood Date Drawn [id number] Arterial Blood pH 7.107 *L 7.350-7.450 Arterial Blood Partial Pressure CO2 75.4 *H 35.0-48.0 mmHg Arterial Blood Partial Pressure O2 95.6 83.0-108.0 mmHg Arterial Blood HCO3 23.3 21.0-28.0 mmol/L Arterial Blood Oxygen Saturation 94.3 94.0-98.0 % Arterial Blood Base Excess -7.2 L -2.0-3.0 mmol/L Arterial Blood Oxyhemoglobin 93.5 L 94.0-98.0 % Arterial Blood Carboxyhemoglobin 0.6 0.5-1.5 % Arterial Blood Methemoglobin 0.3 0.0-1.5 % Blas Test Modified Blood Gas Total Hemoglobin 11.50 L 13.5-17.5 g/dL Blood Gas Set Respiration Rate 28.0 Blood Gas Modality Vent - ac Blood Gas Spontaneous Rate 28 FiO2 % 60.0 Blood Gas Tidal Volume 500.0 Blood Gas PEEP or CPAP 5.0 Blood Gas Critical Value Read Back Yes Blood Gas Notified Whom Md. mirta marie Blood Gas Notified Time [id number] Blood Gas Notified By Rt kyrie Hylton 09/29/24 08:19 09/29/24 07:30 09/29/24 06:57 09/29/24 05:54 Range/Units POC Glucose 216 H 70-106 mg/dl Potassium Level 6.1 *H 6.0 *H 3.5-5.1 mmol/L Phosphorus Level 7.7 H 2.4-5.1 mg/dL Magnesium Level 2.2 1.6-2.6 mg/dL Triglycerides Level 90 < 150 mg/dL Cholesterol Level 178 < 200 mg/dL LDL Cholesterol 117 H < 100 mg/dL HDL Cholesterol 42 40-59 mg/dL Lipase 35 12-53 U/L Thyroid Stimulating Hormone (TSH) 6.79 H 0.55-4.78 uIU/mL Blood Gas Specimen Type Arterial Blood Gas Sample Site Right radial Blood Gas Patient Temperature 37.0 Arterial Blood Date Drawn [id number] Arterial Blood pH 7.172 *L 7.350-7.450 Arterial Blood Partial Pressure CO2 61.8 *H 35.0-48.0 mmHg Arterial Blood Partial Pressure O2 147.4 H 83.0-108.0 mmHg Arterial Blood HCO3 22.1 21.0-28.0 mmol/L Arterial Blood Oxygen Saturation 98.4 H 94.0-98.0 % Arterial Blood Base Excess -6.9 L -2.0-3.0 mmol/L Arterial Blood Oxyhemoglobin 97.7 94.0-98.0 % Arterial Blood Carboxyhemoglobin 0.5 0.5-1.5 % Arterial Blood Methemoglobin 0.2 0.0-1.5 % Blas Test Modified Blood Gas Total Hemoglobin 11.60 L 13.5-17.5 g/dL Blood Gas Set Respiration Rate 26.0 Blood Gas Modality Vent - ac FiO2 % 80.0 Blood Gas Tidal Volume 500.0 Blood Gas PEEP or CPAP 5.0 Blood Gas Critical Value Read Back Yes Blood Gas Notified Whom Dr. renate apple Blood Gas Notified Time [id number] Blood Gas Notified By Rt kyrie galindo White Blood Count 26.3 H 4.4-10.8 10^3/uL Red Blood Count 3.98 L 4.5-5.90 10^6/uL Hemoglobin 10.8 L 13.5-17.5 g/dL Hematocrit 34.5 L 41.0-53.0 % Mean Corpuscular Volume 86.7 80.0-100.0 fL Mean Corpuscular Hemoglobin 27.1 L 28.0-32.0 pg Mean Corpuscular Hemoglobin Concent 31.3 L 32.0-36.0 g/dL Red Cell Distribution Width 17.8 H 11.8-14.3 % Platelet Count 356 140-450 10^3/uL Mean Platelet Volume 8.5 6.9-10.8 fL Neutrophils (%) (Auto) 37.0-80.0 % Lymphocytes (%) (Auto) 10.0-50.0 % Monocytes (%) (Auto) 0.0-12.0 % Basophils (%) (Auto) 0.0-2.0 % Neutrophils # (Auto) 1.6-8.6 10 ^3/uL Lymphocytes # (Auto) 0.4-5.4 10 ^3/uL Monocytes # (Auto) 0-1.3 10 ^3/uL Differential Total Cells Counted 100.0 100 Neutrophils % (Manual) 90 H 37.0-80.0 Band Neutrophils % (Manual) 0 Lymphocytes % (Manual) 3 L 10.0-50.0 Monocytes % (Manual) 7 0-12 Eosinophils % (Manual) 0 0-7 Basophils % (Manual) 0 0.0-2.0 Metamyelocytes % (manual) 0 Myelocytes % (Manual) 0 Promyelocytes % (Manual) 0 Blast Cells % (Manual) 0 Reactive Lymphocytes 0 Platelet Estimate Adequate Sodium Level 136 136-145 mmol/L Chloride Level 102 98-107 mmol/L Carbon Dioxide Level 23 20-31 mmol/L Anion Gap 11 5-15 Blood Urea Nitrogen 23 9-23 mg/dL Creatinine 2.00 H 0.700-1.30 mg/dL Glomerular Filtration Rate Calc 34 >90 mL/min BUN/Creatinine Ratio 11.5 10.0-20.0 Serum Glucose 271 #H 74-106 mg/dL Hemoglobin A1c 5.0 <5.7 % A1C Calcium Level 9.4 8.7-10.4 mg/dL Total Bilirubin 1.0 0.2-1.0 mg/dL Aspartate Amino Transferase (AST) 125 H 13-40 U/L Alanine Aminotransferase (ALT) 87 H 7-40 U/L Alkaline Phosphatase 73 46-116 U/L Total Protein 6.7 5.7-8.2 g/dL Albumin 3.8 3.2-4.8 g/dL Vitamin B12 Level 3267 H 211-911 pg/mL Vitamin D 25-Hydroxy 47.1 30.0-100 ng/mL Test 09/29/24 04:23 09/29/24 02:50 09/29/24 02:47 09/29/24 00:42 Range/Units Blood Gas Specimen Type Arterial Arterial Blood Gas Sample Site Right radial Left radial Blood Gas Patient Temperature 37.0 37.0 Arterial Blood Date Drawn [id number] Arterial Blood pH 7.145 *L 7.056 *L 7.350-7.450 Arterial Blood Partial Pressure CO2 63.3 *H 93.0 *H 35.0-48.0 mmHg Arterial Blood Partial Pressure O2 173.1 H 100.6 83.0-108.0 mmHg Arterial Blood HCO3 21.3 25.5 21.0-28.0 mmol/L Arterial Blood Oxygen Saturation 98.6 H 94.2 94.0-98.0 % Arterial Blood Base Excess -8.1 L -6.5 L -2.0-3.0 mmol/L Arterial Blood Oxyhemoglobin 97.9 93.2 L 94.0-98.0 % Arterial Blood Carboxyhemoglobin 0.1 L 0.5 0.5-1.5 % Arterial Blood Methemoglobin 0.6 0.6 0.0-1.5 % Blas Test Modified Modified Blood Gas Total Hemoglobin 11.50 L 12.00 L 13.5-17.5 g/dL Blood Gas Set Respiration Rate 26.0 16.0 Blood Gas Modality Vent - ac Vent - ac FiO2 % 100.0 100.0 Blood Gas Tidal Volume 500.0 500.0 Blood Gas PEEP or CPAP 5.0 10.0 Blood Gas Critical Value Read Back Yes Yes Blood Gas Notified Whom Dr. romi llanos Blood Gas Notified Time [id number] Blood Gas Notified By Pulp Press Tender el carrera Pulp Press Tender el carrera Urine Color Light-yellow Yellow Urine Clarity Clear Clear Urine pH 5.5 5.0-9.0 Urine Specific [place] 1.011 1.001-1.035 Urine Protein Trace H Negative Urine Ketones Negative Negative Urine Blood 1+ H Negative /uL Urine Nitrite Negative Negative Urine Bilirubin Negative Negative Urine Urobilinogen Normal Negative mg/dL Urine Leukocyte Esterase Negative Negative /uL Urine RBC 1 0 - 3 /hpf Urine Microscopic WBC 2 0-3 /HPF Urine Squamous Epithelial Cells Few <5 /hpf Urine Bacteria Few H None Seen /hpf Urine Hyaline Casts Few 0 - 2 /lpf Urine Mucus Few None Seen Urine Glucose Normal Normal mg/dL Urine Opiates Screen Neg NEGATIVE Urine Fentanyl Screen Neg NEGATIVE Urine Barbiturates Screen Neg NEGATIVE Urine Phencyclidine Screen Neg NEGATIVE Urine Amphetamines Screen Neg NEGATIVE Urine Benzodiazepines Screen Neg NEGATIVE Urine Cocaine Screen Neg NEGATIVE Urine Cannabinoids Screen Neg NEGATIVE Blood Gas Spontaneous Rate 16 Lactic Acid Level 3.5 *H 0.4-2.0 mmol/L Test 09/28/24 23:45 09/28/24 23:13 09/28/24 22:43 Range/Units Troponin I High Sensitivity 83 *H 42 </=54 ng/L Blood Gas Specimen Type Venous Blood Gas Sample Site Vbg - n/a Blood Gas Patient Temperature 37.0 Arterial Blood Date Drawn [id number] Blas Test N/a Venous Blood pH 7.333 7.320-7.430 Venous Blood pCO2 at Patient Temp 52.1 38.0-54.0 mmHg Venous Blood pO2 at Patient Temp < 36.5 23.0-48.0 mmHg Venous Blood HCO3 27.0 22.0-29.0 mmol/L Venous Bld O2 Saturation (Measured) 15.0 L 60.0-85.0 % Venous Blood Base Excess 0.5 -2.0-3.0 mmol/L Venous Blood Total Hemoglobin 11.8 L 13.5-17.5 g/dL Venous Blood Oxyhemoglobin 14.7 0.0-79.0 % Venous Blood Carboxyhemoglobin 0.1 L 0.5-1.5 % Venous Blood Methemoglobin 1.8 H 0.0-1.5 % Blood Gas Set Respiration Rate 12.0 Blood Gas Modality Mask - bipap FiO2 % 65.0 Blood Gas EPAP 5 Blood Gas IPAP 12 White Blood Count 29.7 H 4.4-10.8 10^3/uL Red Blood Count 4.32 L 4.5-5.90 10^6/uL Hemoglobin 11.6 L 13.5-17.5 g/dL Hematocrit 36.1 L 41.0-53.0 % Mean Corpuscular Volume 83.5 80.0-100.0 fL Mean Corpuscular Hemoglobin 27.0 L 28.0-32.0 pg Mean Corpuscular Hemoglobin Concent 32.3 32.0-36.0 g/dL Red Cell Distribution Width 17.9 H 11.8-14.3 % Platelet Count 345 140-450 10^3/uL Mean Platelet Volume 8.4 6.9-10.8 fL Neutrophils (%) (Auto) 37.0-80.0 % Lymphocytes (%) (Auto) 10.0-50.0 % Monocytes (%) (Auto) 0.0-12.0 % Basophils (%) (Auto) 0.0-2.0 % Neutrophils # (Auto) 1.6-8.6 10 ^3/uL Lymphocytes # (Auto) 0.4-5.4 10 ^3/uL Monocytes # (Auto) 0-1.3 10 ^3/uL Differential Total Cells Counted 100.0 100 Neutrophils % (Manual) 87 H 37.0-80.0 Band Neutrophils % (Manual) 0 Lymphocytes % (Manual) 9 L 10.0-50.0 Monocytes % (Manual) 4 0-12 Eosinophils % (Manual) 0 0-7 Basophils % (Manual) 0 0.0-2.0 Metamyelocytes % (manual) 0 Myelocytes % (Manual) 0 Promyelocytes % (Manual) 0 Blast Cells % (Manual) 0 Reactive Lymphocytes 0 Platelet Estimate Adequate Sodium Level 137 136-145 mmol/L Potassium Level 5.3 H 3.5-5.1 mmol/L Chloride Level 101 98-107 mmol/L Carbon Dioxide Level 27 20-31 mmol/L Anion Gap 9 5-15 Blood Urea Nitrogen 19 9-23 mg/dL Creatinine 1.39 H 0.700-1.30 mg/dL Glomerular Filtration Rate Calc 52 >90 mL/min BUN/Creatinine Ratio 13.7 10.0-20.0 Serum Glucose 167 H 74-106 mg/dL Lactic Acid Level 4.0 *H 0.4-2.0 mmol/L Calcium Level 9.6 8.7-10.4 mg/dL Total Bilirubin 0.5 0.2-1.0 mg/dL Aspartate Amino Transferase (AST) 50 H 13-40 U/L Alanine Aminotransferase (ALT) 16 7-40 U/L Alkaline Phosphatase 78 46-116 U/L B-Type Natriuretic Peptide 88.77 0-100 pg/mL Total Protein 7.2 5.7-8.2 g/dL Albumin 4.3 3.2-4.8 g/dL Microbiology Date/Time Source Procedure Growth Status 09/29/24 00:54 Nose MRSA Screen - Final Complete Assessment Acute kidney injury likely ATN in the setting of shock Acute on chronic hypoxic respiratory failure--multifactorial pulmonary edema, pneumonia, pulmonary fibrosis Ventilator-dependent respiratory failure Shock likely septic Baseline Chronic kidney disease 3A Recommendations Bumex drip as ordered IV fluid for 1 L to increase urine volumes Evaluate BUDGET RECORD CLERK needs closely Kidney ultrasound urine workup as ordered Currently on vasopressor Plan discussed with: Daughter DAYANA REEVES MD September 30, 2024 15:48
[2024-09-30] MEDS: MEROPENEM 500MG PREMIX 50 ML IV SCH (16:56)
--- NOTE | 2024-09-30 18:56 | DVHINCON2 ---
Date of service: September 30, 2024 Referring Physician Malika Martínez MD; Covering ICU team Reason for Consultation Acute hypoxic respiratory failure requiring mechanical ventilator History of Present Illness A 79-year-old man with multiple past medical history including COPD, AFib, anemia, cancer, CHF and hypertension who presented to ED on 09/29/24 with complaint of shortness of breath. Patient reported cough, increased work of breathing, saturating 75% at 3 L/min. He was placed on non-rebreather and eventually on CPAP, deteriorated on BiPAP at 88% and was subsequently intubated. ED workup showed WBC 29.7, platelets 245, sodium 137, potassium 5.3, BUN 19, creatinine 1.39, glucose 167, troponin 83, lactic acid 4.0, AST 50, ALT 16, BNP 88.77. Blood pressure 228/111 trending down to 149/78, heart rate 123 trending down to 118, temperature 98.0 F, O2 saturation 93% on ventilator. Chest x-ray revealing interstitial pulmonary edema superimposed on diffuse pulmonary fibrosis, superimposed pneumonia difficult to exclude. Patient was admitted for further care and pulmonary consultation is requested for evaluation and management of acute hypoxic respiratory failure requiring mechanical ventilator. Review of Systems: 14-point review of systems negative unless otherwise noted above. Past Medical History: AFIB, Anemia, CAD, Cancer, CHF, COPD, High Lipids, HTN, [place], Thyroid, Pulmonary fibrosis Past Surgical History: Appendectomy, CABG, Hernia Repair, Pacemaker, PTCA, Tonsillectomy Medications: Reviewed. Allergies: Morphine Family History: Diabetes mellitus CABG Brain cancer Hearing problem Hypertension Seizure disorder Thyroid disease Social History: Nonsmoker. No alcohol or illicit drug use. Family History: Diabetes mellitus G8 MOTHER FH: CABG (coronary artery bypass surgery) G8 MOTHER FH: brain cancer G8 SISTER Hearing problem G8 SISTER Hypertension G8 MOTHER Seizure disorder G8 BROTHER Thyroid disease G8 MOTHER Allergies: Coded Allergies: Morphine (Unverified Allergy, Unknown, 03/28/24) Home Meds Reported Medications Metoprolol Succinate (Toprol Xl) 50 Mg Tab, 100 MG PO BID for HTN, TAB 08/08/24 Budesonide-Formoterol Fumarate (Budesonide/Formoterol Fum 160-4.5 Mcg/Act) 1 Aer Aer, 1 AER IN, AER 07/14/24 Amiodarone Hcl (Amiodarone Hcl) 200 Mg Tab, 400 MG PO DAILY for A. FIB for 30 Days 07/14/24 Rivaroxaban (XARELTO) 10 Mg Tab, 1 TAB PO DAILY, #10 TAB 07/14/24 Nitroglycerin (Nitromist) 400 Mcg/[place] Aer, 400 MCG TL PRN, AER 04/27/22 Ipratropium-Albuterol (Ipratropium [place]/Albut) 1 Mirela Mirela, 1 MIRELA IN DAILY, ML 04/27/22 Current Medications Current Medications Medications (Trade) Dose Ordered Sig/Will Route PRN Reason Start Time Stop Time Status Last Admin Propofol 100 ml @ 2.85 mls/hr Q24H IV 09/30/24 08:30 09/30/24 13:09 Bumetanide 25 mg/ Miscellaneous 100 ml @ 4 mls/hr Q24H IV 09/30/24 15:45 09/30/24 15:45 Enteral Nutritional Formula (Nepro With Carb Steady) 1,000 ml 30ML/HR GT 09/30/24 20:00 Vital Signs Vital Signs Date Time Temp Pulse Resp B/P (MAP) Pulse Ox O2 Delivery O2 Flow Rate FiO2 09/30/24 18:45 97.3 102 30 97/57 (70) 95 97.3 09/30/24 18:25 60 09/30/24 08:00 Mechanical Ventilator+ Physical Exam Gen.: Patient lying in bed in medical ICU. Sedated, intubated on mechanical ventilator. Head: Normocephalic, atraumatic. Eyes: PERRLA. Ears: Normal external anatomy. Throat: Endotracheal tube and orogastric tube in place. Neck: Supple, trachea midline. Chest: Transmitted breath sounds bilaterally. Decreased air entry bilaterally. No wheezing. Bibasilar crackles. Cardiovascular: Positive S1, positive S2. Regular rate and rhythm. Abdomen: Positive bowel sounds in all 4 quadrants. Soft, nontender, nondistended. : Lang in place. Normal external genitalia. Rectal: Deferred. Skin: Warm, dry. Intact. Extremities: 2+ radial pulses bilaterally. No lower extremity edema. Neuro: Sedated. Labs/Diagnostic Data Labs Test 09/30/24 07:12 09/30/24 03:00 09/29/24 22:45 09/29/24 16:22 Range/Units Blood Gas Specimen Type Arterial Blood Gas Sample Site Right radial Blood Gas Patient Temperature 37.0 Arterial Blood Date Drawn [id number] Arterial Blood pH 7.255 L 7.350-7.450 Arterial Blood Partial Pressure CO2 49.3 H 35.0-48.0 mmHg Arterial Blood Partial Pressure O2 112.7 H 83.0-108.0 mmHg Arterial Blood HCO3 21.4 21.0-28.0 mmol/L Arterial Blood Oxygen Saturation 97.7 94.0-98.0 % Arterial Blood Base Excess -5.8 L -2.0-3.0 mmol/L Arterial Blood Oxyhemoglobin 96.7 94.0-98.0 % Arterial Blood Carboxyhemoglobin 0.8 0.5-1.5 % Arterial Blood Methemoglobin 0.2 0.0-1.5 % Blas Test Modified Blood Gas Total Hemoglobin 11.20 L 13.5-17.5 g/dL Blood Gas Set Respiration Rate 30.0 Blood Gas Modality Vent - ac FiO2 % 70.0 Blood Gas Tidal Volume 550.0 Blood Gas PEEP or CPAP 5.0 White Blood Count 29.6 H 4.4-10.8 10^3/uL Red Blood Count 3.59 L 4.5-5.90 10^6/uL Hemoglobin 9.7 L 13.5-17.5 g/dL Hematocrit 30.7 #L 41.0-53.0 % Mean Corpuscular Volume 85.3 80.0-100.0 fL Mean Corpuscular Hemoglobin 27.0 L 28.0-32.0 pg Mean Corpuscular Hemoglobin Concent 31.6 L 32.0-36.0 g/dL Red Cell Distribution Width 17.8 H 11.8-14.3 % Platelet Count 288 140-450 10^3/uL Mean Platelet Volume 8.9 6.9-10.8 fL Neutrophils (%) (Auto) 37.0-80.0 % Lymphocytes (%) (Auto) 10.0-50.0 % Monocytes (%) (Auto) 0.0-12.0 % Basophils (%) (Auto) 0.0-2.0 % Neutrophils # (Auto) 1.6-8.6 10 ^3/uL Lymphocytes # (Auto) 0.4-5.4 10 ^3/uL Monocytes # (Auto) 0-1.3 10 ^3/uL Differential Total Cells Counted 100.0 100 Neutrophils % (Manual) 96 H 37.0-80.0 Band Neutrophils % (Manual) 0 Lymphocytes % (Manual) 3 L 10.0-50.0 Monocytes % (Manual) 1 0-12 Eosinophils % (Manual) 0 0-7 Basophils % (Manual) 0 0.0-2.0 Metamyelocytes % (manual) 0 Myelocytes % (Manual) 0 Promyelocytes % (Manual) 0 Blast Cells % (Manual) 0 Reactive Lymphocytes 0 Platelet Estimate Adequate Poikilocytosis (manual) Macrocytosis Slight Ovalocytes Few [place] Cells Few Sodium Level 138 136-145 mmol/L Potassium Level 4.6 3.5-5.1 mmol/L Chloride Level 104 98-107 mmol/L Carbon Dioxide Level 22 20-31 mmol/L Anion Gap 12 5-15 Blood Urea Nitrogen 38 #H 9-23 mg/dL Creatinine 3.50 H 0.700-1.30 mg/dL Glomerular Filtration Rate Calc 17 >90 mL/min BUN/Creatinine Ratio 10.9 10.0-20.0 Serum Glucose 144 #H 74-106 mg/dL Calcium Level 8.9 8.7-10.4 mg/dL Total Bilirubin 0.7 0.2-1.0 mg/dL Aspartate Amino Transferase (AST) 597 H 13-40 U/L Alanine Aminotransferase (ALT) 840 H 7-40 U/L Alkaline Phosphatase 64 46-116 U/L Total Protein 6.1 5.7-8.2 g/dL Albumin 3.5 3.2-4.8 g/dL Random Vancomycin Level 27.4 H 5-10 ug/mL Blood Gas Critical Value Read Back Yes Blood Gas Notified Whom Ofelia stewart md Blood Gas Notified Time [id number] Blood Gas Notified By Kannan lovell rrt POC Glucose 177 H 70-106 mg/dl Test 09/29/24 11:30 09/29/24 10:58 09/29/24 09:50 09/29/24 09:26 Range/Units Lactic Acid Level 4.5 *H 0.4-2.0 mmol/L C-Reactive Protein High Sensitivity 10.80 H <1.0 mg/dL Influenza Type A Antigen Negative Negative Influenza Type B Antigen Negative Negative SARS-CoV-2 Antigen (Rapid) Negative NEGATIVE Prothrombin Time 12.5 H 9.3-11.8 sec Prothrombin Time INR 1.20 H 0.9-1.15 Activated Partial Thromboplast Time 26.9 24.5-34.5 SEC Magnesium Level 2.2 1.6-2.6 mg/dL Test 09/29/24 09:23 09/29/24 07:30 09/29/24 05:54 09/29/24 02:50 Range/Units Blood Gas Spontaneous Rate 28 Phosphorus Level 7.7 H 2.4-5.1 mg/dL Triglycerides Level 90 < 150 mg/dL Cholesterol Level 178 < 200 mg/dL LDL Cholesterol 117 H < 100 mg/dL HDL Cholesterol 42 40-59 mg/dL Lipase 35 12-53 U/L Thyroid Stimulating Hormone (TSH) 6.79 H 0.55-4.78 uIU/mL Hemoglobin A1c 5.0 <5.7 % A1C Vitamin B12 Level 3267 H 211-911 pg/mL Vitamin D 25-Hydroxy 47.1 30.0-100 ng/mL Urine Color Light-yellow Yellow Urine Clarity Clear Clear Urine pH 5.5 5.0-9.0 Urine Specific [place] 1.011 1.001-1.035 Urine Protein Trace H Negative Urine Ketones Negative Negative Urine Blood 1+ H Negative /uL Urine Nitrite Negative Negative Urine Bilirubin Negative Negative Urine Urobilinogen Normal Negative mg/dL Urine Leukocyte Esterase Negative Negative /uL Urine RBC 1 0 - 3 /hpf Urine Microscopic WBC 2 0-3 /HPF Urine Squamous Epithelial Cells Few <5 /hpf Urine Bacteria Few H None Seen /hpf Urine Hyaline Casts Few 0 - 2 /lpf Urine Mucus Few None Seen Urine Glucose Normal Normal mg/dL Urine Opiates Screen Neg NEGATIVE Urine Fentanyl Screen Neg NEGATIVE Urine Barbiturates Screen Neg NEGATIVE Urine Phencyclidine Screen Neg NEGATIVE Urine Amphetamines Screen Neg NEGATIVE Urine Benzodiazepines Screen Neg NEGATIVE Urine Cocaine Screen Neg NEGATIVE Urine Cannabinoids Screen Neg NEGATIVE Test 09/28/24 23:45 09/28/24 23:13 09/28/24 22:43 Range/Units Troponin I High Sensitivity 83 *H </=54 ng/L Venous Blood pH 7.333 7.320-7.430 Venous Blood pCO2 at Patient Temp 52.1 38.0-54.0 mmHg Venous Blood pO2 at Patient Temp < 36.5 23.0-48.0 mmHg Venous Blood HCO3 27.0 22.0-29.0 mmol/L Venous Bld O2 Saturation (Measured) 15.0 L 60.0-85.0 % Venous Blood Base Excess 0.5 -2.0-3.0 mmol/L Venous Blood Total Hemoglobin 11.8 L 13.5-17.5 g/dL Venous Blood Oxyhemoglobin 14.7 0.0-79.0 % Venous Blood Carboxyhemoglobin 0.1 L 0.5-1.5 % Venous Blood Methemoglobin 1.8 H 0.0-1.5 % Blood Gas EPAP 5 Blood Gas IPAP 12 B-Type Natriuretic Peptide 88.77 0-100 pg/mL Microbiology Date/Time Source Procedure Growth Status 09/29/24 05:00 Urine - Catheterized Urine Culture - Preliminary Resulted 09/29/24 02:26 Sputum Gram Stain Pending Resulted 09/29/24 02:26 Sputum Respiratory Culture - Preliminary Resulted 09/29/24 00:54 Nose MRSA Screen - Final Complete 09/28/24 22:43 Blood Blood Culture - Preliminary NO GROWTH AFTER 24 HOURS OF INCUBATION. Resulted Assessment Impression: Acute hypoxic respiratory failure On mechanical ventilator Pulmonary fibrosis Hypertensive urgency Pneumonia Sepsis Generalized weakness Pulmonary vascular congestion Obesity BMI 30.9 Plan: s/p intubation on mechanical ventilator. CXR image and report reviewed. ABG reviewed, acidemia. On AC mode; RR 30, VT 550, PEEP 5, FiO2 70% Titrate FIO2 to keep O2 saturation above 90%. VAP bundle. Daily ABG and CXR while intubated Sedate for ventilator synchrony - Versed/Propofol/Fentanyl Continue bronchodilators. IV steroids Continue antibiotics. Amio drip On Lovenox Tube feeds for nutritional support On pressors for hemodynamic support On Levophed Titrate to keep mean arterial pressure greater than 65 mmHg. Monitor renal function - elevated Cr of 3.5 Monitor electrolytes. Supplement as necessary. Monitor ins and outs. Maintain euvolemia. GI prophylaxis. DVT prophylaxis. Prognosis: Poor given patient's multiple co-morbidities. Condition: Critical Rest of plan per hospitalist and other consultants. A total of 35 minutes of critical care time was spent reviewing the patient record, examining the patient, making a diagnostic and therapeutic plan, discussing this plan with the medical personnel, following up on diagnostic studies and following the patient for clinical stability excluding any and all procedures. At least 50% of this time was spent in direct, [id number] contact. Thank you Dr. Etchegoyen, for allowing me to participate in this patient's care. Further recommendations will depend on the patient's clinical course. Please do not hesitate to contact me if you have any questions or concerns. This medical document was created using an electronic medical record system with [employer] dictation system. Although these documentations are being carefully reviewed, there may still be some phonetic and typographical changes. The errors are purely typographical, due to imperfection on the software program, and do not reflect any compromise in the patient's medical care. Plan discussed with: Other (TIM Ugalde/Dr Martínez) ZULEYMA LACEY MD September 30, 2024 18:56
[2024-09-30] MEDS: Nepro With Carb Steady 1 Liter Bottle GT SCH (22:17)
[2024-10-01] VITALS (106 sets, daily range): BP systolic 93–146; BP diastolic 43–63; PULSE 78–96; RESP 18–30; TEMP 97.5–99.1; O2SAT 90–100
[2024-10-01 04:12] LABS: Basophils # (auto) 0.1 10 ^3/uL (0-0.2); Basophils % (auto) 0.4 % (0.0-2.0); Eosinophils # (auto) 0 10 ^3/uL (0-0.8); Lymphocytes # (auto) 0.2 10 ^3/uL (0.4-5.4); Monocytes # (auto) 0.5 10 ^3/uL (0-1.3); Nucleated Red Blood Cells % 0.3 %
[2024-10-01 04:13] LABS: Hematocrit 28.7 % (41.0-53.0); Hemoglobin 9.2 g/dL (13.5-17.5); Lymphocytes % (auto) 1.2 % (10.0-50.0); Mean Corpuscular Hemoglobin 26.8 pg (28.0-32.0); Mean Corpuscular Hgb Conc. 32.1 g/dL (32.0-36.0); Mean Corpuscular Volume 83.4 fL (80.0-100.0); Monocytes % (auto) 2.6 % (0.0-12.0); Neutrophils % (auto) 95.8 % (37.0-80.0); Platelet Count (auto) 239 10^3/uL (140-450); Red Blood Cells 3.44 10^6/uL (4.5-5.90); Red Cell Distribution Width 17.7 % (11.8-14.3); White Blood Cell 20.9 10^3/uL (4.4-10.8)
[2024-10-01 04:33] LABS: Albumin 3.3 g/dL (3.2-4.8); Alkaline Phosphatase 73 U/L (46-116); Anion Gap 13 (5-15); Bilirubin, Total 0.6 mg/dL (0.2-1.0); Calcium 9.3 mg/dL (8.7-10.4); Carbon Dioxide 22 mmol/L (20-31); Chloride 105 mmol/L (98-107); Magnesium 2.1 mg/dL (1.6-2.6); Potassium 4.3 mmol/L (3.5-5.1); Sodium 140 mmol/L (136-145); Total Protein 5.7 g/dL (5.7-8.2)
[2024-10-01 04:46] LABS: Alanine Aminotransferase 728 U/L (7-40); Aspartate Aminotransferase 251 U/L (13-40); Blood Urea Nitrogen 51 mg/dL (9-23); Glucose 129 mg/dL (74-106)
--- NOTE | 2024-10-01 05:52 | DVH ---
CHEST RADIOGRAPH Indication: INTUBATED Technique: Single frontal view of the chest was obtained Comparison: XY CHEST PORTABLE on DOS: 09/30/24, XY CHEST XRAY 1 VIEW on DOS: 09/29/24, XY CHEST PORTABL E on DOS: 09/29/24 IMPRESSION: Heart appears prominent size. Endotracheal tube tip in satisfactory position approximately 3 cm from the ruth. Diffuse interstitial airspace opacities appear similar. No sizable effusion or pneumotho rax. Multi lead left cardiac device median sternotomy wires are present.
[2024-10-01 07:06] LABS: Base Excess -5.4 mmol/L (-2.0-3.0)
--- NOTE | 2024-10-01 11:47 | DVHPN2 ---
Subjective This is a 79-year-old male with past medical history of pulmonary fibrosis on 4 L home oxygen, AFib, history of colon cancer, prostate cancer, CHF, hypertension, hyperlipidemia, S/P pacemaker, CABG presented to the ED with a complaint of shortness of breath. According to the caregiver the patient was complaining of shortness of breath ,fatigue and weakness for last couple of days and he was really short of breath after few steps and need to increase more oxygen in last 3 months. In the ED he has been having cough, increased work of breathing, saturating 75% at 3 L/min, patient was placed on non-rebreather and eventually deteriorated on BiPAP at 88% and subsequently intubated. Patient was admitted recently in the hospital in July 2024 with a complaint of shortness of breath and later was treated for possible community-acquired pneumonia . Family denied fever, chills, productive cough, hemoptysis, any recent change in weight, altered bowel habit, positive sick contact or any recent traveling. PMH: Pulmonary fibrosis on 4 L home oxygen, AFib, history of colon cancer, prostate cancer, CHF, hypertension, hyperlipidemia. PSH: S/P pacemaker, CABG Social history: Lives alone and has caregiver and nonsmoker, remote history of IV drug abuse Medications: Amiodarone 400 mg daily, metoprolol succinate 50 mg b.i.d., lisinopril 5 mg daily, Xarelto 10 mg daily, budesonide formoterol fumarate inhaler, ipratropium albuterol. Patient was seen and examined on the bedside. Reviewed: H&P Changes from previous H/P or p: No Changes General: Per HPI Objective Vitals Vital Signs Date Time Temp Pulse Resp B/P (MAP) Pulse Ox O2 Delivery O2 Flow Rate FiO2 10/01/24 11:15 97.9 83 30 116/49 (71) 95 208.2 10/01/24 10:25 60 10/01/24 10:00 Mechanical Ventilator+ Intake/Output Intake and Output 10/01/24 07:00 Intake Total 57767.91 ml Output Total 925 ml Balance 65979.91 ml Intake Oral 100 ml IV Total 83836.91 ml Tube Feeding 100 ml Output Urine Total 925 ml Exam General: RASS -3, afebrile, mucosae are moist Cardiovascular: Normal S1 and S2 and bilateral coarse crackles. No murmurs, gallops or rubs Respiratory: Mechanically assisted ventilation, equal bilateral airway entree. Clear lung sounds on auscultation Abdomen: Soft, nontender, no organomegaly, normal bowel sounds MSK/skin: Mobilization of limbs cannot be evaluated. Skin is dry and warm. Neurological: Orientation cannot be assessed. No apparent motor no sensitive deficits. Pupils are isocoric and reactive Medications Current Medications Medications Dose Ordered Sig/Will Route Start Time Stop Time Status Last Admin Dose Admin Methylprednisolone Sodium Succinate 40 mg Q8HR IV 09/29/24 06:00 10/01/24 04:50 40 MG Famotidine 20 mg Q12HR IV 09/29/24 10:00 10/01/24 10:32 20 MG Vancomycin HCl 0 ml @ 0 mls/hr UD IV 09/29/24 01:00 Hydralazine HCl 10 mg Q6HP PRN IV 09/29/24 01:00 Levalbuterol HCl 0.625 mg Q6HR NEB 09/29/24 06:00 10/01/24 06:27 0.625 MG Acetaminophen/ Hydrocodone Bitart 1 tab Q4HP PRN PO 09/29/24 01:00 Ondansetron HCl 4 mg Q4HP PRN IV 09/29/24 01:00 Docusate Sodium 100 mg BIDPRN PRN PO 09/29/24 01:00 Acetaminophen 650 mg Q6HP PRN PO 09/29/24 01:00 Enoxaparin Sodium 100 mg DAILY SC 09/29/24 10:00 10/01/24 10:32 100 MG Midazolam HCl 50 ml @ 1 mls/hr Q24H IV 09/29/24 09:00 10/01/24 04:44 4 MLS/HR Fentanyl Citrate 250 ml @ 2.5 mls/hr Q24H IV 09/29/24 09:00 09/30/24 23:15 15 MLS/HR Ipratropium [place] 0.5 mg Q6HR NEB 09/29/24 12:00 10/01/24 06:27 0.5 MG Norepinephrine Bitartrate 250 ml @ 3.75 mls/hr Q24H IV 09/29/24 10:15 10/01/24 10:33 7.5 MLS/HR Propofol 100 ml @ 2.85 mls/hr Q24H IV 09/30/24 08:30 10/01/24 07:39 19.95 MLS/HR Bumetanide 25 mg/ Miscellaneous 100 ml @ 4 mls/hr Q24H IV 09/30/24 15:45 09/30/24 15:45 4 MLS/HR Enteral Nutritional Formula 1,000 ml 30ML/HR GT 09/30/24 20:00 09/30/24 22:17 1,000 ML Laboratory Results Laboratory Tests 10/01/24 03:12 Chemistry Test 10/01/24 03:12 Albumin 3.3 g/dL (3.2-4.8) Calcium Level 9.3 mg/dL (8.7-10.4) Magnesium Level 2.1 mg/dL (1.6-2.6) Total Protein 5.7 g/dL (5.7-8.2) LFT Test 10/01/24 03:12 Alanine Aminotransferase (ALT) 728 U/L (7-40) H Alkaline Phosphatase 73 U/L (46-116) Aspartate Amino Transferase (AST) 251 U/L (13-40) H Total Bilirubin 0.6 mg/dL (0.2-1.0) Urinalysis Test 09/29/24 02:50 Urine Color Light-yellow (Yellow) Urine Clarity Clear (Clear) Urine pH 5.5 (5.0-9.0) Urine Specific [place] 1.011 (1.001-1.035) Urine Protein Trace (Negative) H Urine Ketones Negative (Negative) Urine Blood 1+ /uL (Negative) H Urine Nitrite Negative (Negative) Urine Bilirubin Negative (Negative) Urine Urobilinogen Normal mg/dL (Negative) Urine Leukocyte Esterase Negative /uL (Negative) Urine RBC 1 /hpf (0 - 3) Urine Microscopic WBC 2 /HPF (0-3) Urine Squamous Epithelial Cells Few /hpf (<5) Urine Bacteria Few /hpf (None Seen) H Urine Hyaline Casts Few /lpf (0 - 2) Urine Mucus Few (None Seen) Urine Glucose Normal mg/dL (Normal) Blood Gas Results Test 10/01/24 06:55 Arterial Blood pH 7.283 (7.350-7.450) FiO2 % 60.0 Microbiology Microbiology Date/Time Source Procedure Growth Status 09/29/24 05:00 Urine - Catheterized Urine Culture - Preliminary Resulted 09/29/24 02:26 Sputum Gram Stain Pending Resulted 09/29/24 02:26 Sputum Respiratory Culture - Preliminary Resulted 09/29/24 00:54 Nose MRSA Screen - Final Complete 09/28/24 22:43 Blood Blood Culture - Preliminary NO GROWTH AFTER 48 HOURS OF INCUBATION. Resulted Labs and/or images reviewed: Labs reviewed by me, Image(s) reviewed by me Assessment/Plan Assessment/Plan 09/30 - . Patient is here for shortness of breath and respiratory failure requiring airway protection, patient intubated currently treating for pneumonia and IPF exacerbation with acute CHF exacerbation. BPH has been low with pCO2 I we have been increasing tidal volume and respiratory rate to achieve current ABG of 7.25/49/112. Currently IV antibiotics vanc meropenem. And lactic has been high. Currently on diuresis with Lasix. Also on Solu-Medrol 40 t.i.d.. CXR with improving airway aeration, decreasing opacities. Today AFib rate increased from 80s to 120s, converting amnio to IV. At maintenance rate. consult nephrology, decreasing uop. Lungs clear, no pitting edema, along with tachycardia and decreased urine output concern for dehydration. Echo with EF 55%, concentric LVH, moderate TR, moderate to severe pulmonary hypertension RVSP 51. We will try 500 cc bolus and consult Nephrology. Family at bedside updated on treatment and status, POA daughter conveys patient wishes DNR I, code status will be updated. 10/01 - making good urine nephrology on board giving fluids and diuretics to continue good urine output. Patient remains on amnio drip and Levophed drip. Continuing antibiotics and steroids. Appears that amnio drip is working is heart rate is now in 80s. We will repeat lactic. ABG appearing much improved. PH remains 7.2 despite pCO2 corrected to normal range. This is likely metabolic acidosis, likely from lactic acidosis. Patient is intubated and is DNR. Drips include propofol, fentanyl, Levophed, Versed, amiodarone, Bumex,. Patient has had 24 hours on amio IV, we will do another 24 hours and defer to primary team tomorrow. Likely can switch to p.o. amio tomorrow. Ventilated settings a.c./550/30/5.0/55%. He has transaminitis, REHAN, this is likely all shock liver/shock REHAN. We will get right upper quadrant ultrasound today, but improving picture as LFTs coming down little bit now. Spots CVP is 3, patient is likely euvolemic at this point; stop bumex gtt and start 75cchr continuous fluids (per nephro). NEURO: Acute metabolic encephalopathy, status post mechanical ventilation RASS score: -3 CARDIOVASCULAR: Possible acute on chronic diastolic heart failure Possible NSTEMI type 2 due to above Paroxysmal atrial fibrillation with secondary hypercoagulable state Status post pacemaker and CABG Coronary artery disease Hypertensive heart disease - CxR showed Interstitial pulmonary edema superimposed on diffuse pulmonary fibrosis and superimposed pneumonia difficult to exclude. - Pending echo - Lasix 40 mg IV once - Continue amiodarone 200 mg p.o. b.i.d. - Enoxaparin 100 mg sc daily PULMONARY: Acute on chronic hypoxic respiratory failure likely due to superimposed pneumonia on pulmonary fibrosis Idiopathic pulmonary fibrosis Possible community-acquired Gram-positive/Gram-negative pneumonia - CxR showed Interstitial pulmonary edema superimposed on diffuse pulmonary fibrosis and superimposed pneumonia difficult to exclude - IV vancomycin as per pharmacy and IV meropenem 1 gm Q8hr. - Pending high-resolution CT scan of the chest GENITOURINARY: REHAN on possible CKD likely hemodynamically mediated/VMN - 2 L IV bolus normal saline given as per sepsis protocol - Monitor BMP METABOLIC: Hyperkalemia likely due to REHAN Obesity type 1, BMI 30.9 kg/ m2 - Hyperkalemia protocol management HEME: Chronic normocytic anemia likely anemia due to chronic disease INFECTIOUS DISEASE: Possible Gram-positive/Gram-negative pneumonia Sepsis due to above Lactic acidosis and transaminitis due to sepsis - Pending blood culture, urinary bacterial culture and sputum culture - UA revealed normal study - IV vancomycin as per pharmacy and IV meropenem 1 gm Q8hr. DIET: NPO DVT prophylax: Enoxaparin GI prophylaxis: Protonix Bowel regimen: Code status: Full code LINES/DRAINS/ACCESS: ETT: Intubated on 09/28/24 IV access: Left subclavian central line placed on 09/28/2024 Drips: Propofol, fentanyl, Versed Lang catheter: Placed on 09/28/2024 DISPOSITION: ICU Plan discussed with: Other My Orders Orders - JANET SINGH MD Procedure Category Date Status Time Chest Portable XY 5/18/25 Resulted 04:00 Abdomen Limited US 10/01/24 Logged 11:24 Lactic Acid W/ Reflex LAB 10/01/24 Logged Order 11:29 Date of Service: October 01, 2024 Billing Provider: JANET SINGH MD Common Visit Codes: [id number] CARE 30-74 MIN JANET SINGH MD October 01, 2024 11:47
[2024-10-01] MEDS: SODIUM CHLORIDE 0.9% 1,000 ML IV ONE (12:24)
[2024-10-01] MEDS: BUMETANIDE INJECTION 25 MG in GIVE UN-DILUTED 0 ML IV SCH (12:25)
--- NOTE | 2024-10-01 15:30 | DVH ---
Technique: Real-time ultrasound imaging of the abdomen was performed with grayscale and color Doppler . Indication: LFTs high, REHAN Comparison: None Findings: Liver measures 15.1 cm. It is increased in echogenicity and echotexture without focal mass. Portal v ein is normal in caliber and demonstrates normal hepatopetal flow. Gallbladder demonstrates no evidence for cholelithiasis. There is no pericholecystic fluid. The wall thickness is normal. The common bile duct measures 5 mm. No intrahepatic biliary ductal dilatation. The right kidney measures 11.1 cm. The left kidney measures 10.3 cm. No hydronephrosis or sonographic evidence of nephrolithiasis. The bilateral kidneys are echogenic. The visualized portion of the pancreas is unremarkable. Spleen is not visualized. The visualized portion of the IVC is unremarkable. Impression: 1. Echogenic kidneys, which can be seen with medical renal disease. 2. No hydronephrosis. 3. Echogenic liver which can be seen with hepatic steatosis, cirrhosis.
--- NOTE | 2024-10-01 16:03 | DVH ---
Procedure: CT HI-RESOLUTION CHEST CT Reason for study/Clinical History: PULMONARY FIBROSIS S/P [facility] Comparison Study: CT CHEST WITHOUT CONTRAST on DOS: 01/21/24, CT CHEST WITHOUT CONTRAST on DOS: 09/27/23 TECHNIQUE: Multidetector CT of the chest was performed from the lung apices to the upper abdomen with out the use of intravenous contract. Axial, coronal and sagittal multiplanar reformats were performed . High-resolution CT chest protocol utilized. Radiation Dose Information: CT Dose: CTDI volume is 25.22 mGy. Dose-length product is 1164.78 mGy*cm The dose indicators for CT are the volume Computed Tomography (CT) Dose Index (CTDIvol) and the Dose Length Product (DLP), and are measured in units of mGy and mGy-cm, respectively. These indicators are not patient dose, but values generated from the CT scanner acquisition factors. The report includes radiation exposure data for exposures received during this examination. FINDINGS: Lower neck: Endotracheal tube in satisfactory position. Lungs: Redemonstration of changes of pulmonary fibrosis including bronchiectasis and honeycomb type c hanges most prominent throughout the left lung and in the bilateral lung bases. There is diffuse incr eased ground-glass attenuation throughout the lungs. Heart/Vascular Structures: Cardiomegaly. Coronary artery calcifications. Vascular calcifications of t he aorta. Lymph Nodes: No adenopathy Pleura: No pleural effusion or significant pneumothorax. Musculoskeletal: No acute osseous abnormality. Median sternotomy. Degenerative changes of the spine. Soft tissues: Left chest wall pacemaker. Upper abdomen: Enteric catheter in the stomach. IMPRESSION: Nonspecific diffuse ground-glass attenuation possibly representing a combination of pulmonary fibrosi s such as UIP or hypersensitivity pneumonitis with superimposed multifocal infection and/or fluid ov erload. Clinical correlation advised.
[2024-10-01] MEDS: SODIUM CHLORIDE 0.9% 1,000 ML IV SCH (18:07)
--- NOTE | 2024-10-01 22:59 | DVHPN2 ---
Progress Note - Dictate Date Seen: October 01, 2024 Medical Necessity Reason Pt with a Central, PICC or Fol: Yes The following are medically ne: Central Line, Lang Catheter Subjective Patient seen and examined at bedside. Sedated, intubated on mechanical ventilator. Overnight events reviewed. vital signs Vital Sign Date Time Temp Pulse Resp B/P (MAP) Pulse Ox O2 Delivery O2 Flow Rate FiO2 10/01/24 22:28 105/48 10/01/24 21:27 82 30 97 60 10/01/24 18:45 98.6 209.5 10/01/24 18:00 Mechanical Ventilator+ Total Intake and Output 09/30/24 09/30/24 10/01/24 15:00 23:00 07:00 Intake Total 536.40 ml 1349.88 ml 905.38 ml Output Total 350 ml 575 ml Balance 536.40 ml 999.88 ml 330.38 ml medications Current Medications Medications Dose Ordered Sig/Will Route Start Time Stop Time Status Last Admin Dose Admin Methylprednisolone Sodium Succinate 40 mg Q8HR IV 09/29/24 06:00 10/01/24 22:06 40 MG Famotidine 20 mg Q12HR IV 09/29/24 10:00 10/01/24 22:06 20 MG Vancomycin HCl 0 ml @ 0 mls/hr UD IV 09/29/24 01:00 Hydralazine HCl 10 mg Q6HP PRN IV 09/29/24 01:00 Levalbuterol HCl 0.625 mg Q6HR NEB 09/29/24 06:00 10/01/24 19:51 0.625 MG Acetaminophen/ Hydrocodone Bitart 1 tab Q4HP PRN PO 09/29/24 01:00 Ondansetron HCl 4 mg Q4HP PRN IV 09/29/24 01:00 Docusate Sodium 100 mg BIDPRN PRN PO 09/29/24 01:00 Acetaminophen 650 mg Q6HP PRN PO 09/29/24 01:00 Enoxaparin Sodium 100 mg DAILY SC 09/29/24 10:00 10/01/24 10:32 100 MG Midazolam HCl 50 ml @ 1 mls/hr Q24H IV 09/29/24 09:00 10/01/24 18:41 4 MLS/HR Fentanyl Citrate 250 ml @ 2.5 mls/hr Q24H IV 09/29/24 09:00 10/01/24 14:44 17.5 MLS/HR Ipratropium [place] 0.5 mg Q6HR NEB 09/29/24 12:00 10/01/24 19:51 0.5 MG Norepinephrine Bitartrate 250 ml @ 3.75 mls/hr Q24H IV 09/29/24 10:15 10/01/24 10:33 7.5 MLS/HR Propofol 100 ml @ 2.85 mls/hr Q24H IV 09/30/24 08:30 10/01/24 22:28 19.95 MLS/HR Enteral Nutritional Formula 1,000 ml 30ML/HR GT 09/30/24 20:00 10/01/24 22:07 1,000 ML Sodium Chloride 1,000 ml @ 75 mls/hr [id number] IV 10/01/24 17:45 10/01/24 22:27 75 MLS/HR objective Gen.: Patient lying in bed in medical ICU. Sedated, intubated on mechanical ventilator. Head: Normocephalic, atraumatic. Eyes: PERRLA. Ears: Normal external anatomy. Throat: Endotracheal tube and orogastric tube in place. Neck: Supple, trachea midline. Chest: Transmitted breath sounds bilaterally. Decreased air entry bilaterally. No wheezing. Bibasilar crackles. Cardiovascular: Positive S1, positive S2. Regular rate and rhythm. Abdomen: Positive bowel sounds in all 4 quadrants. Soft, nontender, nondistended. : Lang in place. Normal external genitalia. Rectal: Deferred. Skin: Warm, dry. Intact. Extremities: 2+ radial pulses bilaterally. No lower extremity edema. Neuro: Sedated. laboratory and microbiology Laboratory Tests 10/01/24 03:12 Test 10/01/24 03:12 Range/Units Serum Glucose 129 H 74-106 mg/dL Assessment/Plan Impression: Acute hypoxic respiratory failure On mechanical ventilator Pulmonary fibrosis Hypertensive urgency Pneumonia Sepsis Generalized weakness Pulmonary vascular congestion Events: Remains on vent support On AC mode; RR 30, VT 550, PEEP 5, FiO2 70-->50% Improved FiO2 requirements CT chest reviewed; demonstrates nonspecific diffuse ground-glass attenuation, possibly representing a combination of pulmonary fibrosis such as UIP or hypersensitivity pneumonitis with superimposed multifocal infection and/or fluid overload. Plan to obtain HRCT chest. Sedated on Propofol, Versed, Fentanyl On pressors for hemodynamic support On Levophed 4 mcg/min Titrate to keep mean arterial pressure greater than 65 mmHg. On amiodarone drip. Bumex for diuresis Monitor renal function - Cr of 4.6 Monitor electrolytes. Supplement as necessary. Monitor ins and outs. Nephrology recs appreciated ABG reviewed, notable for acidemia Labs and imaging reviewed. Rest of plan as noted below. Plan: s/p intubation on mechanical ventilator. On AC mode; RR 30, VT 550, PEEP 5, FiO2 50% Titrate FIO2 to keep O2 saturation above 90%. VAP bundle. Daily ABG and CXR while intubated Sedate for ventilator synchrony - Versed/Propofol/Fentanyl Continue bronchodilators. IV steroids Continue antibiotics. Amio drip On Lovenox Tube feeds for nutritional support On pressors for hemodynamic support Titrate to keep mean arterial pressure greater than 65 mmHg. Monitor renal function Monitor electrolytes. Supplement as necessary. Monitor ins and outs. Maintain euvolemia. GI prophylaxis. DVT prophylaxis. Prognosis: Poor given patient's multiple co-morbidities. Condition: Critical Rest of plan per hospitalist and other consultants. A total of 35 minutes of critical care time was spent reviewing the patient record, examining the patient, making a diagnostic and therapeutic plan, discussing this plan with the medical personnel, following up on diagnostic studies and following the patient for clinical stability excluding any and all procedures. At least 50% of this time was spent in direct, [id number] contact. Thank you Dr. Martínez, for allowing me to participate in this patient's care. Further recommendations will depend on the patient's clinical course. Please do not hesitate to contact me if you have any questions or concerns. This medical document was created using an electronic medical record system with [employer] system. Although these documentations are being carefully reviewed, there may still be some phonetic and typographical changes. The errors are purely typographical, due to imperfection on the software program, and do not reflect any compromise in the patient's medical care. Dietary Evaluation Review Recommendations by RD: Dietary education by RD Comments: 1) If patient remains NPO > 7 days, consider EN/TPN to meet at least 75% estimated daily needs. Note, current Propofol regimen @ 19.95 mL provides additional 527 kcals per 24 hrs. 2) Continue to monitor kidney function to determine REHAN on CKD status. GFR has dropped from 52 to 17 b/w 09/28-. If gut is preferred, formularly will be chosen based on renal labs 3) Advance to renal standard diet (if labs have not improved) or cardiac diet (if renal labs have improved) when medically feasible, pending [employer] aapproval. 3) Refer to outpatient RD for weight management 4) Follow-up with nephrology, cardiology, and pulmonology 5) Continue to monitor I&O, labs, and skin integrity Expected Outcomes/Goals: 1) patient to receive nutrition support beyond Propofol within 7 days of NPO status 2) skin integrity and labs to improve 3) diet to advance 4) f/u in 2-3 days Plan discussed with: Other (TIM Foster) Critical Care Time(min): 35 ZULEYMA LACEY MD October 01, 2024 22:59
[2024-10-02] VITALS (89 sets, daily range): BP systolic 83–129; BP diastolic 37–65; PULSE 70–118; RESP 0–30; TEMP 97.3–99.1; O2SAT 89–99
[2024-10-02 04:09] LABS: Eosinophils # (auto) 0 10 ^3/uL (0-0.8); Mean Corpuscular Hemoglobin 26.9 pg (28.0-32.0); Mean Corpuscular Hgb Conc. 32.2 g/dL (32.0-36.0); Monocytes # (auto) 0.5 10 ^3/uL (0-1.3); Neutrophils # (auto) 15.6 10 ^3/uL (1.6-8.6); White Blood Cell 16.3 10^3/uL (4.4-10.8)
[2024-10-02 04:12] LABS: Basophils # (auto) 0.1 10 ^3/uL (0-0.2); Basophils % (auto) 0.3 % (0.0-2.0); Hematocrit 26.8 % (41.0-53.0); Hemoglobin 8.6 g/dL (13.5-17.5); Lymphocytes # (auto) 0.1 10 ^3/uL (0.4-5.4); Lymphocytes % (auto) 0.8 % (10.0-50.0); Mean Corpuscular Volume 83.3 fL (80.0-100.0); Neutrophils % (auto) 95.9 % (37.0-80.0); Nucleated Red Blood Cells % 0.3 %; Platelet Count (auto) 218 10^3/uL (140-450); Red Blood Cells 3.21 10^6/uL (4.5-5.90); Red Cell Distribution Width 18.1 % (11.8-14.3)
[2024-10-02] MEDS: methylPREDNISolone SOD SUCC 40 MG/ML VL IV SCH (08:30)
[2024-10-02 08:35] LABS: Base Excess -8.8 mmol/L (-2.0-3.0)
[2024-10-02 09:08] LABS: Alkaline Phosphatase 71 U/L (46-116); Anion Gap 16 (5-15); BUN/Creatinine Ratio 12.4 (10.0-20.0); Calcium 9.4 mg/dL (8.7-10.4); Chloride 106 mmol/L (98-107); Potassium 4.9 mmol/L (3.5-5.1); Sodium 141 mmol/L (136-145)
[2024-10-02 09:09] LABS: Alanine Aminotransferase 552 U/L (7-40); Albumin 3.2 g/dL (3.2-4.8); Aspartate Aminotransferase 138 U/L (13-40); Bilirubin, Total 0.5 mg/dL (0.2-1.0); Blood Urea Nitrogen 69 mg/dL (9-23); Carbon Dioxide 19 mmol/L (20-31); Glucose 116 mg/dL (74-106); Total Protein 5.6 g/dL (5.7-8.2)
[2024-10-02] MEDS: PANTOPRAZOLE 40 MG/10 ML VIAL INJ IV SCH (09:44)
--- NOTE | 2024-10-02 10:17 | DVH ---
INDICATION: on mechamical ventilation TECHNIQUE: Single frontal view of the chest was obtained COMPARISON: XY CHEST PORTABLE on DOS: 10/01/24, XY CHEST PORTABLE on DOS: 09/30/24, XY CHEST XRAY 1 VIE W on DOS: 09/29/24, XY CHEST PORTABLE on DOS: 09/29/24, XY CHEST PORTABLE on DOS: 09/28/24, XY CHEST POR TABLE on DOS: 10/01/24 FINDINGS: Heart appears prominent size. Endotracheal tube tip in satisfactory position approximately 3 cm from the ruth. Diffuse interstitial airspace opacities appear similar. No sizable effusion or pneumotho rax. Multi lead left cardiac device median sternotomy wires are present. IMPRESSION: No interval change.
--- NOTE | 2024-10-02 11:34 | DVHPN2 ---
Progress Note Date Seen: October 02, 2024 Medical Necessity Reason Pt with a Central, PICC or Fol: Yes The following are medically ne: Central Line, Lang Catheter Subjective Review of Systems: RESPIRATORY:Abnormal (Patient seen and examined by myself) Other Systems: Patient seen and examined by myself today in follow-up, patient remained intubated on ventilator Daughter at the bedside Objective vital signs Vital Sign Date Time Temp Pulse Resp B/P (MAP) Pulse Ox O2 Delivery O2 Flow Rate FiO2 10/02/24 10:45 99.0 106 30 95/62 (73) 92 210.2 10/02/24 10:21 60 10/02/24 10:00 Mechanical Ventilator+ Total Intake and Output 10/01/24 10/01/24 10/02/24 15:00 23:00 07:00 Intake Total 701.38 ml 976.88 ml 1316.68 ml Output Total 250 ml Balance 701.38 ml 976.88 ml 1066.68 ml medications Current Medications Medications Dose Ordered Sig/Will Route Start Time Stop Time Status Last Admin Dose Admin Vancomycin HCl 0 ml @ 0 mls/hr UD IV 09/29/24 01:00 Hydralazine HCl 10 mg Q6HP PRN IV 09/29/24 01:00 Levalbuterol HCl 0.625 mg Q6HR NEB 09/29/24 06:00 10/02/24 06:44 0.625 MG Acetaminophen/ Hydrocodone Bitart 1 tab Q4HP PRN PO 09/29/24 01:00 Ondansetron HCl 4 mg Q4HP PRN IV 09/29/24 01:00 Docusate Sodium 100 mg BIDPRN PRN PO 09/29/24 01:00 Acetaminophen 650 mg Q6HP PRN PO 09/29/24 01:00 Enoxaparin Sodium 100 mg DAILY SC 09/29/24 10:00 10/02/24 09:46 100 MG Midazolam HCl 50 ml @ 1 mls/hr Q24H IV 09/29/24 09:00 10/02/24 09:50 5 MLS/HR Fentanyl Citrate 250 ml @ 2.5 mls/hr Q24H IV 09/29/24 09:00 10/02/24 05:09 17.5 MLS/HR Ipratropium [place] 0.5 mg Q6HR NEB 09/29/24 12:00 10/02/24 06:44 0.5 MG Norepinephrine Bitartrate 250 ml @ 3.75 mls/hr Q24H IV 09/29/24 10:15 10/01/24 10:33 7.5 MLS/HR Propofol 100 ml @ 2.85 mls/hr Q24H IV 09/30/24 08:30 10/02/24 03:41 14.25 MLS/HR Enteral Nutritional Formula 1,000 ml 30ML/HR GT 09/30/24 20:00 10/01/24 22:07 1,000 ML Sodium Chloride 1,000 ml @ 75 mls/hr [id number] IV 10/01/24 17:45 10/01/24 22:27 75 MLS/HR Methylprednisolone Sodium Succinate 40 mg BID IV 10/02/24 08:30 10/02/24 09:45 40 MG Pantoprazole Sodium 40 mg DAILY IV 10/02/24 10:00 10/02/24 09:44 40 MG Lactulose 30 ml BID PO 10/02/24 10:00 Examination: LUNGS:Normal, CVS:Normal, MSK:Normal laboratory and microbiology Laboratory Tests 10/02/24 03:39 Test 10/02/24 03:39 Range/Units Serum Glucose 116 H 74-106 mg/dL Microbiology Date/Time Source Procedure Growth Status 09/29/24 05:00 Urine - Catheterized Urine Culture - Final Complete 09/29/24 02:26 Sputum Gram Stain - Final Complete 09/29/24 02:26 Sputum Respiratory Culture - Final Complete 09/29/24 00:54 Nose MRSA Screen - Final Complete 09/28/24 22:43 Blood Blood Culture - Preliminary NO GROWTH AFTER 72 HOURS OF INCUBATION. Resulted Problem List/Assessment/Plan Problem List/Assessment/Plan Acute kidney injury likely ATN in the setting of shock, oliguric Acute on chronic hypoxic respiratory failure-, patient intubated on ventilator Pulmonary fibrosis History of COVID pneumonia Septic shock Baseline Chronic kidney disease 3A Metabolic acidosis Anemia of chronic kidney disease Recommendation I discussed risk and benefit hemodialysis with the patient's daughter at the bedside Consents for Pablo catheter and hemodialysis Hemodialysis after catheter placement Epogen 90603 subQ Q 3 times weekly Lang catheter Strict I&Os Check urinary electrolytes We will continue to follow Plan discussed with: Daughter, Other (Nurse) Dietary Evaluation Review Recommendations by RD: Dietary education by RD Comments: 1) If patient remains NPO > 7 days, consider EN/TPN to meet at least 75% estimated daily needs. Note, current Propofol regimen @ 19.95 mL provides additional 527 kcals per 24 hrs. 2) Continue to monitor kidney function to determine REHAN on CKD status. GFR has dropped from 52 to 17 b/w 09/28-. If gut is preferred, formularly will be chosen based on renal labs 3) Advance to renal standard diet (if labs have not improved) or cardiac diet (if renal labs have improved) when medically feasible, pending [employer] aapproval. 3) Refer to outpatient RD for weight management 4) Follow-up with nephrology, cardiology, and pulmonology 5) Continue to monitor I&O, labs, and skin integrity Expected Outcomes/Goals: 1) patient to receive nutrition support beyond Propofol within 7 days of NPO status 2) skin integrity and labs to improve 3) diet to advance 4) f/u in 2-3 days RONAL STAPLES MD October 02, 2024 11:33
[2024-10-02] MEDS: LACTULOSE 20Gm/30ML SOLN PO SCH (11:56)
[2024-10-02 12:34] LABS: Urine Amorphous Crystal FEW /hpf (None Seen); Urine Bacteria FEW /hpf (None Seen); Urine Blood 1+ /uL (Negative); Urine Clarity Clear (Clear); Urine Color Light-Yellow (Yellow); Urine Hyaline Cast FEW /lpf (0 - 2); Urine Mucus FEW (None Seen); Urine Protein, UAD TRACE (Negative); Urine Specific Gravity 1.013 (1.001-1.035); Urine Squamous Epithelial Cell FEW /hpf (<5); Urine Urobilinogen Normal (Negative); Urine WBC 2 /HPF (0-3)
[2024-10-02] MEDS ORDERED: LORazepam 2MG/ML-1ML VIAL IV PRN (18:30)
[2024-10-02] MEDS ORDERED: MORPHINE SULFATE INJ 2 MG/ml SYRG IV PRN (18:30)
[2024-10-02] MEDS ORDERED: HYDROmorphone HCL 2 MG/ML VL/or syr IV PRN (18:30)
--- NOTE | 2024-10-02 20:11 | DVHPNRES ---
Progress Note Date Seen: October 02, 2024 Resident Creating Document: ERIN LOPEZ RESIDENT Medical Necessity Reason Pt with a Central, PICC or Fol: Yes The following are medically ne: Central Line, Lang Catheter Subjective Review of Systems This is a 79-year-old male with past medical history of pulmonary fibrosis on 4 L home oxygen, AFib, history of colon cancer, prostate cancer, CHF, hypertension, hyperlipidemia, S/P pacemaker, CABG presented to the ED with a complaint of shortness of breath. According to the caregiver the patient was complaining of shortness of breath ,fatigue and weakness for last couple of days and he was really short of breath after few steps and need to increase more oxygen in last 3 months. In the ED he has been having cough, increased work of breathing, saturating 75% at 3 L/min, patient was placed on non-rebreather and eventually deteriorated on BiPAP at 88% and subsequently intubated. Patient was admitted recently in the hospital in July 2024 with a complaint of shortness of breath and later was treated for possible community-acquired pneumonia . Family denied fever, chills, productive cough, hemoptysis, any recent change in weight, altered bowel habit, positive sick contact or any recent traveling. PMH: Pulmonary fibrosis on 4 L home oxygen, AFib, history of colon cancer, prostate cancer, CHF, hypertension, hyperlipidemia. PSH: S/P pacemaker, CABG Social history: Lives alone and has caregiver and nonsmoker, remote history of IV drug abuse Medications: Amiodarone 400 mg daily, metoprolol succinate 50 mg b.i.d., lisinopril 5 mg daily, Xarelto 10 mg daily, budesonide formoterol fumarate inhaler, ipratropium albuterol. Patient was seen and examined on the bedside. He is on mechanical ventilation with FiO2 60%, tidal volume 550 mL, RR 30 and PEEP 5 Despite optimal medical treatment the patient's response to treatment was minimal and family change the code status to DNR/DNI. Family especially the daughter who is the POA decided terminal weaning after speaking with other family members and the patient was terminally weaned, extubated at 19:45 PM on 0 10/02/24 Objective vital signs Vital Sign Date Time Temp Pulse Resp B/P (MAP) Pulse Ox O2 Delivery O2 Flow Rate FiO2 10/02/24 18:15 98.6 109 30 112/57 (04) 45 209.5 10/02/24 18:00 Mechanical Ventilator+ 70 70 Total Intake and Output 10/01/24 10/01/24 10/02/24 15:00 23:00 07:00 Intake Total 701.38 ml 976.88 ml 1316.68 ml Output Total 250 ml Balance 701.38 ml 976.88 ml 1066.68 ml medications Current Medications Medications Dose Ordered Sig/Will Route Start Time Stop Time Status Last Admin Dose Admin Vancomycin HCl 0 ml @ 0 mls/hr UD IV 09/29/24 01:00 Hydralazine HCl 10 mg Q6HP PRN IV 09/29/24 01:00 Acetaminophen/ Hydrocodone Bitart 1 tab Q4HP PRN PO 09/29/24 01:00 Ondansetron HCl 4 mg Q4HP PRN IV 09/29/24 01:00 Docusate Sodium 100 mg BIDPRN PRN PO 09/29/24 01:00 Acetaminophen 650 mg Q6HP PRN PO 09/29/24 01:00 Enoxaparin Sodium 100 mg DAILY SC 09/29/24 10:00 10/02/24 09:46 100 MG Midazolam HCl 50 ml @ 1 mls/hr Q24H IV 09/29/24 09:00 10/02/24 09:50 5 MLS/HR Fentanyl Citrate 250 ml @ 2.5 mls/hr Q24H IV 09/29/24 09:00 10/02/24 15:45 22.5 MLS/HR Norepinephrine Bitartrate 250 ml @ 3.75 mls/hr Q24H IV 09/29/24 10:15 10/02/24 16:52 7.5 MLS/HR Propofol 100 ml @ 2.85 mls/hr Q24H IV 09/30/24 08:30 10/02/24 03:41 14.25 MLS/HR Enteral Nutritional Formula 1,000 ml 30ML/HR GT 09/30/24 20:00 10/01/24 22:07 1,000 ML Methylprednisolone Sodium Succinate 40 mg BID IV 10/02/24 08:30 10/02/24 09:45 40 MG Pantoprazole Sodium 40 mg DAILY IV 10/02/24 10:00 10/02/24 09:44 40 MG Lactulose 30 ml BID PO 10/02/24 10:00 10/02/24 11:56 30 ML Morphine Sulfate 1 mg Q1HP PRN IV 10/02/24 18:30 UNV Hydromorphone HCl 0.5 mg Q1HP PRN IV 10/02/24 18:30 UNV Lorazepam 1 mg Q1HP PRN IV 10/02/24 18:30 UNV Examination Physical exam: General: RASS -3, afebrile, mucosae are moist Cardiovascular: Normal S1 and S2 and bilateral coarse crackles. No murmurs, gallops or rubs Respiratory: Mechanically assisted ventilation, equal bilateral airway entree. Clear lung sounds on auscultation Abdomen: Soft, nontender, no organomegaly, normal bowel sounds MSK/skin: Mobilization of limbs cannot be evaluated. Skin is dry and warm. Neurological: Orientation cannot be assessed. No apparent motor no sensitive deficits. Pupils are isocoric and reactive laboratory and microbiology Laboratory Tests 10/02/24 03:39 Test 10/02/24 03:39 Range/Units Serum Glucose 116 H 74-106 mg/dL Microbiology Date/Time Source Procedure Growth Status 09/29/24 05:00 Urine - Catheterized Urine Culture - Final Complete 09/29/24 02:26 Sputum Gram Stain - Final Complete 09/29/24 02:26 Sputum Respiratory Culture - Final Complete 09/29/24 00:54 Nose MRSA Screen - Final Complete 09/28/24 22:43 Blood Blood Culture - Preliminary NO GROWTH AFTER 72 HOURS OF INCUBATION. Resulted Labs and/or images reviewed: Labs reviewed by me, Image(s) reviewed by me Problem List/Assessment/Plan Problem List/Assessment/Plan Assessment and plan: NEURO: Acute metabolic encephalopathy, status post mechanical ventilation RASS score: -3 CARDIOVASCULAR: Possible acute on chronic diastolic heart failure Possible NSTEMI type 2 due to above Paroxysmal atrial fibrillation with secondary hypercoagulable state Status post pacemaker and CABG Coronary artery disease Hypertensive heart disease - CxR showed Interstitial pulmonary edema superimposed on diffuse pulmonary fibrosis and superimposed pneumonia difficult to exclude. - echo showed Left ventricular function is preserved at 55% with normal RV function. - CVP 3 - Continue amiodarone 200 mg p.o. b.i.d. - Enoxaparin 100 mg sc daily PULMONARY: Acute on chronic hypoxic respiratory failure likely due to superimposed pneumonia on pulmonary fibrosis Idiopathic pulmonary fibrosis Possible community-acquired Gram-positive/Gram-negative pneumonia - CxR showed Interstitial pulmonary edema superimposed on diffuse pulmonary fibrosis and superimposed pneumonia difficult to exclude - IV vancomycin as per pharmacy and IV meropenem 1 gm Q8hr. - High resolution CT chest showed nonspecific diffuse ground-glass attenuation possibly representing a combination of pulmonary fibrosis such as UIP or hypersensitivity pneumonitis with superimposed multifocal infection/fluid overload GENITOURINARY: REHAN on possible CKD likely hemodynamically mediated/VMN - 2 L IV bolus normal saline given as per sepsis protocol - Minimum urine output and BUN and creatinine is going up - Nephrology on board - Monitor BMP METABOLIC: Hyperkalemia likely due to REHAN Obesity type 1, BMI 30.9 kg/ m2 - Hyperkalemia protocol management HEME: Chronic normocytic anemia likely anemia due to chronic disease INFECTIOUS DISEASE: Possible Gram-positive/Gram-negative pneumonia Sepsis due to above Lactic acidosis and transaminitis due to sepsis - Pending blood culture, urinary bacterial culture and sputum culture - UA revealed normal study - IV vancomycin as per pharmacy and IV meropenem 1 gm Q8hr. Despite optimal medical treatment the patient's response to treatment was m inimal and family change the code status to DNR/DNI. Family especially the daughter who is the POA decided terminal weaning after speaking with other family members and the patient was terminally weaned, extubated at 19:45 PM on 0 10/02/24 DIET: NPO DVT prophylax: Enoxaparin GI prophylaxis: Protonix Bowel regimen: Code status: DNR LINES/DRAINS/ACCESS: ETT: Intubated on 09/28/24 IV access: Left subclavian central line placed on 09/28/2024 Drips: Propofol, fentanyl, Versed Lang catheter: Placed on 09/28/2024 DISPOSITION: ICU Patient's status discussed with caregiver, sister, daughter Critical care time spent more than 81 minutes, including patient care, chart review, and updating the family. Excluding any procedures. Case discussed with Plan discussed with: Other (Daughter, RN) My Orders My Orders Orders - ERIN LOPEZ RESIDENT Procedure Category Date Status Time Chest Portable XY 10/02/24 Resulted 08:13 Methylprednisolone PHA 10/02/24 In Process Sod Succ (Solu Medrol 08:30 Pantoprazole PHA 10/02/24 In Process (Protonix) 10:00 Lactulose Oral PHA 10/02/24 In Process 10:00 Communication Order ORDERS 10/02/24 Transmitted 09:23 Electrocardigram EKG 10/02/24 Logged 15:35 Code Status CODE 10/02/24 Transmitted 17:54 Rt To Terminal Wean Pt ORDERS 10/02/24 Transmitted 18:46 Dietary Evaluation Review Recommendations by RD: Dietary education by RD Comments: 1) If patient remains NPO > 7 days, consider EN/TPN to meet at least 75% estimated daily needs. Note, current Propofol regimen @ 19.95 mL provides additional 527 kcals per 24 hrs. 2) Continue to monitor kidney function to determine REHAN on CKD status. GFR has dropped from 52 to 17 b/w 09/28-. If gut is preferred, formularly will be chosen based on renal labs 3) Advance to renal standard diet (if labs have not improved) or cardiac diet (if renal labs have improved) when medically feasible, pending [employer] aapproval. 3) Refer to outpatient RD for weight management 4) Follow-up with nephrology, cardiology, and pulmonology 5) Continue to monitor I&O, labs, and skin integrity Expected Outcomes/Goals: 1) patient to receive nutrition support beyond Propofol within 7 days of NPO status 2) skin integrity and labs to improve 3) diet to advance 4) f/u in 2-3 days Date of Service: October 02, 2024 Billing Provider: MAYELA GUILLORY MD Common Visit Codes: 92320-[id number] CARE 30-74 MIN, 20729-[id number] CARE-EACH +30MIN ERIN LOPEZ RESIDENT October 02, 2024 20:11 MAYELA GUILLORY MD October 03, 2024 14:12
--- NOTE | 2024-10-03 06:19 | DVHDS2 ---
Summary Date of Admission September 29, 2024 at 01:37 Date and Time of Expiration: October 02, 2024 20:20 Reason for Admission: Acute metabolic encephalopathy Acute on chronic hypoxic respiratory failure likely due to superimposed pneumonia on pulmonary fibrosis Wounds: No open wound was present. Labs/Diagnostic Data: Laboratory Results Test 10/02/24 11:40 10/02/24 08:04 10/02/24 03:39 10/01/24 11:53 Urine Color Light-yellow (Yellow) Urine Clarity Clear (Clear) Urine pH 5.0 (5.0-9.0) Urine Specific [place] 1.013 (1.001-1.035) Urine Protein Trace (Negative) Urine Ketones Negative (Negative) Urine Blood 1+ /uL (Negative) Urine Nitrite Negative (Negative) Urine Bilirubin Negative (Negative) Urine Urobilinogen Normal mg/dL (Negative) Urine Leukocyte Esterase Negative /uL (Negative) Urine RBC 1 /hpf (0 - 3) Urine Microscopic WBC 2 /HPF (0-3) Urine Squamous Epithelial Cells Few /hpf (<5) Urine Amorphous Crystals Few /hpf (None Seen) Urine Bacteria Few /hpf (None Seen) Urine Hyaline Casts Few /lpf (0 - 2) Urine Mucus Few (None Seen) Urine Glucose Normal mg/dL (Normal) Blood Gas Specimen Type Arterial Blood Gas Sample Site Right radial Blood Gas Patient Temperature 37.0 Arterial Blood Date Drawn [id number] Arterial Blood pH 7.225 (7.350-7.450) Arterial Blood Partial Pressure CO2 45.3 mmHg (35.0-48.0) Arterial Blood Partial Pressure O2 80.2 mmHg (83.0-108.0) Arterial Blood HCO3 18.3 mmol/L (21.0-28.0) Arterial Blood Oxygen Saturation 92.9 % (94.0-98.0) Arterial Blood Base Excess -8.8 mmol/L (-2.0-3.0) Arterial Blood Oxyhemoglobin 91.6 % (94.0-98.0) Arterial Blood Carboxyhemoglobin 1.0 % (0.5-1.5) Arterial Blood Methemoglobin 0.4 % (0.0-1.5) Blas Test Modified Blood Gas Total Hemoglobin 9.30 g/dL (13.5-17.5) Blood Gas Set Respiration Rate 30.0 Blood Gas Modality Vent - ac FiO2 % 60.0 Blood Gas Tidal Volume 550.0 Blood Gas PEEP or CPAP 5.0 Blood Gas Critical Value Read Back Yes Blood Gas Notified Whom ken Champion Blood Gas Notified Time [id number] Blood Gas Notified By Liquid [employer]il[employer] Servicer clem baumann White Blood Count 16.3 10^3/uL (4.4-10.8) Red Blood Count 3.21 10^6/uL (4.5-5.90) Hemoglobin 8.6 g/dL (13.5-17.5) Hematocrit 26.8 % (41.0-53.0) Mean Corpuscular Volume 83.3 fL (80.0-100.0) Mean Corpuscular Hemoglobin 26.9 pg (28.0-32.0) Mean Corpuscular Hemoglobin Concent 32.2 g/dL (32.0-36.0) Red Cell Distribution Width 18.1 % (11.8-14.3) Platelet Count 218 10^3/uL (140-450) Mean Platelet Volume 8.9 fL (6.9-10.8) Neutrophils (%) (Auto) 95.9 % (37.0-80.0) Lymphocytes (%) (Auto) 0.8 % (10.0-50.0) Monocytes (%) (Auto) 3.0 % (0.0-12.0) Eosinophils (%) (Auto) 0.0 % (0.0-7.0) Basophils (%) (Auto) 0.3 % (0.0-2.0) Neutrophils # (Auto) 15.6 10 ^3/uL (1.6-8.6) Lymphocytes # (Auto) 0.1 10 ^3/uL (0.4-5.4) Monocytes # (Auto) 0.5 10 ^3/uL (0-1.3) Eosinophils # (Auto) 0 10 ^3/uL (0-0.8) Basophils # (Auto) 0.1 10 ^3/uL (0-0.2) Nucleated Red Blood Cells 0.3 % Sodium Level 141 mmol/L (136-145) Potassium Level 4.9 mmol/L (3.5-5.1) Chloride Level 106 mmol/L (98-107) Carbon Dioxide Level 19 mmol/L (20-31) Anion Gap 16 (5-15) Blood Urea Nitrogen 69 mg/dL (9-23) Creatinine 5.56 mg/dL (0.700-1.30) Glomerular Filtration Rate Calc 10 mL/min (>90) BUN/Creatinine Ratio 12.4 (10.0-20.0) Serum Glucose 116 mg/dL (74-106) Calcium Level 9.4 mg/dL (8.7-10.4) Total Bilirubin 0.5 mg/dL (0.2-1.0) Aspartate Amino Transferase (AST) 138 U/L (13-40) Alanine Aminotransferase (ALT) 552 U/L (7-40) Alkaline Phosphatase 71 U/L (46-116) Total Protein 5.6 g/dL (5.7-8.2) Albumin 3.2 g/dL (3.2-4.8) Random Vancomycin Level 17.7 ug/mL (5-10) Lactic Acid Level 1.1 mmol/L (0.4-2.0) Test 10/01/24 03:12 09/30/24 03:00 09/29/24 16:22 09/29/24 10:58 Magnesium Level 2.1 mg/dL (1.6-2.6) Differential Total Cells Counted 100.0 (100) Neutrophils % (Manual) 96 (37.0-80.0) Band Neutrophils % (Manual) 0 Lymphocytes % (Manual) 3 (10.0-50.0) Monocytes % (Manual) 1 (0-12) Eosinophils % (Manual) 0 (0-7) Basophils % (Manual) 0 (0.0-2.0) Metamyelocytes % (manual) 0 Myelocytes % (Manual) 0 Promyelocytes % (Manual) 0 Blast Cells % (Manual) 0 Reactive Lymphocytes 0 Platelet Estimate Adequate Poikilocytosis (manual) Macrocytosis Slight Ovalocytes Few [place] Cells Few POC Glucose 177 mg/dl (70-106) C-Reactive Protein High Sensitivity 10.80 mg/dL (<1.0) Test 09/29/24 09:50 09/29/24 09:26 09/29/24 09:23 09/29/24 07:30 Influenza Type A Antigen Negative (Negative) Influenza Type B Antigen Negative (Negative) SARS-CoV-2 Antigen (Rapid) Negative (NEGATIVE) Prothrombin Time 12.5 sec (9.3-11.8) Prothrombin Time INR 1.20 (0.9-1.15) Activated Partial Thromboplast Time 26.9 SEC (24.5-34.5) Blood Gas Spontaneous Rate 28 Phosphorus Level 7.7 mg/dL (2.4-5.1) Triglycerides Level 90 mg/dL (< 150) Cholesterol Level 178 mg/dL (< 200) LDL Cholesterol 117 mg/dL (< 100) HDL Cholesterol 42 mg/dL (40-59) Lipase 35 U/L (12-53) Thyroid Stimulating Hormone (TSH) 6.79 uIU/mL (0.55-4.78) Test 09/29/24 05:54 09/29/24 02:50 09/28/24 23:45 09/28/24 23:13 Hemoglobin A1c 5.0 % A1C (<5.7) Vitamin B12 Level 3267 pg/mL (211-911) Vitamin D 25-Hydroxy 47.1 ng/mL (30.0-100) Urine Opiates Screen Neg (NEGATIVE) Urine Fentanyl Screen Neg (NEGATIVE) Urine Barbiturates Screen Neg (NEGATIVE) Urine Phencyclidine Screen Neg (NEGATIVE) Urine Amphetamines Screen Neg (NEGATIVE) Urine Benzodiazepines Screen Neg (NEGATIVE) Urine Cocaine Screen Neg (NEGATIVE) Urine Cannabinoids Screen Neg (NEGATIVE) Troponin I High Sensitivity 83 ng/L (</=54) Venous Blood pH 7.333 (7.320-7.430) Venous Blood pCO2 at Patient Temp 52.1 mmHg (38.0-54.0) Venous Blood pO2 at Patient Temp < 36.5 mmHg (23.0-48.0) Venous Blood HCO3 27.0 mmol/L (22.0-29.0) Venous Bld O2 Saturation (Measured) 15.0 % (60.0-85.0) Venous Blood Base Excess 0.5 mmol/L (-2.0-3.0) Venous Blood Total Hemoglobin 11.8 g/dL (13.5-17.5) Venous Blood Oxyhemoglobin 14.7 % (0.0-79.0) Venous Blood Carboxyhemoglobin 0.1 % (0.5-1.5) Venous Blood Methemoglobin 1.8 % (0.0-1.5) Blood Gas EPAP 5 Blood Gas IPAP 12 Test 09/28/24 22:43 B-Type Natriuretic Peptide 88.77 pg/mL (0-100) Other Laboratory Tests 10/02/24 03:39 Brief Hx & Hospital Course: This is a 79-year-old male with past medical history of pulmonary fibrosis on 4 L home oxygen, AFib, history of colon cancer, prostate cancer, CHF, hypertension, hyperlipidemia, S/P pacemaker, CABG presented to the ED with a complaint of shortness of breath. According to the caregiver the patient was complaining of shortness of breath ,fatigue and weakness for last couple of days and he was really short of breath after few steps and need to increase more oxygen in last 3 months. In the ED he has been having cough, increased work of breathing, saturating 75% at 3 L/min, patient was placed on non-rebreather and eventually deteriorated on BiPAP at 88% and subsequently intubated. Patient was admitted recently in the hospital in July 2024 with a complaint of shortness of breath and later was treated for possible community-acquired pneumonia . Family denied fever, chills, productive cough, hemoptysis, any recent change in weight, altered bowel habit, positive sick contact or any recent traveling. Hospital course: Initially Patient was presented with acute metabolic/hypercapnic encephalopathy likely secondary to acute on chronic hypoxic/hypercapnic respiratory failure due to superimposed pneumonia on pulmonary fibrosis and sepsis likely due to pneumonia.. Patient underwent endotracheal Intubation and on mechanical ventilation on 09/29/24. He was on high ventilatory requirement initially FiO2 was 100% and later dropped to 60%, tidal volume 550, respiratory rate 30. He was remained acidotic despite this high ventilator requirements and the last PH was 7.22. Patient was treated with IV fluid at 30 mL/kg per hour and also broad-spectrum antibiotic IV vancomycin as per pharmacy , IV meropenem 1 g Q 8 hours, propofol , fentanyl and verseed.. High resolution CT chest showed Nonspecific diffuse ground-glass attenuation possibly representing a combination of pulmonary fibrosis such as UIP or hypersensitivity pneumonitis with superimposed multifocal infection and/or fluid overload. Hyperkalemia likely due to CKD was managed with hyperkalemia protocol management. REHAN On CKD likely due to sepsis was managed with IV fluid, nephrology on board and recommended possible DISK RECOATER. Home medication amiodarone 200 mg p.o. b.i.d. and enoxaparin1 mg/ kg paroxysmal atrial fibrillation with secondary hypercoagulable state. Despite optimal medical treatment the patient's response to treatment was minimal and family change the code status to DNR/DNI. Family especially the daughter who is the POA decided terminal weaning after speaking with other family members and the patient was terminally weaned, extubated at 19:45 PM on 0 10/02/24. Patient at 20:20 PM on 10/02/24. Diagnosis: Acute metabolic encephalopathy, status post mechanical ventilation Possible acute on chronic diastolic heart failur Possible NSTEMI type 2 due to above Paroxysmal atrial fibrillation with secondary hypercoagulable state Status post pacemaker and CABG Coronary artery disease Hypertensive heart disease Acute on chronic hypoxic respiratory failure likely due to superimposed pneumonia on pulmonary fibrosis Idiopathic pulmonary fibrosis Possible community-acquired Gram-positive/Gram-negative pneumonia REHAN on possible CKD likely hemodynamically mediated/VMN Hyperkalemia likely due to REHAN Obesity type 1, BMI 30.9 kg/ m2 Chronic normocytic anemia likely anemia due to chronic disease Possible Gram-positive/Gram-negative pneumonia Sepsis due to above Lactic acidosis and transaminitis due to sepsis Total time spent in summary with terminal weaning and updating the family 81 minutes Consults/Reason for consult Nephrology was consulted Operations or Procedures Procedure: CT HI-RESOLUTION CHEST CT Reason for study/Clinical History: PULMONARY FIBROSIS S/P [facility] Radiation Dose Information: CT Dose: CTDI volume is 25.22 mGy. Dose-length product is 1164.78 mGy*cm The dose indicators for CT are the volume Computed Tomography (CT) Dose Index (CTDIvol) and the Dose Length Product (DLP), and are measured in units of mGy and mGy-cm, respectively. These indicators are not patient dose, but values generated from the CT scanner acquisition factors. The report includes radiation exposure data for exposures received during this examination. FINDINGS: Lower neck: Endotracheal tube in satisfactory position. Lungs: Redemonstration of changes of pulmonary fibrosis including bronchiectasis and honeycomb type changes most prominent throughout the left lung and in the bilateral lung bases. There is diffuse increased ground-glass attenuation throughout the lungs. Heart/Vascular Structures: Cardiomegaly. Coronary artery calcifications. Vascular calcifications of the aorta. Lymph Nodes: No adenopathy Pleura: No pleural effusion or significant pneumothorax. Musculoskeletal: No acute osseous abnormality. Median sternotomy. Degenerative changes of the spine. Soft tissues: Left chest wall pacemaker. Upper abdomen: Enteric catheter in the stomach. IMPRESSION: Nonspecific diffuse ground-glass attenuation possibly representing a combination of pulmonary fibrosis such as UIP or hypersensitivity pneumonitis with superimposed multifocal infection and/or fluid overload. Clinical correlation advised. CHEST RADIOGRAPH Indication: intubation / central line placement FINDINGS: Lines and Tubes: Status post intubation. Endotracheal tube tip projects approximately 2.6 cm above the level of the ruth. Left central venous access catheter terminates at the level of the cavoatrial junction. Lungs: Grossly stable appearing diffuse increased prominence of the pulmonary vasculature bilaterally with more consolidated appearing areas within the lower lung zones. Pleura: No effusion. No pneumothorax. Cardiomediastinal contours: Unremarkable Bones: Unremarkable IMPRESSION: 1. Stable appearing diffuse bilateral increased prominence of the pulmonary interstitium and vasculature with consolidative features within the lower lung zones. 2. Status post intubation and placement of left central venous access catheter. EXAM: Two-dimensional and M-mode echocardiogram with Doppler and color Doppler. Blood Pressure: 99/52 mmHg INDICATION Heart Failure RISK FACTORS Height: 5'9", Weight: 209 DIMENSIONS LVDd 4.3 (3.8-5.7cm) LA (2D) 4.1 (1.9-4.0cm) Aortic Root 3.5 (2.0- 3.7cm) LVDs 3.0 (2.5-4.0cm) LA (MM) (1.9-4.0cm) Aortic Cusp Exc 2.0 (1.5- 2.0cm) EF (%) 60.0 (55-70%) Rt. Atrium 4.1 (1.9-4.0cm) Asc. Aorta 3.5 cm IVSd 1.1 (0.7-1.1cm) RV (D) (1.8-2.4cm) PWd 1.0 (0.7-1.1cm) Mitral Valve Mitral Mitral Stenosis E wave 0.57m/s MV Mean GR. mmHg A wave 0.81m/s MV Peak GR. mmHg E/A ratio 0.7 2D MVA cm2 DECEL Time 222ms PRESS 1/2 Time ms Aortic Valve Aortic Valve Aortic Stenosis V1 1.09m/s AO Mean GR. 5mmHg V2 1.57m/s AO Peak GR. 10mmHg LVOT Diameter 2.2 (1.8-2.4cm) Doppler COLLEEN 2.64cm2 AI P 1/2 Time 254.42ms Pulmonic Valve V2 0.77m/s Tricuspid Valve TR Velocity 3.00m/s RVSP 51mmHg Conclusion Sinus rhythm. Biatrial enlargement. Concentric LVH. Mild aortic sclerosis. Left ventricular function is preserved at 55% with normal RV function. There is mild aortic insufficiency. Moderate tricuspid regurgitation with [id number] pulmonary hypertension. No pericardial effusion masses or vegetations. Final Diagnosis/Problems List 1. Cardiac arrest 2. Acute on chronic hypoxic/hypercapnic respiratory failure 3. REHAN on CKD secondary to hemodynamically mediated/VMN 4. Pulmonary fibrosis Acute metabolic encephalopathy, status post mechanical ventilation Possible acute on chronic diastolic heart failur Possible NSTEMI type 2 due to above Paroxysmal atrial fibrillation with secondary hypercoagulable state Status post pacemaker and CABG Coronary artery disease Hypertensive heart disease Acute on chronic hypoxic respiratory failure likely due to superimposed pneumonia on pulmonary fibrosis Idiopathic pulmonary fibrosis Possible community-acquired Gram-positive/Gram-negative pneumonia REHAN on possible CKD likely hemodynamically mediated/VMN Hyperkalemia likely due to REHAN Obesity type 1, BMI 30.9 kg/ m2 Chronic normocytic anemia likely anemia due to chronic disease Possible Gram-positive/Gram-negative pneumonia Sepsis due to above Lactic acidosis and transaminitis due to sepsis [facility]ALDRON RESIDENT October 03, 2024 06:19
[2024-10-03] MEDS ORDERED: SODIUM CHL 0.9% 1000 ML BAG XX ONE (07:00)
--- NOTE | 2024-10-03 09:01 | ECG ---
[facility] Test Date: 2024-09-29 Test Time: 23:50:10 Pat Name: CAHNEL BELL Department: icu Room: [address] [place] [address] A Gender: M [employer] Operator: power : [id number] Requested By: ERIN LOPEZ Order Number: [id number] Reading MD: Measurements Intervals [place] Rate: 109 P: 0 WI: 56 QRS: 36 QRSD: 140 T: 16 QT: 375 QTc: 506 Interpretive Statements Ventricular-paced complexes No further rhythm analysis attempted due to paced rhythm Right bundle branch block Artifact in lead(s) V3 and baseline wander in lead(s) V1,V2 Please click the below link to view image of tracing.
[2024-10-03] MEDS ORDERED: EPOETIN ALFA-EPBX 10,000 UNIT/1ML VIAL SC ONE (21:00)
== END 2024-10-02 20:20 | DRG 871 ==
LOC: EDBD 21:47 → ER 21:47 → OVERFLOW 09-29 01:37 → ICU WEST 09-29 04:49
PROVIDERS: ADMIT Internal Medicine; ATTEND Internal Medicine
PROC: 5A09357 Assistance with Respiratory Ventilation, Less than 24 Consecutive Hours, Continuous Positive Airway Pressure (ICD-10-PCS; 2024-09-28)
PROC: 0BH17EZ Insertion of Endotracheal Airway into Trachea, Via Natural or Artificial Opening (ICD-10-PCS; principal; 2024-09-29)
PROC: 5A1945Z Respiratory Ventilation, 24-96 Consecutive Hours (ICD-10-PCS; 2024-09-29)
PROC: 02HV33Z Insertion of Infusion Device into Superior Vena Cava, Percutaneous Approach (ICD-10-PCS; 2024-09-29)
PROC: B548ZZA Ultrasonography of Superior Vena Cava, Guidance (ICD-10-PCS; 2024-09-29)
PROC: 5A09357 Assistance with Respiratory Ventilation, Less than 24 Consecutive Hours, Continuous Positive Airway Pressure (ICD-10-PCS; 2024-09-29)
DX: A41.59 Other Gram-negative sepsis (principal); G93.41 Metabolic encephalopathy; I21.A1 Myocardial infarction type 2; N17.0 Acute kidney failure with tubular necrosis; J15.69 Pneumonia due to other Gram-negative bacteria; I50.33 Acute on chronic diastolic (congestive) heart failure; J96.21 Acute and chronic respiratory failure with hypoxia; R65.21 Severe sepsis with septic shock; J15.9 Unspecified bacterial pneumonia; J96.22 Acute and chronic respiratory failure with hypercapnia; I13.0 Hypertensive heart and chronic kidney disease with heart failure and stage 1 through stage 4 chronic kidney disease, or unspecified chronic kidney disease; E87.20 Acidosis, unspecified; J44.0 Chronic obstructive pulmonary disease with (acute) lower respiratory infection; Z99.11 Dependence on respirator [ventilator] status; D68.69 Other thrombophilia; I16.0 Hypertensive urgency; Z66 Do not resuscitate; Z20.822 Contact with and (suspected) exposure to COVID-19; I25.10 Atherosclerotic heart disease of native coronary artery without angina pectoris; J84.112 Idiopathic pulmonary fibrosis; I46.9 Cardiac arrest, cause unspecified; I48.0 Paroxysmal atrial fibrillation; E87.5 Hyperkalemia; D63.8 Anemia in other chronic diseases classified elsewhere; E66.9 Obesity, unspecified; N40.0 Benign prostatic hyperplasia without lower urinary tract symptoms; E78.5 Hyperlipidemia, unspecified; I27.20 Pulmonary hypertension, unspecified; N18.31 Chronic kidney disease, stage 3a; Z68.30 Body mass index [BMI] 30.0-30.9, adult; Z95.0 Presence of cardiac pacemaker; Z95.1 Presence of aortocoronary bypass graft; Z83.3 Family history of diabetes mellitus; Z82.49 Family history of ischemic heart disease and other diseases of the circulatory system; Z88.5 Allergy status to narcotic agent; Z79.01 Long term (current) use of anticoagulants; Z79.899 Other long term (current) drug therapy; Z80.8 Family history of malignant neoplasm of other organs or systems; Z82.0 Family history of epilepsy and other diseases of the nervous system; Z99.81 Dependence on supplemental oxygen; Z85.038 Personal history of other malignant neoplasm of large intestine; Z85.46 Personal history of malignant neoplasm of prostate
CPT/HCPCS: 31500; 36415; 36556; 36600; 71045; 71250; 76700; 80048; 80053; 80061; 80202; 80307; 81001; 82306; 82565; 82607; 82805; 82962; 83036; 83605; 83690; 83735; 83880; 84100; 84132; 84443; 84484; 85007; 85025; 85027; 85610; 85730; 86141; 87040; 87070; 87081; 87086; 87205; 87426; 87804; 93005; 93306; 93970; 94002; 94003; 94640; 94660; 96361; 96374; 96375; 99291; G0378; J2185; J2470; J2543; J2704; J3490